=== PATIENT | male | born 1965 | race Caucasian/White ===

== ENCOUNTER 2020-06-26 08:17 | Outpatient (REF) | payer OTHER, SELFPAY | END 2020-06-26 08:18 | disposition home or self-care (01) | LOC: HO.LAB 08:17 | PROVIDERS: Visit Provider Internal Medicine | DX: Z20.822 Contact with and (suspected) exposure to COVID-19 (principal) | CPT/HCPCS: 36415; C9803; U0003 ==

== ENCOUNTER 2021-03-22 10:13 | Outpatient (REF) | payer OTHER, SELFPAY ==
[2021-03-22 11:09] LABS: MANUAL DIFF FLAG NO
[2021-03-22 11:12] LABS: Basophils Absolute Auto 0.1 X10*3/uL (0.0-0.2); Basophils Percent Auto 0.9 % (0-2); Eosinophils Absolute Auto 0.4 X10*3/uL (0.0-0.4); Eosinophils Percent Auto 5.5 % (0-4); Imm Gran Abs Auto 0.06 X10*3/uL (0.00-0.03); Imm Gran Pct Auto 0.9 % (0.0-0.4); Lymphocytes Absolute Auto 1.3 X10*3/uL (1.2-4.9); Lymphocytes Percent Auto 18.3 % (20-40); Mean Corpuscular HGB Conc 33.3 g/dl (31.0-36.0); Mean Corpuscular Hemoglobin 29.1 pg (27.0-33.0); Mean Corpuscular Volume 87.3 fL (80-98); Mean Platelet Volume 10.6 fL (9.4-12.4); Monocytes Absolute Auto 0.7 X10*3/uL (0.1-1.2); Monocytes Percent Auto 9.9 % (2-11); Neutrophils Absolute Auto 4.4 X10*3/uL (2.0-8.3); Neutrophils Percent Auto 64.5 % (45-73); Platelet Count 264 X10*3/uL (160-400); Red Blood Count 4.81 X10*6/uL (4.60-5.80); Red Cell Distribution Width 12.4 % (11.0-16.0); White Blood Count 6.9 X10*3/uL (4.8-10.8)
[2021-03-22 11:23] LABS: Estimated Average Glucose 146 mg/dL; Hemoglobin A1c % 6.7 %
[2021-03-22 11:31] LABS: Creatinine Urine 149.59 mg/dL
[2021-03-22 11:33] LABS: Alanine Aminotransferase 38 U/L (0-40); Albumin Level 4.3 g/dL (3.5-5.0); Alkaline Phosphatase 63 U/L (39-117); Anion Gap 13 (12-20); Aspartate Amino Transferase 27 U/L (5-37); Bilirubin Total 0.4 mg/dL (0.0-1.0); Blood Urea Nitrogen 17 mg/dL (9-16); Calcium 9.5 mg/dL (8.4-10.2); Carbon Dioxide 28 mmol/L (22-29); Chloride 104 mmol/L (96-108); Cholesterol 229 mg/dL; Estimated Glomerular Filt Rate > 60; Glucose Fasting 119 mg/dL (60-99); HDL Cholesterol 44 mg/dL; LDL Cholesterol Calculated 156 mg/dl; Potassium 4.6 mmol/L (3.3-5.1); Sodium 140 mmol/L (135-145); Total Protein 6.4 g/dL (6.5-8.0); Triglycerides 145 mg/dL
== END 2021-03-22 10:14 | disposition home or self-care (01) ==
LOC: HO.HMGCLDS 10:13
PROVIDERS: PCP Internal Medicine; Visit Provider Internal Medicine
DX: Z00.00 Encounter for general adult medical examination without abnormal findings (principal); E11.9 Type 2 diabetes mellitus without complications
CPT/HCPCS: 36415; 80053; 80061; 82043; 83036; 85025

== ENCOUNTER 2021-08-20 06:48 | Outpatient (REF) | payer OTHER, SELFPAY ==
[2021-08-20 07:57] LABS: Alanine Aminotransferase 62 U/L (0-40); Albumin Level 4.5 g/dL (3.5-5.0); Alkaline Phosphatase 75 U/L (39-117); Anion Gap 13 (12-20); Aspartate Amino Transferase 34 U/L (5-37); Bilirubin Total 0.6 mg/dL (0.0-1.0); Blood Urea Nitrogen 21 mg/dL (9-16); Carbon Dioxide 29 mmol/L (22-29); Chloride 100 mmol/L (96-108); Cholesterol 243 mg/dL; Estimated Glomerular Filt Rate > 60; Glucose Fasting 162 mg/dL (60-99); HDL Cholesterol 43 mg/dL; LDL Cholesterol Calculated 165 mg/dl; Potassium 4.5 mmol/L (3.3-5.1); Sodium 137 mmol/L (135-145); Total Protein 7.2 g/dL (6.5-8.0); Triglycerides 175 mg/dL
[2021-08-20 08:05] LABS: Estimated Average Glucose 146 mg/dL; Hemoglobin A1c % 6.7 %
[2021-08-20 08:25] LABS: TSH reflex Free T4 1.48 uIU/mL (0.32-4.0)
[2021-08-20 08:58] LABS: Prostate Specific Antigen Scr 0.44 ng/mL (<0.05-4.0)
== END 2021-08-20 06:49 | disposition home or self-care (01) ==
LOC: HO.LAB 06:48
PROVIDERS: PCP Physician Assistant; Visit Provider Physician Assistant
DX: E11.69 Type 2 diabetes mellitus with other specified complication (principal); E66.9 Obesity, unspecified; I25.10 Atherosclerotic heart disease of native coronary artery without angina pectoris; Z12.5 Encounter for screening for malignant neoplasm of prostate
CPT/HCPCS: 36415; 80053; 80061; 83036; 84153; 84443

== ENCOUNTER 2021-10-09 09:03 | Outpatient (REF) | payer OTHER, SELFPAY ==
--- NOTE | 2021-10-09 09:07 | EMG_ITS ---
Bilateral tibial and peroneal motor studies were performed. Bilateral sural and superficial peroneal sensory studies were performed. Tibial H reflexes were obtained and paraspinal muscles were tested with a needle. IMPRESSION: 1. 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 2. Chronic bilateral lower lumbar radiculopathy. MD JATIN Breaux/JAVI / [id number]
== END 2021-10-09 09:04 | disposition home or self-care (01) ==
LOC: HO.NEURO 09:03
PROVIDERS: Visit Provider Physician Assistant
DX: E11.42 Type 2 diabetes mellitus with diabetic polyneuropathy (principal)
CPT/HCPCS: 95886; 95911

== ENCOUNTER 2022-09-13 16:13 | Emergency (ER) | payer OTHER, SELFPAY ==
--- NOTE | ~2022-09-13 | XR_ITS ---
EXAMINATION: XR CHEST CLINICAL INFORMATION: SOB COMPARISON: None available. TECHNIQUE: Frontal view of the chest was obtained. FINDINGS: No significant abnormality is noted involving the heart, lungs, mediastinum, bony thorax or soft tissues. XR/XR chest 1V IMPRESSION: Unremarkable chest examination.
--- NOTE | ~2022-09-13 | CT_ITS ---
EXAMINATION: CT ANGIOGRAM OF CHEST PE PROTOCOL CT ABDOMEN AND PELVIS WITH INTRAVENOUS CONTRAST CLINICAL INFORMATION: Tachycardia, chest pain, shortness of breath on exertion. Left lower quadrant abdominal pain. CVA tenderness. COMPARISON: Chest x-ray of 09/13/2022. TECHNIQUE: A few noncontrast axial images of the chest are obtained for contrast localization purposes. Following intravenous administration of 85 mL of Omnipaque [address] imaging of the chest is acquired as per protocol to evaluate for pulmonary embolism. Postprocessing is performed at a dedicated workstation. Multiplanar reformatted images and vascular MIPS are submitted for review. Following acquisition of the chest CT, multidetector volumetric CT imaging of the abdomen and pelvis is acquired. Postprocessing is performed at a dedicated workstation. Multiplanar reformatted images are submitted. This CT scan was performed using dose optimization techniques as appropriate to a performed exam including the following: *Automated exposure control *Adjustment of mA and/or kV according to patient size (this includes techniques or standardized protocols for targeted exams were dose is matched to indication/reason for exam; i.e. extremities or head) *Use of iterative reconstruction technique. Total exam dose-length product: 1136 mGy-cm FINDINGS: CHEST: VASCULAR: There is suboptimal opacification of the pulmonary arterial tree; however, there is no evidence of central pulmonary emboli. Evaluation in the lobar and segmental branches is somewhat limited. Aorta is normal in caliber and well opacified. No evidence of aortic dissection. MEDIASTINUM: [place] coronary calcifications. Post-surgical changes of cardiac bypass are noted. No pericardial effusion. Trachea and central bronchi are well patent. No evidence of mediastinal or hilar adenopathy. LUNG: No nodules, mass, or focal consolidation. PLEURA: No pleural effusion. No pneumothorax. No pleural mass or thickening. THYROID GLAND: No focal nodule is seen in the visualized thyroid. CHEST WALL/AXILLA: Unremarkable. ABDOMEN/PELVIS: LIVER: The liver is mildly prominent in size. There is diffuse low-attenuation of hepatic parenchyma consistent with steatosis. Subtle contour nodularity is noted specifically along the left hepatic lobe. In the background of hepatic steatosis no focal liver lesion is seen. GALLBLADDER, AND BILIARY TREE: The gallbladder is unremarkable with no evidence of radiopaque gallstones, gallbladder wall thickening, or obvious pericholecystic inflammatory changes. PANCREAS: Normal; no mass or surrounding fluid. SPLEEN: Normal size. No focal lesion. Small splenic calcification is noted. ADRENAL GLANDS: Normal; no mass. KIDNEYS AND URETERS: The kidneys are normal in size, shape and attenuation. There is symmetrical enhancement of the kidneys. Multiple hypodense lesions are noted in the left kidney with the largest one measuring 2.2 cm which represents a cyst by CT Hounsfield units criteria. A 1.3 cm lesion in the upper pole of the left kidney anteriorly and 1.1 cm lesion in the lower pole of the left kidney laterally do not represent simple cysts by CT Hounsfield units criteria. A 0.8 cm low-attenuation arising from the mid to lower left kidney laterally represents a cyst by CT Hounsfield units criteria. A 6.4 x 5.5 x 6.6 cm low-attenuation lesion is noted extending from the renal sinus inferiorly represents a cystic lesion by CT Hounsfield units criteria. No evidence of radiopaque urinary tract calculi. URINARY BLADDER: No focal mass or wall thickening seen. No bladder calculi. GASTROINTESTINAL TRACT: The stomach is partially distended and grossly unremarkable. No abnormal small bowel dilatation. Colon is normal in caliber. No evidence of colonic wall thickening or pericolonic fat stranding. An appendix is normal. Diffuse colonic diverticulosis without acute diverticulitis. Moderate stool burden is noted in the colon. VASCULAR STRUCTURES: Saccular infrarenal abdominal aortic aneurysm is noted with maximum transverse diameter of 4.0 cm. Moderate calcific atherosclerosis of the aortoiliac vessels. LYMPH NODES: No evidence of pathologically-enlarged lymph nodes. PELVIC VISCERA: Unremarkable. FREE FLUID: None. ABDOMINAL WALL: Fat-containing umbilical hernia is noted measuring 3.8 x 2.9 x 4.5 cm. OSSEOUS STRUCTURES: No evidence of acute or suspicious osseous lesions in the chest, abdomen and pelvis. Sternotomy is well fused. Sternotomy wires appear intact. Mild degenerative changes in the lower thoracic spine and lower lumbar spine. Sclerotic density in the left femoral head has nonaggressive appearance and likely represents a bone island. CT/CT angio chest PE protocol IMPRESSION: 1. No evidence of central pulmonary emboli. Evaluation of the lobar and segmental pulmonary arteries is somewhat limited due to suboptimal opacification of the pulmonary arterial tree. 2. No acute abnormality in the chest. 3. Diffuse hepatic steatosis. Subtle contour nodularity in the left hepatic lobe raises possibility of cirrhosis. No focal liver lesion is seen. 4. Saccular infrarenal abdominal aortic aneurysm with maximum transverse diameter of 4.0 cm. Recommend annual follow up imaging. Recommend vascular consultation. 5. Colonic diverticulosis without acute diverticulitis. 6. Multiple hypodense left renal lesions do not represent simple cysts by CT Hounsfield units criteria. Recommend further evaluation with renal ultrasound. A large hypodense cystic right renal lesion measuring 6.6 cm in maximum dimension may represent large peripelvic cyst versus focal caliectasis. VTE: Indeterminate. The findings were discussed with referring provider Kesha Domingo, nurse practitioner on 09/13/2022 at 7:08 PM.
--- NOTE | 2022-09-13 16:18 | ECG_ITS ---
Test Reason : SOB Blood Pressure : / mmHG Vent. Rate : 110 BPM Atrial Rate : 110 BPM P-R Int : 174 ms QRS Dur : 092 ms QT Int : 352 ms P-R-T Axes : 074 049 049 degrees QTc Int : 476 ms Sinus tachycardia Otherwise normal ECG When compared with ECG of 04-APR-2017 07:32, No significant change was found Referred By: Jaxson Man Electronically Signed By:Jared Gallo
[2022-09-13 16:24] VITALS: BP 126/87; PULSE 110; RESP 18; TEMP 37; O2SAT 97; BMI 33.1
--- NOTE | 2022-09-13 16:24 | ED.GENADULT ---
HPI - General Adult General Chief complaint: General Medical <BEVERLY Landeros - Last Filed: 09/13/22 16:26> Stated complaint: difficulty breathing, muscle spasms <BEVERLY Landeros - Last Filed: 09/13/22 16:26> Time Seen by Provider: 09/13/22 16:30 <BEVERLY Landeros - Last Filed: 09/13/22 16:26> Source: patient <Kesha Domingo NP - Last Filed: 09/13/22 23:48> Mode of arrival: ambulatory <Kesha Domingo NP - Last Filed: 09/13/22 23:48> Limitations: no limitations <Kesha Domingo NP - Last Filed: 09/13/22 23:48> History of Present Illness HPI narrative: 57-year-old male presents with 1 week of substernal chest pressure, shortness of breath, shortness of breath on exertion, cough, congestion, and abdominal spasming with tachycardia. <Kesha Domingo NP - Last Filed: 09/13/22 23:48> Onset (ago): week(s) (1) <Kesha Domingo NP - Last Filed: 09/13/22 23:48> Location: chest and abdomen <Kesha Domingo NP - Last Filed: 09/13/22 23:48> Radiation: back <Kesha Domingo NP - Last Filed: 09/13/22 23:48> Severity: moderate <Kesha Domingo NP - Last Filed: 09/13/22 23:48> Severity scale (1-10): 7 <Kesha Domingo NP - Last Filed: 09/13/22 23:48> Quality: aching <Kesha Domingo NP - Last Filed: 09/13/22 23:48> Pain Consistency: intermittent and colicky <Kesha Domingo NP - Last Filed: 09/13/22 23:48> Relieving factors: none <Kesha Domingo NP - Last Filed: 09/13/22 23:48> Exacerbating factors: movement <Kesha Domingo NP - Last Filed: 09/13/22 23:48> Associated symptoms: cough <Kesha Domingo NP - Last Filed: 09/13/22 23:48> Treatments prior to arrival: none <Kesha Domingo NP - Last Filed: 09/13/22 23:48> Related Data Home medications: Home Medications Medication Instructions Recorded Confirmed aspirin 81 mg tablet,delayed 81 mg PO DAILY 04/24/20 04/16/22 release diltiazem HCl 240 mg 240 mg PO DAILY 04/24/20 04/16/22 capsule,extended release 24 hr fluticasone 500 mcg-salmeterol 50 ea inhalation 04/24/20 04/16/22 mcg/dose blistr powdr for inhalation lisinopril 5 mg tablet 5 mg PO DAILY 04/24/20 04/16/22 alcohol swabs (Alcohol Prep Pads) 1 pad topical .three times a day 04/01/21 04/16/22 DX: E11.9 blood sugar diagnostic (FreeStyle 04/01/21 04/16/22 Lite Strips) Previous Rx's Medication Instructions Recorded albuterol sulfate 90 mcg/actuation 2 puff inhalation Q4-6H PRN 07/04/20 aerosol inhaler shortness of breath or wheezing #8.5 grams blood-glucose meter (FreeStyle #1 ea 04/01/21 Lite Meter kit) lancets 28 gauge (FreeStyle #300 ea 04/01/21 Lancets) blood pressure test kit-large #1 ea 06/12/21 tizanidine 2 mg tablet 4 mg PO BEDTIME PRN muscle 06/24/21 spasticity 15 days #30 tabs hydrochlorothiazide 25 mg tablet 25 mg PO DAILY #90 tabs 02/01/22 rosuvastatin 40 mg tablet (Crestor) 40 mg PO DAILY 90 days #90 tabs 03/01/22 citalopram 40 mg tablet 40 mg PO DAILY #90 tabs 06/03/22 gabapentin 400 mg capsule 400 mg PO TID 90 days #270 caps 06/03/22 nirmatrelvir 300 mg (150 mg See Rx Instructions PO .COMPLEX 06/03/22 x2)-ritonavir 100 mg tablet,dose #30 ea pack(EUA) (Paxlovid) dulaglutide 1.5 mg/0.5 mL 1.5 mg (0.5 mL) subcut QWEEK #2 mL 07/21/22 subcutaneous pen injector isosorbide mononitrate 30 mg 30 mg PO BID 90 days #180 tabs 08/25/22 tablet,extended release 24 hr pregabalin 100 mg capsule (Lyrica) 100 mg PO BID 30 days #60 caps 08/25/22 omeprazole 40 mg capsule,delayed 40 mg PO DAILY #90 caps 09/09/22 release <BEVERLY Landeros - Last Filed: 09/13/22 16:26> Allergies/adverse reactions: Allergies Allergy/AdvReac Type Severity Reaction Status Date / Time No Known Allergies Allergy Verified 04/16/22 09:58 [No Known Allergies*] <BEVERLY Landeros - Last Filed: 09/13/22 16:26> Review of Systems Review of Systems: Constitutional: No Fever, No Chills Cardiovascular: Positive substernal Chest Pain, positive SOB, positive palpitations Respiratory: Positive Cough, positive Dyspnea Gastrointestinal: No Nausea, No Vomiting, No Diarrhea, positive abdominal Pain Genitourinary: No Dysuria, No Hematuria Musculoskeletal: No joint pain, No Myalgias, No Joint Swelling Skin: No Skin lacerations, No rash Neuro: No Weakness, No Numbness, No Paresthesias, positive Dizziness, No Headache Psych: Positive Anxiety/Panic, No Depression <Kesha Domingo NP - Last Filed: 09/13/22 23:48> Yes all other systems are reviewed and are negative <Kesha Domingo NP - Last Filed: 09/13/22 23:48> [facility] Past Medical History Attestation statement: The following information was validated with the patient. <Kesha Domingo NP - Last Filed: 09/13/22 23:48> Source: old records reviewed <Kesha Domingo NP - Last Filed: 09/13/22 23:48> Medical History: Medical History Asthma-COPD overlap syndrome Coronary artery disease Diabetes mellitus Diabetic neuropathy Obesity Type 2 diabetes mellitus with obesity <BEVERLY Landeros - Last Filed: 09/13/22 16:26> Surgical History: Surgical History History of herniated intervertebral disc S/P CABG x 3 <BEVERLY Landeros - Last Filed: 09/13/22 16:26> Family History Family History: Family History Father Lung cancer Mother No problems noted. Family/Other Lung cancer Diabetes <BEVERLY Landeros - Last Filed: 09/13/22 16:26> Social History Social History: Social History Housing: House Alcohol intake: never Patient Tobacco Use Status: Former Tobacco user (16 years ago) Tobacco use type: Cigarette e-Cigarette/Vaping Use: Never Used Second Hand Smoke Exposure: No Advance Directives: No Advance Directives Information Provided: No service: No Current occupational status: disabled Cognitive needs: No Hearing needs: No Vision needs: No <BEVERLY Landeros - Last Filed: 09/13/22 16:26> Physical Exam ED Vital Signs: Vital Signs - 24 hr 09/13/22 16:24 09/13/22 19:35 Temperature 98.6 F 97.6 F Pulse Rate 110 H 105 H Respiratory Rate 18 17 Blood Pressure 126/87 131/88 Pulse Oximetry 97 95 Oxygen Delivery Method Room Air Room Air BMI result Body Mass Index 33.1 <BEVERLY Landeros - Last Filed: 09/13/22 16:26> Vital Signs - 24 hr 09/13/22 16:24 09/13/22 19:35 Temperature 98.6 F 97.6 F Pulse Rate 110 H 105 H Respiratory Rate 18 17 Blood Pressure 126/87 131/88 Pulse Oximetry 97 95 Oxygen Delivery Method Room Air Room Air BMI result Body Mass Index 33.1 <Kesha Domingo NP - Last Filed: 09/13/22 23:48> Appearance: Alert. Oriented X3. Moderate distress. Eyes: Pupils equal, round and reactive to light. Sclera nonicteric. EOMI. ENT: Pharynx normal. Moist mucous membranes. Neck: Normal inspection. Neck supple. No JVD. No vertebral tenderness. No nuchal rigidity. No mastoid tenderness. CVS: Tachycardic heart rate and rhythm. Apical pulse equal pulses to extremities. Respiratory: No respiratory distress. Breath sounds normal. Abdomen: Soft and left lower quadrant tenderness to palpation.. Spasming noted throughout. Left-sided CVA tenderness noted. Skin: Skin warm and dry. Normal skin color. Normal skin turgor. Extremities: No lower extremity edema. Gait balance and coordinated. Neuro: No motor deficit. No sensory deficit. Cranial nerves 2-12 intact. <Kesha Domingo NP - Last Filed: 09/13/22 23:48> Course Course Course Narrative: This is an RME: Additional HPI, ROS, PE not included below will be deferred to primary provider. 57-year-old male history of COPD, hypertension, coronary artery disease, asthma presenting to the emergency department for evaluation of fatigue, malaise, myalgias, shortness of breath only with coughing and exertion, constipation, subjective fevers and chills, abdominal spasming, substernal chest pressure x5 days. Patient's review of systems overwhelmingly positive. No history of DVT or PE or hypercoagulable disorders. Physical exam benign. Slightly tachycardic however anxious. All other vital signs stable patient well-appearing Plan basic labs, imaging, viral testing and cardiac enzyme <BEVERLY Landeros - Last Filed: 09/13/22 16:26> This is an RME: Additional HPI, ROS, PE not included below will be deferred to primary provider. 57-year-old male history of COPD, hypertension, coronary artery disease, asthma presenting to the emergency department for evaluation of fatigue, malaise, myalgias, shortness of breath only with coughing and exertion, constipation, subjective fevers and chills, abdominal spasming, substernal chest pressure x5 days. Patient's review of systems overwhelmingly positive. No history of DVT or PE or hypercoagulable disorders. Physical exam benign. Slightly tachycardic however anxious. All other vital signs stable patient well-appearing Plan basic labs, imaging, viral testing and cardiac enzyme 16:45 57-year-old male presents for increased shortness of breath, tachycardia, pain on inspiration, subjective fevers and chills, worsening shortness of breath on exertion, substernal chest pressure for approximately 5 days and 2 days of abdominal cramping. 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 Patient does have a significant history for CABG, type 2 diabetes insulin-dependent with polyneuropathy, COPD asthma overlap syndrome, and CAD. Considering patient has tachycardia, diabetes, obesity, with shortness of breath on exertion, and substernal chest pain will workup for ACS as well as PE study. 17:08 glucose 520. List pro 10. Patient did not take Trulicity this week. Corrected sodium 139. Troponin is negative. EKG sinus tach, no ST elevation or depression 18:[address] PE study and abdomen pelvis still pending. COVID influenza RSV negative. 19:07 [facility] called for report, while study was suboptimal for small-vessel embolism in lungs, no indication of PE, no acute chest findings, no acute abdominal findings, there are some findings in the kidneys that require outpatient monitoring with renal ultrasound. I did discuss these findings with the patient, plan of care is for patient to follow up with primary for outpatient renal ultrasound bilaterally, and for blood sugar management. Will continue with supportive measures, Tylenol, Motrin, plenty of fluids, and better management of his diabetes with medication compliance. Patient continues to be afebrile, nontoxic, even unlabored respirations, O2 sat 99% on room air. Patient verbalized understanding of and agrees to plan of care discharge home. Verbalized understanding of signs and symptoms indicating need for emergent intervention. <Kesha Domingo NP - Last Filed: 09/13/22 23:48> Medications Administered Discontinued Medications Generic Name Dose Route Start Last Admin Trade Name Freq PRN Reason Stop Dose Admin Insulin Human Lispro 10 unit 09/13/22 17:09 09/13/22 17:19 Insulin Lispro 100 Unit/Ml 3 Ml Vial SUBCUT 09/13/22 17:10 10 unit ONCE ONE Administration Iohexol 100 ml 09/13/22 17:45 09/13/22 17:46 Iohexol 350 Mg/Ml 100 Ml Infus..Btl IV 09/13/22 17:46 85 ml ONCE ONE Administration <BEVERLY Landeros - Last Filed: 09/13/22 16:26> Medications Administered Discontinued Medications Generic Name Dose Route Start Last Admin Trade Name Freq PRN Reason Stop Dose Admin Insulin Human Lispro 10 unit 09/13/22 17:09 09/13/22 17:19 Insulin Lispro 100 Unit/Ml 3 Ml Vial SUBCUT 09/13/22 17:10 10 unit ONCE ONE Administration Iohexol 100 ml 09/13/22 17:45 09/13/22 17:46 Iohexol 350 Mg/Ml 100 Ml Infus..Btl IV 09/13/22 17:46 85 ml ONCE ONE Administration <Kesah Domingo NP - Last Filed: 09/13/22 23:48> Medical Decision Making Differential Diagnosis Differential Diagnoses: The differential diagnosis associated with the presentation includes <Kesha Domingo NP - Last Filed: 09/13/22 23:48> ACS, PE, pneumonia, diverticulitis, renal stones, pyelo, influenza, RSV, COVID <Kesha Domingo NP - Last Filed: 09/13/22 23:48> Admission/Observation Consideration of admission/observation: Escalation of care including admission/observation considered <Kesha Domingo NP - Last Filed: 09/13/22 23:48> If patient has any acute findings on labs or exams, will consider admission <Kesha Domingo NP - Last Filed: 09/13/22 23:48> Lab Data MDM Lab Attestation statement: I reviewed the patient's lab results. <Kesha Domingo NP - Last Filed: 09/13/22 23:48> Result Diagrams: 09/13/22 16:42 09/13/22 16:42 <BEVERLY Landeros - Last Filed: 09/13/22 16:26> Labs: Lab Results 09/13/22 09/13/22 09/13/22 Range/Units 16:42 16:42 16:42 WBC 8.4 (4.8-10.8) X10*3/uL RBC 5.30 (4.60-5.80) X10*6/uL Hgb 15.0 (14.0-18.0) g/dl Hct 44.1 (42.0-52.0) % MCV 83.2 (80.0-98.0) fL MCH 28.3 (27.0-33.0) pg MCHC 34.0 (31.0-36.0) g/dl RDW 12.3 (11.0-16.0) % Plt Count 241 (160-400) X10*3/uL MPV 10.6 (9.4-12.4) fL Immature Gran % (Auto) 0.4 (0.0-0.4) % Neut % (Auto) 76.3 H (45-73) % Lymph % (Auto) 13.5 L (20-40) % [place] % (Auto) 8.2 (2-11) % Eos % (Auto) 1.2 (0-4) % Baso % (Auto) 0.4 (0-2) % Lymph # (Auto) 1.1 L (1.2-4.9) X10*3/uL [place] # (Auto) 0.7 (0.1-1.2) X10*3/uL Eos # (Auto) 0.1 (0.0-0.4) X10*3/uL Baso # (Auto) 0.0 (0.0-0.2) X10*3/uL Abs Immat Gran (auto) 0.03 (0.00-0.03) X10*3/uL Absolute Neuts (auto) 6.4 (2.0-8.3) x10*3/uL Absolute Nucleated RBC 0.000 (0.0-0.012) X10*3/uL Nucleated RBC % (auto) 0.0 (0.0-0.2) /100WBC Sodium 132 L (135-145) mmol/L Potassium 3.3 D (3.3-5.1) mmol/L Chloride 96 (96-108) mmol/L Carbon Dioxide 22 (22-29) mmol/L Anion Gap 17 (12-20) BUN 19 H (9-16) mg/dL Creatinine 1.32 (0.5-1.4) mg/dL Estim Creat Clear Calc 73.9 Estimated GFR 56 POC Glucose (60-115) mg/dL Random Glucose 520 H* (60-115) mg/dL Calcium 8.9 D (8.4-10.2) mg/dL Magnesium 1.9 (1.6-2.6) mg/dL Total Bilirubin 0.7 (0.0-1.0) mg/dL AST 56 H (5-37) U/L ALT 68 H (0-40) U/L Alkaline Phosphatase 86 (39-117) U/L Troponin I High Sens < 3.5 (<3.5-35.0) ng/L B-Natriuretic Peptide (<100) pg/mL Total Protein 6.3 L (6.5-8.0) g/dL Albumin 4.1 (3.5-5.0) g/dL COVID-19 (YASSINE) (Negative) COVID-19 Clin Com Influenza Type A (ALCIDES) (Negative) Influenza Type B (ALCIDES) (Negative) Influenza A & B Note 09/13/22 09/13/22 09/13/22 Range/Units 16:42 16:42 17:10 WBC (4.8-10.8) X10*3/uL RBC (4.60-5.80) X10*6/uL Hgb (14.0-18.0) g/dl Hct (42.0-52.0) % MCV (80.0-98.0) fL MCH (27.0-33.0) pg MCHC (31.0-36.0) g/dl RDW (11.0-16.0) % Plt Count (160-400) X10*3/uL MPV (9.4-12.4) fL Immature Gran % (Auto) (0.0-0.4) % Neut % (Auto) (45-73) % Lymph % (Auto) (20-40) % [place] % (Auto) (2-11) % Eos % (Auto) (0-4) % Baso % (Auto) (0-2) % Lymph # (Auto) (1.2-4.9) X10*3/uL [place] # (Auto) (0.1-1.2) X10*3/uL Eos # (Auto) (0.0-0.4) X10*3/uL Baso # (Auto) (0.0-0.2) X10*3/uL Abs Immat Gran (auto) (0.00-0.03) X10*3/uL Absolute Neuts (auto) (2.0-8.3) x10*3/uL Absolute Nucleated RBC (0.0-0.012) X10*3/uL Nucleated RBC % (auto) (0.0-0.2) /100WBC Sodium (135-145) mmol/L Potassium (3.3-5.1) mmol/L Chloride (96-108) mmol/L Carbon Dioxide (22-29) mmol/L Anion Gap (12-20) BUN (9-16) mg/dL Creatinine (0.5-1.4) mg/dL Estim Creat Clear Calc Estimated GFR POC Glucose (60-115) mg/dL Random Glucose (60-115) mg/dL Calcium (8.4-10.2) mg/dL Magnesium (1.6-2.6) mg/dL Total Bilirubin (0.0-1.0) mg/dL AST (5-37) U/L ALT (0-40) U/L Alkaline Phosphatase (39-117) U/L Troponin I High Sens (<3.5-35.0) ng/L B-Natriuretic Peptide < 10 (<100) pg/mL Total Protein (6.5-8.0) g/dL Albumin (3.5-5.0) g/dL COVID-19 (YASSINE) Negative (Negative) COVID-19 Clin Com See Note Influenza Type A (ALCIDES) Negative (Negative) Influenza Type B (ALCIDES) Negative (Negative) Influenza A & B Note See Note 09/13/22 Range/Units 18:47 WBC (4.8-10.8) X10*3/uL RBC (4.60-5.80) X10*6/uL Hgb (14.0-18.0) g/dl Hct (42.0-52.0) % MCV (80.0-98.0) fL MCH (27.0-33.0) pg MCHC (31.0-36.0) g/dl RDW (11.0-16.0) % Plt Count (160-400) X10*3/uL MPV (9.4-12.4) fL Immature Gran % (Auto) (0.0-0.4) % Neut % (Auto) (45-73) % Lymph % (Auto) (20-40) % [place] % (Auto) (2-11) % Eos % (Auto) (0-4) % Baso % (Auto) (0-2) % Lymph # (Auto) (1.2-4.9) X10*3/uL [place] # (Auto) (0.1-1.2) X10*3/uL Eos # (Auto) (0.0-0.4) X10*3/uL Baso # (Auto) (0.0-0.2) X10*3/uL Abs Immat Gran (auto) (0.00-0.03) X10*3/uL Absolute Neuts (auto) (2.0-8.3) x10*3/uL Absolute Nucleated RBC (0.0-0.012) X10*3/uL Nucleated RBC % (auto) (0.0-0.2) /100WBC Sodium (135-145) mmol/L Potassium (3.3-5.1) mmol/L Chloride (96-108) mmol/L Carbon Dioxide (22-29) mmol/L Anion Gap (12-20) BUN (9-16) mg/dL Creatinine (0.5-1.4) mg/dL Estim Creat Clear Calc Estimated GFR POC Glucose 249 H (60-115) mg/dL Random Glucose (60-115) mg/dL Calcium (8.4-10.2) mg/dL Magnesium (1.6-2.6) mg/dL Total Bilirubin (0.0-1.0) mg/dL AST (5-37) U/L ALT (0-40) U/L Alkaline Phosphatase (39-117) U/L Troponin I High Sens (<3.5-35.0) ng/L B-Natriuretic Peptide (<100) pg/mL Total Protein (6.5-8.0) g/dL Albumin (3.5-5.0) g/dL COVID-19 (YASSINE) (Negative) COVID-19 Clin Com Influenza Type A (ALCIDES) (Negative) Influenza Type B (ALCIDES) (Negative) Influenza A & B Note <BEVERLY Landeros - Last Filed: 09/13/22 16:26> Lab Results 09/13/22 09/13/22 09/13/22 Range/Units 16:42 16:42 16:42 WBC 8.4 (4.8-10.8) X10*3/uL RBC 5.30 (4.60-5.80) X10*6/uL Hgb 15.0 (14.0-18.0) g/dl Hct 44.1 (42.0-52.0) % MCV 83.2 (80.0-98.0) fL MCH 28.3 (27.0-33.0) pg MCHC 34.0 (31.0-36.0) g/dl RDW 12.3 (11.0-16.0) % Plt Count 241 (160-400) X10*3/uL MPV 10.6 (9.4-12.4) fL Immature Gran % (Auto) 0.4 (0.0-0.4) % Neut % (Auto) 76.3 H (45-73) % Lymph % (Auto) 13.5 L (20-40) % [place] % (Auto) 8.2 (2-11) % Eos % (Auto) 1.2 (0-4) % Baso % (Auto) 0.4 (0-2) % Lymph # (Auto) 1.1 L (1.2-4.9) X10*3/uL [place] # (Auto) 0.7 (0.1-1.2) X10*3/uL Eos # (Auto) 0.1 (0.0-0.4) X10*3/uL Baso # (Auto) 0.0 (0.0-0.2) X10*3/uL Abs Immat Gran (auto) 0.03 (0.00-0.03) X10*3/uL Absolute Neuts (auto) 6.4 (2.0-8.3) x10*3/uL Absolute Nucleated RBC 0.000 (0.0-0.012) X10*3/uL Nucleated RBC % (auto) 0.0 (0.0-0.2) /100WBC Sodium 132 L (135-145) mmol/L Potassium 3.3 D (3.3-5.1) mmol/L Chloride 96 (96-108) mmol/L Carbon Dioxide 22 (22-29) mmol/L Anion Gap 17 (12-20) BUN 19 H (9-16) mg/dL Creatinine 1.32 (0.5-1.4) mg/dL Estim Creat Clear Calc 73.9 Estimated GFR 56 POC Glucose (60-115) mg/dL Random Glucose 520 H* (60-115) mg/dL Calcium 8.9 D (8.4-10.2) mg/dL Magnesium 1.9 (1.6-2.6) mg/dL Total Bilirubin 0.7 (0.0-1.0) mg/dL AST 56 H (5-37) U/L ALT 68 H (0-40) U/L Alkaline Phosphatase 86 (39-117) U/L Troponin I High Sens < 3.5 (<3.5-35.0) ng/L B-Natriuretic Peptide (<100) pg/mL Total Protein 6.3 L (6.5-8.0) g/dL Albumin 4.1 (3.5-5.0) g/dL COVID-19 (YASSINE) (Negative) COVID-19 Clin Com Influenza Type A (ALCIDES) (Negative) Influenza Type B (ALCIDES) (Negative) Influenza A & B Note 09/13/22 09/13/22 09/13/22 Range/Units 16:42 16:42 17:10 WBC (4.8-10.8) X10*3/uL RBC (4.60-5.80) X10*6/uL Hgb (14.0-18.0) g/dl Hct (42.0-52.0) % MCV (80.0-98.0) fL MCH (27.0-33.0) pg MCHC (31.0-36.0) g/dl RDW (11.0-16.0) % Plt Count (160-400) X10*3/uL MPV (9.4-12.4) fL Immature Gran % (Auto) (0.0-0.4) % Neut % (Auto) (45-73) % Lymph % (Auto) (20-40) % [place] % (Auto) (2-11) % Eos % (Auto) (0-4) % Baso % (Auto) (0-2) % Lymph # (Auto) (1.2-4.9) X10*3/uL [place] # (Auto) (0.1-1.2) X10*3/uL Eos # (Auto) (0.0-0.4) X10*3/uL Baso # (Auto) (0.0-0.2) X10*3/uL Abs Immat Gran (auto) (0.00-0.03) X10*3/uL Absolute Neuts (auto) (2.0-8.3) x10*3/uL Absolute Nucleated RBC (0.0-0.012) X10*3/uL Nucleated RBC % (auto) (0.0-0.2) /100WBC Sodium (135-145) mmol/L Potassium (3.3-5.1) mmol/L Chloride (96-108) mmol/L Carbon Dioxide (22-29) mmol/L Anion Gap (12-20) BUN (9-16) mg/dL Creatinine (0.5-1.4) mg/dL Estim Creat Clear Calc Estimated GFR POC Glucose (60-115) mg/dL Random Glucose (60-115) mg/dL Calcium (8.4-10.2) mg/dL Magnesium (1.6-2.6) mg/dL Total Bilirubin (0.0-1.0) mg/dL AST (5-37) U/L ALT (0-40) U/L Alkaline Phosphatase (39-117) U/L Troponin I High Sens (<3.5-35.0) ng/L B-Natriuretic Peptide < 10 (<100) pg/mL Total Protein (6.5-8.0) g/dL Albumin (3.5-5.0) g/dL COVID-19 ([facility]INE) Negative (Negative) COVID-19 Clin Com See Note Influenza Type A (ALCIDES) Negative (Negative) Influenza Type B (ALCIDES) Negative (Negative) Influenza A & B Note See Note 09/13/22 Range/Units 18:47 WBC (4.8-10.8) X10*3/uL RBC (4.60-5.80) X10*6/uL Hgb (14.0-18.0) g/dl Hct (42.0-52.0) % MCV (80.0-98.0) fL MCH (27.0-33.0) pg MCHC (31.0-36.0) g/dl RDW (11.0-16.0) % Plt Count (160-400) X10*3/uL MPV (9.4-12.4) fL Immature Gran % (Auto) (0.0-0.4) % Neut % (Auto) (45-73) % Lymph % (Auto) (20-40) % [place] % (Auto) (2-11) % Eos % (Auto) (0-4) % Baso % (Auto) (0-2) % Lymph # (Auto) (1.2-4.9) X10*3/uL [place] # (Auto) (0.1-1.2) X10*3/uL Eos # (Auto) (0.0-0.4) X10*3/uL Baso # (Auto) (0.0-0.2) X10*3/uL Abs Immat Gran (auto) (0.00-0.03) X10*3/uL Absolute Neuts (auto) (2.0-8.3) x10*3/uL Absolute Nucleated RBC (0.0-0.012) X10*3/uL Nucleated RBC % (auto) (0.0-0.2) /100WBC Sodium (135-145) mmol/L Potassium (3.3-5.1) mmol/L Chloride (96-108) mmol/L Carbon Dioxide (22-29) mmol/L Anion Gap (12-20) BUN (9-16) mg/dL Creatinine (0.5-1.4) mg/dL Estim Creat Clear Calc Estimated GFR POC Glucose 249 H (60-115) mg/dL Random Glucose (60-115) mg/dL Calcium (8.4-10.2) mg/dL Magnesium (1.6-2.6) mg/dL Total Bilirubin (0.0-1.0) mg/dL AST (5-37) U/L ALT (0-40) U/L Alkaline Phosphatase (39-117) U/L Troponin I High Sens (<3.5-35.0) ng/L B-Natriuretic Peptide (<100) pg/mL Total Protein (6.5-8.0) g/dL Albumin (3.5-5.0) g/dL COVID-19 (YASSINE) (Negative) COVID-19 Clin Com Influenza Type A (ALCIDES) (Negative) Influenza Type B (ALCIDES) (Negative) Influenza A & B Note <Kesha Domingo, [employer] - Last Filed: 09/13/22 23:48> Independent Interpretation I performed an independent interpretation of an: EKG, Plain X-Ray and CT Scan <Kesha ManriquezPATSY young - Last Filed: 09/13/22 23:48> Interpretation: Sinus tachycardia Otherwise normal ECG When compared with ECG of 04-APR-2017 07:32, No significant change was found Vent. rate 110 BPM GA interval 174 ms QRS duration 92 ms QT/QTc 352/476 ms P-R-T axes 74 49 49 13-SEP-2022 16:35:00 <Kesha ManriquezPATSY young - Last Filed: 09/13/22 23:48> Radiology Impression Discussion of test interpretation with radiology: I have reviewed the radiologist's reading. <Kesha PATSY Domingo - Last Filed: 09/13/22 23:48> Radiologist Impression: EXAMINATION: XR CHEST CLINICAL INFORMATION: SOB COMPARISON: None available. TECHNIQUE: Frontal view of the chest was obtained. FINDINGS: No significant abnormality is noted involving the heart, lungs, mediastinum, bony thorax or soft tissues. XR/XR chest 1V IMPRESSION: Unremarkable chest examination. ? FINDINGS: CHEST: VASCULAR: There is suboptimal opacification of the pulmonary arterial tree; however, there is no evidence of central pulmonary emboli. Evaluation in the lobar and segmental branches is somewhat limited. Aorta is normal in caliber and well opacified. No evidence of aortic dissection. MEDIASTINUM:? [place] coronary calcifications. Post-surgical changes of cardiac bypass are noted. No pericardial effusion. Trachea and central bronchi are well patent. No evidence of mediastinal or hilar adenopathy. LUNG: No nodules, mass, or focal consolidation. PLEURA: No pleural effusion. No pneumothorax.? No pleural mass or thickening. THYROID GLAND: No focal nodule is seen in the visualized thyroid. CHEST WALL/AXILLA: Unremarkable. ABDOMEN/PELVIS: LIVER: The liver is mildly prominent in size. There is diffuse low-attenuation of hepatic parenchyma consistent with steatosis. Subtle contour nodularity is noted specifically along the left hepatic lobe. In the background of hepatic steatosis no focal liver lesion is seen. GALLBLADDER, AND BILIARY TREE: The gallbladder is unremarkable with no evidence of radiopaque gallstones, gallbladder wall thickening, or obvious pericholecystic inflammatory changes. PANCREAS: Normal; no mass or surrounding fluid.? SPLEEN: Normal size.? No focal lesion. Small splenic calcification is noted. ADRENAL GLANDS: Normal; no mass.? KIDNEYS AND URETERS: The kidneys are normal in size, shape and attenuation. There is symmetrical enhancement of the kidneys. Multiple hypodense lesions are noted in the left kidney with the largest one measuring 2.2 cm which represents a cyst by CT Hounsfield units criteria. A 1.3 cm lesion in the upper pole of the left kidney anteriorly and 1.1 cm lesion in the lower pole of the left kidney laterally do not represent simple cysts by CT Hounsfield units criteria. A 0.8 cm low-attenuation arising from the mid to lower left kidney laterally represents a cyst by CT Hounsfield units criteria. A 6.4 x 5.5 x 6.6 cm low-attenuation lesion is noted extending from the renal sinus inferiorly represents a cystic lesion by CT Hounsfield units criteria. No evidence of radiopaque urinary tract calculi. URINARY BLADDER: No focal mass or wall thickening seen. No bladder calculi.? GASTROINTESTINAL TRACT: The stomach is partially distended and grossly unremarkable. No abnormal small bowel dilatation. Colon is normal in caliber. No evidence of colonic wall thickening or pericolonic fat stranding. An appendix is normal. Diffuse colonic diverticulosis without acute diverticulitis. Moderate stool burden is noted in the colon. VASCULAR STRUCTURES: Saccular infrarenal abdominal aortic aneurysm is noted with maximum transverse diameter of 4.0 cm. Moderate calcific atherosclerosis of the aortoiliac vessels. LYMPH NODES: No evidence of pathologically-enlarged lymph nodes.? PELVIC VISCERA: Unremarkable. FREE FLUID: None. ABDOMINAL WALL: Fat-containing umbilical hernia is noted measuring 3.8 x 2.9 x 4.5 cm. OSSEOUS STRUCTURES: No evidence of acute or suspicious osseous lesions in the chest, abdomen and pelvis. Sternotomy is well fused. Sternotomy wires appear intact. Mild degenerative changes in the lower thoracic spine and lower lumbar spine. Sclerotic density in the left femoral head has nonaggressive appearance and likely represents a bone island. CT/CT angio chest PE protocol IMPRESSION: 1.? No evidence of central pulmonary emboli. Evaluation of the lobar and segmental pulmonary arteries is somewhat limited due to suboptimal opacification of the pulmonary arterial tree. ? 2.? No acute abnormality in the chest. ? 3.? Diffuse hepatic steatosis. Subtle contour nodularity in the left hepatic lobe raises possibility of cirrhosis. No focal liver lesion is seen. ? 4.? Saccular infrarenal abdominal aortic aneurysm with maximum transverse diameter of 4.0 cm. Recommend annual follow up imaging. Recommend vascular consultation. ? 5.? Colonic diverticulosis without acute diverticulitis. ? 6.? Multiple hypodense left renal lesions do not represent simple cysts by CT Hounsfield units criteria. Recommend further evaluation with renal ultrasound. A large hypodense cystic right renal lesion measuring 6.6 cm in maximum dimension may represent large peripelvic cyst versus focal caliectasis. ? ? ? VTE: Indeterminate. ? The findings were discussed with referring provider Kesha Domingo nurse practitioner on 09/13/2022 at 7:08 PM. <Kesha Domingo NP - Last Filed: 09/13/22 23:48> External Record Review External record reviewed: Outpatient record, Prior outpatient labs and Prior outpatient radiology <Kesha Domingo NP - Last Filed: 09/13/22 23:48> Prescription Management I considered prescription management with: Pain Medication <Kesha Domingo NP - Last Filed: 09/13/22 23:48> Tylenol, Motrin <Kesha Domingo NP - Last Filed: 09/13/22 23:48> Chronic Conditions Patient?s care impacted by: Diabetes and Hypertension <Kesha Domingo NP - Last Filed: 09/13/22 23:48> Scores Heart Score History: -1- moderately suspicious <Kesha Domingo NP - Last Filed: 09/13/22 23:48> ECG: -0- normal <Kesha Domingo NP - Last Filed: 09/13/22 23:48> Age: -1- >45 - <65 <Kesha Domingo NP - Last Filed: 09/13/22 23:48> Risk factory: -1- 1 or 2 risk factors <Kesha Domingo NP - Last Filed: 09/13/22 23:48> Troponin: -0- < or = normal limit <Kesha Domingo NP - Last Filed: 09/13/22 23:48> Score: 3 <Kesha Domingo NP - Last Filed: 09/13/22 23:48> Risk: 1.7% <Kesha Domingo NP - Last Filed: 09/13/22 23:48> Wells PE Clinical symptoms of DVT: 3 <Kesha Domingo NP - Last Filed: 09/13/22 23:48> Heart rate > 100 p/min: 1.5 <Kesha Domingo NP - Last Filed: 09/13/22 23:48> Score: 4.5 <Kesha Domingo NP - Last Filed: 09/13/22 23:48> 2-tier Risk: likely risk (17-53%) <Kesha Domingo NP - Last Filed: 09/13/22 23:48> Discharge Plan Discharge Clinical Impression: Hyperglycemia due to type 2 diabetes mellitus, Abdominal cramping, Breath, shortness, Tachycardia, Chest pain, URI (upper respiratory infection) <BEVERLY Landeros - Last Filed: 09/13/22 16:26> Patient Disposition: Home, Self-Care <BEVERLY Landeros - Last Filed: 09/13/22 16:26> Instructions: Chest Pain (ED), Upper Respiratory Infection (ED), Abdominal Pain (ED), Diabetic Hyperglycemia (ED), Tachycardia (ED) <BEVERLY Landeros - Last Filed: 09/13/22 16:26> Additional Instructions: You were evaluated for multiple concerns. For your chest pain, shortness of breath, and tachycardia, your cardiac workup was negative. Your cardiac enzymes are negative. Low likelihood of acute coronary syndrome at this time. Your CT angio of the chest is negative for pulmonary embolism. No indication of pneumonia For your abdominal pain and cramping, CT of the abdomen pelvis are negative for acute findings. Incidental findings of bilateral renal cysts as well as densities that need to be investigated further as an outpatient. Please follow-up with your primary care physician for outpatient bilateral renal ultrasound. For your elevated glucose, please continue to follow your diabetic medication regimen. Please follow-up with primary care physician for follow-up. Your blood sugar was 520 upon arrival. We did give you 10 units of lispro insulin while you were in the emergency department. For your upper respiratory symptoms, you tested negative for COVID influenza and RSV. This is most likely a viral upper respiratory illness. Continue to use [id number] measures to help with cough, subjective fevers and muscle aches. You do not require antibiotic at this time. Drink plenty of fluids. Alternate Tylenol 650 mg every 6 hours and Motrin 600 mg every 6 hours as needed for pain and fever management. Consider taking these medications 3 hours apart so you have pain and fever management every 3 hours. Write down what time you take these medications to prevent accidental overdose. Motrin is the same medication as Advil and ibuprofen. Tylenol is the same medication as acetaminophen. Thank you for choosing this emergency department for evaluation. Please follow-up with primary care physician as needed. Return to the emergency department for any new, concerning, or worsening symptoms. <BEVERLY Landeros - Last Filed: 09/13/22 16:26> Prescriptions: No Action albuterol sulfate 90 mcg/actuation HFA aerosol inhaler 2 puff inhalation Q4-6H PRN (Reason: shortness of breath or wheezing) Qty: 8.5 1RF (DME) blood-glucose meter [FreeStyle Lite Meter] Kit See Rx Instructions .ROUTE .MEDSUPPLY Qty: 1 1RF Rx Instructions: Use to check blood sugars three times a day (DME) FreeStyle Lite Strips Strip See Rx Instructions .Route Rx Instructions: to check blood sugars three times a day (DME) lancets [FreeStyle Lancets] 28 gauge misc See Rx Instructions .Route Qty: 300 8RF Rx Instructions: three times a day alcohol swabs [Alcohol Prep Pads] Pads, Medicated 1 pad topical .three times a day tizanidine 2 mg tablet 4 mg PO BEDTIME PRN (Reason: muscle spasticity) 15 Days Qty: 30 1RF hydrochlorothiazide 25 mg tablet 25 mg PO DAILY Qty: 90 8RF rosuvastatin [Crestor] 40 mg tablet 40 mg PO DAILY 90 Days Qty: 90 1RF citalopram 40 mg tablet 40 mg PO DAILY Qty: 90 2RF gabapentin 400 mg capsule 400 mg PO TID 90 Days Qty: 270 2RF Paxlovid (EUA) 300 mg (150 mg x 2)-100 mg tablets,dose pack See Rx Instructions PO .COMPLEX Qty: 30 0RF Rx Instructions: take TWO 150 mg tablets of nirmatrelvir with ONE 100 mg tablet of ritonavir twice daily for 5 days PO dulaglutide 1.5 mg/0.5 mL pen injector 1.5 mg subcut QWEEK Qty: 2 8RF isosorbide mononitrate 30 mg tablet extended release 24 hr 30 mg PO BID 90 Days Qty: 180 1RF pregabalin [Lyrica] 100 mg capsule 100 mg PO BID 30 Days Qty: 60 3RF omeprazole 40 mg capsule,delayed release(DR/EC) 40 mg PO DAILY Qty: 90 3RF fluticasone propion-salmeterol 500-50 mcg/dose blister with device inhalation lisinopril 5 mg tablet 5 mg PO DAILY diltiazem HCl 240 mg capsule,extended release 24hr 240 mg PO DAILY aspirin 81 mg tablet,delayed release (DR/EC) 81 mg PO DAILY (DME) blood pressure test kit-large Kit See Rx Instructions .Route Qty: 1 0RF Rx Instructions: As directed <BEVERLY Landeros - Last Filed: 09/13/22 16:26> Referrals: Pipe Lizarraga PA-C [Primary Care Provider] - 2 weeks (Outpatient renal ultrasound for abnormal CT abdomen pelvis) <BEVERLY Landeros - Last Filed: 09/13/22 16:26> Interventions: ED Discharge Assessment Last Done: 09/13/22 19:40 <BEVERLY Landeros - Last Filed: 09/13/22 16:26> Discharge Date/Time: 09/13/22 19:39 <BEVERLY Landeros - Last Filed: 09/13/22 16:26>
[2022-09-13 16:47] LABS: MANUAL DIFF FLAG NO
[2022-09-13 16:48] LABS: Basophils Percent Auto 0.4 % (0-2); Eosinophils Absolute Auto 0.1 X10*3/uL (0.0-0.4); Eosinophils Percent Auto 1.2 % (0-4); Hematocrit 44.1 % (42.0-52.0); Imm Gran Abs Auto 0.03 X10*3/uL (0.00-0.03); Imm Gran Pct Auto 0.4 % (0.0-0.4); Lymphocytes Absolute Auto 1.1 X10*3/uL (1.2-4.9); Lymphocytes Percent Auto 13.5 % (20-40); Mean Corpuscular Hemoglobin 28.3 pg (27.0-33.0); Mean Corpuscular Volume 83.2 fL (80.0-98.0); Mean Platelet Volume 10.6 fL (9.4-12.4); Monocytes Absolute Auto 0.7 X10*3/uL (0.1-1.2); Monocytes Percent Auto 8.2 % (2-11); Neutrophils Absolute Auto 6.4 x10*3/uL (2.0-8.3); Neutrophils Percent Auto 76.3 % (45-73); Platelet Count 241 X10*3/uL (160-400); Red Cell Distribution Width 12.3 % (11.0-16.0); White Blood Count 8.4 X10*3/uL (4.8-10.8)
[2022-09-13 17:05] LABS: COVID-19 Test Negative (Negative); IDNOW Serial# 55D5AD1C
[2022-09-13 17:09] LABS: Alanine Aminotransferase 68 U/L (0-40); Albumin Level 4.1 g/dL (3.5-5.0); Alkaline Phosphatase 86 U/L (39-117); Anion Gap 17 (12-20); Aspartate Amino Transferase 56 U/L (5-37); Bilirubin Total 0.7 mg/dL (0.0-1.0); Blood Urea Nitrogen 19 mg/dL (9-16); Calcium 8.9 mg/dL (8.4-10.2); Carbon Dioxide 22 mmol/L (22-29); Chloride 96 mmol/L (96-108); Creatinine Clr Calc Pharmacy 73.9; Estimated Glomerular Filt Rate 56; Glucose Random 520 mg/dL (60-115); Magnesium 1.9 mg/dL (1.6-2.6); Potassium 3.3 mmol/L (3.3-5.1); Sodium 132 mmol/L (135-145); Total Protein 6.3 g/dL (6.5-8.0)
[2022-09-13 17:10] LABS: B Type Natriuretic Peptide < 10 pg/mL (<100)
[2022-09-13] MEDS: Insulin Lispro 100 UNIT/ML 3 ML VIAL 10 UNIT SUBCUT (17:19)
[2022-09-13 17:21] LABS: Troponin-I High Sensitivity < 3.5 ng/L (<3.5-35.0)
[2022-09-13 17:30] LABS: IDNOW Serial# BCCEAD1C; Influenza A Negative (Negative); Influenza B2 Negative (Negative)
[2022-09-13] MEDS: iohexoL 350 MG/ML 100 ML INFUS..BTL IV (17:46)
[2022-09-13 18:55] LABS: Glucose, Whole Blood 249 mg/dL (60-115)
--- NOTE | 2022-09-13 19:06 | PC.NURSE ---
assumed care of pt aox4 no apparent distress no sob, able to speak in full sentences at bedside resting comfortably while watching tv
[2022-09-13 19:35] VITALS: BP 131/88; PULSE 105; RESP 17; TEMP 36.4; O2SAT 95
--- NOTE | 2022-09-13 19:37 | PC.NURSE ---
Discharge instructions given and explained to patient No apparent distress Patient ambulates safely and independently All of patient's questions answered IV cath intact upon removal aox4
== END 2022-09-13 19:39 | disposition home or self-care (01) ==
PROVIDERS: Nurse Practitioner Family; Physician Assistant; Emergency Provider Emergency Medicine Emergency Medical Services; PCP Physician Assistant
DX: E11.65 Type 2 diabetes mellitus with hyperglycemia (principal); R06.02 Shortness of breath; R05.9 Cough, unspecified; M54.50 Low back pain, unspecified; R25.2 Cramp and spasm; R07.89 Other chest pain; J06.9 Acute upper respiratory infection, unspecified; Z20.822 Contact with and (suspected) exposure to COVID-19; Z20.828 Contact with and (suspected) exposure to other viral communicable diseases; Z79.4 Long term (current) use of insulin; Z79.899 Other long term (current) drug therapy
CPT/HCPCS: 71045; 71275; 74177; 80053; 82947; 83735; 83880; 84484; 85025; 87502; 87635; 93005; 99285; Q9967

== ENCOUNTER 2022-10-13 10:11 | Outpatient (REF) | payer OTHER, SELFPAY ==
--- NOTE | ~2022-10-13 | US_ITS ---
EXAMINATION: US RETROPERITONEAL LIMITED (RENAL ONLY) CLINICAL INFORMATION: Cyst of kidney, right renal cyst. 6 cm right renal cyst seen on CT chest. Ultrasound to evaluate. COMPARISON: CT angiogram of chest and CT abdomen and pelvis with intravenous contrast 09/13/2022. TECHNIQUE: Real-time imaging of the kidneys. FINDINGS: RIGHT KIDNEY: 13.1 x 6.4 x 4.5 cm (SAG x AP x TRV). The kidney is normal in size, contour, and echogenicity. Renal cortical thickness is normal. No renal calculi or hydronephrosis. Benign-appearing renal cysts measuring up to 6.7 cm, no follow-up imaging recommended. LEFT KIDNEY: 12.6 x 6.0 x 4.8 cm (SAG x AP x TRV). The kidney is normal in size, contour, and echogenicity. Renal cortical thickness is normal. No renal calculi or hydronephrosis. Benign-appearing renal cysts measuring up to 2.4 cm, no follow-up imaging recommended. US/US renal BI IMPRESSION: Benign-appearing bilateral renal cysts, no follow-up imaging recommended..
== END 2022-10-13 10:12 | disposition home or self-care (01) ==
LOC: HO.US 10:11
PROVIDERS: Visit Provider Physician Assistant
DX: N28.1 Cyst of kidney, acquired (principal)
CPT/HCPCS: 76775

== ENCOUNTER 2022-12-17 08:00 | Outpatient (REF) | payer OTHER, SELFPAY | END 2022-12-17 08:01 | disposition home or self-care (01) | LOC: HO.HMGCLDS 08:00 | PROVIDERS: PCP Physician Assistant; Visit Provider Physician Assistant | DX: Z12.5 Encounter for screening for malignant neoplasm of prostate (principal); I25.10 Atherosclerotic heart disease of native coronary artery without angina pectoris; E66.09 Other obesity due to excess calories; Z68.33 Body mass index [BMI] 33.0-33.9, adult; E78.5 Hyperlipidemia, unspecified; F32.9 Major depressive disorder, single episode, unspecified | CPT/HCPCS: 36415; 80053; 80061; 84153; 84443; 85027 ==

== ENCOUNTER 2022-12-29 08:23 | Outpatient (AMB) | payer OTHER, SELFPAY ==
[2022-12-29 08:33] VITALS: BP 120/80; PULSE 95; O2SAT 96; BMI 32.6
--- NOTE | 2022-12-29 08:33 | A.OFFPC_ITS ---
Vital Signs 12/29/22 08:33 Height 5 ft 10 in Weight 227 lb 4 oz BMI 32.6 BP 120/80 Blood Pressure Location Lt brachial Position Sitting Pulse 95 Pulse Source Pulse Oximeter Pulse Oximetry (%) 96 Oxygen Delivery Method Room Air Intake Visit Reasons: f/u DMII/ CAD/ A1c Technical Support Representative Required: No Accompanied by: Self / Same As Patient Allergies No Known Allergies [No Known Allergies*] Allergy (Verified 12/29/22 08:44) Medication List - Last Reconciled 12/29/22 by Pipe Lizarraga PA-C albuterol sulfate 90 mcg/actuation 2 puffs inhalation Q4-6H PRN alcohol swabs (Alcohol Prep Pads) 1 pad topical .three times a day aspirin 81 mg PO DAILY blood pressure test kit-large As directed blood sugar diagnostic ([employer] Ultra Test strips) As directed blood-glucose meter ([employer] Ultra2 Meter kit) As directed citalopram 40 mg PO DAILY diltiazem HCl 240 mg PO DAILY dulaglutide (Trulicity) 3 mg (0.5 mL) subcut QWEEK 4 weeks fluticasone propion-salmeterol 500-50 mcg/dose ea inhalation gabapentin 400 mg PO TID 90 days hydrochlorothiazide 25 mg PO DAILY insulin aspart U-100 (Novolog FlexPen U-100 Insulin aspart) 10 units (0.1 mL) subcut TID 30 days isosorbide mononitrate ER 30 mg PO BID 90 days lancets (FreeStyle Lancets) three times a day lancets (Opt[employer]a777Touch UltraSoft Lancets) As directed lisinopril 5 mg PO DAILY omeprazole 40 mg PO DAILY pen needle, diabetic (BD Karen 2nd Gen Pen Needle) As directed pregabalin (Lyrica) 150 mg PO BID 30 days rosuvastatin (Crestor) 40 mg PO DAILY 90 days tizanidine 4 mg (2 x 2 mg) PO BEDTIME PRN 15 days Tobacco use date assessed: 12/29/22 Dental Screening Dental Screen Date: 12/29/22 Did you have a dental visit in the last 12 months?: Yes Did you have a dental problem in the last 6 months where you did not have access to dental care?: No Was dental information given to patient?: Patient has dentist HPI f/u DMII/ CAD/ A1c HPI Details Patient is a 57-year-old male here today for a followup.? Patient has a past medical history significant for type 2 diabetes complicated by neuropathy obesity, COPD,? CAD (CAbG 2014). Diabetes--> patient continues on insulin and 3 mg Trulicity weekly. A1c improved though still above goal of 7. --> of note patient was taking short-acting insulin postprandially and advised to start taking it pre pain daily according to sliding scale for better blood sugar controls. Will also add on Actos 15 mg in the morning . .. CAD:? Has recently up with his escalation engineer and continues to complain of chest pain, could not schedule cardiac PET due to claustrophobia. ?Has had multiple coronary bypasses in the past. ?is followed by a escalation engineer at [facility] annually.? Most recent lipid panel el evated for his cardiac risk.? Has been on atorvastatin 40 mg though reports having unclear side effect to this medication.? Has switched to Crestor 40 mg. He reports his diet has been very poor and relays it is very expensive to eat healthy . Unfortunately has not gotten fasting labs done before today's appointment.? Most recent lipid panel showing excellent control over his total cholesterol and LDL. .. COPD: IS followed by Dr Cedillo , reports his pulmonary status has been stable t. .. DMII complicated by polyneuropathy: At last visit we increased his Lyrica to 150 mg b.i.d for his diabetic neuropathy though continues to have moderate to severe burning pain and cramping in his feet. He is interested in seeing pain management for topical capsaicin and treatments. ? Has started tizanidine at night which does help relieve his pain does only temporary and causes lethargy. He reports his feet are always in pain worse at night.? He is interested in increasing his dose we are if for better neuropathic pain relief.? Of note has gotten EMG testing in his lower extremity showing moderate to severe polyneuropathy Laboratory Tests 08/20/21 08/20/21 09/13/22 06:53 06:53 16:42 RBC Creatinine POC Glucose Random Glucose 520 H* Fasting Glucose 162 H D Hemoglobin A1c % 6.7 Hgb A1c (Clinic) ALT 62 H AST 56 H Troponin I High Se ns Cholesterol LDL Cholesterol, C alc PSA Screen 09/13/22 09/13/22 09/24/22 16:42 18:47 10:31 RBC Creatinine POC Glucose 249 H Random Glucose Fasting Glucose Hemoglobin A1c % Hgb A1c (Clinic) 9.0 H ALT AST Troponin I High Se ns < 3.5 Cholesterol LDL Cholesterol, C alc PSA Screen 12/17/22 12/17/22 12/17/22 08:06 08:06 08:06 RBC 4.94 Creatinine 0.92 POC Glucose Random Glucose Fasting Glucose 208 H Hemoglobin A1c % Hgb A1c (Clinic) ALT AST Troponin I High Se ns Cholesterol 127 LDL Cholesterol, C alc 59 PSA Screen 0.30 PFSH Medical History (Updated 12/29/22 @ 08:46 by Pipe Lizarraga PA-C) Asthma-COPD overlap syndrome Coronary artery disease COVID-19 Diabetic neuropathy Obesity Renal cyst Type 2 diabetes mellitus with obesity Surgical History History of herniated intervertebral disc S/P CABG x 3 Family History Father Lung cancer Mother No problems noted. Family/Other Lung cancer Diabetes Social History Housing: House Alcohol intake: never Patient Tobacco Use Status: Former Tobacco user (16 years ago) Tobacco use type: Cigarette e-Cigarette/Vaping Use: Never Used Second Hand Smoke Exposure: No service: No Current occupational status: disabled Current occupational exposures/hazards: No Cognitive needs: No Hearing needs: No Vision needs: No Questionnaire PHQ-9 Over the last 2 weeks, how often have you been bothered by any of the following problems? 1. Little interest or pleasure in doing things: more than half the days 2. Feeling down, depressed, or hopeless: more than half the days 3. Trouble falling or staying asleep, or sleeping too much: not at all 4. Feeling tired or having little energy: not at all 5. Poor appetite or overeating: not at all 6. Feeling bad about yourself - or that you are a failure or have let yourself or your family down: not at all 7. Trouble concentrating on things, such as reading the newspaper or watching television: not at all 8. Moving or speaking so slowly that other people could have noticed. Or the opposite - being so fidgety or restless that you have been moving around a lot more than usual: not at all 9. Thoughts that you would be better off or of hurting yourself in some way: not at all Total score: 4 Depression Screening Interpretation: Negative 35418 - PHQ-9 Billing: Yes Source: Developed by Drs. Danny Milian, May Zapata, Melo Meier and colleagues, with an educational carlos eduardo from [employer]. Thrive Questionnaire Date Thrive assessed: 12/29/22 I am a: Patient What is your living situation today?: I have a steady place to live Within the past 12 months, did the food you bought not last and you didn't have the money to get more?: Never true Within the past 12 months, did you worry whether your food would run out before you got money to buy more?: Never true Do you have trouble paying for medicines?: No Do you have trouble getting transportation to medical appointments?: No Do you have trouble paying your heating and electricity bill?: No Do you have trouble taking care of your child, family member or friend?: No Do you have trouble with day-to-day activities such as bathing, preparing meals, shopping, managing finances, etc.?: No Are you currently unemployed and looking for a job?: No Are you interested in more education?: No Please select the resources that you would like help with: None Currently or been in a relationship where the following occur: no concerns reported AUDIT C Alcohol Use Questionnaire (AUDIT-C) 1. How often do you have a drink containing alcohol?: 2-4 times a month 2. How many drinks containing alcohol do you have on a typical day when you are drinking?: 1 or 2 3. How often do you have six or more drinks on one occasion?: Never Total Score: 2 LISA-7 AMB Questionnaire LISA-7 Date LISA - 7 assessed: 12/29/22 Feeling nervous, anxious, or on edge: 0 = Not at all Not being able to stop or control worryin = Not at all Worrying too much about different things: 0 = Not at all Trouble relaxin = Not at all Being so restless that it is hard to sit still: 0 = Not at all Becoming easily annoyed or irritable: 0 = Not at all Feeling afraid as if something awful might happen: 0 = Not at all Total LISA-7 score (0-4 normal; 5-9 mild; 10-14 moderate; 15-21 severe): 0 Source: Developed by Drs. Danny Milian, May Zapata, Melo Meier and colleagues, with an educational carlos eduardo from [employer]. LISA-7 Assessment Billing LISA-7 Assessment Tool: LISA-7 Assessment 01605 ACT Questionnaire In the past 4 weeks, how much of the time did your asthma keep you from getting as much done at work, school or at home?: None of the time During the past 4 weeks, how often have you had shortness of breath?: 1-2 times a week During the past 4 weeks, how often did your asthma symptoms wake you up at night or earlier than usual in the morning?: Not at all During the past 4 weeks, how often have you had to use your rescue inhaler or nebulizer medication?: Once a week or less How would you rate your asthma control during the past 4 weeks?: Well controlled ACT Interpretation: Negative Score: 22 Review of Systems Const Denies headache(s) Eyes Denies loss of vision ENT Denies vertigo, Denies dizziness, Denies headache(s) and Denies sore throat Card Denies chest pain, Denies leg edema and Denies lightheadedness Resp Denies cough, Denies hemoptysis and Denies wheezing GI Denies abdominal pain, Denies melena, Denies constipation, Denies diarrhea and Denies vomiting Denies dysuria, Denies urinary frequency and Denies urinary urgency Musc Denies arthralgias, Denies joint swelling, Denies numbness and Denies tingling Neuro Denies Abnormal speech present, Denies behavioral changes, Denies vertigo, Denies dizziness, Denies headache(s), Denies loss of vision, Denies memory loss, Denies numbness and Denies tingling Psych Denies anxiety, Denies behavioral changes, Denies depression, Denies memory loss and Denies panic attacks Abdirahman/Lymph Denies easy bleeding and Denies easy bruising Aller/Immun Denies wheezing Physical exam (Primary Care) Vital Signs: Last Vital Signs Pulse 95 12/29/22 08:33 BP 120/80 12/29/22 08:33 Pulse Ox 96 12/29/22 08:33 Oxygen Delivery Method Room Air 12/29/22 08:33 BMI result Body Mass Index 32.6 BMI Assessment/Plan discussion: High Tobacco/Smoking Status: Tobacco use Status Tobacco use date assessed 12/29/22 12/29/22 08:41 Patient Tobacco Use Status Former Tobacco user (16 12/29/22 08:41 years ago) Tobacco use type Cigarette 12/29/22 08:41 e-Cigarette/Vaping Use Never Used 12/29/22 08:41 PHQ-9: PHQ-9 Score PHQ-9: Total score 4 12/29/22 10:33 Depression Screening Interpretation: Negative Thrive Assessment: Date of Thrive Assessment Date Thrive assessed 12/29/22 12/29/22 08:41 Currently or been in a relationship where the following occur: no concerns reported Const Other: OBESE General: healthy appearing, no acute distress, alert and awake Nutritional Appearance: well nourished Orientation/consciousness: oriented to person, oriented to place and oriented to time HENMT Ears: TM's normal bilaterally General nose exam: Normal nasal mucous membranes and turbinates present Eyes Conjunctivae: conjunctivae normal Sclerae: sclerae normal Pupils: Equal, round and reactive pupils present Neck Neck: Yes no lymphadenopathy and Yes no JVD Thyroid: Thyroid normal Carotids: no bruits Resp Effort & Inspection: normal respiratory effort and not tachypneic Auscultation: no crackles, no rales, no rhonchi and no wheezes Cardio Rate: regular rate Rhythm: regular rhythm Heart sounds: no murmurs and normal S1 and S2 GI Palpation (GI): Soft to palpation, nontender, no hepatomegaly and no splenomegaly Auscultation: normal bowel sounds Skin General skin exam: no rashes or lesions noted and dry skin Neuro General: oriented to person, oriented to place and oriented to time Cranial nerves: Yes Equal, round and reactive pupils present Speech: No Abnormal speech present Gait exam (Neuro): Normal gait present Motor exam (neuro): no tremor noted Extrem Right upper extremity: full ROM Left upper extremity: full ROM Right lower extremity: full ROM; no edema Left lower extremity: full ROM; no edema Psych Mental Status: mental status grossly normal Speech and movement: Normal speech and movement present Affect: normal affect Attitude: cooperative Thought process: Normal thought process present Results AMB Hemoglobin A1c AMB Hemoglobin A1c 8.3 % Last Edit by Hermila Ireland on 12/29/22 08:57 Results Reviewed Results Reviewed: Laboratory Last Values Hgb A1c (Clinic) 8.3 % (4.0-6.0) H 12/29/22 08:43 Assessment and Plan Assessment & Plan (1) HTN (hypertension): Code(s): I10 - Essential (primary) hypertension Qualifiers: Hypertension type: primary hypertension Qualified Code(s): I10 - Essential (primary) hypertension Plan: Patient's blood pressure acceptable today in office. Will supply him again with a blood pressure cuff to do home blood pressure monitoring with goal blood pressure to be below 140/90. (2) CAD (coronary artery disease): Code(s): I25.10 - Atherosclerotic heart disease of [place] coronary artery without angina pectoris Qualifiers: Associated angina: without angina Coronary Disease-Associated Artery/Lesion type: [place] artery [place] vs. transplanted heart: [place] heart Qualified Code(s): I25.10 - Atherosclerotic heart disease of [place] coronary artery without angina pectoris Plan: Patient continues to follow cardiology, most recent lipid panel showing excellent control over his LDL. Goal LDL to remain below 70 (3) Obesity: Code(s): E66.9 - Obesity, unspecified Qualifiers: Body mass index: BMI 33.0-33.9 Obesity classification: adult class 1 (BMI 30 - 34.9) Obesity type: due to excess calories Serious obesity comorbidity presence: with serious comorbidity Qualified Code(s): E66.09 - Other obesity due to excess calories; Z68.33 - Body mass index [BMI] 33.0-33.9, adult Plan: Patient does understand his BMI is over 30 though has been having trouble being more physically active due to his neuropathy in his lower extremities. He will try to follow a diabetic diet. (4) Diabetic neuropathy: Code(s): E11.40 - Type 2 diabetes mellitus with diabetic neuropathy, unspecified Qualifiers: Diabetes mellitus complication detail: diabetic polyneuropathy Diabetes mellitus type: type 2 Qualified Code(s): E11.42 - Type 2 diabetes mellitus with diabetic polyneuropathy Plan: Continues to have moderate to severe neuropathic pain in his lower extremities even with increasing doses of neuromodulation. Will send for evaluation with pain management to do topical capsaicin treatments (5) MDD (major depressive disorder), recurrent episode, moderate: Code(s): F33.1 - Major depressive disorder, recurrent, moderate Plan: Patient reports his depression has been stable with current doses SSRI therapy. Otherwise denies any SI or HI (6) Asthma-COPD overlap syndrome: Code(s): J44.9 - Chronic obstructive pulmonary disease, unspecified Plan: Patient continues to follow pulmonology, denies any acute set survey shins in his asthma or COPD. Continues on p.r.n. use of albuterol inhaler and maintenance inhaler Orders: Orders AMB Hemoglobin A1c Today E11.69 - Type 2 diabetes mellitus with other specified complication, E66.9 - Obesity, unspecified Referrals Pain Management Referral E11.42 - Type 2 diabetes mellitus with diabetic polyneuropathy Medications: New pioglitazone (Actos) 15 mg PO DAILY 90 days 90 tabs 1RF E11.69 - Type 2 diabetes mellitus with other specified complication, E66.9 - Obesity, unspecified Refilled blood pressure test kit-large As directed 1 ea 0RF I10 - Essential (primary) hypertension, I25.10 - Atherosclerotic heart disease of [place] coronary artery without angina pectoris pregabalin (Lyrica) 150 mg PO BID 30 days 60 caps 3RF E11.42 - Type 2 diabetes mellitus with diabetic polyneuropathy Discontinued tizanidine Discontinued Reason: Doctor's Order 4 mg (2 x 2 mg) PO BEDTIME 15 days PRN 30 tabs 1RF muscle spasticity E11.40 - Type 2 diabetes mellitus with diabetic neuropathy, unspecified Coding Level of Care Code Est Pt Level 4 (61897) Diagnoses HTN (hypertension) I10 Hypertension type: primary hypertension CAD (coronary artery disease) I25.10 Associated angina: without angina Coronary Disease-Associated Artery/Lesion type: [place] artery [place] vs. transplanted heart: [place] heart Obesity E66.09; Z68.33 Body mass index: BMI 33.0-33.9 Obesity classification: adult class 1 (BMI 30 - 34.9) Obesity type: due to excess calories Serious obesity comorbidity presence: with serious comorbidity Diabetic neuropathy E11.42 Diabetes mellitus complication detail: diabetic polyneuropathy Diabetes mellitus type: type 2 MDD (major depressive disorder), recurrent episode, moderate F33.1 Asthma-COPD overlap syndrome J44.9 Additional Codes LISA-7 Assessment Billing - LISA-7 Assessment Tool: LISA-7 Assessment 22648 ([id number])
== END 2022-12-29 09:06 | disposition home or self-care (01) ==
PROVIDERS: Visit Provider Physician Assistant
DX: I10 Essential (primary) hypertension (principal); E66.09 Other obesity due to excess calories; Z68.33 Body mass index [BMI] 33.0-33.9, adult; F33.1 Major depressive disorder, recurrent, moderate; E11.42 Type 2 diabetes mellitus with diabetic polyneuropathy; J44.9 Chronic obstructive pulmonary disease, unspecified; I25.10 Atherosclerotic heart disease of native coronary artery without angina pectoris; E11.69 Type 2 diabetes mellitus with other specified complication
CPT/HCPCS: 83036; 99214

== ENCOUNTER 2023-01-08 09:39 | Outpatient (AMB) | payer OTHER, SELFPAY ==
--- NOTE | 2023-01-08 09:45 | A.OFFVIS_ITS ---
Intake Vital Signs 01/08/23 09:47 Height 5 ft 10 in Weight 227 lb BMI 32.6 BP 107/67 Blood Pressure Location Rt brachial Position Sitting Pulse 88 Pulse Source Pulse Oximeter Pulse Oximetry (%) 99 Oxygen Delivery Method Room Air Intake Visit Reasons: Type 2 diabetes mellitus w/diabetic neuropathy Intake Note: Pain today 12/21 Family Resource Management Specialist Required: No Accompanied by: Self / Same As Patient Allergies No Known Allergies [No Known Allergies*] Allergy (Verified 01/08/23 09:47) HPI Type 2 diabetes mellitus w/diabetic neuropathy HPI Details Patient is a 57 years old male with a history of diabetic neuropathy, HTN, obesity, CAD, s/p CAGBx3 and post laminectomy syndrome, presents today today with bilateral foot pain related to neuropathy since 2014. His diabetes is managed on ELLEN, statin, insulin, Actos, Trulicity with last A1C 8.3 on 12/29/22. Last diabetic eye and foot exam are unknown. Patient reports he checks his blood sugars regularly, tries to follow diabetic diet and tries to lose weight. He tried gabapentin and was switched to pregabalin 150 mg BID currently. Lidocaine patches, topical over the counter applications, and topical cannabis are mildly effective. The pain intensity rates at 7-10/10 in intensity. It interferes with his daily activities and functions, and sleeping as well. Pain is described as c onstant throbbing, piercing, burning, spreading, numbness, tingling sensations in his lower extremities and feet which is most worst at night or walking during the day. EMG 10/09/21 showed moderately severe axonal sensory motor chronic peripheral neuropathy and chronic bilateral lower lumbar radiculopathy. Patient is interested in topical capsaicin application for bilateral foot pain. He denies significant back pain or radicular symptoms today. Reports lumbar decompression surgery and multiple back injections by Dr. Kyle over 20-25 years ago, Denies any fever, weakness, bladder or bowel incontinence or saddle anesthesia. Location Low back pain and bilateral feet Duration Chronic neuropathy for 6 years Characteristics of symptom or complaint Burning, pulsing, tingling, piercing, throbbing, cramping, throbbing Aggravating or associated factors Walking, worse at night Relieving factors Canabis topical, pregabalin, gabapentin, lidocaine patches and cream Treatment None PFSH Medical History Asthma-COPD overlap syndrome Coronary artery disease COVID-19 Diabetic neuropathy Obesity Renal cyst Type 2 diabetes mellitus with obesity Surgical History History of herniated intervertebral disc S/P CABG x 3 Family History Father Lung cancer Mother No problems noted. Family/Other Lung cancer Diabetes Social History Housing: House Alcohol intake: never Patient Tobacco Use Status: Former Tobacco user (16 years ago) Tobacco use type: Cigarette e-Cigarette/Vaping Use: Never Used Second Hand Smoke Exposure: No service: No Current occupational status: disabled Current occupational exposures/hazards: No Cognitive needs: No Hearing needs: No Vision needs: No Review of Systems Const All systems reviewed & are unremarkable except as noted in HPI and below Physical Exam Vital Signs: Last Vital Signs Pulse 88 01/08/23 09:47 BP 107/67 01/08/23 09:47 Pulse Ox 99 01/08/23 09:47 Oxygen Delivery Method Room Air 01/08/23 09:47 BMI result Body Mass Index 32.6 General: Appears afebrile. Alert and oriented. Mood and affect appropriate. Follows and participates in conversation appropriately. Respiratory effort is unlabored. Able to transition from sit to stand unassisted. Ambulates with bilaterally normal heel strike and toe off. Back/Spine/Pelvis Cervical Spine: cervical ROM normal, No Cervical spine tenderness and No step off deformity Thoracic/Lumbar Spine: thoracic and lumbar spine normal to inspection, Thoracic/lumbar spine scar(s), Lasegue's sign negative, straight leg raise negative bilaterally, paraspinal muscle tenderness, No thoracic spinal tenderness and No lumbar spinal tenderness Pelvis: no sciatic notch tenderness Extrem Other: There is a decreased sensation over the soles of the feet and toes. No breaks in the skin. No soft tissue swelling or warmth. +2 pedal pulses bilaterally. Normal capillary refill. No pedal edema, calf tenderness or cyanosis. Poor foot care. Results Reviewed Results Reviewed: NE electromyogram (EMG); NE nerve conduction velocity 10/09/21 Bilateral tibial and peroneal motor studies were performed. Bilateral sural and superficial peroneal sensory studies were performed. Tibial H reflexes were obtained and paraspinal muscles were tested with a needle. IMPRESSION: 1. 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 2. Chronic bilateral lower lumbar radiculopathy. CT/CT abdomen pelvis w IV con 09/13/22 OSSEOUS STRUCTURES: No evidence of acute or suspicious osseous lesions in the chest, abdomen and pelvis. Sternotomy is well fused. Sternotomy wires appear intact. Mild degenerative changes in the lower thoracic spine and lower lumbar spine. Sclerotic density in the left femoral head has nonaggressive appearance and likely represents a bone island. Assessment & Plan Assessment & Plan (1) Bilateral foot pain: Code(s): M79.671 - Pain in right foot; M79.672 - Pain in left foot (2) Diabetic neuropathy: Code(s): E11.40 - Type 2 diabetes mellitus with diabetic neuropathy, unspecified Qualifiers: Diabetes mellitus type: type 2 Diabetes mellitus complication detail: diabetic polyneuropathy Qualified Code(s): E11.42 - Type 2 diabetes mellitus with diabetic polyneuropathy (3) Lumbar post-laminectomy syndrome: Code(s): M96.1 - Postlaminectomy syndrome, not elsewhere classified Plan Discussed risks and benefits of different treatment options including topical 8% capsaicin application and spinal cord stimulation. Patient is not interested for treatments for post laminectomy syndrome at this time or SCS trial. Will try to arrange topical 8% capsaicin application for bilateral foot pain as the next step once we have confirmed availability. Informational booklet provided. Encouraged regular diabetic eye and foot exams, weight loss, daily physical activity as tolerated and adherance to DM medication and diet regime. All questions and concerns have been answered and the patient agreed with the plan. Follow up as needed. Coding Level of Care Code New Pt Level 4 (08476) Diagnoses Bilateral foot pain M79.671; M79.672 Diabetic neuropathy E11.42 Diabetes mellitus type: type 2 Diabetes mellitus complication detail: diabetic polyneuropathy Lumbar post-laminectomy syndrome M96.1
[2023-01-08 09:47] VITALS: BP 107/67; PULSE 88; O2SAT 99; BMI 32.6
== END 2023-01-08 10:13 | disposition home or self-care (01) ==
PROVIDERS: PCP Physician Assistant; Visit Provider Nurse Practitioner Family
DX: M79.671 Pain in right foot (principal); M79.672 Pain in left foot; E11.42 Type 2 diabetes mellitus with diabetic polyneuropathy; M96.1 Postlaminectomy syndrome, not elsewhere classified
CPT/HCPCS: 99204

== ENCOUNTER → 2023-01-08 09:39 | Outpatient (BNVA) | payer OTHER, SELFPAY | PROVIDERS: PCP Physician Assistant; Visit Provider Nurse Practitioner Family | DX: M96.1 Postlaminectomy syndrome, not elsewhere classified (principal); M79.672 Pain in left foot; M79.671 Pain in right foot; E11.42 Type 2 diabetes mellitus with diabetic polyneuropathy; I25.10 Atherosclerotic heart disease of native coronary artery without angina pectoris; I10 Essential (primary) hypertension; E66.9 Obesity, unspecified; Z68.32 Body mass index [BMI] 32.0-32.9, adult; Z95.1 Presence of aortocoronary bypass graft; Z79.4 Long term (current) use of insulin | CPT/HCPCS: 99202 ==

== ENCOUNTER 2023-02-08 09:14 | Outpatient (AMB) | payer OTHER, SELFPAY ==
--- NOTE | 2023-02-08 09:16 | MHC.OFFVIS ---
Intake Vital Signs 02/08/23 10:09 02/08/23 10:10 02/08/23 10:29 Height 5 ft 10 in Weight 231 lb 2 oz BMI 33.2 BP 115/67 124/75 128/57 L Blood Pressure Location Lt brachial Lt brachial Lt brachial Position Sitting Sitting Sitting Pulse 73 71 72 Pulse Source Pulse Oximeter Pulse Oximeter Pulse Oximeter Pulse Oximetry (%) 98 98 98 Oxygen Delivery Method Room Air Room Air Room Air Comment 15 mins after qutenza application 30 mins after qutenza application Intake Visit Reasons: Qutenza - DN Intake Note: Joseph comes in today for application to Qutenza on bilateral feet, Pain today 10/21. Lot#[id number], Exp: , [facility] [phone] Law Researcher Required: No Accompanied by: Self / Same As Patient Allergies No Known Allergies [No Known Allergies*] Allergy (Verified 02/08/23 09:27) HPI HPI Comments History of Present Illness Details Patient presents for application of capsaicin 8% topical patch for diabetic neuropathy in bilateral feet. He reports increasing burning pain in his feet with numbness, tingling and stabbing sensations, worse at night. Reports gabapentin was not effective and this was changed to pregabalin by his PCP. Currently he takes pregabalin 150 mg BID with minimal effect. Denies any recent cough, cold, infection, fever or other significant changes in medical history since last office visit. PRIOR: Patient is a 57 years old male with a history of diabetic neuropathy, HTN, obesity, CAD, s/p CAGBx3 and post laminectomy syndrome, presents today today with bilateral foot pain related to neuropathy since 2014. His diabetes is managed on ELLEN, statin, insulin, Actos, Trulicity with last A1C 8.3 on 12/29/22. Last diabetic eye and foot exam are unknown. Patient reports he checks his blood sugars regularly, tries to follow diabetic diet and tries to lose weight. He tried gabapentin and was switched to pregabalin 150 mg BID currently. Lidocaine patches, topical over the counter applications, and topical cannabis are mildly effective. The pain intensity rates at 7-10/10 in intensity. It interferes with his daily activities and functions, and sleeping as well. Pain is described as constant throbbing, piercing, burning, spreading, numbness, tingling sensations in his lower extremities and feet which is most worst at night or walking during the day. EMG 10/09/21 showed moderately severe axonal sensory motor chronic peripheral neuropathy and chronic bilateral lower lumbar radiculopathy. Patient is interested in topical capsaicin application for bilateral foot pain. He denies significant back pain or radicular symptoms today. Reports lumbar decompression surgery and multiple back injections by Dr. Kyle over 20-25 years ago, Denies any fever, weakness, bladder or bowel incontinence or saddle anesthesia. Location Low back pain and bilateral feet Duration Chronic neuropathy for 6 years Characteristics of symptom or complaint Burning, pulsing, tingling, piercing, throbbing, cramping, throbbing Aggravating or associated factors Walking, worse at night Relieving factors Canabis topical, pregabalin, gabapentin, lidocaine patches and cream Treatment None PFSH Medical History Asthma-COPD overlap syndrome Coronary artery disease COVID-19 Diabetic neuropathy Obesity Renal cyst Type 2 diabetes mellitus with obesity Surgical History History of herniated intervertebral disc S/P CABG x 3 Family History Father Lung cancer Mother No problems noted. Family/Other Lung cancer Diabetes Social History Housing: House Alcohol intake: never Patient Tobacco Use Status: Former Tobacco user Tobacco use type: Cigarette e-Cigarette/Vaping Use: Never Used Second Hand Smoke Exposure: No service: No Current occupational status: disabled Current occupational exposures/hazards: No Cognitive needs: No Hearing needs: No Vision needs: No Review of Systems Const All systems reviewed & are unremarkable except as noted in HPI and below Physical Exam Vital Signs: Last Vital Signs Pulse 72 02/08/23 10:29 BP 128/57 L 02/08/23 10:29 Pulse Ox 98 02/08/23 10:29 Oxygen Delivery Method Room Air 02/08/23 10:29 BMI result Body Mass Index 33.2 General: Appears afebrile. Alert and oriented. Mood and affect appropriate. Follows and participates in conversation appropriately. Respiratory effort is unlabored. Able to transition from sit to stand unassisted. Ambulates with bilaterally normal heel strike and toe off. Extrem Other: There is a decreased sensation over the soles of the feet and toes. No breaks in the skin. No soft tissue swelling or warmth. +2 pedal pulses bilaterally. Normal capillary refill. No pedal edema, calf tenderness or cyanosis. General: Yes capillary refill normal, Yes no clubbing, cyanosis or edema and Yes no calf tenderness Office Procedures Topical Capsaicin Date 1:: 02/08/23 Main area of pain on the body: Bilateral feet Laterality: Bilateral Location of left foot pain: Plantar, Dorsal, Medial and Lateral Location of right foot pain: Plantar, Dorsal, Medial and Lateral Quality of pain: Aching, Stabbing, Burning, Throbbing, Numb-like and Tiring Details:: Two patches, 560 cm2 were utilized per each foot. EMLA Cream (lidocaine 2.5% and prilocaine 2.5%) was applied at home by patient prior to application of the patches. The patient tolerated the procedure well. His vitals signs remained stable throughout the procedure. Patient was able to complete the stipulated 30 minutes of the therapeutic application without any discomfort. Office Meds capsaicin-skin cleanser 8 % Performing Provider: KARTHIKEYAN Maradiaga Administered by: KARTHIKEYAN Maradiaga on 02/08/23 09:47 Dose Route Admin Location Lot Number Expiration Date [facility] Ems Manager 4 ea topical [facility] [id number] 06/14/25 [id number] [employer] Results Reviewed Results Reviewed: NE electromyogram (EMG); NE nerve conduction velocity 10/09/21 Bilateral tibial and peroneal motor studies were performed. Bilateral sural and superficial peroneal sensory studies were performed. Tibial H reflexes were obtained and paraspinal muscles were tested with a needle. IMPRESSION: 1. 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 2. Chronic bilateral lower lumbar radiculopathy. Assessment & Plan Assessment & Plan (1) Bilateral foot pain: Code(s): M79.671 - Pain in right foot; M79.672 - Pain in left foot (2) Diabetic neuropathy: Code(s): E11.40 - Type 2 diabetes mellitus with diabetic neuropathy, unspecified Qualifiers: Diabetes mellitus complication detail: diabetic polyneuropathy Diabetes mellitus type: type 2 Qualified Code(s): E11.42 - Type 2 diabetes mellitus with diabetic polyneuropathy (3) Lumbar post-laminectomy syndrome: Code(s): M96.1 - Postlaminectomy syndrome, not elsewhere classified Plan Patient is status post 1st round of application of topical capsaicin 8% for neuropathy in bilateral feet. Patient tolerated the procedure without significant discomfort with application of EMLA cream prior to the procedure. Will increase pregabalin to 200 mg BID with advanced date of 03/03/23. Patient was discharged home in stable condition with discharge instructions. All questions and concerns were answered and the patient agreed with the plan. Next Qutenza patch application is scheduled in 3 months. Follow up as needed. Greater than 45 minutes were spent in therapeutic application and in coordination of the care. Orders: Orders AMB Capsaicin Patch - Practice Supplied Today E11.40 - Type 2 diabetes mellitus with diabetic neuropathy, unspecified, M79.671 - Pain in right foot, M79.672 - Pain in left foot Medications: Changed From pregabalin (Lyrica) 150 mg PO BID 30 days 60 caps 3RF E11.40 - Type 2 diabetes mellitus with diabetic neuropathy, unspecified, M79.671 - Pain in right foot, M79.672 - Pain in left foot, M96.1 - Postlaminectomy syndrome, not elsewhere classified To pregabalin 200 mg PO BID 30 days 60 caps 1RF pain E11.40 - Type 2 diabetes mellitus with diabetic neuropathy, unspecified, M79.671 - Pain in right foot, M79.672 - Pain in left foot, M96.1 - Postlaminectomy syndrome, not elsewhere classified Coding Level of Care Code Est Pt Level 5 (72702) Diagnoses Bilateral foot pain M79.671; M79.672 Diabetic neuropathy E11.42 Diabetes mellitus complication detail: diabetic polyneuropathy Diabetes mellitus type: type 2 Lumbar post-laminectomy syndrome M96.1
[2023-02-08 10:09] VITALS: BP 115/67; PULSE 73; O2SAT 98; BMI 33.2
[2023-02-08 10:10] VITALS: BP 124/75; PULSE 71; O2SAT 98
[2023-02-08 10:29] VITALS: BP 128/57; PULSE 72; O2SAT 98
== END 2023-02-08 10:28 | disposition home or self-care (01) ==
PROVIDERS: PCP Physician Assistant; Visit Provider Nurse Practitioner Family
DX: E11.42 Type 2 diabetes mellitus with diabetic polyneuropathy (principal); M79.671 Pain in right foot; M79.672 Pain in left foot; M96.1 Postlaminectomy syndrome, not elsewhere classified
CPT/HCPCS: 17999; 99214

== ENCOUNTER → 2023-02-08 09:14 | Outpatient (BNVA) | payer OTHER, SELFPAY | PROVIDERS: PCP Physician Assistant; Visit Provider Nurse Practitioner Family | DX: E11.42 Type 2 diabetes mellitus with diabetic polyneuropathy (principal); M96.1 Postlaminectomy syndrome, not elsewhere classified; M79.671 Pain in right foot; M79.672 Pain in left foot | CPT/HCPCS: 17999; 99212; J7336 ==

== ENCOUNTER 2023-04-01 08:44 | Outpatient (AMB) | payer OTHER, SELFPAY ==
[2023-04-01 09:05] VITALS: BP 90/64; PULSE 79; RESP 17; O2SAT 97; BMI 33.5
--- NOTE | 2023-04-01 09:05 | A.OFFPC_ITS ---
Vital Signs 04/01/23 09:05 Height 5 ft 10 in Weight 233 lb 6 oz BMI 33.5 BP 90/64 Blood Pressure Location Lt brachial Position Sitting Respiration 17 Pulse 79 Pulse Source Pulse Oximeter Pulse Oximetry (%) 97 Oxygen Delivery Method Room Air Intake Visit Reasons: f/u DMII Intake Note: Patient is here to follow up on DMII. Volunteer Manager Required: No Accompanied by: Self / Same As Patient Allergies No Known Allergies [No Known Allergies*] Allergy (Verified 04/01/23 09:15) Medication List - Last Reconciled 04/01/23 by Pipe Lizarraga PA-C alcohol swabs (Alcohol Prep Pads) 1 pad topical .three times a day aspirin 81 mg PO DAILY blood pressure test kit-large As directed blood sugar diagnostic (OneTouch Ultra Test strips) As directed blood-glucose meter ([email or web address] Ultra2 Meter kit) As directed citalopram 40 mg PO DAILY diclofenac sodium 1% (Arthritis Pain (diclofenac)) 4 grams topical QID diltiazem HCl 240 mg PO DAILY dulaglutide (Trulicity) 3 mg (0.5 mL) subcut QWEEK 4 weeks hydrochlorothiazide 25 mg PO DAILY insulin aspart U-100 (Novolog FlexPen U-100 Insulin aspart) 10 units (0.1 mL) subcut TID 30 days isosorbide mononitrate ER 30 mg PO BID 90 days lancets (FreeStyle Lancets) three times a day lancets (OneTouch UltraSoft Lancets) As directed lidocaine-prilocaine 2.5-2.5 % 1 appl topical ONCE lisinopril 5 mg PO DAILY omeprazole 40 mg PO DAILY pen needle, diabetic (BD Karen 2nd Gen Pen Needle) As directed pioglitazone (Actos) 15 mg PO DAILY 90 days pregabalin 200 mg PO BID 30 days rosuvastatin (Crestor) 40 mg PO DAILY 90 days Tobacco use date assessed: 12/29/22 Dental Screening Dental Screen Date: 04/01/23 Did you have a dental visit in the last 12 months?: No Did you have a dental problem in the last 6 months where you did not have access to dental care?: No Was dental information given to patient?: No (Pt have dentures) HPI f/u DMII HPI Details Patient is a 57-year-old male here today for a followup.? Patient has a past medical history significant for type 2 diabetes complicated by neuropathy obesity, COPD,? CAD (CAbG 2014). Diabetes--> patient continues on insulin and 3 mg Trulicity weekly. A1C much improved now at 6.9 --> of note patient was taking short-act ing insulin postprandially and advised to start taking it pre pain daily according to sliding scale for better blood sugar controls. . .. CAD:? Has recently up with his cartridge loading operator and continues to complain of chest pain, could not schedule cardiac PET due to claustrophobia. ?Has had multiple coronary bypasses in the past. ?is followed by a cartridge loading operator at [facility] annually.? Most recent lipid panel elevated for his cardiac risk.? Has been on atorvastatin 40 mg though reports having unclear side effect to this medication.? Has switched to Crestor 40 mg. He reports his diet has been very poor and relays it is very expensive to eat healthy . Unfortunately has not gotten fasting labs done before today's appointment.? Most recent lipid panel showing excellent control over his total cholesterol and LDL. .. COPD: IS followed by Dr Cedillo , reports his pulmonary status has been stable t. .. DMII complicated by polyneuropathy: Has followed up with [facility] and started topical capsaicin cream for his diabetic neuropathy. Lyrica has also been increased to 200 mg b.i.d.. Unfortunately still reports pain in his feet. Has been referred to Podiatry though has failed to make it to appointments. Will likely benefit from shoe inserts ?? Of note has gotten EMG testing in his lower extremity showing moderate to severe polyneuropathy Laboratory Tests 09/24/22 12/29/22 04/01/23 10:31 08:43 09:14 Hgb A1c (Clinic) 9.0 H 8.3 H 6.9 H PFSH Medical History Asthma-COPD overlap syndrome Coronary artery disease COVID-19 Diabetic neuropathy Obesity Renal cyst Type 2 diabetes mellitus with obesity Surgical History History of herniated intervertebral disc S/P CABG x 3 Family History Father Lung cancer Mother No problems noted. Family/Other Lung cancer Diabetes Social History Housing: House Alcohol intake: never Patient Tobacco Use Status: Former Tobacco user Tobacco use type: Cigarette e-Cigarette/Vaping Use: Never Used Second Hand Smoke Exposure: No service: No Current occupational status: disabled Current occupational exposures/hazards: No Cognitive needs: No Hearing needs: No Vision needs: No Questionnaire Thrive Questionnaire Date Thrive assessed: 12/29/22 LISA-7 AMB Questionnaire LISA-7 Date LISA - 7 assessed: 12/29/22 Source: Developed by Drs. Danny Milian, May Zapata, Melo Meier and colleagues, with an educational carlos eduardo from [employer]. Review of Systems Const Denies headache(s) Eyes Denies loss of vision ENT Denies vertigo, Denies dizziness, Denies headache(s) and Denies sore throat Card Denies chest pain, Denies leg edema and Denies lightheadedness Resp Denies cough, Denies hemoptysis and Denies wheezing GI Denies abdominal pain, Denies melena, Denies constipation, Denies diarrhea and Denies vomiting Denies dysuria, Denies urinary frequency and Denies urinary urgency Musc Denies arthralgias, Denies joint swelling, Denies numbness and Denies tingling Neuro Denies Abnormal speech present, Denies behavioral changes, Denies vertigo, Denies dizziness, Denies headache(s), Denies loss of vision, Denies memory loss, Denies numbness and Denies tingling Psych Denies anxiety, Denies behavioral changes, Denies depression, Denies memory loss and Denies panic attacks Abdirahman/Lymph Denies easy bleeding and Denies easy bruising Aller/Immun Denies wheezing Physical exam (Primary Care) Vital Signs: Last Vital Signs Pulse 79 04/01/23 09:05 Resp 17 04/01/23 09:05 BP 90/64 04/01/23 09:05 Pulse Ox 97 04/01/23 09:05 Oxygen Delivery Method Room Air 04/01/23 09:05 BMI result Body Mass Index 33.5 Tobacco/Smoking Status: Tobacco use Status Tobacco use date assessed 12/29/22 04/01/23 09:08 Patient Tobacco Use Status Former Tobacco user 04/01/23 09:08 Tobacco use type Cigarette 04/01/23 09:08 e-Cigarette/Vaping Use Never Used 04/01/23 09:08 Thrive Assessment: Date of Thrive Assessment Date Thrive assessed 12/29/22 04/01/23 09:08 Const General: healthy appearing, no acute distress, alert and awake Nutritional Appearance: well nourished Orientation/consciousness: oriented to person, oriented to place and oriented to time HENMT Ears: TM's normal bilaterally General nose exam: Normal nasal mucous membranes and turbinates present Eyes Conjunctivae: conjunctivae normal Sclerae: sclerae normal Pupils: Equal, round and reactive pupils present Neck Neck: Yes no lymphadenopathy and Yes no JVD Thyroid: Thyroid normal Carotids: no bruits Resp Effort & Inspection: normal respiratory effort and not tachypneic Auscultation: no crackles, no rales, no rhonchi and no wheezes Cardio Rate: regular rate Rhythm: regular rhythm Heart sounds: no murmurs and normal S1 and S2 GI Palpation (GI): Soft to palpation, nontender, no hepatomegaly and no splenomegaly Auscultation: normal bowel sounds Skin General skin exam: no rashes or lesions noted and dry skin Neuro General: oriented to person, oriented to place and oriented to time Cranial nerves: Yes Equal, round and reactive pupils present Speech: No Abnormal speech present Gait exam (Neuro): Normal gait present Motor exam (neuro): no tremor noted Extrem Right upper extremity: full ROM Left upper extremity: full ROM Right lower extremity: full ROM; no edema Left lower extremity: full ROM; no edema Psych Mental Status: mental status grossly normal Speech and movement: Normal speech and movement present Affect: normal affect Attitude: cooperative Thought process: Normal thought process present Office Procedures Flu Questionnaire Does the patient have a severe egg allergy?: No Does the patient have severe life threatening allergies?: No Does the patient have a fever or illness today?: No Has the patient ever had Guillain-[place] Syndrome?: No Has the patient ever had any past reaction to a flu shot?: No Results AMB Hemoglobin A1c AMB Hemoglobin A1c 6.9 % Last Edit by LALY Daily on 04/01/23 09:14 Immunizations flu vacc [id number] 6mos up(PF) 60 mcg(15 mcgx4)/0.5 mL IM syringe Performing Provider: Pipe Lizarraga PA-C [facility] Administered by: LALY Daily on 04/01/23 09:40 Dose Route Admin Location Dispensed Lot Number Expiration Date [employer] 0.5 mL IM Left Deltoid 0.5 mL [id number] 12/12/23 [id number] [employer] VIS Given Date VIS Provided VIS Publication Date 04/01/23 Single Vaccine 21 Eligibility Eligibility Date Funding Source Not [facility] Eligible 04/01/23 Private Results Reviewed Results Reviewed: Laboratory Last Values Hgb A1c (Clinic) 6.9 % (4.0-6.0) H 04/01/23 09:14 Assessment and Plan Assessment & Plan (1) HTN (hypertension): Code(s): I10 - Essential (primary) hypertension Qualifiers: Hypertension type: primary hypertension Qualified Code(s): I10 - Essential (primary) hypertension Plan: Patient's blood pressure acceptable today in office. Continue current doses of antihypertensive medications. Advised to continue monitoring with goal blood pressure to be below 140/90. (2) CAD (coronary artery disease): Code(s): I25.10 - Atherosclerotic heart disease of [place] coronary artery without angina pectoris Qualifiers: Associated angina: without angina Coronary Disease-Associated Artery/Lesion type: [place] artery [place] vs. transplanted heart: [place] heart Qualified Code(s): I25.10 - Atherosclerotic heart disease of [place] coronary artery without angina pectoris Plan: Patient continues to follow cardiology, most recent lipid panel showing excellent control over his LDL. Goal LDL to remain below 70 (3) Obesity: Code(s): E66.9 - Obesity, unspecified Qualifiers: Body mass index: BMI 33.0-33.9 Obesity classification: adult class 1 (BMI 30 - 34.9) Obesity type: due to excess calories Serious obesity comorbidity presence: with serious comorbidity Qualified Code(s): E66.09 - Other obesity due to excess calories; Z68.33 - Body mass index [BMI] 33.0-33.9, adult Plan: Patient does understand his BMI is over 30 though has been having trouble being more physically active due to his neuropathy in his lower extremities. He will try to follow a diabetic diet. (4) Diabetic neuropathy: Code(s): E11.40 - Type 2 diabetes mellitus with diabetic neuropathy, unspecified Qualifiers: Diabetes mellitus complication detail: diabetic polyneuropathy Diabetes mellitus type: type 2 Qualified Code(s): E11.42 - Type 2 diabetes mellitus with diabetic polyneuropathy Plan: Continues to have moderate to severe neuropathic pain in his lower extremities even with increasing doses of neuromodulation. Is now seeing pain management in getting topical capsaicin treatments on his lower extremities. Unfortunately does not report any improvement. His Lyrica was increased to 200 mg b.i.d.. Advised seen a cow tester to get professional shoe inserts (5) MDD (major depressive disorder), recurrent episode, moderate: Code(s): F33.1 - Major depressive disorder, recurrent, moderate Plan: Patient reports his depression has been stable with current doses SSRI therapy. 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 Has not been able to concentrate while driving thus limits him. Offered him occupational therapy to help him with his dyspraxia though he will consider. Orders: Orders Lipid Panel Today I25.10 - Atherosclerotic heart disease of [place] coronary artery without angina pectoris Complete Blood Count no Diff Today E11.69 - Type 2 diabetes mellitus with other specified complication, E66.9 - Obesity, unspecified AMB Hemoglobin A1c Today E11.69 - Type 2 diabetes mellitus with other specified complication, E66.9 - Obesity, unspecified Influenza [id number] Immunization Today Z23 - Encounter for immunization Vitamin B12 and Folate Today E11.42 - Type 2 diabetes mellitus with diabetic polyneuropathy, E53.8 - Deficiency of other specified B group vitamins Comprehensive [place]. Panel Fast Today E11.69 - Type 2 diabetes mellitus with other specified complication, E66.9 - Obesity, unspecified Referrals Podiatry Referral E11.42 - Type 2 diabetes mellitus with diabetic polyneuropathy Coding Level of Care Code Est Pt Level 4 (62405) Diagnoses Primary hypertension I10 Hypertension type: primary hypertension Coronary artery disease involving [place] coronary artery of [place] heart without angina pectoris I25.10 Associated angina: without angina Coronary Disease-Associated Artery/Lesion type: [place] artery [place] vs. transplanted heart: [place] heart Class 1 obesity due to excess calories with serious comorbidity and body mass index (BMI) of 33.0 to 33.9 in adult E66.09; Z68.33 Body mass index: BMI 33.0-33.9 Obesity classification: adult class 1 (BMI 30 - 34.9) Obesity type: due to excess calories Serious obesity comorbidity presence: with serious comorbidity Diabetic polyneuropathy associated with type 2 diabetes mellitus E11.42 Diabetes mellitus complication detail: diabetic polyneuropathy Diabetes mellitus type: type 2 MDD (major depressive disorder), recurrent episode, moderate F33.1 Dyspraxia R27.8
== END 2023-04-01 09:37 | disposition home or self-care (01) ==
PROVIDERS: PCP Physician Assistant; Visit Provider Physician Assistant
DX: E11.42 Type 2 diabetes mellitus with diabetic polyneuropathy (principal); F33.1 Major depressive disorder, recurrent, moderate; E11.69 Type 2 diabetes mellitus with other specified complication; I10 Essential (primary) hypertension; I25.10 Atherosclerotic heart disease of native coronary artery without angina pectoris; Z23 Encounter for immunization; E66.09 Other obesity due to excess calories; Z68.33 Body mass index [BMI] 33.0-33.9, adult; R27.8 Other lack of coordination; E66.9 Obesity, unspecified
CPT/HCPCS: 83036; 90471; 90686; 99214

== ENCOUNTER 2023-05-04 09:43 | Outpatient (AMB) | payer OTHER, SELFPAY ==
--- NOTE | 2023-05-04 09:45 | A.OFFVIS_ITS ---
Intake Vital Signs 05/04/23 09:49 05/04/23 10:22 05/04/23 10:39 Height 5 ft 10 in Weight 234 lb BMI 33.6 BP 103/59 L 103/58 L 98/53 L Blood Pressure Location Lt brachial Lt brachial Lt brachial Position Sitting Sitting Sitting Pulse 80 72 89 Pulse Source Pulse Oximeter Pulse Oximeter Pulse Oximeter Pulse Oximetry (%) 97 98 97 Oxygen Delivery Method Room Air Room Air Room Air Comment 15 mins after qutenza application 30 mins after qutenza application Intake Visit Reasons: Qutenza - DN/confirmed Intake Note: Pain today 09/21 Independent Marketing Consultant Required: No Accompanied by: Self / Same As Patient Allergies No Known Allergies [No Known Allergies*] Allergy (Verified 04/01/23 09:15) HPI HPI Comments History of Present Illness Details Patient presents for 2nd application of capsaicin 8% topical patch for diabetic neuropathy in bilateral feet. He continues to endorse burning pain in his feet with numbness, tingling and stabbing sensations, worse at night. Patient reports mild improvement in symptoms with pregabalin 200 mg BID and initial application of Qutenza in January. Denies any recent cough, cold, infection, fever or other significant changes in medical history since last office visit. Patient presents today with asymptomatic lower BP readings today. Patient reports he is making follow up visit with his harness worker and had recent follow up with his PCP. PRIOR: Patient is a 57 years old male with a history of diabetic neuropathy, HTN, obesity, CAD, s/p CAGBx3 and post laminectomy syndrome, presents today today with bilateral foot pain related to neuropathy since 2014. His diabetes is managed on ELLEN, statin, insulin, Actos, Trulicity with last A1C 8.3 on 12/29/22. Last diabetic eye and foot exam are unknown. Patient reports he checks his blood sugars regularly, tries to follow diabetic diet and tries to lose weight. He tri ed gabapentin and was switched to pregabalin 150 mg BID currently. Lidocaine patches, topical over the counter applications, and topical cannabis are mildly effective. The pain intensity rates at 7-10/10 in intensity. It interferes with his daily activities and functions, and sleeping as well. Pain is described as constant throbbing, piercing, burning, spreading, numbness, tingling sensations in his lower extremities and feet which is most worst at night or walking during the day. EMG 10/09/21 showed moderately severe axonal sensory motor chronic peripheral neuropathy and chronic bilateral lower lumbar radiculopathy. Patient is interested in topical capsaicin application for bilateral foot pain. He denies significant back pain or radicular symptoms today. Reports lumbar decompression surgery and multiple back injections by Dr. Kyle over 20-25 years ago, Denies any fever, weakness, bladder or bowel incontinence or saddle anesthesia. Location Low back pain and bilateral feet Duration Chronic neuropathy for 6 years Characteristics of symptom or complaint Burning, pulsing, tingling, piercing, throbbing, cramping, throbbing Aggravating or associated factors Walking, worse at night Relieving factors Canabis topical, pregabalin, gabapentin, lidocaine patches and cream Treatment None PFSH Medical History Renal cyst COVID-19 Obesity Type 2 diabetes mellitus with obesity Asthma-COPD overlap syndrome Coronary artery disease Diabetic neuropathy Surgical History History of herniated intervertebral disc S/P CABG x 3 Family History Father Lung cancer Mother No problems noted. Family/Other Lung cancer Diabetes Housing: House Alcohol intake: never Patient Tobacco Use Status: Former Tobacco user Tobacco use type: Cigarette e-Cigarette/Vaping Use: Never Used Second Hand Smoke Exposure: No service: No Current occupational status: disabled Current occupational exposures/hazards: No Cognitive needs: No Hearing needs: No Vision needs: No Review of Systems Const All systems reviewed & are unremarkable except as noted in HPI and below Physical Exam Vital Signs: Last Vital Signs Pulse 89 05/04/23 10:39 BP 98/53 L 05/04/23 10:39 Pulse Ox 97 05/04/23 10:39 Oxygen Delivery Method Room Air 05/04/23 10:39 BMI result Body Mass Index 33.6 General: Appears afebrile. Alert and oriented. Mood and affect appropriate. Follows and participates in conversation appropriately. Respiratory effort is unlabored. Able to transition from sit to stand unassisted. Ambulates with bilaterally normal heel strike and toe off. Extrem Other: There is a decreased sensation over the soles of the feet, medial aspects of feet and toes. No breaks in the skin. No soft tissue swelling or warmth. +2 pedal pulses bilaterally. Normal capillary refill. No pedal edema, calf tenderness or cyanosis. General: Yes capillary refill normal, Yes no clubbing, cyanosis or edema and Yes no calf tenderness Office Procedures Topical Capsaicin Date 1:: 02/08/23 Date 2:: 05/04/23 Main area of pain on the body: Bilateral feet Laterality: Bilateral Location of left foot pain: Plantar, Dorsal and Medial Location of right foot pain: Plantar, Dorsal and Medial Quality of pain: Aching, Stabbing, Burning, Throbbing, Gnawing, Numb-like and Tiring Details:: Two patches, 560 cm2 were utilized per each foot. EMLA Cream (lidocaine 2.5% and prilocaine 2.5%) was applied at home by patient eric ariasr to application of the patches. The patient tolerated the procedure well. His vitals signs remained stable throughout the procedure. Patient was able to complete the stipulated 30 minutes of the therapeutic application without any discomfort. Office Meds capsaicin-skin cleanser 8 % topical kit Performing Provider: KARTHIKEYAN Maradiaga Performing Location: [facility] Administered by: KARTHIKEYAN Maradiaga on 05/04/23 10:05 Dose Route Admin Location Dispensed Lot Number Expiration Date [employer] 4 ea topical [facility] 4 ea [id number] 06/14/25 93452-213-25 [employer] Assessment & Plan Assessment & Plan (1) Bilateral foot pain: Code(s): M79.671 - Pain in right foot; M79.672 - Pain in left foot (2) Diabetic neuropathy: Code(s): E11.40 - Type 2 diabetes mellitus with diabetic neuropathy, unspecified Qualifiers: Diabetes mellitus type: type 2 Diabetes mellitus complication detail: diabetic polyneuropathy Qualified Code(s): E11.42 - Type 2 diabetes mellitus with diabetic polyneuropathy (3) Lumbar post-laminectomy syndrome: Code(s): M96.1 - Postlaminectomy syndrome, not elsewhere classified Plan Patient is status post 2nd round of application of topical capsaicin 8% for neuropathy in bilateral feet. Patient tolerated the procedure without significant discomfort with application of EMLA cream prior to the procedure. Continue pregabalin to 200 mg BID, monitor for any side effects. Patient was discharged home in stable condition with discharge instructions. Follow up with Cardiology and monitor BP readings as discussed. All questions and concerns were answered and the patient agreed with the plan. Next Qutenza patch application is scheduled in 3 months. Follow up as needed. Greater than 36 minutes were spent in therapeutic application and in coordination of the care. Orders: Orders AMB Capsaicin Patch - Practice Supplied Today E11.40 - Type 2 diabetes mellitus with diabetic neuropathy, unspecified Coding Level of Care Code Est Pt Level 4 (94655) Diagnoses Bilateral foot pain M79.671; M79.672 Diabetic polyneuropathy associated with type 2 diabetes mellitus E11.42 Diabetes mellitus type: type 2 Diabetes mellitus complication detail: diabetic polyneuropathy Lumbar post-laminectomy syndrome M96.1
[2023-05-04 09:49] VITALS: BP 103/59; PULSE 80; O2SAT 97; BMI 33.6
[2023-05-04 10:22] VITALS: BP 103/58; PULSE 72; O2SAT 98
[2023-05-04 10:39] VITALS: BP 98/53; PULSE 89; O2SAT 97
== END 2023-05-04 10:47 | disposition home or self-care (01) ==
PROVIDERS: PCP Physician Assistant; Visit Provider Nurse Practitioner Family
DX: E11.42 Type 2 diabetes mellitus with diabetic polyneuropathy (principal); M79.671 Pain in right foot; M79.672 Pain in left foot; M96.1 Postlaminectomy syndrome, not elsewhere classified
CPT/HCPCS: 17999; 99214

== ENCOUNTER → 2023-05-04 09:43 | Outpatient (BNVA) | payer OTHER, SELFPAY | PROVIDERS: PCP Physician Assistant; Visit Provider Nurse Practitioner Family | DX: E11.42 Type 2 diabetes mellitus with diabetic polyneuropathy (principal); M79.672 Pain in left foot; M79.671 Pain in right foot; M96.1 Postlaminectomy syndrome, not elsewhere classified | CPT/HCPCS: 17999; 99212; J7336 ==

== ENCOUNTER 2023-08-02 08:55 | Outpatient (AMB) | payer OTHER, SELFPAY ==
[2023-08-02 09:12] VITALS: BP 124/74; PULSE 82; O2SAT 97; BMI 33.5
--- NOTE | 2023-08-02 09:12 | A.OFFPC_ITS ---
Vital Signs 08/02/23 09:12 Height 5 ft 10 in Weight 233 lb 4 oz BMI 33.5 BP 124/74 Blood Pressure Location Lt brachial Position Sitting Pulse 82 Pulse Source Pulse Oximeter Pulse Oximetry (%) 97 Oxygen Delivery Method Room Air Intake Visit Reasons: f/u DMII/ HTN / CAD Portal Administrator Required: No Accompanied by: Self / Same As Patient Allergies No Known Allergies [No Known Allergies*] Allergy (Verified 08/02/23 09:26) Medication List - Last Reconciled 08/02/23 by Pipe Lizarraga PA-C alcohol swabs (Alcohol Prep Pads) 1 pad topical .three times a day aspirin 81 mg PO DAILY blood pressure test kit-large As directed blood sugar diagnostic (OneTouch Ultra Test strips) As directed blood-glucose meter (Shoeboxuch Ultra2 Meter kit) As directed citalopram 40 mg PO DAILY diclofenac sodium 1% (Arthritis Pain (diclofenac)) 4 grams topical QID diltiazem HCl 240 mg PO DAILY dulaglutide (Trulicity) 3 mg (0.5 mL) subcut QWEEK 4 weeks hydrochlorothiazide 25 mg PO DAILY insulin aspart U-100 (Novolog FlexPen U-100 Insulin aspart) 10 units (0.1 mL) subcut TID 30 days isosorbide mononitrate ER 30 mg PO BID 90 days lancets (FreeStyle Lancets) three times a day lancets (OneTouch UltraSoft Lancets) As directed lisinopril 5 mg PO DAILY omeprazole 40 mg PO DAILY pen needle, diabetic (BD Karen 2nd Gen Pen Needle) As directed pioglitazone (Actos) 15 mg PO DAILY 90 days pregabalin 200 mg PO BID 30 days rosuvastatin (Crestor) 40 mg PO DAILY 90 days Tobacco use date assessed: 08/02/23 Dental Screening Dental Screen Date: 08/02/23 Did you have a dental visit in the last 12 months?: Yes Did you have a dental problem in the last 6 months where you did not have access to dental care?: No Was dental information given to patient?: Patient has dentist HPI f/u DMII/ HTN / CAD HPI Details Patient is a 58-year-old male here today for a followup.? Patient has a past medical history significant for type 2 diabetes complicated by neuropathy obesity, COPD,? CAD (CAbG 2014). Diabetes--> patient continues on insulin and 3 mg Trulicity weekly. Today's A1c slightly elevated at 7.3 Reports he has been out of Trulicity for about a month due to availability at pharmacy --> of note patient was taking short-act ing insulin postprandially and advised to start taking it pre pain daily according to sliding scale for better blood s ugar controls. . .. CAD:? Has recently up with his lodging facilities manager and continues to complain of chest pain, could not schedule cardiac PET due to claustrophobia. ?Has had multiple coronary bypasses in the past. ?is followed by a lodging facilities manager at [facility] annually.? Most recent lipid panel elevated for his cardiac risk.? Has been on atorvastatin 40 mg though reports having unclear side effect to this medication.? Has switched to Crestor 40 mg. He reports his diet has been very poor and relays it is very expensive to eat healthy . Unfortunately has not gotten fasting labs done before today's appointment.? Most recent lipid panel showing excellent control over his total cholesterol and LDL. .. COPD: IS followed by Dr Cedillo , reports his pulmonary status has been stable. . .. DMII complicated by polyneuropathy in the lower extremities: Has followed up with [place] pain management and started topical capsaicin cream for his diabetic neuropathy. Lyrica has also been increased to 200 mg b.i.d.. His gabapentin was discontinued. Unfortunately still reports pain in his feet. Has been referred to Podiatry and reports having appointment in August 2023. Will likely benefit from shoe inserts ?? Of note has gotten EMG testing in his lower extremity showing moderate to severe polyneuropathy [facility] Medical History Renal cyst COVID-19 Obesity Type 2 diabetes mellitus with obesity Asthma-COPD overlap syndrome Coronary artery disease Diabetic neuropathy Surgical History History of herniated intervertebral disc S/P CABG x 3 Family History Father Lung cancer Mother No problems noted. Family/Other Lung cancer Diabetes Social History Housing: House Alcohol intake: never Patient Tobacco Use Status: Former Tobacco user Tobacco use type: Cigarette e-Cigarette/Vaping Use: Never Used Second Hand Smoke Exposure: No service: No Current occupational status: disabled Current occupational exposures/hazards: No Cognitive needs: No Hearing needs: No Vision needs: No Questionnaire PHQ-9 Over the last 2 weeks, how often have you been bothered by any of the following problems? 1. Little interest or pleasure in doing things: not at all 2. Feeling down, depressed, or hopeless: not at all 3. Trouble falling or staying asleep, or sleeping too much: not at all 4. Feeling tired or having little energy: not at all 5. Poor appetite or overeating: not at all 6. Feeling bad about yourself - or that you are a failure or have let yourself or your family down: not at all 7. Trouble concentrating on things, such as reading the newspaper or watching television: not at all 8. Moving or speaking so slowly that other people could have noticed. Or the opposite - being so fidgety or restless that you have been moving around a lot more than usual: not at all 9. Thoughts that you would be better off or of hurting yourself in some way: not at all Total score: 0 Depression Screening Interpretation: Negative Depression Screening Done: Yes 49989 - PHQ-9 Billing: Yes Source: Developed by Drs. Danny Milian, May Zapata, Melo Meier and colleagues, with an educational carlos eduardo from [employer]. Thrive Questionnaire Date Thrive assessed: 08/02/23 I am a: Patient What is your living situation today?: I have a steady place to live Within the past 12 months, did the food you bought not last and you didn't have the money to get more?: Never true Within the past 12 months, did you worry whether your food would run out before you got money to buy more?: Never true Do you have trouble paying for medicines?: No Do you have trouble getting transportation to medical appointments?: No Do you have trouble paying your heating and electricity bill?: No Do you have trouble taking care of your child, family member or friend?: No Do you have trouble with day-to-day activities such as bathing, preparing meals, shopping, managing finances, etc.?: No Are you currently unemployed and looking for a job?: No Are you interested in more education?: No Please select the resources that you would like help with: None Currently or been in a relationship where the following occur: no concerns reported THRIVE Score: 0 AUDIT C Alcohol Use Questionnaire (AUDIT-C) 1. How often do you have a drink containing alcohol?: Never 3. How often do you have six or more drinks on one occasion?: Never Total Score: 0 LISA-7 AMB Questionnaire LISA-7 Date LISA - 7 assessed: 08/02/23 Feeling nervous, anxious, or on edge: 0 = Not at all Not being able to stop or control worryin = Not at all Worrying too much about different things: 0 = Not at all Trouble relaxin = Not at all Being so restless that it is hard to sit still: 0 = Not at all Becoming easily annoyed or irritable: 0 = Not at all Feeling afraid as if something awful might happen: 0 = Not at all Total LISA-7 score (0-4 normal; 5-9 mild; 10-14 moderate; 15-21 severe): 0 Source: Developed by Drs. Danny Milian, May Zapata, Melo Meier and colleagues, with an educational carlos eduardo from [employer]. LISA-7 Assessment Billing LISA-7 Assessment Tool: LISA-7 Assessment 28508 Review of Systems Const Denies headache(s) Eyes Denies loss of vision ENT Denies vertigo, Denies dizziness, Denies headache(s) and Denies sore throat Card Denies chest pain, Denies leg edema and Denies lightheadedness Resp Denies cough, Denies hemoptysis and Denies wheezing GI Denies abdominal pain, Denies melena, Denies constipation, Denies diarrhea and Denies vomiting Denies dysuria, Denies urinary frequency and Denies urinary urgency Musc Denies arthralgias, Denies joint swelling, Denies numbness and Denies tingling Neuro Denies Abnormal speech present, Denies behavioral changes, Denies vertigo, Denies dizziness, Denies headache(s), Denies loss of vision, Denies memory loss, Denies numbness and Denies tingling Psych Denies anxiety, Denies behavioral changes, Denies depression, Denies memory loss and Denies panic attacks Abdirahman/Lymph Denies easy bleeding and Denies easy bruising Aller/Immun Denies wheezing Physical exam (Primary Care) Vital Signs: Last Vital Signs Pulse 82 08/02/23 09:12 BP 124/74 08/02/23 09:12 Pulse Ox 97 08/02/23 09:12 Oxygen Delivery Method Room Air 08/02/23 09:12 BMI result Body Mass Index 33.5 Tobacco/Smoking Status: Tobacco use Status Tobacco use date assessed 08/02/23 08/02/23 09:24 Patient Tobacco Use Status Former Tobacco user 08/02/23 09:12 Tobacco use type Cigarette 08/02/23 09:12 e-Cigarette/Vaping Use Never Used 08/02/23 09:12 PHQ-9: PHQ-9 Score PHQ-9: Total score 0 08/02/23 09:27 Depression Screening Interpretation: Negative Thrive Assessment: Date of Thrive Assessment Date Thrive assessed 08/02/23 08/02/23 09:24 Currently or been in a relationship where the following occur: no concerns reported Const General: healthy appearing, no acute distress, alert and awake Nutritional Appearance: well nourished Orientation/consciousness: oriented to person, oriented to place and oriented to time HENMT Ears: TM's normal bilaterally General nose exam: Normal nasal mucous membranes and turbinates present Eyes Conjunctivae: conjunctivae normal Sclerae: sclerae normal Pupils: Equal, round and reactive pupils present Neck Neck: Yes no lymphadenopathy and Yes no JVD Thyroid: Thyroid normal Carotids: no bruits Resp Effort & Inspection: normal respiratory effort and not tachypneic Auscultation: no crackles, no rales, no rhonchi and no wheezes Cardio Rate: regular rate Rhythm: regular rhythm Heart sounds: no murmurs and normal S1 and S2 GI Palpation (GI): Soft to palpation, nontender, no hepatomegaly and no splenomegaly Auscultation: normal bowel sounds Skin General skin exam: no rashes or lesions noted and dry skin Neuro General: oriented to person, oriented to place and oriented to time Cranial nerves: Yes Equal, round and reactive pupils present Speech: No Abnormal speech present Gait exam (Neuro): Normal gait present Motor exam (neuro): no tremor noted Extrem Right upper extremity: full ROM Left upper extremity: full ROM Right lower extremity: full ROM; no edema Left lower extremity: full ROM; no edema Psych Mental Status: mental status grossly normal Speech and movement: Normal speech and movement present Affect: normal affect Attitude: cooperative Thought process: Normal thought process present Results AMB Hemoglobin A1c AMB Hemoglobin A1c 7.4 % Last Edit by LALY Daily on 08/02/23 09:25 Results Reviewed Results Reviewed: Laboratory Last Values Hgb A1c (Clinic) 7.4 % (4.0-6.0) H 08/02/23 09:25 Assessment and Plan Assessment & Plan (1) HTN (hypertension): Code(s): I10 - Essential (primary) hypertension Qualifiers: Hypertension type: primary hypertension Qualified Code(s): I10 - Essential (primary) hypertension Plan: Patient's blood pressure acceptable today in office. Continue current doses of antihypertensive medications. Advised to continue monitoring with goal blood pressure to be below 140/90. (2) CAD (coronary artery disease): Code(s): I25.10 - Atherosclerotic heart disease of [place] coronary artery without angina pectoris Qualifiers: Associated angina: without angina Coronary Disease-Associated Artery/Lesion type: [place] artery [place] vs. transplanted heart: holy cross heart Qualified Code(s): I25.10 - Atherosclerotic heart disease of [place] coronary artery without angina pectoris Plan: Patient continues to follow cardiology, most recent lipid panel showing excellent control over his LDL. Goal LDL to remain below 70 (3) Obesity: Code(s): E66.9 - Obesity, unspecified Qualifiers: Body mass index: BMI 33.0-33.9 Obesity classification: adult class 1 (BMI 30 - 34.9) Obesity type: due to excess calories Serious obesity comorbidity presence: with serious comorbidity Qualified Code(s): E66.09 - Other obesity due to excess calories; Z68.33 - Body mass index [BMI] 33.0-33.9, adult Plan: Patient does understand his BMI is over 30 though has been having trouble being more physically active due to his neuropathy in his lower extremities. . (4) Diabetic neuropathy: Code(s): E11.40 - Type 2 diabetes mellitus with diabetic neuropathy, unspecified Qualifiers: Diabetes mellitus complication detail: diabetic polyneuropathy Diabetes mellitus type: type 2 Qualified Code(s): E11.42 - Type 2 diabetes mellitus with diabetic polyneuropathy Plan: Continues to have moderate to severe neuropathic pain in his lower extremities even with increasing doses of neuromodulation. Is now seeing pain management in getting topical capsaicin treatments on his lower extremities. Unfortunately does not report any improvement. His Lyrica was increased to 200 mg b.i.d.. Gabapentin has been discontinued Advised seen a public address servicer to get professional shoe inserts (5) MDD (major depressive disorder), recurrent episode, moderate: Code(s): F33.1 - Major depressive disorder, recurrent, moderate Plan: Patient reports his depression has been stable with current doses SSRI therapy. Otherwise denies any SI or HI (6) Asthma-COPD overlap syndrome: Code(s): J44.9 - Chronic obstructive pulmonary disease, unspecified Plan: Patient's breathing has been stable without any use of maintenance inhaler or albuterol inhaler. (7) Infrarenal abdominal aortic aneurysm, without rupture: Code(s): I71.43 - Infrarenal abdominal aortic aneurysm, without rupture Plan: Was found to have an infrarenal abdominal aortic aneurysm measuring at 4 cm while in the ER. Needed 1 year annual surveillance. Orders: Orders AMB Hemoglobin A1c 08/02/23 E11.69 - Type 2 diabetes mellitus with other s pecified complication, E66.9 - Obesity, unspecified US abdominal aortic aneurysm Today I71.43 - Infrarenal abdominal aortic aneurysm, without rupture Referrals Vascular Surgery Referral I71.43 - Infrarenal abdominal aortic aneurysm, without rupture Medications: New tizanidine 2 mg PO BID 30 days PRN 60 tabs 3RF muscle spasticity E11.42 - Type 2 diabetes mellitus with diabetic polyneuropathy Coding Level of Care Code Est Pt Level 4 (59882) Diagnoses Primary hypertension I10 Hypertension type: primary hypertension Coronary artery disease involving [place] coronary artery of [place] heart without angina pectoris I25.10 Associated angina: without angina Coronary Disease-Associated Artery/Lesion type: [place] artery [place] vs. transplanted heart: [place] heart Class 1 obesity due to excess calories with serious comorbidity and body mass index (BMI) of 33.0 to 33.9 in adult E66.09; Z68.33 Body mass index: BMI 33.0-33.9 Obesity classification: adult class 1 (BMI 30 - 34.9) Obesity type: due to excess calories Serious obesity comorbidity presence: with serious comorbidity Diabetic polyneuropathy associated with type 2 diabetes mellitus E11.42 Diabetes mellitus complication detail: diabetic polyneuropathy Diabetes mellitus type: type 2 MDD (major depressive disorder), recurrent episode, moderate F33.1 Asthma-COPD overlap syndrome J44.9 Infrarenal abdominal aortic aneurysm, without rupture I71.43 Additional Codes LISA-7 Assessment Billing - LISA-7 Assessment Tool: LISA-7 Assessment [id number] ([id number])
== END 2023-08-02 09:48 | disposition home or self-care (01) ==
PROVIDERS: PCP Physician Assistant; Visit Provider Physician Assistant
DX: E11.42 Type 2 diabetes mellitus with diabetic polyneuropathy (principal); F33.1 Major depressive disorder, recurrent, moderate; J44.9 Chronic obstructive pulmonary disease, unspecified; I71.43 Infrarenal abdominal aortic aneurysm, without rupture; I10 Essential (primary) hypertension; I25.10 Atherosclerotic heart disease of native coronary artery without angina pectoris; E66.09 Other obesity due to excess calories; Z68.33 Body mass index [BMI] 33.0-33.9, adult
CPT/HCPCS: 83036; 99214

== ENCOUNTER 2023-08-05 09:48 | Outpatient (AMB) | payer OTHER, SELFPAY ==
--- NOTE | 2023-08-05 09:51 | A.OFFVIS_ITS ---
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 He continues to endorse burning pain in his feet with numbness, tingling and stabbing sensations, worse at night when he feels muscle cramps and burning sensations in his plantar mid foot and toes. Patient continues taking pregabalin 200 mg BID with partial relief. Denies any recent cough, cold, infection, fever or other significant changes in medical history since last office visit. Most recent A1C-7.4 (08/02/23). PRIOR: Patient is a 57 years old male with a history of diabetic neuropathy, HTN, obesity, CAD, s/p CAGBx3 and post laminectomy syndrome, presents today today with bilateral foot pain related to neuropathy since 2014. His diabetes is managed on ELLEN, statin, insulin, Actos, Trulicity with last A1C 8.3 on 12/29/22. Last diabetic eye and foot exam are unknown. Patient reports he checks his blood sugars regularly, tries to follow diabetic diet and tries to lose weight. He tried gabapentin and was switched to pregabalin 150 mg BID currently. Lidocaine patches, topical over the counter applications, and topical cannabis are mildly effective. The pain intensity rates at 7-10/10 in intensity. It interferes with his daily activities and functions, and sleeping as well. Pain is described as constant throbbing, piercing, burning, spreading, numbness, tingling sensations in his lower extremities and feet which is most worst at night or walking during the day. EMG 10/09/21 showed moderately severe axonal sensory motor chronic peripheral neuropathy and chronic bilateral lower lumbar radiculopathy. Patient is interested in topical capsaicin application for bilateral foot pain. He de nies significant back pain or radicular symptoms today. Reports lumbar decompression surgery and multiple back injections by Dr. Kyle over 20-25 years ago, Denies any fever, weakness, bladder or bowel incontinence or saddle anesthesia. Location Low back pain and bilateral feet Duration Chronic neuropathy for 6 years Characteristics of symptom or complaint Burning, pulsing, tingling, piercing, throbbing, cramping, throbbing Aggravating or associated factors Walking, worse at night Relieving factors Canabis topical, pregabalin, gabapentin, lidocaine patches and cream Treatment None PFSH Medical History Renal cyst COVID-19 Obesity Type 2 diabetes mellitus with obesity Asthma-COPD overlap syndrome Coronary artery disease Diabetic neuropathy Surgical History History of herniated intervertebral disc S/P CABG x 3 Family History Father Lung cancer Mother No problems noted. Family/Other Lung cancer Diabetes Social History Housing: House Alcohol intake: never Patient Tobacco Use Status: Former Tobacco user Tobacco use type: Cigarette e-Cigarette/Vaping Use: Never Used Second Hand Smoke Exposure: No service: No Current occupational status: disabled Current occupational exposures/hazards: No Cognitive needs: No Hearing needs: No Vision needs: No Review of Systems Const All systems reviewed & are unremarkable except as noted in HPI and below Physical Exam Vital Signs: Last Vital Signs Pulse 83 08/05/23 11:07 BP 120/77 08/05/23 11:07 Pulse Ox 98 08/05/23 11:07 Oxygen Delivery Method Room Air 08/05/23 11:07 BMI result Body Mass Index 33.3 General: Appears afebrile. Alert and oriented. Mood and affect appropriate. Follows and participates in conversation appropriately. Respiratory effort is unlabored. No cough. Able to transition from sit to stand unassisted. Ambulates with bilaterally normal heel strike and toe off. Extrem Other: There is a decreased sensation over the soles of the feet, medial aspects of feet and toes. No breaks in the skin. No soft tissue swelling or warmth. +2 pedal pulses bilaterally. Normal capillary refill. No pedal edema, calf tenderness or cyanosis. Office Procedures Topical Capsaicin Date 1:: 02/08/23 Date 2:: 05/04/23 Date 3:: 08/05/23 Laterality: Bilateral Location of left foot pain: Plantar, Dorsal, Medial, Lateral and Distal Location of right foot pain: Plantar, Dorsal, Medial, Lateral and Distal Quality of pain: Aching, Stabbing, Nagging, Burning, Gnawing, Numb-like and Penetrating Details:: Two patches, 560 cm2 were utilized per each foot. EMLA Cream (lidocaine 2.5% and prilocaine 2.5%) was not applied at home by patient prior to application of the patches. He decided to proceed with application without EMLA cream and will monitor for any skin sensitivity during and after procedure. The patient tolerated the procedure well. Patient?s vitals signs remained stable throughout the procedure. Patient was able to complete the stipulated 30 minutes of the therapeutic application without any discomfort. Office Meds capsaicin-skin cleanser 8 % topical kit Performing Provider: KARTHIKEYAN Maradiaga Performing Location: [facility] [place] [facility] Administered by: KARTHIKEYAN Maradiaga on 08/05/23 10:06 Dose Route Admin Location Dispensed Lot Number Expiration Date [employer] 4 ea topical [facility] 4 ea [id number] 11/12/25 73836-358-34 [employer] Results Reviewed Results Reviewed: NE electromyogram (EMG); NE nerve conduction velocity 10/09/21 Bilateral tibial and peroneal motor studies were performed. Bilateral sural and superficial peroneal sensory studies were performed. Tibial H reflexes were obtained and paraspinal muscles were tested with a needle. IMPRESSION: 1. 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 2. Chronic bilateral lower lumbar radiculopathy. Assessment & Plan Assessment & Plan (1) Bilateral foot pain: Code(s): M79.671 - Pain in right foot; M79.672 - Pain in left foot (2) Diabetic neuropathy: Code(s): E11.40 - Type 2 diabetes mellitus with diabetic neuropathy, unspecified Qualifiers: Diabetes mellitus complication detail: diabetic polyneuropathy Diabetes mellitus type: type 2 Qualified Code(s): E11.42 - Type 2 diabetes mellitus with diabetic polyneuropathy (3) Lumbar post-laminectomy syndrome: Code(s): M96.1 - Postlaminectomy syndrome, not elsewhere classified Plan Patient is status post 3rd round of application of topical capsaicin 8% for neuropathy in bilateral feet. Patient tolerated the procedure without significant discomfort without EMLA cream. Patient recommended to apply EMLA cream before next applications. Refills sent today. Continue pregabalin to 200 mg BID, monitor for any side effects. Patient was discharged home in stable condition with discharge instructions. All questions and concerns were answered and the patient agreed with the plan. Next Qutenza patch application is scheduled in 3 months. Follow up as needed. Greater than 40 minutes were spent in therapeutic application and in coordination of the care. Orders: Orders AMB Capsaicin Patch - Practice Supplied Today E11.40 - Type 2 diabetes mellitus with diabetic neuropathy, unspecified, M79.671 - Pain in right foot, M79.672 - Pain in left foot Medications: Changed From lidocaine-prilocaine 2.5-2.5 % Apply to both clean feet 15-30 min prior to Qutenza patch on 05/04/23 1 appl topical ONCE 30 grams 0RF pain E11.42 - Type 2 diabetes mellitus with diabetic polyneuropathy, M79.671 - Pain in right foot, M79.672 - Pain in left foot To lidocaine-prilocaine 2.5-2.5 % Apply to both clean feet 15-30 min prior to Qutenza procedure 1 appl topical ONCE 30 grams 3RF pain E11.42 - Type 2 diabetes mellitus with diabetic polyneuropathy, M79.671 - Pain in right foot, M79.672 - Pain in left foot From pregabalin 200 mg PO BID 30 days 60 caps 1RF pain E11.40 - Type 2 diabetes mellitus with diabetic neuropathy, unspecified, M79.671 - Pain in right foot, M79.672 - Pain in left foot, M96.1 - Postlaminectomy syndrome, not elsewhere classified To pregabalin 300 mg PO BID 60 caps 0RF pain 30 days E11.40 - Type 2 diabetes mellitus with diabetic neuropathy, unspecified, M79.671 - Pain in right foot, M79.672 - Pain in left foot, M96.1 - Postlaminectomy syndrome, not elsewhere classified Coding Level of Care Code Est Pt Level 4 (37327) Diagnoses Bilateral foot pain M79.671; M79.672 Diabetic polyneuropathy associated with type 2 diabetes mellitus E11.42 Diabetes mellitus complication detail: diabetic polyneuropathy Diabetes mellitus type: type 2 Lumbar post-laminectomy syndrome M96.1
[2023-08-05 09:59] VITALS: BP 116/70; PULSE 85; O2SAT 100; BMI 33.3
[2023-08-05 10:22] VITALS: BP 105/61; PULSE 73; O2SAT 100
[2023-08-05 11:07] VITALS: BP 120/77; PULSE 83; O2SAT 98
== END 2023-08-05 11:00 | disposition home or self-care (01) ==
PROVIDERS: PCP Physician Assistant; Visit Provider Nurse Practitioner Family
DX: E11.42 Type 2 diabetes mellitus with diabetic polyneuropathy (principal); M79.671 Pain in right foot; M79.672 Pain in left foot; M96.1 Postlaminectomy syndrome, not elsewhere classified; E11.40 Type 2 diabetes mellitus with diabetic neuropathy, unspecified
CPT/HCPCS: 17999; 99214

== ENCOUNTER → 2023-08-05 09:48 | Outpatient (BNVA) | payer OTHER, SELFPAY | PROVIDERS: PCP Physician Assistant; Visit Provider Nurse Practitioner Family | DX: E11.42 Type 2 diabetes mellitus with diabetic polyneuropathy (principal); M79.671 Pain in right foot; M79.672 Pain in left foot; M96.1 Postlaminectomy syndrome, not elsewhere classified | CPT/HCPCS: 17999; 99212; J7336 ==

== ENCOUNTER 2023-08-25 09:17 | Outpatient (REF) | payer OTHER, SELFPAY ==
--- NOTE | ~2023-08-25 | US_ITS ---
EXAMINATION: US RETROPERITONEAL LIMITED (AORTA) CLINICAL INFORMATION: Infrarenal abdominal aortic aneurysm without rupture. 4 cm infrarenal aortic aneurysm surveillance. COMPARISON: CT abdomen 09/13/2022. TECHNIQUE: Stoddard-scale, color Doppler and spectral Doppler evaluation of the abdominal aorta. Technically limited study secondary to body habitus. FINDINGS: Atherosclerotic aorta. The measurements of the aorta in maximum AP and transverse dimensions respectively are as follows: Proximal: 2.2 x 3.2 cm. Mid: 2.5 x 2.7 cm. Distal: 4.4 x 3.6 cm. PSV: 78.9 cm/s. The measurements of the common iliac arteries in maximum AP and TRV dimensions are as follows: Right Common Iliac Artery: 1.3 x 1.0 cm. Left Common Iliac Artery: 0.9 x 1.5 cm. US/US abdominal aortic aneurysm IMPRESSION: 4.4 cm abdominal aortic aneurysm stable to slightly increased from 4.[address] abdomen and pelvis 09/13/2022. However, this degree of change may be within the realm of expected variation between imaging modalities. Continued surveillance is recommended. Best Practice Recommendation: Based on published guidelines in J Am Shruthi Radiol 2013; 10(10):789-794 and J Vasc Surg. 2018; 67:2-77, the recommendation for an abdominal aortic aneurysm with diameter 4.0-4.4 cm is vascular consultation and subsequent follow-up every 12 months.
== END 2023-08-25 09:18 | disposition home or self-care (01) ==
LOC: HO.US 09:17
PROVIDERS: PCP Physician Assistant; Visit Provider Physician Assistant
DX: I71.43 Infrarenal abdominal aortic aneurysm, without rupture (principal)
CPT/HCPCS: 76706

== ENCOUNTER 2023-09-28 09:04 | Outpatient (AMB) | payer OTHER, SELFPAY ==
--- NOTE | 2023-09-28 09:32 | A.OFFVIS_ITS ---
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 Patient had a AAA US on 08/25/23 ordered by Pipe Lizarraga. 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 It was an incidental finding on a CT scan nearly a year ago. This was done in the emergency room on a workup for abdominal pain that has gone on to resolve and at that time it was noted to be 4.2 cm. Had a repeat surveillance ultrasound performed by primary care. He now presents to us for evaluation. Of note he quit smoking nearly 18 years ago. He is a diabetic. Remains fairly active and is quite concerned about this aneurysm. He now presents to us for vascular evaluation. [facility] Medical History Renal cyst COVID-19 Obesity Type 2 diabetes mellitus with obesity Asthma-COPD overlap syndrome Coronary artery disease Diabetic neuropathy Surgical History History of herniated intervertebral disc S/P CABG x 3 Family History Father Lung cancer Mother No problems noted. Family/Other Lung cancer Diabetes Social History Housing: House Alcohol intake: never Patient Tobacco Use Status: Former Tobacco user Tobacco use type: Cigarette e-Cigarette/Vaping Use: Never Used Second Hand Smoke Exposure: No service: No Current occupational status: disabled Current occupational exposures/hazards: No Cognitive needs: No Hearing needs: No Vision needs: No Review of Systems Const All systems reviewed & are unremarkable except as noted in HPI and below Reports no additional complaints ENT Reports Normal hearing present Card Denies chest pain, Denies chest pain at rest, Denies chest pain with activity and Denies pedal edema Resp Denies cough GI Denies abdominal pain Musc Denies abnormal gait, Denies muscle cramps and Denies radiating pain into limb Skin/Breast Denies skin ulcer and Denies wounds Neuro Reports Normal hearing present and Denies abnormal gait Psych Reports no additional complaints Physical Exam Const General: cooperative, healthy appearing and comfortable Orientation/consciousness: oriented to person, oriented to place and oriented to time HEENT Head: Yes normal to inspection Neck Neck: Yes normal visual inspection Carotids: no bruits Chest Chest palpation & inspection: normal inspection of the chest Resp Effort & Inspection: normal respiratory effort and able to speak in complete sentences Auscultation: clear to auscultation bilaterally, no crackles, no rales, no rhonchi and no wheezes Cardio Rate: regular rate Rhythm: regular rhythm Heart sounds: S1 normal heart sound present and S2 normal heart sound present Bruits: no carotid bruits Peripheral pulses: Peripheral pulses 2+ throughout GI Inspection: Yes normal to inspection Skin Wounds: no wounds Hair: normal Neuro General: oriented to person, oriented to place and oriented to time Cranial nerves: Yes CN's II-XII intact bilaterally and Yes Normal hearing present Cognition (Neuro): normal cognition Motor exam (neuro): 5/5 motor strength present throughout Extrem Other: venous exam: No significant superficial varicosities or spider telangiectasias, minimal edema General: No clubbing, No cyanosis and No edema Psych Appearance: grossly normal Mental Status: mental status grossly normal Speech and movement: Normal speech and movement present Results Reviewed Results Reviewed: Aortic ultrasound dated 08/25/2023 demonstrates aneurysm of 4.4 cm Assessment & Plan Assessment & Plan (1) Infrarenal abdominal aortic aneurysm, without rupture: Code(s): I71.43 - Infrarenal abdominal aortic aneurysm, without rupture Plan: In short patient has radiologic evidence of a AAA on 4.4 cm on ultrasound. We have discussed the pathophysiology of aortic aneurysms and the risk of ruptures. We have discussed rupture risk based on size. In addition we have discussed conservative measures and risk factor modification for prevention of increase in size of the aneurysm. the patient is scheduled for surveillance follow-up in approximately 6 months. Thank you for allowing us to participate in the care of this patient Orders: Orders US abdominal aortic aneurysm 6 Months I71.43 - Infrarenal abdominal aortic an eurysm, without rupture Coding Level of Care Code New Pt Level 4 (12966) Diagnoses Infrarenal abdominal aortic aneurysm, without rupture I71.43
== END 2023-09-28 10:08 | disposition home or self-care (01) ==
PROVIDERS: PCP Physician Assistant; Visit Provider Surgery Vascular Surgery
DX: I71.43 Infrarenal abdominal aortic aneurysm, without rupture (principal)
CPT/HCPCS: 99204

== ENCOUNTER → 2023-09-28 09:04 | Outpatient (BNVA) | payer OTHER, SELFPAY | PROVIDERS: PCP Physician Assistant; Visit Provider Surgery Vascular Surgery | DX: I71.43 Infrarenal abdominal aortic aneurysm, without rupture (principal) | CPT/HCPCS: 99202 ==

== ENCOUNTER 2023-11-01 09:17 | Outpatient (AMB) | payer OTHER, SELFPAY ==
--- NOTE | 2023-11-01 09:18 | A.OFFVIS_ITS ---
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 He continues to endorse burning pain in his feet with numbness, tingling and stabbing sensations, worse at night with periodic restless leg syndrome symptoms. Patient continues taking pregabalin 200 mg BID with partial relief. He continues to experience significant bilateral foot pain with weight bearing. We will obtain xray imaging to assess for any degenerative changes and bone spurs. Denies any recent cough, cold, infection, fever or other significant changes in medical history since last office visit. Most recent A1C- 7.4 (08/02/23). PRIOR: Patient is a 57 years old male with a history of diabetic neuropathy, HTN, obesity, CAD, s/p CAGBx3 and post laminectomy syndrome, presents today today with bilateral foot pain related to neuropathy since 2014. His diabetes is managed on ELLEN, statin, insulin, Actos, Trulicity with last A1C 8.3 on 12/29/22. Last diabetic eye and foot exam are unknown. Patient reports he checks his blood sugars regularly, tries to follow diabetic diet and tries to lose weight. He tried gabapentin and was switched to pregabalin 150 mg BID currently. Lidocaine patches, topical over the counter applications, and topical cannabis are mildly effective. The pain intensity rates at 7-10/10 in intensity. It interferes with his daily activities and functions, and sleeping as well. Pain is described as constant throbbing, piercing, burning, spreading, numbness, tingling sensations in his lower extremities and feet which is most worst at night or walking during the day. EMG 10/09/21 showed moderately severe axonal sensory motor chronic peripheral neuropathy and chronic bilateral lower lumbar radiculopathy. Patient is interested in topical capsaicin application for bilateral foot pain. He denies significant back pain or radicular symptoms today. Reports lumbar decompression surgery and multiple back injections by Dr. Kyle over 20-25 years ago, Denies any fever, weakness, bladder or bowel incontinence or saddle anesthesia. Location Low back pain and bilateral feet Duration Chronic neuropathy for 6 years Characteristics of symptom or complaint Burning, pulsing, tingling, piercing, throbbing, cramping, throbbing Aggravating or associated factors Walking, worse at night Relieving factors Canabis topical, pregabalin, gabapentin, lidocaine patches and cream Treatment None PFSH Medical History Renal cyst COVID-19 Obesity Type 2 diabetes mellitus with obesity Asthma-COPD overlap syndrome Coronary artery disease Diabetic neuropathy Surgical History History of herniated intervertebral disc S/P CABG x 3 Family History Father Lung cancer Mother No problems noted. Family/Other Lung cancer Diabetes Social History Housing: House Alcohol intake: never Patient Tobacco Use Status: Former Tobacco user Tobacco use type: Cigarette e-Cigarette/Vaping Use: Never Used Second Hand Smoke Exposure: No service: No Current occupational status: disabled Current occupational exposures/hazards: No Cognitive needs: No Hearing needs: No Vision needs: No Review of Systems Const All systems reviewed & are unremarkable except as noted in HPI and below Physical Exam Vital Signs: Last Vital Signs Pulse 89 11/01/23 09:21 BP 114/76 11/01/23 09:21 Pulse Ox 98 11/01/23 09:21 Oxygen Delivery Method Room Air 11/01/23 09:21 BMI result Body Mass Index 35.2 General: Appears afebrile. Alert and oriented. Mood and affect appropriate. Follows and participates in conversation appropriately. Respiratory effort is unlabored. No cough. Able to transition from sit to stand unassisted. Ambulates with bilaterally normal heel strike and toe off. Back/Spine/Pelvis Thoracic/Lumbar Spine: thoracic and lumbar spine normal to inspection, Thoracic/lumbar spine scar(s), Lasegue's sign negative, straight leg raise negative bilaterally, pain with thoraco-lumbar ROM, paraspinal muscle tenderness, thoraco-lumbar ROM limited, No thoracic spinal tenderness and lumbar spinal tenderness at L4 and at L5 Extrem Other: There is a decreased sensation over the soles of the feet, medial aspects of feet and toes. No breaks in the skin. No soft tissue swelling or warmth. +2 pedal pulses bilaterally. Normal capillary refill. No pedal edema, calf tenderness or cyanosis. Full ROM. Office Procedures Topical Capsaicin Date 1:: 02/08/23 Date 2:: 05/04/23 Date 3:: 08/05/23 Date 4:: 11/01/23 Main area of pain on the body: Bilateral feet and toes Laterality: Bilateral Location of left foot pain: Anterior, Posterior, Plantar, Dorsal, Medial, Lateral and Distal Location of right foot pain: Anterior, Posterior, Plantar, Dorsal, Medial, Lateral and Distal Quality of pain: Aching, Nagging, Burning, Gnawing, Numb-like, Tiring, Penetrating, Sharp and Unbearable (with prolonged walking and night time) Details:: Two patches, 560 cm2 were utilized per each foot. EMLA Cream (lidocaine 2.5% and prilocaine 2.5%) was applied at home by patient prior to application of the patches. The patient tolerated the procedure well. Patient?s vitals signs remained stable throughout the procedure. Patient was able to complete the stipulated 35 minutes of the therapeutic application without any discomfort. Office Meds capsaicin-skin cleanser 8 % topical kit Performing Provider: KARTHIKEYAN Maradiaga Performing Location: [facility] [place] [facility] Administered by: KARTHIKEYAN Maradiaga on 11/01/23 09:53 Dose Route Admin Location Dispensed Lot Number Expiration Date [facility] [employer] 4 ea topical 4 ea [id number] 12/12/25 [id number] [employer] Results Reviewed Results Reviewed: NE electromyogram (EMG); NE nerve conduction velocity 10/09/21 Bilateral tibial and peroneal motor studies were performed. Bilateral sural and superficial peroneal sensory studies were performed. Tibial H reflexes were obtained and paraspinal muscles were tested with a needle. IMPRESSION: 1. 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 2. Chronic bilateral lower lumbar radiculopathy. Assessment & Plan Assessment & Plan (1) Bilateral foot pain: Code(s): M79.671 - Pain in right foot; M79.672 - Pain in left foot Category: Medical (2) Diabetic neuropathy: Code(s): E11.40 - Type 2 diabetes mellitus with diabetic neuropathy, unspecified Category: Medical Qualifiers: Diabetes mellitus type: type 2 Diabetes mellitus complication detail: diabetic polyneuropathy Qualified Code(s): E11.42 - Type 2 diabetes mellitus with diabetic polyneuropathy (3) Lumbar post-laminectomy syndrome: Code(s): M96.1 - Postlaminectomy syndrome, not elsewhere classified Category: Medical Plan Patient is status post 4th round of application of topical capsaicin 8% for neuropathy in bilateral feet. Patient tolerated the procedure without significant discomfort with EMLA cream. Patient recommended to apply EMLA cream before next applications. Continue pregabalin to 200 mg BID, monitor for any side effects. Bilateral foot xrays to assess for any degenerative changes given persistent foot pain with weight bearing. Patient was discharged home in stable condition with discharge instructions. All questions and concerns were answered and the patient agreed with the plan. Next Qutenza patch application is scheduled in 3 months. Follow up as needed. Greater than 45 minutes were spent in therapeutic application and in coordination of the care. Orders: Orders AMB Capsaicin Patch - Practice Supplied Today E11.42 - Type 2 diabetes mellitus with diabetic polyneuropathy, M79.671 - Pain in right foot, M79.672 - Pain in left foot XR foot LT min 3V Today E11.42 - Type 2 diabetes mellitus with diabetic polyneuropathy, M79.671 - Pain in right foot, M79.672 - Pain in left foot XR foot RT min 3V Today E11.42 - Type 2 diabetes mellitus with diabetic polyneuropathy, M79.671 - Pain in right foot, M79.672 - Pain in left foot Coding Level of Care Code Est Pt Level 4 (80287) Diagnoses Bilateral foot pain M79.671; M79.672 Diabetic polyneuropathy associated with type 2 diabetes mellitus E11.42 Diabetes mellitus type: type 2 Diabetes mellitus complication detail: diabetic polyneuropathy Lumbar post-laminectomy syndrome M96.1
[2023-11-01 09:21] VITALS: BP 114/76; PULSE 89; O2SAT 98; BMI 35.2
[2023-11-01 10:10] VITALS: BP 139/85; PULSE 98; O2SAT 97
[2023-11-01 10:36] VITALS: BP 124/69; PULSE 86; O2SAT 98
== END 2023-11-01 10:39 | disposition home or self-care (01) ==
PROVIDERS: PCP Physician Assistant; Visit Provider Nurse Practitioner Family
DX: E11.42 Type 2 diabetes mellitus with diabetic polyneuropathy (principal); M79.671 Pain in right foot; M79.672 Pain in left foot; M96.1 Postlaminectomy syndrome, not elsewhere classified
CPT/HCPCS: 17999; 99214

== ENCOUNTER → 2023-11-01 09:17 | Outpatient (BNVA) | payer OTHER, SELFPAY | PROVIDERS: PCP Physician Assistant; Visit Provider Nurse Practitioner Family | DX: E11.42 Type 2 diabetes mellitus with diabetic polyneuropathy (principal); M79.671 Pain in right foot; M79.672 Pain in left foot; M96.1 Postlaminectomy syndrome, not elsewhere classified; Z79.899 Other long term (current) drug therapy | CPT/HCPCS: 17999; 99212; J7336 ==

== ENCOUNTER 2023-12-04 07:38 | Outpatient (REF) | payer OTHER, SELFPAY ==
[2023-12-04 08:03] LABS: Hematocrit 42.3 % (42.0-52.0); Hemoglobin 14.6 g/dl (14.0-18.0); Mean Corpuscular HGB Conc 34.5 g/dl (31.0-36.0); Mean Corpuscular Hemoglobin 29.9 pg (27.0-33.0); Mean Corpuscular Volume 86.7 fL (80.0-98.0); Mean Platelet Volume 10.1 fL (9.4-12.4); Platelet Count 241 X10*3/uL (160-400); Red Blood Count 4.88 X10*6/uL (4.60-5.80); Red Cell Distribution Width 12.9 % (11.0-16.0); White Blood Count 6.5 X10*3/uL (4.8-10.8)
[2023-12-04 08:31] LABS: Alanine Aminotransferase 28 U/L (0-40); Albumin Level 4.2 g/dL (3.5-5.0); Alkaline Phosphatase 61 U/L (39-117); Anion Gap 13 (12-20); Aspartate Amino Transferase 23 U/L (5-37); Bilirubin Total 0.4 mg/dL (0.0-1.0); Blood Urea Nitrogen 19 mg/dL (9-16); Calcium 9.3 mg/dL (8.4-10.2); Carbon Dioxide 27 mmol/L (22-29); Chloride 102 mmol/L (96-108); Cholesterol 125 mg/dL (<200); Estimated Glomerular Filt Rate > 60; Glucose Fasting 188 mg/dL (60-99); HDL Cholesterol 47 mg/dL (>40); LDL Cholesterol Calculated 55 mg/dL (<100); Potassium 4.2 mmol/L (3.3-5.1); Sodium 138 mmol/L (135-145); Total Protein 6.7 g/dL (6.5-8.0); Triglycerides 117 mg/dL (<150)
[2023-12-04 09:06] LABS: Folate 12.4 ng/mL (> or = 4.0); Vitamin B12 434 pg/mL (200-900)
== END 2023-12-04 07:39 | disposition home or self-care (01) ==
LOC: HO.LAB 07:38
PROVIDERS: PCP Physician Assistant; Visit Provider Physician Assistant
DX: I25.10 Atherosclerotic heart disease of native coronary artery without angina pectoris (principal); E11.69 Type 2 diabetes mellitus with other specified complication; E66.9 Obesity, unspecified; E53.8 Deficiency of other specified B group vitamins; E11.42 Type 2 diabetes mellitus with diabetic polyneuropathy
CPT/HCPCS: 36415; 80053; 80061; 82607; 82746; 85027

== ENCOUNTER 2023-12-07 11:05 | Outpatient (AMB) | payer OTHER, SELFPAY ==
[2023-12-07 11:21] VITALS: BP 104/78; PULSE 72; O2SAT 95; BMI 34.3
--- NOTE | 2023-12-07 11:21 | MHC.PC.OV ---
Vital Signs 12/07/23 11:21 Height 5 ft 10 in Weight 239 lb 4 oz BMI 34.3 BP 104/78 Blood Pressure Location Lt brachial Position Sitting Pulse 72 Pulse Source Pulse Oximeter Pulse Oximetry (%) 95 Oxygen Delivery Method Room Air Intake Visit Reasons: diabetes,htn,neuropathy,fmla Pediatric Dentist Required: No Accompanied by: Self / Same As Patient Allergies bupropion [From Wellbutrin] Adverse Reaction (Intermediate, Verified 12/08/23 07:37) Ineffective Medication List - Last Reconciled 12/07/23 by Pipe Lizarraga PA-C alcohol swabs (Alcohol Prep Pads) 1 pad topical .three times a day aspirin 81 mg PO DAILY blood pressure test kit-large As directed blood sugar diagnostic ([employer] Ultra Test strips) Testing 3 times a day blood-glucose meter As directed citalopram 40 mg PO DAILY diclofenac sodium 1% (Arthritis Pain (diclofenac)) 4 grams topical QID diltiazem HCl CD 240 mg PO DAILY hydrochlorothiazide 25 mg PO DAILY insulin aspart U-100 (Novolog FlexPen U-100 Insulin aspart) 10 units (0.1 mL) subcut TID 30 days isosorbide mononitrate ER 30 mg PO BID 90 days lancets Testing 3 times a day lancets (FreeStyle Lancets) three times a day lidocaine-prilocaine 2.5-2.5 % 1 appl topical ONCE lisinopril 5 mg PO DAILY omeprazole 40 mg PO DAILY pen needle, diabetic (BD Karen 2nd Gen Pen Needle) As directed pioglitazone (Actos) 15 mg PO DAILY 90 days pregabalin 300 mg PO BID 30 days rosuvastatin (Crestor) 40 mg PO DAILY 90 days tirzepatide (Mounjaro) 5 mg (0.5 mL) subcut QWEEK 4 weeks tizanidine 2 mg PO BID PRN 30 days Tobacco use date assessed: 08/02/23 Dental Screening Dental Screen Date: 08/02/23 HPI diabetes,htn,neuropathy,fmla HPI Details Patient is a 58-year-old male here today for a followup.? Patient has a past medical history significant for type 2 diabetes complicated by neuropathy obesity, COPD,? CAD (CAbG 2014). Diabetes--> patient's type 2 diabetes has been better controlled as of late, has transitioned to mounjauro. A1c today is 7.1 from 7.3 Reports he has been out of [facility] for about a month due to availability at pharmacy --> of note patient was taking short-acting insulin postprandially and advised to start taking it pre pain daily according to sliding scale for better blood sugar controls. . --> DEPRESSION--> unfortunately due to his medical issues particularly his pain in his feet he has not been very mobile, unable to drive or work. This has been causing him more depression. Already on highest dose of Celexa at this time. Has tried Wellbutrin in the past though was not effective He is interested in seeing a psychiatrist to stabilize his depression. .. CAD:? Has recently up with his manufacturing quality manager and continues to complain of chest pain, could not schedule cardiac PET due to claustrophobia. ?Has had multiple coronary bypasses in the past. ?is followed by a manufacturing quality manager at [facility] annually.? Most recent lipid panel elevated for his cardiac risk.? Has been on atorvastatin 40 mg though reports having unclear side effect to this medication.? Has switched to Crestor 40 mg. He reports his diet has been very poor and relays it is very expensive to eat healthy . Unfortunately has not gotten fasting labs done before today's appointment.? Most recent lipid panel showing excellent control over his total cholesterol and LDL. .. COPD: IS followed by Dr Cedillo , reports his pulmonary status has been stable. . .. DMII complicated by polyneuropathy in the lower extremities: Has followed up with [place] pain management and started topical capsaicin cream for his diabetic neuropathy. Lyrica has also been increased to 200 mg b.i.d.. His gabapentin was discontinued.Of note has gotten EMG testing in his lower extremity showing moderate to severe polyneuropathy. He has considering a spinal stimulator in his back HE IS ALSO FOLLOWED UP WITH PODIATRY THOUGH COULD NOT HELP HIM DUE TO HIS ISSUE BEING A NEUROPATHIC. Unfortunately still reports pain in his feet. PLAN: Will try to support him with diabetic shoes that may give him more support and pain relief. ?? [facility] Medical History Renal cyst COVID-19 Obesity Type 2 diabetes mellitus with obesity Asthma-COPD overlap syndrome Coronary artery disease Diabetic neuropathy Surgical History History of herniated intervertebral disc S/P CABG x 3 Family History Father Lung cancer Mother No problems noted. Family/Other Lung cancer Diabetes Social History Housing: House Alcohol intake: never Patient Tobacco Use Status: Former Tobacco user Tobacco use type: Cigarette e-Cigarette/Vaping Use: Never Used Second Hand Smoke Exposure: No service: No Current occupational status: disabled Current occupational exposures/hazards: No Cognitive needs: No Hearing needs: No Vision needs: No Questionnaire PHQ-9 Over the last 2 weeks, how often have you been bothered by any of the following problems? Depression Screening Interpretation: Negative Depression Screening Done: Yes Source: Developed by Drs. Danny Milian, May Zapata, Melo Meier and colleagues, with an educational carlos eduardo from [employer]. Thrive Questionnaire Date Thrive assessed: 08/02/23 Currently or been in a relationship where the following occur: no concerns reported THRIVE Score: 0 LISA-7 AMB Questionnaire LISA-7 Date LISA - 7 assessed: 08/02/23 Source: Developed by Drs. Danny Milian, May Zapata, Melo Meier and colleagues, with an educational carlos eduardo from [employer]. Review of Systems Const Denies headache(s) Eyes Denies loss of vision ENT Denies vertigo, Denies dizziness, Denies headache(s) and Denies sore throat Card Denies chest pain, Denies leg edema and Denies lightheadedness Resp Denies cough, Denies hemoptysis and Denies wheezing GI Denies abdominal pain, Denies melena, Denies constipation, Denies diarrhea and Denies vomiting Denies dysuria, Denies urinary frequency and Denies urinary urgency Musc Denies arthralgias, Denies joint swelling, Denies numbness and Denies tingling Neuro Denies Abnormal speech present, Denies behavioral changes, Denies vertigo, Denies dizziness, Denies headache(s), Denies loss of vision, Denies memory loss, Denies numbness and Denies tingling Psych Denies anxiety, Denies behavioral changes, Denies depression, Denies memory loss and Denies panic attacks Abdirahman/Lymph Denies easy bleeding and Denies easy bruising Aller/Immun Denies wheezing Physical exam (Primary Care) Vital Signs: Last Vital Signs Pulse 72 12/07/23 11:21 BP 104/78 12/07/23 11:21 Pulse Ox 95 12/07/23 11:21 Oxygen Delivery Method Room Air 12/07/23 11:21 BMI result Body Mass Index 34.3 Tobacco/Smoking Status: Tobacco use Status Tobacco use date assessed 08/02/23 12/07/23 11:32 Patient Tobacco Use Status Former Tobacco user 12/07/23 11:32 Tobacco use type Cigarette 12/07/23 11:32 e-Cigarette/Vaping Use Never Used 12/07/23 11:32 Depression Screening Interpretation: Negative Thrive Assessment: Date of Thrive Assessment Date Thrive assessed 08/02/23 12/07/23 11:32 Currently or been in a relationship where the following occur: no concerns reported Const General: healthy appearing, no acute distress, alert and awake Nutritional Appearance: well nourished Orientation/consciousness: oriented to person, oriented to place and oriented to time HENMT Ears: TM's normal bilaterally General nose exam: Normal nasal mucous membranes and turbinates present Eyes Conjunctivae: conjunctivae normal Sclerae: sclerae normal Pupils: Equal, round and reactive pupils present Neck Neck: Yes no lymphadenopathy and Yes no JVD Thyroid: Thyroid normal Carotids: no bruits Resp Effort & Inspection: normal respiratory effort and not tachypneic Auscultation: no crackles, no rales, no rhonchi and no wheezes Cardio Rate: regular rate Rhythm: regular rhythm Heart sounds: no murmurs and normal S1 and S2 GI Palpation (GI): Soft to palpation, nontender, no hepatomegaly and no splenomegaly Auscultation: normal bowel sounds Skin General skin exam: no rashes or lesions noted and dry skin Neuro General: oriented to person, oriented to place and oriented to time Cranial nerves: Yes Equal, round and reactive pupils present Speech: No Abnormal speech present Gait exam (Neuro): Normal gait present Motor exam (neuro): no tremor noted Extrem Other: BILATERAL FEET WITHOUT ANY SKIN BREAKDOWN OR CALLUS FORMATIONS. SOME DECREASED SENSATION TO LIGHT TOUCH OVER THE PLANT[place] REGIONS. Right upper extremity: full ROM Left upper extremity: full ROM Right lower extremity: full ROM; no edema Left lower extremity: full ROM; no edema Psych Mental Status: mental status grossly normal Speech and movement: Normal speech and movement present Affect: normal affect Attitude: cooperative Thought process: Normal thought process present Results AMB Hemoglobin A1c AMB Hemoglobin A1c 7.1 % Last Edit by LALY Daily on 12/07/23 11:41 Results Reviewed Results Reviewed: Laboratory Last Values Hgb A1c (Clinic) 7.1 % (4.0-6.0) H 12/07/23 11:40 Assessment and Plan Assessment & Plan (1) Diabetic neuropathy: Code(s): E11.40 - Type 2 diabetes mellitus with diabetic neuropathy, unspecified Qualifiers: Diabetes mellitus complication detail: diabetic polyneuropathy Diabetes mellitus type: type 2 Qualified Code(s): E11.42 - Type 2 diabetes mellitus with diabetic polyneuropathy Plan: Continues to have moderate to severe neuropathic pain in his lower extremities even with increasing doses of neuromodulation. Is now seeing pain management in getting topical capsaicin treatments on his lower extremities. Unfortunately does not report any improvement. His Lyrica was increased to 200 mg b.i.d.. Gabapentin has been discontinued Has seen Podiatry though could not help. Will give patient clinical notes to be able to receive diabetic shoes that may offer him some support in some pain relief in his feet. He has considering a spinal stimulator in his back. Will supply patient with a one-week script of tramadol 50 mg to use on an as needed basis to see if it helps with his bilateral feet pain (2) HTN (hypertension): Code(s): I10 - Essential (primary) hypertension Qualifiers: Hypertension type: primary hypertension Qualified Code(s): I10 - Essential (primary) hypertension Plan: Patient's blood pressure acceptable today in office. Continue current doses of antihypertensive medications. Advised to continue monitoring with goal blood pressure to be below 140/90. (3) CAD (coronary artery disease): Code(s): I25.10 - Atherosclerotic heart disease of [place] coronary artery without angina pectoris Qualifiers: Associated angina: without angina Coronary Disease-Associated Artery/Lesion type: [place] artery [place] vs. transplanted heart: sh[place] heart Qualified Code(s): I25.10 - Atherosclerotic heart disease of [place] coronary artery without angina pectoris Plan: Patient continues to follow cardiology, most recent lipid panel showing excellent control over his LDL. Goal LDL to remain below 70 (4) Obesity: Code(s): E66.9 - Obesity, unspecified Qualifiers: Body mass index: BMI 33.0-33.9 Obesity classification: adult class 1 (BMI 30 - 34.9) Obesity type: due to excess calories Serious obesity comorbidity presence: with serious comorbidity Qualified Code(s): E66.09 - Other obesity due to excess calories; Z68.33 - Body mass index [BMI] 33.0-33.9, adult Plan: Patient does understand his BMI is over 30 though has been having trouble being more physically active due to his neuropathy in his lower extremities. . (5) MDD (major depressive disorder), recurrent episode, moderate: Code(s): F33.1 - Major depressive disorder, recurrent, moderate Plan: Patient reports his depression has been a little bit worse lately due to his medical issues in his feet pain. His neuropathy in his feet cause him a lot of distress and inability to do a lot of his activities of daily living thus causing more depression. He is already on highest dose of Celexa at this time. Has tried Wellbutrin as an augmented her for smoking and depression though this was not effective. He is interested in seeing a psychiatrist to help stabilize his depression. (6) Asthma-COPD overlap syndrome: Code(s): J44.9 - Chronic obstructive pulmonary disease, unspecified Plan: Patient's breathing has been stable without any use of maintenance inhaler or albuterol inhaler. (7) Infrarenal abdominal aortic aneurysm, without rupture: Code(s): I71.43 - Infrarenal abdominal aortic aneurysm, without rupture Plan: Was found to have an infrarenal abdominal aortic aneurysm measuring at 4 cm while in the ER. Will continue with surveillance imaging Orders: Orders AMB Hemoglobin A1c 12/07/23 E11.69 - Type 2 diabetes mellitus with other specified complication, E66.9 - Obesity, unspecified Referrals Counseling Referral F33.1 - Major depressive disorder, recurrent, moderate Psychiatry Outpatient Consultation Service F33.1 - Major depressive disorder, recurrent, moderate Medications: New tramadol 50 mg PO DAILY 7 tabs 0RF 7 days E11.42 - Type 2 diabetes mellitus with diabetic polyneuropathy Patient Instructions: Goal: A1c to be below 7.0, LDL to be optimally below 70 Barriers: Neuropathy in feet, adherence to physical activity and healthy eating habits Coding Level of Care Code Est Pt Level 4 (49526) Complex EM visit Add On G2211 Diagnoses Diabetic polyneuropathy associated with type 2 diabetes mellitus E11.42 Diabetes mellitus complication detail: diabetic polyneuropathy Diabetes mellitus type: type 2 Primary hypertension I10 Hypertension type: primary hypertension Coronary artery disease involving [place] coronary artery of [place] heart without angina pectoris I25.10 Associated angina: without angina Coronary Disease-Associated Artery/Lesion type: [place] artery [place] vs. transplanted heart: [place] heart Class 1 obesity due to excess calories with serious comorbidity and body mass index (BMI) of 33.0 to 33.9 in adult E66.09; Z68.33 Body mass index: BMI 33.0-33.9 Obesity classification: adult class 1 (BMI 30 - 34.9) Obesity type: due to excess calories Serious obesity comorbidity presence: with serious comorbidity MDD (major depressive disorder), recurrent episode, moderate F33.1 Asthma-COPD overlap syndrome J44.9 Infrarenal abdominal aortic aneurysm, without rupture I71.43
== END 2023-12-07 12:18 | disposition home or self-care (01) ==
PROVIDERS: PCP Physician Assistant; Visit Provider Physician Assistant
DX: E11.42 Type 2 diabetes mellitus with diabetic polyneuropathy (principal)
CPT/HCPCS: 83036; 99214; G2211

== ENCOUNTER 2023-12-21 10:16 | Outpatient (AMB) | payer OTHER, SELFPAY ==
--- NOTE | 2023-12-21 09:15 | A.OFFPSYCH_ITS ---
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: consultation Teletype Adjuster Required: No Allergies bupropion [From Wellbutrin] Adverse Reaction (Intermediate, Verified 12/08/23 07:37) Ineffective Medication List - Last Reconciled 12/21/23 by Ava Blanchard APRN alcohol swabs (Alcohol Prep Pads) 1 pad topical .three times a day aspirin 81 mg PO DAILY blood pressure test kit-large As directed blood sugar diagnostic (OneTouch Ultra Test strips) Testing 3 times a day blood-glucose meter As directed citalopram 40 mg PO DAILY diclofenac sodium 1% (Arthritis Pain (diclofenac)) 4 grams topical QID diltiazem HCl CD 240 mg PO DAILY hydrochlorothiazide 25 mg PO DAILY insulin aspart U-100 (Novolog FlexPen U-100 Insulin aspart) 10 units (0.1 mL) subcut TID 30 days isosorbide mononitrate ER 30 mg PO BID 90 days lancets Testing 3 times a day lancets (FreeStyle Lancets) three times a day lidocaine-prilocaine 2.5-2.5 % 1 appl topical ONCE lisinopril 5 mg PO DAILY omeprazole 40 mg PO DAILY pen needle, diabetic (BD Karen 2nd Gen Pen Needle) As directed pioglitazone (Actos) 15 mg PO DAILY 90 days pregabalin 300 mg PO BID 30 days rosuvastatin (Crestor) 40 mg PO DAILY 90 days tirzepatide (Mounjaro) 5 mg (0.5 mL) subcut QWEEK 4 weeks tizanidine 2 mg PO BID PRN 30 days tramadol 50 mg PO DAILY 7 days HPI- Psychiatric Chief Complaint: consultation HPI Narrative: 58 yo male referred by PCP Aldo Lizarraga due depression, low mood, low energy, chronic pain from neuropathy. no SI no HI, no sleep disruption, no anxiety. Pt reports depression started after his heart attacks and triple bypass in approximately 2014. Over the past year his symptoms of depression have worsened; He reports low mood, a heavy feeling, no motivation, no enjoyment in activities, avoiding ADLs, avoiding household taks, irritable at times,], not wanting to get out of bed, low motivation for previously enjoyed activities or thinkg he knows would help him feel better. he avoids talking and avoids social interactions. He denies SI or HI, no A/V H or delusions. Past Psychiatric History: no ILPOC, no PHP or IOP. tried celexa at 40mg daily; tried wellbutrin inpast for tobacco cessation and it caused irritability Subjective Subjective Subjective Medication Compliance: Yes Side effects from medications: No Review of Systems Medical Review of Systems: unchanged Mental Status Exam Mental Status Exam Patient Appearance: Well Grooomed and Appropriate Patient Orientation: Person, Place, Time and Situation Level of Consciousness: Awake and Alert Patient Behavior: Appropriate and Good Eye Contact Mood Description: Depressed Affect Description: Flat Patient Cognition Impaired: No Ability to Follow Directions: Good Speech Pattern: Clear and Appropriate Memory Description: Intact Hallucinations: None Delusions: Not Present Thought Process: Intact and Goal Oriented Thought Content: positive for Intact and positive for Goal Oriented Judgement: Fair Assessment and Plan Assessment & Plan (1) MDD (major depressive disorder), recurrent episode, moderate: Status: Acute Code(s): F33.1 - Major depressive disorder, recurrent, moderate Plan 58 yo fatherof 2 children with depression in context of medical issues including s/p heart attacj=k and triple bypass, diabetes, and neuropathy. Pt has been on high dose celexa with only some moderate benefit; he is interested in trying an alternative; given his medicalissues and medications he would benefit from trial of another SSRI. And if that does not help then possible trial of trintellix. An SNRI could be used judiciously at lower doses given Cardiac concerns and pregabalin rx. pt given instructions for a cross taper from celexa to zoloft and return in 3weeks. Medications: New citalopram (Celexa) 20 mg PO DAILY 30 tabs 0RF sertraline (Zoloft) 50 mg PO DAILY 30 tabs 0RF Counseling and coordination of Care Pt. Self Management counseling: Exercise, Maintenance-social rhythm and Mod caffeine/ETOH intake Medication management counseling: Effectiveness, Side effects, Dosing range, Duration, Drug interaction and Adherence Diagnosis and Prognosis Counseling: Accuracy of diagnosis, Prognosis over time, Impact of diagnosis on life functions, Impact of family relationship, Problematic behaviors secondary to diagnosis and Adequacy of current interventions Details: I spent 60 minutes reviewing the record, seeing the patient and documenting in the medical record. Counseling provided to the patient/caregiver as outlined below. Addressed patient/caregiver concerns regarding current medication regime including effective adherence. Addressed patient/caregiver concerns regarding diagnosis and prognosis including accuracy of diagnosis, prognosis over time, impact of diagnosis. Addressed patient/caregiver concerns regarding impact of recent stressors. [facility] Medical History Renal cyst COVID-19 Obesity Type 2 diabetes mellitus with obesity Asthma-COPD overlap syndrome Coronary artery disease Diabetic neuropathy Surgical History History of herniated intervertebral disc S/P CABG x 3 Family History Father Lung cancer Mother No problems noted. Family/Other Lung cancer Diabetes Social History Housing: House Alcohol intake: never Patient Tobacco Use Status: Former Tobacco user Tobacco use type: Cigarette e-Cigarette/Vaping Use: Never Used Second Hand Smoke Exposure: No service: No Current occupational status: disabled Current occupational exposures/hazards: No Cognitive needs: No Hearing needs: No Vision needs: No Social History: (since 1990) with two children age 15 and 30. 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 Primarily lived with single mother who abused alcohol. Father in and out of his life; He is second oldest of 5 children; he was often film tests checker of younger sibs; had friends in school; did well academically until 10th grade when started to get in trouble. Substance History: no ETOH no Tobacco x 10 yrs; uses THC for past few years. Trauma History: many friends in childhood; one hung self- traumatic loss for pt Coding Level of Care Code Psych Diag Eval w/Med (85920) Diagnoses MDD (major depressive disorder), recurrent episode, moderate F33.1
== END 2023-12-21 10:19 | disposition home or self-care (01) ==
LOC: HO.HOP 10:16
PROVIDERS: PCP Physician Assistant; Visit Provider Clinical Nurse Specialist Psychiatric/Mental Health
DX: F33.1 Major depressive disorder, recurrent, moderate (principal)
CPT/HCPCS: 90792

== ENCOUNTER → 2023-12-21 10:16 | Outpatient (BNVA) | payer OTHER, SELFPAY | PROVIDERS: PCP Physician Assistant; Visit Provider Clinical Nurse Specialist Psychiatric/Mental Health | DX: F33.1 Major depressive disorder, recurrent, moderate (principal) | CPT/HCPCS: 90792 ==

== ENCOUNTER 2024-01-11 09:31 | Outpatient (AMB) | payer OTHER, SELFPAY ==
--- NOTE | 2024-01-11 09:37 | A.OFFPSYCH_ITS ---
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: consultation Mid Level Developer Required: No Allergies bupropion [From Wellbutrin] Adverse Reaction (Intermediate, Verified 12/08/23 07:37) Ineffective Medication List - Last Reconciled 01/11/24 by Ava Blanchard APRN alcohol swabs (Alcohol Prep Pads) 1 pad topical .three times a day aspirin 81 mg PO DAILY blood pressure test kit-large As directed blood sugar diagnostic (OneTouch Ultra Test strips) Testing 3 times a day blood-glucose meter As directed citalopram 40 mg PO DAILY citalopram (Celexa) 20 mg PO DAILY diclofenac sodium 1% (Arthritis Pain (diclofenac)) 4 grams topical QID diltiazem HCl CD 240 mg PO DAILY hydrochlorothiazide 25 mg PO DAILY insulin aspart U-100 (Novolog FlexPen U-100 Insulin aspart) 10 units (0.1 mL) subcut TID 30 days isosorbide mononitrate ER 30 mg PO BID 90 days lancets Testing 3 times a day lancets (FreeStyle Lancets) three times a day lidocaine-prilocaine 2.5-2.5 % 1 appl topical ONCE lisinopril 5 mg PO DAILY omeprazole 40 mg PO DAILY pen needle, diabetic (BD Karen 2nd Gen Pen Needle) As directed pioglitazone (Actos) 15 mg PO DAILY 90 days pregabalin 300 mg PO BID 30 days rosuvastatin (Crestor) 40 mg PO DAILY 90 days sertraline (Zoloft) 50 mg PO DAILY tirzepatide (Mounjaro) 5 mg (0.5 mL) subcut QWEEK 4 weeks tizanidine 2 mg PO BID PRN 30 days tramadol 50 mg PO DAILY 7 days HPI- Psychiatric Chief Complaint: consultation HPI Narrative: pt tolerating the cross taper from celexa to zoloft; he is currently taking celxa 20mg and zoloft 50mg daily- no side effects; no improvement in mood or anxiety yet but pt coping well; he has increase stress due to loss of pet and family issues. no SI or HI Past Psychiatric History: no ILPOC, no PHP or IOP. tried celexa at 40mg daily; tried wellbutrin inpast for tobacco cessation and it caused irritability Subjective Subjective Subjective Medication Compliance: Yes Side effects from medications: No Review of Systems Medical Review of Systems: unchanged Mental Status Exam Mental Status Exam Patient Appearance: Well Grooomed and Appropriate Patient Orientation: Person, Place, Time and Situation Level of Consciousness: Awake and Alert Patient Behavior: Appropriate Mood Description: Anxious Affect Description: Anxious Patient Cognition Impaired: No Ability to Follow Directions: Good Speech Pattern: Clear Memory Description: Intact Hallucinations: None Delusions: Not Present Thought Process: Intact Thought Content: positive for Intact Judgement: Fair Assessment and Plan Assessment & Plan (1) MDD (major depressive disorder), recurrent episode, moderate: Status: Acute Code(s): F33.1 - Major depressive disorder, recurrent, moderate (2) LISA (generalized anxiety disorder): Status: Acute Code(s): F41.1 - Generalized anxiety disorder Plan increase zoloft to 100mg daily reduce celexa to 10mg a day for 7 days then stop Medications: New sertraline (Zoloft) 100 mg PO DAILY 30 tabs 0RF Discontinued citalopram Discontinued Reason: Doctor's Order 40 mg PO DAILY 90 tabs 2RF Counseling and coordination of Care Pt. Self Management counseling: Maintenance-social rhythm, Sleep hygiene and General coping skills Medication management counseling: Effectiveness, Side effects, Dosing range, Duration, Drug interaction and Adherence Diagnosis and Prognosis Counseling: Accuracy of diagnosis, Prognosis over time and Adequacy of current interventions Details: I spent [] minutes reviewing the record, seeing the patient and documenting in the medical record. Counseling provided to the patient/caregiver as outlined below. Addressed patient/caregiver concerns regarding current medication regime including effective adherence. Addressed patient/caregiver concerns regarding diagnosis and prognosis including accuracy of diagnosis, prognosis over time, impact of diagnosis. Addressed patient/caregiver concerns regarding impact of recent stressors. [facility] Medical History Renal cyst COVID-19 Obesity Type 2 diabetes mellitus with obesity Asthma-COPD overlap syndrome Coronary artery disease Diabetic neuropathy Surgical History History of herniated intervertebral disc S/P CABG x 3 Family History Father Lung cancer Mother No problems noted. Family/Other Lung cancer Diabetes Social History Housing: House Alcohol intake: never Patient Tobacco Use Status: Former Tobacco user Tobacco use type: Cigarette e-Cigarette/Vaping Use: Never Used Second Hand Smoke Exposure: No service: No Current occupational status: disabled Current occupational exposures/hazards: No Cognitive needs: No Hearing needs: No Vision needs: No Social History: (since 1990) with two children age 15 and 30. 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 Primarily lived with single mother who abused alcohol. 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 Substance History: no ETOH no Tobacco x 10 yrs; uses THC for past few years. Trauma History: many friends in childhood; one hung self- traumatic loss for pt Coding Level of Care Code Est Pt Level 4 (29677) Diagnoses MDD (major depressive disorder), recurrent episode, moderate F33.1 LISA (generalized anxiety disorder) F41.1
== END 2024-01-11 10:09 | disposition home or self-care (01) ==
LOC: HO.HOP 09:31
PROVIDERS: PCP Physician Assistant; Visit Provider Clinical Nurse Specialist Psychiatric/Mental Health
DX: F33.1 Major depressive disorder, recurrent, moderate (principal); F41.1 Generalized anxiety disorder
CPT/HCPCS: 99214

== ENCOUNTER → 2024-01-11 09:31 | Outpatient (BNVA) | payer OTHER, SELFPAY | PROVIDERS: PCP Physician Assistant; Visit Provider Clinical Nurse Specialist Psychiatric/Mental Health | DX: F33.1 Major depressive disorder, recurrent, moderate (principal); F41.1 Generalized anxiety disorder | CPT/HCPCS: 99212 ==

== ENCOUNTER 2024-01-15 09:04 | Outpatient (AMB) | payer OTHER, SELFPAY ==
[2024-01-15 09:11] VITALS: BP 92/68; PULSE 90; TEMP 36.5; O2SAT 95; BMI 34.4
--- NOTE | 2024-01-15 09:11 | MHC.OFFWIV ---
Intake Vital Signs 01/15/24 09:11 Height 5 ft 10 in Weight 240 lb BMI 34.4 BP 92/68 Blood Pressure Location Lt brachial Position Sitting Pulse 90 Pulse Source Pulse Oximeter Temp 97.7 F Temp Source Oral Pulse Oximetry (%) 95 Oxygen Delivery Method Room Air Intake Visit Reasons: EP LT sore toe (DM) Intake Note: Pt is here today c/o Lt grt toe pain due to hitting toe against door 1wk Patient Tobacco Use Status: Former Tobacco user Allergies bupropion [From Wellbutrin] Adverse Reaction (Intermediate, Verified 01/15/24 09:16) Ineffective HPI EP LT sore toe (DM) HPI Details Patient is a 58-year-old male with multiple comorbidities, including diabetes, coronary artery disease and COPD, who comes to the walk-in clinic complaining of persistent pain to the right 1st toe after striking it against a door while walking almost a week ago. No report of Numbness or tingling, or weakness. It improves with rest and is aggravated with ambulating. [facility] Medical History Renal cyst COVID-19 Obesity Type 2 diabetes mellitus with obesity Asthma-COPD overlap syndrome Coronary artery disease Diabetic neuropathy Surgical History History of herniated intervertebral disc S/P CABG x 3 Family History Father Lung cancer Mother No problems noted. Family/Other Lung cancer Diabetes Social History Housing: House Alcohol intake: never Patient Tobacco Use Status: Former Tobacco user Tobacco use type: Cigarette e-Cigarette/Vaping Use: Never Used Second Hand Smoke Exposure: No service: No Current occupational status: disabled Current occupational exposures/hazards: No Cognitive needs: No Hearing needs: No Vision needs: No Review of Systems Const All systems reviewed & are unremarkable except as noted in HPI and below Physical Exam Vital Signs: Last Vital Signs Temp 97.7 F 01/15/24 09:11 Pulse 90 01/15/24 09:11 BP 92/68 01/15/24 09:11 Pulse Ox 95 01/15/24 09:11 Oxygen Delivery Method Room Air 01/15/24 09:11 BMI result Body Mass Index 34.4 Extrem Other: Patient has obvious edema to the interphalangeal joint of the left great toe. There is also erythema to that area, however no obvious warmth. He has good range of motion and intact strength to the digit. Cap refill is good, and he is neurovascularly intact to the foot. Results Reviewed Results Reviewed: Patient had plain film x-ray today, which shows possible fracture at the base of the 1st proximal phalanx, medial aspect, with an associated osseous fragment suggesting possible intra-articular involvement fracture. Assessment & Plan Assessment & Plan (1) Toe fracture, left: Code(s): S92.912A - Unspecified fracture of left toe(s), initial encounter for closed fracture Qualifiers: Encounter type: initial encounter Toe: great toe Fracture type: closed Phalanx: unspecified phalanx Physeal involvement: unspecified Qualified Code(s): S92.402A - Displaced unspecified fracture of left great toe, initial encounter for closed fracture Plan Patient is a 58-year-old male who is a diabetic, and comes to the walk-in clinic complaining of persistent pain with ambulation, and swelling to his left great toe since he struck it on a door while ambulating. He reports that pain improves with rest, but increases with walking on the foot. Plain film x-ray today shows possible fracture at the medial aspect of the base of the 1st proximal phalanx, with a possible osseous fragment that would reflect an intra-articular avulsion fracture. We put him in an open toed shoe today, which gave him comfort with ambulation, and I advised that he follow up with [facility] for further management. He was amenable to this, and a referral was put into today. I also wrote him for naproxen, to help with the swelling and pain. He had some redness to the also, but no appreciable warmth suggestive of infection to the joint, but due to his diabetes he knows to monitor this closely and follow up if it seems like it worsens, and he might be a candidate for antibiotics at that time. Orders: Orders XR toe LT min 2V 01/15/24 M79.675 - Pain in left toe(s) Referrals Orthopedics Referral S92.919A - Unspecified fracture of unspecified toe(s), initial encounter for closed fracture Medications: New naproxen 500 mg PO BID PRN 28 tabs 0RF pain 14 days Discontinued citalopram (Celexa) Discontinued Reason: Doctor's Order 20 mg PO DAILY 30 tabs 0RF sertraline (Zoloft) Discontinued Reason: Doctor's Order 50 mg PO DAILY 30 tabs 0RF Coding Level of Care Code Est Pt Level 4 (20075) Diagnoses Closed fracture of phalanx of left great toe, physeal involvement unspecified, unspecified phalanx, initial encounter S92.402A Encounter type: initial encounter Toe: great toe Fracture type: closed Phalanx: unspecified phalanx Physeal involvement: unspecified
== END 2024-01-15 10:21 | disposition home or self-care (01) ==
PROVIDERS: PCP Physician Assistant; Visit Provider Physician Assistant Medical
DX: S92.402A Displaced unspecified fracture of left great toe, initial encounter for closed fracture (principal)
CPT/HCPCS: 99214

== ENCOUNTER 2024-01-15 09:25 | Outpatient (REF) | payer OTHER, SELFPAY ==
--- NOTE | ~2024-01-15 | XR_ITS ---
EXAMINATION: XR TOES, LEFT CLINICAL INFORMATION: Blunt trauma, pain, swelling COMPARISON: None available. TECHNIQUE: 3 views of the left toes were obtained. FINDINGS: Moderate osteoarthritic of the first MTP joint with loss of joint space and small osteophytes. There is a subtle lucency through the medial aspect of the base of the first proximal phalanx with an adjacent tiny osseous fragment which may reflect a small intra-articular avulsion fracture. Soft tissue swelling about the first digit. XR/XR toe LT min 2V IMPRESSION: 1. There is a subtle lucency through the medial aspect of the base of the first proximal phalanx with an adjacent tiny osseous fragment which may reflect a small intra-articular avulsion fracture. Soft tissue swelling about the first digit. 2. Moderate osteoarthritic of the first MTP joint with loss of joint space and small osteophytes.
== END 2024-01-15 09:26 | disposition home or self-care (01) ==
LOC: HO.HMGCX 09:25
PROVIDERS: PCP Physician Assistant; Visit Provider Physician Assistant Medical
DX: M79.675 Pain in left toe(s) (principal)
CPT/HCPCS: 73660

== ENCOUNTER 2024-01-28 07:27 | Outpatient (REF) | payer OTHER, SELFPAY ==
--- NOTE | ~2024-01-28 | XR_ITS ---
EXAMINATION: XR FOOT, LEFT CLINICAL INFORMATION: Persistent left foot pain. COMPARISON: Left toe radiographs dated 01/15/2024. TECHNIQUE: AP, oblique, and lateral of the left foot. FINDINGS: No acute fracture or dislocation. Joint space narrowing with marginal osteophytes at the 1st metatarsophalangeal joint and 1st interphalangeal joint. The previously seen possible fracture is not identified with persistence of the adjacent osteophyte at the medial aspect of the 1st proximal phalangeal base. No osseous erosion. Small plantar calcaneal spur. XR/XR foot LT min 3V IMPRESSION: 1. 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 2. Previously seen possible fracture is not identified with persistence of the adjacent osteophyte at the medial aspect of the 1st proximal phalangeal base. Electronically signed by: David Kelly MD 02/23/2024 08:59 PM EDT
== END 2024-01-28 07:28 | disposition home or self-care (01) ==
LOC: HO.XRAY 07:27
PROVIDERS: PCP Physician Assistant; Visit Provider Nurse Practitioner Family
DX: S92.402A Displaced unspecified fracture of left great toe, initial encounter for closed fracture (principal)
CPT/HCPCS: 73630; 99202

== ENCOUNTER 2024-01-28 08:19 | Outpatient (AMB) | payer OTHER, SELFPAY ==
--- NOTE | 2024-01-28 08:33 | A.OFFVIS_ITS ---
Vital Signs 01/28/24 08:36 Height 5 ft 10 in Weight 240 lb BMI 34.4 Intake Visit Reasons: FC - left greater toe injury, DOI 01/08/24 Intake Note: Joseph is a 58 year old year old male who presents today for a evaluation of his left greater toe injury, DOI 01/08/24. Patient reports his is having pain is his greater toe due to hitting toe against door. He states that he is feeling a bit sore. Allergies bupropion [From Wellbutrin] Adverse Reaction (Intermediate, Verified 01/28/24 08:34) Ineffective HPI HPI FC - left greater toe injury, DOI 01/08/24: Details: 58-year-old male who presents in the office today, as a new patient, for an lyndon luation of left foot pain. The patient was seen at the Walk-in Clinic on 01/15/24 status post hitting his left great toe against a door a week prior. X- rays were obtained. He was placed in an open toed shoe, and he was given a prescription for naproxen 500 mg PO BID PRN for pain. ? ? While in the office today, the patient reports he is having pain in the left great toe due to hitting it on a door. He states ?it is a bit sore?.? ? Patient has a significant medical history of diabetes mellitus. [facility] Medical History Renal cyst COVID-19 Obesity Type 2 diabetes mellitus with obesity Asthma-COPD overlap syndrome Coronary artery disease Diabetic neuropathy Surgical History History of herniated intervertebral disc S/P CABG x 3 Family History Father Lung cancer Mother No problems noted. Family/Other Lung cancer Diabetes Social History Housing: House Alcohol intake: never Patient Tobacco Use Status: Former Tobacco user Tobacco use type: Cigarette e-Cigarette/Vaping Use: Never Used Second Hand Smoke Exposure: No service: No Current occupational status: disabled Current occupational exposures/hazards: No Cognitive needs: No Hearing needs: No Vision needs: No Review of Systems Const All systems reviewed & are unremarkable except as noted in HPI and below Physical Exam Vital Signs: BMI result Body Mass Index 34.4 Const General: cooperative and no acute distress Orientation/consciousness: patient oriented x3 Resp Effort & Inspection: normal respiratory effort and able to speak in complete sentences Cardio Peripheral pulses: Peripheral pulses 2+ throughout Skin General skin exam: no rashes or lesions noted Neuro General: patient oriented x3 Extrem Other: Left foot: No ecchymosis, erythema, or edema. Tenderness to palpation over the fracture site. EHL intact. Sensation is at baseline due to neuropathy. Capillary refill is brisk. Office Procedures Fracture Care Fracture Billing Code: Fracture Billing Code Assessment & Plan Assessment & Plan (1) Fracture of left great toe: Code(s): S92.402A - Displaced unspecified fracture of left great toe, initial encounter for closed fracture Category: Medical (2) Type 2 diabetes mellitus with obesity: Code(s): E11.69 - Type 2 diabetes mellitus with other specified complication; E66.9 - Obesity, unspecified Category: Medical (3) Diabetic neuropathy: Code(s): E11.40 - Type 2 diabetes mellitus with diabetic neuropathy, unspecified Category: Medical Qualifiers: Diabetes mellitus type: type 2 Diabetes mellitus complication detail: diabetic polyneuropathy Qualified Code(s): E11.42 - Type 2 diabetes mellitus with diabetic polyneuropathy Plan Mr. York is a 58-year-old male who presents in the office today, as a new patient, for an evaluation of left foot pain. The patient was seen at the Walk- in Clinic on 01/15/24 status post hitting his left great toe against a door a week prior. X-rays were obtained. He was placed in an open toed shoe, and he was given a prescription for naproxen 500 mg PO BID PRN for pain. ? ? While in the office today, the patient reports he is having pain in the left great toe due to hitting it on a door. He states ?it is a bit sore?.? ? Patient has a significant medical history of diabetes mellitus.? ? Typically the patient is placed in a post-op shoe until they can transition into a supportive sneaker. This is estimated to be at 2-4 weeks. There is no additional orthopedic intervention needed at this time. He does have a cheese blender that he sees regularly. Should he continue to have any questions or concerns he can contact our office but will likely be referred to his Chaperone. Follow-up will be PRN, or sooner if needed. ? ? X-rays of the left foot which were obtained while in the office today and were reviewed by me, Ca Manuel PA-C, revealed left great toe fracture. ? ? X-rays of the left toes, obtained on 01/15/24, revealed: ? 1. There is a subtle lucency through the medial aspect of the base of the first proximal phalanx with an adjacent tiny osseous fragment which may reflect a small intra-articular avulsion fracture. Soft tissue swelling about the first digit.? 2. Moderate osteoarthritic of the first MTP joint with loss of joint space and small osteophytes.? Orders: Orders XR foot LT min 3V Today M79.673 - Pain in unspecified foot Patient Instructions: Scribed by Irasema Collins medical office supervisor, for Ca Manuel PA-C on 01/28/2024 at 8:22 am, EST.? Coding Level of Care Code New Pt Level 4 (65872) Diagnoses Fracture of left great toe S92.402A Type 2 diabetes mellitus with obesity E11.69; E66.9 Diabetic polyneuropathy associated with type 2 diabetes mellitus E11.42 Diabetes mellitus type: type 2 Diabetes mellitus complication detail: diabetic polyneuropathy CPT Codes Fracture Care - Fracture Billing Code: Fracture Billing Code ([id number])
[2024-01-28 08:36] VITALS: BMI 34.4
== END 2024-01-28 09:01 | disposition home or self-care (01) ==
PROVIDERS: PCP Physician Assistant; Visit Provider Physician Assistant
DX: S92.402A Displaced unspecified fracture of left great toe, initial encounter for closed fracture (principal); E11.69 Type 2 diabetes mellitus with other specified complication; E66.9 Obesity, unspecified; E11.42 Type 2 diabetes mellitus with diabetic polyneuropathy
CPT/HCPCS: 99203

== ENCOUNTER 2024-01-28 08:38 | Outpatient (REF) | payer OTHER, SELFPAY | END 2024-01-28 08:39 | disposition home or self-care (01) | LOC: HO.HOSX 08:38 | PROVIDERS: Visit Provider Physician Assistant | DX: Z13.89 Encounter for screening for other disorder (principal) ==

== ENCOUNTER 2024-02-01 09:21 | Outpatient (AMB) | payer OTHER, SELFPAY ==
--- NOTE | 2024-02-01 10:08 | A.OFFPSYCH_ITS ---
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 Required: No Allergies bupropion [From Wellbutrin] Adverse Reaction (Intermediate, Verified 01/28/24 08:34) Ineffective Medication List - Last Reconciled 02/01/24 by Ava Blanchard APRN alcohol swabs (Alcohol Prep Pads) 1 pad topical .three times a day aspirin 81 mg PO DAILY blood pressure test kit-large As directed blood sugar diagnostic (OneTouch Ultra Test strips) Testing 3 times a day blood-glucose meter As directed diltiazem HCl CD 240 mg PO DAILY hydrochlorothiazide 25 mg PO DAILY insulin aspart U-100 (Novolog FlexPen U-100 Insulin aspart) 10 units (0.1 mL) subcut TID 30 days isosorbide mononitrate ER 30 mg PO BID 90 days lancets Testing 3 times a day lancets (FreeStyle Lancets) three times a day lidocaine-prilocaine 2.5-2.5 % 1 appl topical ONCE lisinopril 5 mg PO DAILY naproxen 500 mg PO BID PRN 14 days omeprazole 40 mg PO DAILY pen needle, diabetic (BD Karen 2nd Gen Pen Needle) As directed pioglitazone (Actos) 15 mg PO DAILY 90 days pregabalin 300 mg PO BID 30 days rosuvastatin (Crestor) 40 mg PO DAILY 90 days sertraline (Zoloft) 100 mg PO DAILY tirzepatide (Mounjaro) 5 mg (0.5 mL) subcut QWEEK 4 weeks tramadol 50 mg PO DAILY 7 days HPI- Psychiatric Chief Complaint: depression HPI Narrative: pt reports no change in symptoms with zoloft 100mg daily. he denies side effects; he continues to have low mood, low motivation, poor concentration, worry, trouble fallin asleep and trouble getting up in am, feeling bad about himself; He is also often irritable and annoyed. He has stress at home with several people in family being collectors and having too much stuff in the home which makes it harder for him to get things done. Pt has toe apin and ent to urgent care - learned he broke a toe and has a partial cast/boot. NO SI or HI Past Psychiatric History: no ILPOC, no PHP or IOP. tried celexa at 40mg daily; tried wellbutrin inpast for tobacco cessation and it caused irritability Subjective Subjective Subjective Medication Compliance: Yes Side effects from medications: No Review of Systems Medical Review of Systems: unchanged Mental Status Exam Mental Status Exam Patient Appearance: Well Grooomed and Appropriate Patient Orientation: Person, Place, Time and Situation Level of Consciousness: Awake and Appropriate Patient Behavior: Appropriate, Cooperative and Anxious Mood Description: Anxious and Sad Affect Description: Anxious and Sad Patient Cognition Impaired: No Ability to Follow Directions: Good Speech Pattern: Clear Memory Description: Intact Hallucinations: None Delusions: Not Present Judgement: Fair Assessment and Plan Assessment & Plan (1) LISA (generalized anxiety disorder): Status: Acute Code(s): F41.1 - Generalized anxiety disorder (2) MDD (major depressive disorder), recurrent episode, moderate: Status: Acute Code(s): F33.1 - Major depressive disorder, recurrent, moderate Plan Increase zoloft to 150mg daily x 10days the take 200mg daily - take with food. consider working with a therapist on strategies to reduce stress return in 6 weeks Medications: Changed From sertraline (Zoloft) 100 mg PO DAILY 30 tabs 0RF To sertraline (Zoloft) 200 mg (2 x 100 mg) PO DAILY 60 tabs 2RF Counseling and coordination of Care Pt. Self Management counseling: Organization skills and time management and Problem solving Medication management counseling: Effectiveness, Side effects, Dosing range, Duration, Drug interaction and Adherence Diagnosis and Prognosis Counseling: Accuracy of diagnosis, Prognosis over time, Impact of diagnosis on life functions, Impact of family relationship, Problematic behaviors secondary to diagnosis and Adequacy of current interventions Details: I spent 45 minutes reviewing the record, seeing the patient and documenting in the medical record. Counseling provided to the patient/caregiver as outlined below. Addressed patient/caregiver concerns regarding current medication regime including effective adherence. Addressed patient/caregiver concerns regarding diagnosis and prognosis including accuracy of diagnosis, prognosis over time, impact of diagnosis. Addressed patient/caregiver concerns regarding impact of recent stressors. [facility] Medical History Renal cyst COVID-19 Obesity Type 2 diabetes mellitus with obesity Asthma-COPD overlap syndrome Coronary artery disease Diabetic neuropathy Surgical History History of herniated intervertebral disc S/P CABG x 3 Family History Father Lung cancer Mother No problems noted. Family/Other Lung cancer Diabetes Social History Housing: House Alcohol intake: never Patient Tobacco Use Status: Former Tobacco user Tobacco use type: Cigarette e-Cigarette/Vaping Use: Never Used Second Hand Smoke Exposure: No service: No Current occupational status: disabled Current occupational exposures/hazards: No Cognitive needs: No Hearing needs: No Vision needs: No Social History: (since 1990) with two children age 15 and 30. 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 Primarily lived with single mother who abused alcohol. 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 Substance History: no ETOH no Tobacco x 10 yrs; uses THC for past few years. Trauma History: many friends in childhood; one hung self- traumatic loss for pt Coding Level of Care Code Est Pt Level 4 (89893) Therapy 30m w/E&M (54173) Diagnoses LISA (generalized anxiety disorder) F41.1 MDD (major depressive disorder), recurrent episode, moderate F33.1
== END 2024-02-01 10:21 | disposition home or self-care (01) ==
LOC: HO.HOP 09:21
PROVIDERS: PCP Physician Assistant; Visit Provider Clinical Nurse Specialist Psychiatric/Mental Health
DX: F41.1 Generalized anxiety disorder (principal); F33.1 Major depressive disorder, recurrent, moderate
CPT/HCPCS: 90833; 99214

== ENCOUNTER → 2024-02-01 09:21 | Outpatient (BNVA) | payer OTHER, SELFPAY | PROVIDERS: PCP Physician Assistant; Visit Provider Clinical Nurse Specialist Psychiatric/Mental Health | DX: F41.1 Generalized anxiety disorder (principal); F33.1 Major depressive disorder, recurrent, moderate | CPT/HCPCS: 99212 ==

== ENCOUNTER 2024-02-29 09:14 | Outpatient (AMB) | payer OTHER, SELFPAY ==
--- NOTE | 2024-02-29 09:32 | A.OFFPSYCH_ITS ---
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 Tool Rental Technician Required: No Allergies bupropion [From Wellbutrin] Adverse Reaction (Intermediate, Verified 01/28/24 08:34) Ineffective Medication List - Last Reconciled 02/29/24 by Ava Blanchard APRN alcohol swabs (Alcohol Prep Pads) 1 pad topical .three times a day aspirin 81 mg PO DAILY blood pressure test kit-large As directed blood sugar diagnostic (OneTouch Ultra Test strips) Testing 3 times a day blood-glucose meter As directed diltiazem HCl CD 240 mg PO DAILY 90 days hydrochlorothiazide 25 mg PO DAILY insulin aspart U-100 (Novolog FlexPen U-100 Insulin aspart) 10 units (0.1 mL) subcut TID 30 days isosorbide mononitrate ER 30 mg PO BID 90 days lancets Testing 3 times a day lancets (FreeStyle Lancets) three times a day lidocaine-prilocaine 2.5-2.5 % 1 appl topical ONCE lisinopril 5 mg PO DAILY naproxen 500 mg PO BID PRN 14 days omeprazole 40 mg PO DAILY pen needle, diabetic (BD Karen 2nd Gen Pen Needle) As directed pioglitazone (Actos) 15 mg PO DAILY 90 days pregabalin 300 mg PO BID 30 days rosuvastatin (Crestor) 40 mg PO DAILY 90 days sertraline (Zoloft) 200 mg (2 x 100 mg) PO DAILY tirzepatide (Mounjaro) 7.5 mg (0.5 mL) subcut QWEEK 4 weeks tramadol 50 mg PO DAILY 7 days HPI- Psychiatric Chief Complaint: depression HPI Narrative: pt reports some improvement but continues with low mood, low motivation, feeling tired, feeling hopeless and helpless. He feel bad about himself and like a failure; He moves slowly and feels low energy. He feels tense and restless. he is easily irritable and annoyed. he reports difficult issues at home with family members being collectors and leaving many personal items strewn about the house. He tries to keep the house clean but feels defeated frequnetly; he gets very little posotive feedback from family when he does clean, cook, or do laundry and he often feels its unimportant and unappreciated. Past Psychiatric History: no ILPOC, no PHP or IOP. tried celexa at 40mg daily; tried wellbutrin inpast for tobacco cessation and it caused irritability Subjective Subjective Subjective Medication Compliance: Yes Side effects from medications: No Review of Systems Medical Review of Systems: unchanged Mental Status Exam Mental Status Exam Patient Appearance: Well Grooomed and Appropriate Patient Orientation: Person, Place, Time and Situation Level of Consciousness: Awake Patient Behavior: Appropriate Mood Description: Withdrawn, Flat and Sad Affect Description: Withdrawn, Flat and Sad Patient Cognition Impaired: No Ability to Follow Directions: Good Speech Pattern: Clear Hallucinations: None Thought Process: Intact and Goal Oriented Thought Content: positive for Intact and positive for Goal Oriented Judgement: Fair Results Reviewed Results Reviewed: reviewed notes re: medical issues including hx of CABGx 3 , aortic aneurysm, diabetes and most recent EKG and BP readings Assessment and Plan Assessment & Plan (1) LISA (generalized anxiety disorder): Status: Acute Code(s): F41.1 - Generalized anxiety disorder (2) MDD (major depressive disorder), recurrent episode, moderate: Status: Acute Code(s): F33.1 - Major depressive disorder, recurrent, moderate Plan pt getting some benefit from zoloft and no side effects; we discussed options for adjunctive treatment including wellbutrin, second generation antipsychotics, and add ing a low dose second antidepressant. He felt agitated on wellbutrin inpast wehn taking for smoking cessation. there is a risk of stroke with SGA's. We discussed remeron at night or a very low dose of effexor added to the zoloft which could increase BP but at low dose there is a low risk and his BP was 104/78 at last visit. we agreed to trial of effexor XR 37.5mg at bedtime. could also consider very low dose stimulant or possible provigil. strongly recommend therapy Medications: New venlafaxine ER 37.5 mg PO BEDTIME 30 caps 1RF Counseling and coordination of Care Pt. Self Management counseling: Med illness tx adherence, Mod caffeine/ETOH intake, Sleep hygiene, Behavior activation, General coping skills and Problem solving Medication management counseling: Effectiveness, Side effects, Dosing range, Duration, Drug interaction and Adherence Diagnosis and Prognosis Counseling: Accuracy of diagnosis, Prognosis over time, Impact of diagnosis on life functions, Impact of family relationship, Problematic behaviors secondary to diagnosis and Adequacy of current interventions Details: I spent 45 minutes reviewing the record, seeing the patient and documenting in the medical record. Counseling provided to the patient/caregiver as outlined below. Addressed patient/caregiver concerns regarding current medication regime including effective adherence. Addressed patient/caregiver concerns regarding diagnosis and prognosis including accuracy of diagnosis, prognosis over time, impact of diagnosis. Addressed patient/caregiver concerns regarding impact of recent stressors. [facility] Medical History Renal cyst COVID-19 Obesity Type 2 diabetes mellitus with obesity Asthma-COPD overlap syndrome Coronary artery disease Diabetic neuropathy Surgical History History of herniated intervertebral disc S/P CABG x 3 Family History Father Lung cancer Mother No problems noted. Family/Other Lung cancer Diabetes Social History Housing: House Alcohol intake: never Patient Tobacco Use Status: Former Tobacco user Tobacco use type: Cigarette e-Cigarette/Vaping Use: Never Used Second Hand Smoke Exposure: No service: No Current occupational status: disabled Current occupational exposures/hazards: No Cognitive needs: No Hearing needs: No Vision needs: No Social History: (since 1990) with two children age 15 and 30. 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 Primarily lived with single mother who abused alcohol. 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 Substance History: no ETOH no Tobacco x 10 yrs; uses THC for past few years. Trauma History: many friends in childhood; one hung self- traumatic loss for pt Coding Level of Care Code Est Pt Level 5 (89330) Diagnoses LISA (generalized anxiety disorder) F41.1 MDD (major depressive disorder), recurrent episode, moderate F33.1
== END 2024-02-29 10:06 | disposition home or self-care (01) ==
LOC: HO.HOP 09:14
PROVIDERS: PCP Physician Assistant; Visit Provider Clinical Nurse Specialist Psychiatric/Mental Health
DX: F33.1 Major depressive disorder, recurrent, moderate (principal); F41.1 Generalized anxiety disorder
CPT/HCPCS: 99215

== ENCOUNTER → 2024-02-29 09:14 | Outpatient (BNVA) | payer OTHER, SELFPAY | PROVIDERS: PCP Physician Assistant; Visit Provider Clinical Nurse Specialist Psychiatric/Mental Health | DX: F33.1 Major depressive disorder, recurrent, moderate (principal); F41.1 Generalized anxiety disorder | CPT/HCPCS: 99212 ==

== ENCOUNTER 2024-03-13 09:20 | Outpatient (AMB) | payer OTHER, SELFPAY ==
[2024-03-13 09:23] VITALS: BP 104/72; PULSE 80; BMI 33.3
--- NOTE | 2024-03-13 09:23 | MHC.PC.OV ---
Vital Signs 03/13/24 09:23 Height 5 ft 10 in Weight 232 lb BMI 33.3 BP 104/72 Blood Pressure Location Lt brachial Position Sitting Pulse 80 Pulse Source Pulse Oximeter Oxygen Delivery Method Room Air Intake Visit Reasons: COPD, hyperlipidemia, HTN Intake Note: Patient is here to follow up on COPD, hyperlipidemia, HTN Product Management Analyst Required: No Allergies bupropion [From Wellbutrin] Adverse Reaction (Intermediate, Verified 03/13/24 09:51) Ineffective Medication List - Last Reconciled 03/13/24 by Pipe Lizarraga PA-C alcohol swabs (Alcohol Prep Pads) 1 pad topical .three times a day aspirin 81 mg PO DAILY blood pressure test kit-large As directed blood sugar diagnostic (GE Global ResearchTouch Ultra Test strips) Testing 3 times a day blood-glucose meter As directed diltiazem HCl CD 240 mg PO DAILY 90 days hydrochlorothiazide 25 mg PO DAILY insulin aspart U-100 (Novolog FlexPen U-100 Insulin aspart) 10 units (0.1 mL) subcut TID 30 days isosorbide mononitrate ER 30 mg PO BID 90 days lancets Testing 3 times a day lancets (FreeStyle Lancets) three times a day lidocaine-prilocaine 2.5-2.5 % 1 appl topical ONCE lisinopril 5 mg PO DAILY naproxen 500 mg PO BID PRN 14 days omeprazole 40 mg PO DAILY pen needle, diabetic (BD Karen 2nd Gen Pen Needle) As directed pioglitazone (Actos) 15 mg PO DAILY 90 days pregabalin 300 mg PO BID 30 days rosuvastatin (Crestor) 40 mg PO DAILY 90 days sertraline (Zoloft) 200 mg (2 x 100 mg) PO DAILY tirzepatide (Mounjaro) 7.5 mg (0.5 mL) subcut QWEEK 4 weeks tramadol 50 mg PO DAILY 7 days venlafaxine ER 37.5 mg PO BEDTIME Tobacco use date assessed: 08/02/23 Dental Screening Dental Screen Date: 08/02/23 HPI COPD, hyperlipidemia, HTN HPI Details Patient is a 58-year-old male here today for a followup.? Patient has a past medical history significant for type 2 diabetes complicated by neuropathy obesity, COPD,? CAD (CAbG 2014). Concern-- > reports he broke his left large toe about a month ago and was in a walking boot for quite awhile. Still has some pain in the toe in a particular . Does have some delayed healing due to his diabetes Diabetes--> patient's type 2 diabetes has been better controlled as of late, has transitioned to mounjauro 7.5 mg weekly. Today's A1c is 7.0 --> of note patient was taking short-acting insulin postprandially and advised to start taking it pre pain daily according to sliding scale for better blood sugar controls. --> DEPRESSION--> patient now followed by psychiatrist and started on higher dose of sertraline and Effexor. He feels that his mood and depression her much better. Has tried Wellbutrin in the past though was not effective .. CAD:? Has recently up with his mechanism inspector and continues to complain of chest pain, could not schedule cardiac PET due to claustrophobia. ?Has had multiple coronary bypasses in the past. ?is followed by a mechanism inspector at [facility] annually.? Most recent lipid panel elevated for his cardiac risk.? Has been on atorvastatin 40 mg though reports having unclear side effect to this medication.? Has switched to Crestor 40 mg. He reports his diet has been very poor and relays it is very expensive to eat healthy . Unfortunately has not gotten fasting labs done before today's appointment.? Most recent lipid panel showing excellent control over his total cholesterol and LDL. .. COPD: IS followed by Dr Cedillo , reports his pulmonary status has been stable. . .. DMII complicated by polyneuropathy in the lower extremities: Has followed up with [facility] and started topical capsaicin cream for his diabetic neuropathy. Lyrica has also been increased to 200 mg b.i.d. Of note has gotten EMG testing in his lower extremity showing moderate to severe polyneuropathy. He has considering a spinal stimulator in his back HE IS ALSO FOLLOWED UP WITH PODIATRY THOUGH COULD NOT HELP HIM DUE TO HIS ISSUE BEING A NEUROPATHIC. Unfortunately still reports pain in his feet. PLAN: Will try to support him with diabetic shoes that may give him more support and pain relief. Laboratory Tests 09/24/22 12/29/22 04/01/23 10:31 08:43 09:14 RBC Hgb Fasting Glucose Hgb A1c (Clinic) 9.0 H 8.3 H 6.9 H Cholesterol LDL Cholesterol, C alc 0212/04/23 12/07/23 09:25 07:57 11:40 RBC 4.88 Hgb 14.6 Fasting Glucose 188 H Hgb A1c (Clinic) 7.4 H 7.1 H Cholesterol 125 LDL Cholesterol, C alc 55 PFSH Medical History Renal cyst COVID-19 Obesity Type 2 diabetes mellitus with obesity Asthma-COPD overlap syndrome Coronary artery disease Diabetic neuropathy Surgical History History of herniated intervertebral disc S/P CABG x 3 Family History Father Lung cancer Mother No problems noted. Family/Other Lung cancer Diabetes Social History Housing: House Alcohol intake: never Patient Tobacco Use Status: Former Tobacco user Tobacco use type: Cigarette e-Cigarette/Vaping Use: Never Used Second Hand Smoke Exposure: No service: No Current occupational status: disabled Current occupational exposures/hazards: No Cognitive needs: No Hearing needs: No Vision needs: No Questionnaire Thrive Questionnaire Date Thrive assessed: 03/13/24 I am a: Patient What is your living situation today?: I have a steady place to live Within the past 12 months, did the food you bought not last and you didn't have the money to get more?: Never true Within the past 12 months, did you worry whether your food would run out before you got money to buy more?: Never true Do you have trouble paying for medicines?: No Do you have trouble getting transportation to medical appointments?: No Do you have trouble paying your heating and electricity bill?: No Do you have trouble taking care of your child, family member or friend?: No Do you have trouble with day-to-day activities such as bathing, preparing meals, shopping, managing finances, etc.?: No Are you currently unemployed and looking for a job?: No Are you interested in more education?: No Please select the resources that you would like help with: None Currently or been in a relationship where the following occur: No concerns reported THRIVE Score: 0 AUDIT C Alcohol Use Questionnaire (AUDIT-C) 1. How often do you have a drink containing alcohol?: Never 3. How often do you have six or more drinks on one occasion?: Never Total Score: 0 LISA-7 AMB Questionnaire LISA-7 Date LISA - 7 assessed: 08/02/23 Source: Developed by Drs. Danny Milian, May Zapata, Melo Meier and colleagues, with an educational carlos eduardo from [employer]. Review of Systems Const Denies headache(s) Eyes Denies loss of vision ENT Denies vertigo, Denies dizziness, Denies headache(s) and Denies sore throat Card Denies chest pain, Denies leg edema and Denies lightheadedness Resp Denies cough, Denies hemoptysis and Denies wheezing GI Denies abdominal pain, Denies melena, Denies constipation, Denies diarrhea and Denies vomiting Denies dysuria, Denies urinary frequency and Denies urinary urgency Musc Denies arthralgias, Denies joint swelling, Denies numbness and Denies tingling Neuro Denies Abnormal speech present, Denies behavioral changes, Denies vertigo, Denies dizziness, Denies headache(s), Denies loss of vision, Denies memory loss, Denies numbness and Denies tingling Psych Denies anxiety, Denies behavioral changes, Denies depression, Denies memory loss and Denies panic attacks Abdirahman/Lymph Denies easy bleeding and Denies easy bruising Aller/Immun Denies wheezing Physical exam (Primary Care) Vital Signs: Last Vital Signs Pulse 80 03/13/24 09:23 BP 104/72 03/13/24 09:23 Oxygen Delivery Method Room Air 03/13/24 09:23 BMI result Body Mass Index 33.3 Tobacco/Smoking Status: Tobacco use Status Tobacco use date assessed 08/02/23 03/13/24 09:25 Patient Tobacco Use Status Former Tobacco user 03/13/24 09:25 Tobacco use type Cigarette 03/13/24 09:25 e-Cigarette/Vaping Use Never Used 03/13/24 09:25 Thrive Assessment: Date of Thrive Assessment Date Thrive assessed 03/13/24 03/13/24 09:25 Currently or been in a relationship where the following occur: No concerns reported Const General: healthy appearing, no acute distress, alert and awake Nutritional Appearance: well nourished Orientation/consciousness: oriented to person, oriented to place and oriented to time HENMT Ears: TM's normal bilaterally General nose exam: Normal nasal mucous membranes and turbinates present Eyes Conjunctivae: conjunctivae normal Sclerae: sclerae normal Pupils: Equal, round and reactive pupils present Neck Neck: Yes no lymphadenopathy and Yes no JVD Thyroid: Thyroid normal Carotids: no bruits Resp Effort & Inspection: normal respiratory effort and not tachypneic Auscultation: no crackles, no rales, no rhonchi and no wheezes Cardio Rate: regular rate Rhythm: regular rhythm Heart sounds: no murmurs and normal S1 and S2 GI Palpation (GI): Soft to palpation, nontender, no hepatomegaly and no splenomegaly Auscultation: normal bowel sounds Skin General skin exam: no rashes or lesions noted and dry skin Neuro General: oriented to person, oriented to place and oriented to time Cranial nerves: Yes Equal, round and reactive pupils present Speech: No Abnormal speech present Gait exam (Neuro): Normal gait present Motor exam (neuro): no tremor noted Extrem Right upper extremity: full ROM Left upper extremity: full ROM Right lower extremity: full ROM; no edema Left lower extremity: full ROM; no edema Psych Mental Status: mental status grossly normal Speech and movement: Normal speech and movement present Affect: normal affect Attitude: cooperative Thought process: Normal thought process present Results AMB Hemoglobin A1c AMB Hemoglobin A1c 7.0 % Last Edit by CLEVELAND Saldaña on 03/13/24 10:23 Results Reviewed Results Reviewed: Laboratory Last Values Hgb A1c (Clinic) 7.0 % (4.0-6.0) H 03/13/24 09:47 Assessment and Plan Assessment & Plan (1) Type 2 diabetes mellitus with obesity: Code(s): E11.69 - Type 2 diabetes mellitus with other specified complication; E66.9 - Obesity, unspecified Plan: Patient's type 2 diabetes controlled with A1c is 7.0. He continues on GLP 1 and Actos with good glycemic control. Has lost a few lb since last office visit. He has been working on lifestyle and dietary modifications. Goal A1c is to remain below 7.0 (2) Diabetic neuropathy: Code(s): E11.40 - Type 2 diabetes mellitus with diabetic neuropathy, unspecified Qualifiers: Diabetes mellitus complication detail: diabetic polyneuropathy Diabetes mellitus type: type 2 Qualified Code(s): E11.42 - Type 2 diabetes mellitus with diabetic polyneuropathy Plan: Continues to have moderate to severe neuropathic pain in his lower extremities even with increasing doses of neuromodulation. Is now seeing pain management in getting topical capsaicin treatments on his lower extremities. Unfortunately does not report any improvement. Continues on Lyrica 200 b.i.d.. Unfortunately broke his left big toe accidentally, was in a boot for 4 weeks. He has now followed by a candlemaker He reports tramadol 50 mg has been effective at night to help him sleep and reduce his neuropathic pain. (3) HTN (hypertension): Code(s): I10 - Essential (primary) hypertension Qualifiers: Hypertension type: primary hypertension Qualified Code(s): I10 - Essential (primary) hypertension Plan: Patient's blood pressure acceptable today in office. Continue current doses of antihypertensive medications. Advised to continue monitoring with goal blood pressure to be below 140/90. (4) CAD (coronary artery disease): Code(s): I25.10 - Atherosclerotic heart disease of [place] coronary artery without angina pectoris Qualifiers: Associated angina: without angina Coronary Disease-Associated Artery/Lesion type: [place] artery [place] vs. transplanted heart: [place] heart Qualified Code(s): I25.10 - Atherosclerotic heart disease of [place] coronary artery without angina pectoris Plan: Patient continues to follow cardiology, most recent lipid panel showing excellent control over his LDL. Goal LDL to remain below 70 (5) MDD (major depressive disorder), recurrent episode, moderate: Code(s): F33.1 - Major depressive disorder, recurrent, moderate Plan: He is now seeing a psychiatrist and making some med changes. He believes his mood and depression are much better since transitioning to sertraline and also on Effexor. (6) Asthma-COPD overlap syndrome: Code(s): J44.9 - Chronic obstructive pulmonary disease, unspecified Plan: Patient's breathing has been stable without any use of maintenance inhaler or albuterol inhaler. (7) Infrarenal abdominal aortic aneurysm, without rupture: Code(s): I71.43 - Infrarenal abdominal aortic aneurysm, without rupture Plan: Was found to have an infrarenal abdominal aortic aneurysm measuring at 4 cm while in the ER. Will continue with surveillance imaging Orders: Orders AMB Hemoglobin A1c Today E11.69 - Type 2 diabetes mellitus with other specified complication, E66.9 - Obesity, unspecified Microalbumin, Random (w Creat) Today I10 - Essential (primary) hypertension Comprehensive [place]. Panel Fast Today I10 - Essential (primary) hypertension Lipid Panel Today I25.10 - Atherosclerotic heart disease of [place] coronary artery without angina pectoris Complete Blood Count no Diff Today I10 - Essential (primary) hypertension Prostate Specific Antigen Scr Today I10 - Essential (primary) hypertension, Z12.5 - Encounter for screening for malignant neoplasm of prostate Medications: Changed From tramadol 50 mg PO DAILY 7 days 7 tabs 1RF E11.42 - Type 2 diabetes mellitus with diabetic polyneuropathy To tramadol 50 mg PO Q8H 21 tabs 1RF 7 days E11.42 - Type 2 diabetes mellitus with diabetic polyneuropathy Patient Instructions: Goal: Blood pressure to remain below 140/90, A1c to be below 7.0 Barriers: Adherence to physical activity and healthy eating habits Coding Level of Care Code Est Pt Level 4 (75330) Diagnoses Type 2 diabetes mellitus with obesity E11.69; E66.9 Diabetic polyneuropathy associated with type 2 diabetes mellitus E11.42 Diabetes mellitus complication detail: diabetic polyneuropathy Diabetes mellitus type: type 2 Primary hypertension I10 Hypertension type: primary hypertension Coronary artery disease involving [place] coronary artery of [place] heart without angina pectoris I25.10 Associated angina: without angina Coronary Disease-Associated Artery/Lesion type: [place] artery [place] vs. transplanted heart: [place] heart MDD (major depressive disorder), recurrent episode, moderate F33.1 Asthma-COPD overlap syndrome J44.9 Infrarenal abdominal aortic aneurysm, without rupture I71.43
== END 2024-03-13 10:08 | disposition home or self-care (01) ==
PROVIDERS: PCP Physician Assistant; Visit Provider Physician Assistant
DX: E11.69 Type 2 diabetes mellitus with other specified complication (principal); E11.42 Type 2 diabetes mellitus with diabetic polyneuropathy; F33.1 Major depressive disorder, recurrent, moderate; I71.43 Infrarenal abdominal aortic aneurysm, without rupture; J44.9 Chronic obstructive pulmonary disease, unspecified; E66.9 Obesity, unspecified; I10 Essential (primary) hypertension; I25.10 Atherosclerotic heart disease of native coronary artery without angina pectoris

== ENCOUNTER → 2024-03-13 09:20 | Outpatient (BNVA) | payer OTHER, SELFPAY | PROVIDERS: PCP Physician Assistant; Visit Provider Physician Assistant | DX: E11.69 Type 2 diabetes mellitus with other specified complication (principal); E11.42 Type 2 diabetes mellitus with diabetic polyneuropathy; I10 Essential (primary) hypertension; I25.10 Atherosclerotic heart disease of native coronary artery without angina pectoris; F33.1 Major depressive disorder, recurrent, moderate; J44.9 Chronic obstructive pulmonary disease, unspecified; I71.43 Infrarenal abdominal aortic aneurysm, without rupture; E66.9 Obesity, unspecified; Z68.33 Body mass index [BMI] 33.0-33.9, adult; Z71.3 Dietary counseling and surveillance; Z79.4 Long term (current) use of insulin | CPT/HCPCS: 83036; 99212 ==

== ENCOUNTER 2024-03-23 09:33 | Outpatient (AMB) | payer OTHER, SELFPAY ==
--- NOTE | 2024-03-23 09:48 | A.OFFPSYCH_ITS ---
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 Technical Service Specialist Required: No Allergies bupropion [From Wellbutrin] Adverse Reaction (Intermediate, Verified 03/13/24 09:51) Ineffective Medication List - Last Reconciled 03/23/24 by Ava Blanchard APRN alcohol swabs (Alcohol Prep Pads) 1 pad topical .three times a day aspirin 81 mg PO DAILY blood pressure test kit-large As directed blood sugar diagnostic (OneTouch Ultra Test strips) Testing 3 times a day blood-glucose meter As directed diltiazem HCl CD 240 mg PO DAILY 90 days hydrochlorothiazide 25 mg PO DAILY insulin aspart U-100 (Novolog FlexPen U-100 Insulin aspart) 10 units (0.1 mL) subcut TID 30 days isosorbide mononitrate ER 30 mg PO BID 90 days lancets Testing 3 times a day lancets (FreeStyle Lancets) three times a day lidocaine-prilocaine 2.5-2.5 % 1 appl topical ONCE lisinopril 5 mg PO DAILY naproxen 500 mg PO BID PRN 14 days omeprazole 40 mg PO DAILY pen needle, diabetic (BD Karen 2nd Gen Pen Needle) As directed pioglitazone (Actos) 15 mg PO DAILY 90 days pregabalin 300 mg PO BID 30 days rosuvastatin (Crestor) 40 mg PO DAILY 90 days sertraline (Zoloft) 200 mg (2 x 100 mg) PO DAILY tirzepatide (Mounjaro) 7.5 mg (0.5 mL) subcut QWEEK 4 weeks tramadol 50 mg PO Q8H 7 days venlafaxine ER 37.5 mg PO BEDTIME HPI- Psychiatric Chief Complaint: depression HPI Narrative: pt reports slightly more anxiety with addition of effexor. He reports racing thoughts, trouble focusing, easily irritable, overwhelmed with activity in the house; difficulty starting projects. no SI or HI. Past Psychiatric History: no ILPOC, no PHP or IOP. tried celexa at 40mg daily; tried wellbutrin inpast for tobacco cessation and it caused irritability Subjective Subjective Subjective Medication Compliance: Yes Side effects from medications: No Review of Systems Medical Review of Systems: unchanged Mental Status Exam Mental Status Exam Patient Appearance: Well Grooomed Patient Orientation: Person, Place, Time and Situation Level of Consciousness: Awake, Appropriate and Alert Patient Behavior: Appropriate and Cooperative Mood Description: Appropriate Affect Description: Appropriate Patient Cognition Impaired: No Ability to Follow Directions: Good Speech Pattern: Perseverating, Rambling and Excessive Memory Description: Intact Hallucinations: None Delusions: Not Present Thought Process: Intact and Distracted Thought Content: positive for Intact, positive for Perseveration and positive for Loose Associations Judgement: Fair Assessment and Plan Assessment & Plan (1) LISA (generalized anxiety disorder): Status: Acute Code(s): F41.1 - Generalized anxiety disorder (2) MDD (major depressive disorder), recurrent episode, moderate: Status: Acute Code(s): F33.1 - Major depressive disorder, recurrent, moderate Plan rule out ADHD combined type Medications: New atomoxetine (Strattera) 25 mg PO DAILY 30 caps 1RF Discontinued venlafaxine ER Discontinued Reason: Doctor's Order 37.5 mg PO BEDTIME 30 caps 1RF Counseling and coordination of Care Pt. Self Management counseling: Maintenance-social rhythm, Mod caffeine/ETOH intake, Sleep hygiene, Behavior activation, General coping skills and Problem solving Medication management counseling: Effectiveness, Side effects, Dosing range, Duration, Drug interaction and Adherence Diagnosis and Prognosis Counseling: Accuracy of diagnosis, Prognosis over time, Impact of diagnosis on life functions, Impact of family relationship, Problematic behaviors secondary to diagnosis and Adequacy of current interventions Details: I spent 45 minutes reviewing the record, seeing the patient and documenting in the medical record. Counseling provided to the patient/caregiver as outlined below. Addressed patient/caregiver concerns regarding current medication regime including effective adherence. Addressed patient/caregiver concerns regarding diagnosis and prognosis including accuracy of diagnosis, prognosis over time, impact of diagnosis. Addressed patient/caregiver concerns regarding impact of recent stressors. [facility] Medical History Renal cyst COVID-19 Obesity Type 2 diabetes mellitus with obesity Asthma-COPD overlap syndrome Coronary artery disease Diabetic neuropathy Surgical History History of herniated intervertebral disc S/P CABG x 3 Family History Father Lung cancer Mother No problems noted. Family/Other Lung cancer Diabetes Social History Housing: House Alcohol intake: never Patient Tobacco Use Status: Former Tobacco user Tobacco use type: Cigarette e-Cigarette/Vaping Use: Never Used Second Hand Smoke Exposure: No service: No Current occupational status: disabled Current occupational exposures/hazards: No Cognitive needs: No Hearing needs: No Vision needs: No Social History: (since 1990) with two children age 15 and 30. 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 Primarily lived with single mother who abused alcohol. 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 Substance History: no ETOH no Tobacco x 10 yrs; uses THC for past few years. Trauma History: many friends in childhood; one hung self- traumatic loss for pt Coding Level of Care Code Est Pt Level 4 (95512) Therapy 30m w/E&M (30921) Diagnoses LISA (generalized anxiety disorder) F41.1 MDD (major depressive disorder), recurrent episode, moderate F33.1
== END 2024-03-23 10:05 | disposition home or self-care (01) ==
LOC: HO.HOP 09:33
PROVIDERS: PCP Physician Assistant; Visit Provider Clinical Nurse Specialist Psychiatric/Mental Health
DX: F41.1 Generalized anxiety disorder (principal); F33.1 Major depressive disorder, recurrent, moderate
CPT/HCPCS: 90833; 99214

== ENCOUNTER → 2024-03-23 09:33 | Outpatient (BNVA) | payer OTHER, SELFPAY | PROVIDERS: PCP Physician Assistant; Visit Provider Clinical Nurse Specialist Psychiatric/Mental Health | DX: F33.1 Major depressive disorder, recurrent, moderate (principal); F41.1 Generalized anxiety disorder | CPT/HCPCS: 99212 ==

== ENCOUNTER 2024-03-30 07:41 | Outpatient (REF) | payer OTHER, SELFPAY ==
--- NOTE | ~2024-03-30 | US_ITS ---
EXAMINATION: US RETROPERITONEAL LIMITED (AORTA) CLINICAL INFORMATION: Infrarenal abdominal aortic aneurysm, follow-up. COMPARISON: 08/25/2023 TECHNIQUE: Stoddard-scale, color Doppler and spectral Doppler evaluation of the abdominal aorta. FINDINGS: Focal fusiform aneurysm of the distal abdominal aorta. The measurements of the aorta in maximum AP and transverse dimensions respectively are as follows: Proximal: 2.6 by 2.2 cm. Mid: 2.2 x 2.8 cm. Distal: 4.2 x 4.2 cm. Previously measuring maximum diameter 4.4 cm PSV: 64.5 cm/s. The measurements of the common iliac arteries in maximum AP and TRV dimensions are as follows: Right Common Iliac Artery: 2.0 x 2.3 cm. Left Common Iliac Artery: 1.1 x 1.7 cm. US/US abdominal aortic aneurysm IMPRESSION: Stable fusiform infrarenal abdominal aortic aneurysm measuring 4.2 cm. Based on published guidelines in J Am Shruthi Radiology 2013; 10(10):789-794 and J Vasc Surg. 2018; 67:2-77, the recommendation for an abdominal aortic aneurysm with diameter 4.0-4.4 cm is vascular consultation and subsequent follow-up every 12 months. Electronically signed by: Eliazar Yan MD 04/06/2024 03:08 PM EDT
== END 2024-03-30 07:42 | disposition home or self-care (01) ==
LOC: HO.US 07:41
PROVIDERS: PCP Physician Assistant; Visit Provider Physician Assistant
DX: I71.43 Infrarenal abdominal aortic aneurysm, without rupture (principal)
CPT/HCPCS: 76706

== ENCOUNTER 2024-04-18 09:08 | Outpatient (AMB) | payer OTHER, SELFPAY ==
--- NOTE | 2024-04-18 09:10 | A.OFFVIS_ITS ---
Intake Visit Reasons: 6 month follow up s/p AAA US 03/30/24 Intake Note: Patient presents for follow up AAA US performed on 03/30/24. He has no complaints. Accompanied by: Self / Same As Patient HPI HPI 6 month follow up s/p AAA US 03/30/24: Details: Joseph, a pleasant 58-year-old male patient, presents today for six-month follow- up for ultrasound. He continues to have no physical concerns no abdominal pain, chest pain, or back pain. There is no family history of any aneurysms. He is a former smoker, did quit smoking over 20 years ago. He has an almost daily marijuana smoker. He is a diabetic, last A1C 7.0% in Feb. [facility] Medical History Renal cyst COVID-19 Obesity Type 2 diabetes mellitus with obesity Asthma-COPD overlap syndrome Coronary artery disease Diabetic neuropathy Surgical History History of herniated intervertebral disc S/P CABG x 3 Family History Father Lung cancer Mother No problems noted. Family/Other Lung cancer Diabetes Social History Housing: House Alcohol intake: never Patient Tobacco Use Status: Former Tobacco user Tobacco use type: Cigarette e-Cigarette/Vaping Use: Never Used Second Hand Smoke Exposure: No service: No Current occupational status: disabled Current occupational exposures/hazards: No Cognitive needs: No Hearing needs: No Vision needs: No Review of Systems Const Reports as per HPI and Denies weakness ENT Reports Normal hearing present and Denies dizziness Card Reports as per HPI, Denies chest pain, Denies chest pain at rest, Denies chest pain with activity, Denies dyspnea and Denies dyspnea on exertion Resp Reports as per HPI, Denies cough, Denies dyspnea and Denies dyspnea on exertion GI Reports as per HPI, Denies abdominal pain, Denies nausea and Denies vomiting Musc Denies numbness Skin/Breast Reports as per HPI, Denies erythema and Denies wounds Neuro Reports Normal hearing present, Denies dizziness, Denies numbness, Denies Sensory deficit (Neuro) and Denies weakness Psych Reports no additional complaints Endo Reports no additional complaints Physical Exam Const General: healthy appearing and no acute distress Orientation/consciousness: patient oriented x3 HEENT Head: Yes normal to inspection Ears: hearing grossly normal bilaterally Mouth: Normal oral and palatal mucosa present Resp Effort & Inspection: normal respiratory effort and able to speak in complete sentences Auscultation: clear to auscultation bilaterally Cardio Jugular venous distension: no JVD Rate: regular rate Rhythm: regular rhythm Heart sounds: S1 normal heart sound present and S2 normal heart sound present Bruits: no abdominal aortic bruits, no carotid bruits, no femoral bruits and no renal bruits Peripheral pulses: Peripheral pulses 2+ throughout GI Inspection: Yes normal to inspection Palpation (GI): No Abdominal aortic bruit present Skin General skin exam: no rashes or lesions noted Wounds: no wounds Hair: normal Neuro General: patient oriented x3 Cranial nerves: Yes Normal hearing present Cognition (Neuro): normal cognition Gait exam (Neuro): Normal gait present Motor exam (neuro): 5/5 motor strength present throughout Sensory Exam: No Sensory deficit (Neuro) Extrem General: Yes normal to inspection, Yes full ROM, Yes capillary refill normal and Yes normal gait Results Reviewed Results Reviewed: US retroperitoneal limited (aorta): infrarenal AAA measuring 4.2cm Assessment & Plan Assessment & Plan (1) Infrarenal abdominal aortic aneurysm, without rupture: Code(s): I71.43 - Infrarenal abdominal aortic aneurysm, without rupture Category: Medical Plan: Joseph is presenting today for six-month ultrasound follow-up due to incidental finding of an infrarenal AAA. He continues to be asymptomatic. The aneurysm remains stable measuring at 4.2 cm. We discussed the pathophysiology of aortic aneurysms and the risk of ruptures. We discussed the rupture risk based on the size of the aneurysm. We have also discussed continued conservative measures and risk factor modification for prevention of the increase in size. We will have him follow up in 6 months for surveillance ultrasound and follow up in our office. Thank you for allowing us to continue to care for this patient. Orders: Orders US abdominal aortic aneurysm 6 Months I71.43 - Infrarenal abdominal aortic aneurysm, without rupture Coding Level of Care Code Established Pt Est Pt Level 4 (41352) Patient Type Established Diagnoses Infrarenal abdominal aortic aneurysm, without rupture I71.43 Comment review of abd US
== END 2024-04-18 09:33 | disposition home or self-care (01) ==
LOC: HO.HVS 09:09
PROVIDERS: PCP Physician Assistant; Visit Provider Physician Assistant Surgical
DX: I71.43 Infrarenal abdominal aortic aneurysm, without rupture (principal)
CPT/HCPCS: 99214

== ENCOUNTER → 2024-04-18 09:08 | Outpatient (BNVA) | payer OTHER, SELFPAY | PROVIDERS: PCP Physician Assistant; Visit Provider Physician Assistant Surgical | DX: I71.43 Infrarenal abdominal aortic aneurysm, without rupture (principal); Z87.891 Personal history of nicotine dependence | CPT/HCPCS: 99212 ==

== ENCOUNTER 2024-05-04 09:21 | Outpatient (AMB) | payer OTHER, SELFPAY ==
--- NOTE | 2024-05-04 09:50 | MHC.OFFVISPS ---
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 Vice President Underwriting Required: No Medication List - Last Reconciled 05/04/24 by Ava Blanchard APRN alcohol swabs (Alcohol Prep Pads) 1 pad topical .three times a day aspirin 81 mg PO DAILY atomoxetine (Strattera) 25 mg PO DAILY blood pressure test kit-large As directed blood sugar diagnostic (OneTouch Ultra Test strips) Testing 3 times a day blood-glucose meter As directed diltiazem HCl CD 240 mg PO DAILY 90 days hydrochlorothiazide 25 mg PO DAILY insulin aspart U-100 (Novolog FlexPen U-100 Insulin aspart) 10 units (0.1 mL) subcut TID 30 days isosorbide mononitrate ER 30 mg PO BID 90 days lancets Testing 3 times a day lancets (FreeStyle Lancets) three times a day lidocaine-prilocaine 2.5-2.5 % 1 appl topical ONCE lisinopril 5 mg PO DAILY omeprazole 40 mg PO DAILY pen needle, diabetic (BD Karen 2nd Gen Pen Needle) As directed pioglitazone (Actos) 15 mg PO DAILY 90 days pregabalin 300 mg PO BID 30 days rosuvastatin (Crestor) 40 mg PO DAILY 90 days sertraline 200 mg (2 x 100 mg) PO DAILY tirzepatide (Mounjaro) 7.5 mg (0.5 mL) subcut QWEEK 4 weeks tramadol 50 mg PO Q8H 7 days HPI- Psychiatric Chief Complaint: depression HPI Narrative: pt reports improvement. PHQ9= 6 and LISA 7 = 4. pt reports he is more able to get out of bed in the morning and participate with family; he still procrastinates. he is irritable at times but less intense and less often. Past Psychiatric History: no ILPOC, no PHP or IOP. tried celexa at 40mg daily; tried wellbutrin inpast for tobacco cessation and it caused irritability Subjective Subjective Subjective Medication Compliance: Yes Side effects from medications: No Review of Systems Medical Review of Systems: unchanged Mental Status Exam Mental Status Exam Patient Appearance: Well Grooomed and Appropriate Patient Orientation: Person, Place, Time and Situation Level of Consciousness: Appropriate Patient Behavior: Appropriate and Cooperative Mood Description: Anxious Affect Description: Anxious Patient Cognition Impaired: No Ability to Follow Directions: Good Speech Pattern: Clear and Appropriate Memory Description: Intact Hallucinations: None Delusions: Not Present Thought Process: Intact and Rumination Thought Content: positive for Intact, positive for Perseveration and positive for Preoccupation Judgement: Fair Assessment and Plan Assessment & Plan (1) LISA (generalized anxiety disorder): Status: Acute Code(s): F41.1 - Generalized anxiety disorder (2) MDD (major depressive disorder), recurrent episode, moderate: Status: Acute Code(s): F33.1 - Major depressive disorder, recurrent, moderate (3) ADHD (attention deficit hyperactivity disorder), combined type: Status: Acute Code(s): F90.2 - Attention-deficit hyperactivity disorder, combined type Plan increase strattera to 40mg daily continue zoloft 200mg daily for now consider reducing zoloft in future if strattera more effective Medications: New atomoxetine (Strattera) 40 mg PO DAILY 90 caps 0RF Refilled sertraline 200 mg (2 x 100 mg) PO DAILY 60 tabs 2RF blood pressure test kit-large As directed 1 ea 0RF I10 - Essential (primary) hypertension, I25.10 - Atherosclerotic heart disease of [place] coronary artery without angina pectoris Discontinued atomoxetine (Strattera) Discontinued Reason: Doctor's Order 25 mg PO DAILY 30 caps 1RF Counseling and coordination of Care Pt. Self Management counseling: Maintenance-social rhythm, Med illness tx adherence, Mod caffeine/ETOH intake, Sleep hygiene, Behavior activation and General coping skills Medication management counseling: Effectiveness, Side effects, Dosing range, Duration, Drug interaction and Adherence Diagnosis and Prognosis Counseling: Accuracy of diagnosis, Prognosis over time, Impact of diagnosis on life functions, Impact of family relationship and Adequacy of current interventions Details: I spent minutes reviewing the record, seeing the patient and documenting in the medical record. 40 Counseling provided to the patient/caregiver as outlined below. Addressed patient/caregiver concerns regarding current medication regime including effective adherence. Addressed patient/caregiver concerns regarding diagnosis and prognosis including accuracy of diagnosis, prognosis over time, impact of diagnosis. Addressed patient/caregiver concerns regarding impact of recent stressors. PFSH Medical History Renal cyst COVID-19 Obesity Type 2 diabetes mellitus with obesity Asthma-COPD overlap syndrome Coronary artery disease Diabetic neuropathy Surgical History History of herniated intervertebral disc S/P CABG x 3 Family History Father Lung cancer Mother No problems noted. Family/Other Lung cancer Diabetes Social History Housing: House Alcohol intake: never Patient Tobacco Use Status: Former Tobacco user Tobacco use type: Cigarette e-Cigarette/Vaping Use: Never Used Second Hand Smoke Exposure: No service: No Current occupational status: disabled Current occupational exposures/hazards: No Cognitive needs: No Hearing needs: No Vision needs: No Social History: (since 1990) with two children age 15 and 30. 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 Primarily lived with single mother who abused alcohol. 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 Substance History: no ETOH no Tobacco x 10 yrs; uses THC for past few years. Trauma History: many friends in childhood; one hung self- traumatic loss for pt Coding Level of Care Code Est Pt Level 4 (59298) Diagnoses LISA (generalized anxiety disorder) F41.1 MDD (major depressive disorder), recurrent episode, moderate F33.1 ADHD (attention deficit hyperactivity disorder), combined type F90.2
== END 2024-05-04 14:53 | disposition home or self-care (01) ==
LOC: HO.HOP 09:21
PROVIDERS: PCP Physician Assistant; Visit Provider Clinical Nurse Specialist Psychiatric/Mental Health
DX: F41.1 Generalized anxiety disorder (principal); F33.1 Major depressive disorder, recurrent, moderate; F90.2 Attention-deficit hyperactivity disorder, combined type
CPT/HCPCS: 99214

== ENCOUNTER → 2024-05-04 09:21 | Outpatient (BNVA) | payer OTHER, SELFPAY | PROVIDERS: PCP Physician Assistant; Visit Provider Clinical Nurse Specialist Psychiatric/Mental Health | DX: F41.1 Generalized anxiety disorder (principal); F33.1 Major depressive disorder, recurrent, moderate; F90.2 Attention-deficit hyperactivity disorder, combined type | CPT/HCPCS: 99212 ==

== ENCOUNTER 2024-06-17 08:47 | Outpatient (REF) | payer OTHER, SELFPAY ==
[2024-06-17 09:25] LABS: Hematocrit 42.3 % (42.0-52.0); Hemoglobin 13.9 g/dl (14.0-18.0); Mean Corpuscular HGB Conc 32.9 g/dl (31.0-36.0); Mean Corpuscular Hemoglobin 28.5 pg (27.0-33.0); Mean Corpuscular Volume 86.9 fL (80.0-98.0); Platelet Count 217 X10*3/uL (160-400); Red Blood Count 4.87 X10*6/uL (4.60-5.80); Red Cell Distribution Width 14.4 % (11.0-16.0); White Blood Count 6.3 X10*3/uL (4.8-10.8)
[2024-06-17 09:43] LABS: Creatinine Urine 150.06 mg/dL; Microalbum/Creatinine Ratio Ur 55.9 ug/mg cr (<30)
[2024-06-17 09:46] LABS: Alanine Aminotransferase 35 U/L (0-40); Albumin Level 4.3 g/dL (3.5-5.0); Alkaline Phosphatase 88 U/L (39-117); Anion Gap 12 (12-20); Aspartate Amino Transferase 37 U/L (5-37); Bilirubin Total 0.5 mg/dL (0.0-1.0); Blood Urea Nitrogen 21 mg/dL (9-16); Calcium 9.6 mg/dL (8.4-10.2); Carbon Dioxide 28 mmol/L (22-29); Chloride 105 mmol/L (96-108); Cholesterol 121 mg/dL (<200); Estimated Glomerular Filt Rate > 60; Glucose Fasting 139 mg/dL (60-99); HDL Cholesterol 60 mg/dL (>40); LDL Cholesterol Calculated 48 mg/dL (<100); Potassium 4.2 mmol/L (3.3-5.1); Sodium 141 mmol/L (135-145); Total Protein 7.1 g/dL (6.5-8.0); Triglycerides 66 mg/dL (<150)
[2024-06-17 10:03] LABS: Prostate Specific Antigen Scr 0.47 ng/mL (<0.05-4.0)
== END 2024-06-17 08:48 | disposition home or self-care (01) ==
LOC: HO.LAB 08:47
PROVIDERS: PCP Physician Assistant; Visit Provider Physician Assistant
DX: I10 Essential (primary) hypertension (principal); I25.10 Atherosclerotic heart disease of native coronary artery without angina pectoris; Z12.5 Encounter for screening for malignant neoplasm of prostate
CPT/HCPCS: 36415; 80053; 80061; 82043; 82570; 84153; 85027

== ENCOUNTER 2024-06-19 09:08 | Outpatient (AMB) | payer OTHER, SELFPAY ==
--- NOTE | 2024-06-19 09:18 | A.OFFPC_ITS ---
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 Required: No Accompanied by: Self / Same As Patient Allergies No Known Allergies Allergy (Verified 06/19/24 09:34) Medication List - Last Reconciled 06/19/24 by Pipe Lizarraga PA-C alcohol swabs (Alcohol Prep Pads) 1 pad topical .three times a day aspirin 81 mg PO DAILY atomoxetine (Strattera) 40 mg PO DAILY blood pressure test kit-large As directed blood sugar diagnostic ([employer]Touch Ultra Test strips) Testing 3 times a day blood-glucose meter As directed diltiazem HCl CD 240 mg PO DAILY 90 days hydrochlorothiazide 25 mg PO DAILY insulin aspart U-100 (Novolog FlexPen U-100 Insulin aspart) 10 units (0.1 mL) subcut TID 30 days isosorbide mononitrate ER 30 mg PO BID 90 days lancets Testing 3 times a day lancets (FreeStyle Lancets) three times a day lidocaine-prilocaine 2.5-2.5 % 1 appl topical ONCE lisinopril 5 mg PO DAILY omeprazole 40 mg PO DAILY pen needle, diabetic (BD Karen 2nd Gen Pen Needle) As directed pioglitazone (Actos) 15 mg PO DAILY 90 days pregabalin 300 mg PO BID 30 days rosuvastatin (Crestor) 40 mg PO DAILY 90 days sertraline 200 mg (2 x 100 mg) PO DAILY tirzepatide (Mounjaro) 7.5 mg (0.5 mL) subcut QWEEK 4 weeks tramadol 50 mg PO Q8H 7 days Tobacco use date assessed: 06/19/24 Dental Screening Dental Screen Date: 06/19/24 Did you have a dental visit in the last 12 months?: Yes Did you have a dental problem in the last 6 months where you did not have access to dental care?: No Was dental information given to patient?: Patient has dentist HPI f/u DMII/ CAD HPI Details Patient is a 59-year-old male here today for a followup.? Patient has a past medical history significant for type 2 diabetes complicated by neuropathy obesity, COPD,? CAD (CAbG 2014). Concern-- > PAtient reporting urinary urgency and weak stream. He describes an increase in urinary urgency, feeling as if he has to urinate immediately or risk incontinence, alongside a sensation of being unable to fully void his bladder. He notes a weak stream and occasional dribbling. These symptoms began approximately a week prior to the visit. No prior diagnostic interventions for this urinary problem have been reported, though the patient speculates on potential causes and indicates concern over the recent onset. Diabetes--> patient's type 2 diabetes has been much better controlled lately. He reports being much better with his diet. Unfortunately continues with what seems to be diabetic neuropathy versus a lumbar spine issue. He continues on Lyrica 300 b.i.d. which he reports his effective form. He is not interested in any further back surgery. HE IS ALSO FOLLOWED UP WITH PODIATRY THOUGH COULD NOT HELP HIM DUE TO HIS ISSUE BEING A NEUROPATHIC. Unfortunately still reports pain in his feet. --> DEPRESSION--> patient now followed b y psychiatrist and started on higher dose of sertraline and Effexor. He feels that his mood and depression her much better. .. CAD:? Has recently up with his credit resolution representative and continues to complain of chest pain, could not schedule cardiac PET due to claustrophobia. ?Has had multiple coronary bypasses in the past. Most recent lipid panel showing excellent control over his total cholesterol and LDL. .. COPD: IS followed by Dr Cedillo , reports his pulmonary status has been stable. . .. [facility] Medical History Renal cyst COVID-19 Obesity Type 2 diabetes mellitus with obesity Asthma-COPD overlap syndrome Coronary artery disease Diabetic neuropathy Surgical History History of herniated intervertebral disc S/P CABG x 3 Family History Father Lung cancer Mother No problems noted. Family/Other Lung cancer Diabetes Social History Housing: House Alcohol intake: never Patient Tobacco Use Status: Former Tobacco user Tobacco use type: Cigarette e-Cigarette/Vaping Use: Never Used Second Hand Smoke Exposure: No service: No Current occupational status: disabled Current occupational exposures/hazards: No Cognitive needs: No Hearing needs: No Vision needs: No Questionnaire PHQ-9 Over the last 2 weeks, how often have you been bothered by any of the following problems? 1. Little interest or pleasure in doing things: not at all 2. Feeling down, depressed, or hopeless: not at all 3. Trouble falling or staying asleep, or sleeping too much: not at all 4. Feeling tired or having little energy: not at all 5. Poor appetite or overeating: not at all 6. Feeling bad about yourself - or that you are a failure or have let yourself or your family down: not at all 7. Trouble concentrating on things, such as reading the newspaper or watching television: not at all 8. Moving or speaking so slowly that other people could have noticed. Or the opposite - being so fidgety or restless that you have been moving around a lot more than usual: not at all 9. Thoughts that you would be better off or of hurting yourself in some way: not at all Total score: 0 Depression Screening Interpretation: Negative Depression Screening Done: Yes 28661 - PHQ-9 Billing: Yes Source: Developed by Drs. Danny Milian, May Zapata, Melo Meier and colleagues, with an educational carlos eduardo from [employer]. Thrive Questionnaire Date Thrive assessed: 06/19/24 I am a: Patient What is your living situation today?: I have a steady place to live Within the past 12 months, did the food you bought not last and you didn't have the money to get more?: Never true Within the past 12 months, did you worry whether your food would run out before you got money to buy more?: Never true Do you have trouble paying for medicines?: No Do you have trouble getting transportation to medical appointments?: No Do you have trouble paying your heating and electricity bill?: No Do you have trouble taking care of your child, family member or friend?: No Do you have trouble with day-to-day activities such as bathing, preparing meals, shopping, managing finances, etc.?: No Are you currently unemployed and looking for a job?: No Are you interested in more education?: No Please select the resources that you would like help with: None Currently or been in a relationship where the following occur: No concerns reported THRIVE Score: 0 AUDIT C Alcohol Use Questionnaire (AUDIT-C) 1. How often do you have a drink containing alcohol?: Never 3. How often do you have six or more drinks on one occasion?: Never Total Score: 0 LISA-7 AMB Questionnaire LISA-7 Date LISA - 7 assessed: 06/19/24 Feeling nervous, anxious, or on edge: 0 = Not at all Not being able to stop or control worryin = Not at all Worrying too much about different things: 0 = Not at all Trouble relaxin = Not at all Being so restless that it is hard to sit still: 0 = Not at all Becoming easily annoyed or irritable: 0 = Not at all Feeling afraid as if something awful might happen: 0 = Not at all Total LISA-7 score (0-4 normal; 5-9 mild; 10-14 moderate; 15-21 severe): 0 Source: Developed by Drs. Danny Milian, aMy Zapata, Melo Meier and colleagues, with an educational carlos eduardo from [employer]. LISA-7 Assessment Billing LISA-7 Assessment Tool: LISA-7 Assessment 49391 Review of Systems Const Denies headache(s) Eyes Denies loss of vision ENT Denies vertigo, Denies dizziness, Denies headache(s) and Denies sore throat Card Denies chest pain, Denies leg edema and Denies lightheadedness Resp Denies cough, Denies hemoptysis and Denies wheezing GI Denies abdominal pain, Denies melena, Denies constipation, Denies diarrhea and Denies vomiting Details: + weak urinary stream Reports urinary hesitancy and Reports urinary urgency Musc Denies arthralgias, Denies joint swelling, Denies numbness and Denies tingling Neuro Denies Abnormal speech present, Denies behavioral changes, Denies vertigo, Denies dizziness, Denies headache(s), Denies loss of vision, Denies memory loss, Denies numbness and Denies tingling Psych Denies anxiety, Denies behavioral changes, Denies depression, Denies memory loss and Denies panic attacks Abdirahman/Lymph Denies easy bleeding and Denies easy bruising Aller/Immun Denies wheezing Physical exam (Primary Care) Vital Signs: Last Vital Signs Pulse 94 06/19/24 09:29 BP 110/70 06/19/24 09:29 Pulse Ox 95 06/19/24 09:29 Oxygen Delivery Method Room Air 06/19/24 09:29 BMI result Body Mass Index 31.3 Tobacco/Smoking Status: Tobacco use Status Tobacco use date assessed 06/19/24 06/19/24 09:33 Patient Tobacco Use Status Former Tobacco user 06/19/24 09:18 Tobacco use type Cigarette 06/19/24 09:18 e-Cigarette/Vaping Use Never Used 06/19/24 09:18 PHQ-9: PHQ-9 Score PHQ-9: Total score 0 06/19/24 09:36 Depression Screening Interpretation: Negative Thrive Assessment: Date of Thrive Assessment Date Thrive assessed 06/19/24 06/19/24 09:33 Currently or been in a relationship where the following occur: No concerns reported Const General: healthy appearing, no acute distress, alert and awake Nutritional Appearance: well nourished Orientation/consciousness: oriented to person, oriented to place and oriented to time HENMT Ears: TM's normal bilaterally General nose exam: Normal nasal mucous membranes and turbinates present Eyes Conjunctivae: conjunctivae normal Sclerae: sclerae normal Pupils: Equal, round and reactive pupils present Neck Neck: Yes no lymphadenopathy and Yes no JVD Thyroid: Thyroid normal Carotids: no bruits Resp Effort & Inspection: normal respiratory effort and not tachypneic Auscultation: no crackles, no rales, no rhonchi and no wheezes Cardio Rate: regular rate Rhythm: regular rhythm Heart sounds: no murmurs and normal S1 and S2 GI Palpation (GI): Soft to palpation, nontender, no hepatomegaly and no splenomegaly Auscultation: normal bowel sounds Skin General skin exam: no rashes or lesions noted and dry skin Neuro General: oriented to person, oriented to place and oriented to time Cranial nerves: Yes Equal, round and reactive pupils present Speech: No Abnormal speech present Gait exam (Neuro): Normal gait present Motor exam (neuro): no tremor noted Extrem Right upper extremity: full ROM Left upper extremity: full ROM Right lower extremity: full ROM; no edema Left lower extremity: full ROM; no edema Psych Mental Status: mental status grossly normal Speech and movement: Normal speech and movement present Affect: normal affect Attitude: cooperative Thought process: Normal thought process present Office Procedures Flu Questionnaire Does the patient have a severe egg allergy?: No Does the patient have severe life threatening allergies?: No Does the patient have a fever or illness today?: No Has the patient ever had Guillain-[place] Syndrome?: No Has the patient ever had any past reaction to a flu shot?: No Results AMB Hemoglobin A1c AMB Hemoglobin A1c 5.9 % Last Edit by LALY Daily on 06/19/24 09:33 Immunizations Fluarix Triv [id number] (PF) 45 mcg (15 mcg x 3)/0.5 mL IM syringe Performing Provider: Pipe Lizarraga PA-C [facility] [place] [facility] Administered by: LALY Daily on 06/19/24 09:33 Dose Route Admin Location Dispensed Lot Number Expiration Date NDC Director Credit Risk 0.5 mL IM Left Deltoid 0.5 mL [id number] 12/11/24 [id number] [employer] VIS Given Date VIS Provided VIS Publication Date 06/19/24 Single Vaccine 21 Eligibility Eligibility Date Funding Source Not [facility] Eligible 06/19/24 Private Results Reviewed Results Reviewed: Laboratory Last Values Hgb A1c (Clinic) 5.9 % (4.0-6.0) 06/19/24 09:19 Coding Level of Care Code Est Pt Level 4 (70370) Diagnoses MDD (major depressive disorder), recurrent episode, moderate F33.1 Type 2 diabetes mellitus with obesity E11.69; E66.9 Coronary artery disease involving [place] coronary artery of [place] heart without angina pectoris I25.10 Associated angina: without angina Coronary Disease-Associated Artery/Lesion type: [place] artery [place] vs. transplanted heart: [place] heart Infrarenal abdominal aortic aneurysm, without rupture I71.43 Urinary urgency R39.15 Erectile disorder due to medical condition in male N52.1 Additional Codes LISA-7 Assessment Billing - LISA-7 Assessment Tool: LISA-7 Assessment 43763 ([id number]) PHQ-9 - 18743 - PHQ-9 Billing: Yes ([id number]) Assessment & Plan Assessment & Plan (1) MDD (major depressive disorder), recurrent episode, moderate: Code(s): F33.1 - Major depressive disorder, recurrent, moderate Category: Medical Plan: Patient is seeing a psychiatrist reports he is doing much better from mental health point of view. He has been started on Strattera which has been helping his attention and focus. (2) Type 2 diabetes mellitus with obesity: Code(s): E11.69 - Type 2 diabetes mellitus with other specified complication; E66.9 - Obesity, unspecified Category: Medical Plan: Patient's type 2 diabetes now well controlled with current diabetic med regime. Continues on monitor 07.5 mg and Actos. He reports he has not been having to use preprandial insulin due to his glucose control. Goal A1c is to remain below 7.0. Will consider discontinuing Actos at next visit (3) CAD (coronary artery disease): Code(s): I25.10 - Atherosclerotic heart disease of [place] coronary artery without angina pectoris Category: Medical Qualifiers: Associated angina: without angina Coronary Disease-Associated Artery/Lesion type: [place] artery [place] vs. transplanted heart: [place] heart Qualified Code(s): I25.10 - Atherosclerotic heart disease of [place] coronary artery without angina pectoris Plan: Continues to follow cardiology. Most recent lipid panel showing excellent control of his total cholesterol and LDL. (4) Infrarenal abdominal aortic aneurysm, without rupture: Code(s): I71.43 - Infrarenal abdominal aortic aneurysm, without rupture Category: Medical Plan: Followed by [facility]. He is under surveillance. (5) Urinary urgency: Code(s): R39.15 - Urgency of urination Category: Medical Plan: As per HPI will send for urinalysis and urine culture to evaluate for an infectious etiology. Of note white blood cell count normal and PSA normal. (6) Erectile disorder due to medical condition in male: Code(s): N52.1 - Erectile dysfunction due to diseases classified elsewhere Category: Medical Plan: During the consultation, I discussed with the patient the likely diagnosis of urinary tract disorder potentially related to prostatic or obstructive pathology, given the symptoms of urgency and weak stream. The potential roles of infection were outlined, and the need for a urine test focusing on infectious markers was emphasized. I also reviewed options for symptom management with Flomax, alongside potential referral to urology for expert evaluation of both urinary symptoms and erectile dysfunction Orders: Orders Influenza [id number] Immunization Today Z23 - Encounter for immunization AMB Hemoglobin A1c Today E11.69 - Type 2 diabetes mellitus with other specified complication, E66.9 - Obesity, unspecified Complete Blood Count no Diff Today I25.10 - Atherosclerotic heart disease of [place] coronary artery without angina pectoris Urine Culture Today R39.15 - Urgency of urination UA CC w/rflx Micro + Cult Today R30.0 - Dysuria, R39.15 - Urgency of urination Lipid Panel 3 Months I25.10 - Atherosclerotic heart disease of [place] coronary artery without angina pectoris Comprehensive [place]. Panel Fast Today I10 - Essential (primary) hypertension Referrals Urology Referral N52.1 - Erectile dysfunction due to diseases classified elsewhere Medications: Changed From isosorbide mononitrate ER 30 mg PO BID 90 days 180 tabs 2RF I25.10 - Atherosclerotic heart disease of [place] coronary artery without angina pectoris To isosorbide mononitrate ER 30 mg PO DAILY 90 tabs 2RF 90 days I25.10 - Atherosclerotic heart disease of [place] coronary artery without angina pectoris Refilled pregabalin 300 mg PO BID 60 caps 3RF pain 30 days E11.40 - Type 2 diabetes mellitus with diabetic neuropathy, unspecified, M79.671 - Pain in right foot, M79.672 - Pain in left foot, M96.1 - Postlaminectomy syndrome, not elsewhere classified
[2024-06-19 09:29] VITALS: BP 110/70; PULSE 94; O2SAT 95; BMI 31.3
== END 2024-06-19 10:03 | disposition home or self-care (01) ==
PROVIDERS: PCP Physician Assistant; Visit Provider Physician Assistant
DX: E11.69 Type 2 diabetes mellitus with other specified complication (principal); F33.1 Major depressive disorder, recurrent, moderate; I71.43 Infrarenal abdominal aortic aneurysm, without rupture; Z68.31 Body mass index [BMI] 31.0-31.9, adult; E66.9 Obesity, unspecified; I25.10 Atherosclerotic heart disease of native coronary artery without angina pectoris; R39.15 Urgency of urination; N52.1 Erectile dysfunction due to diseases classified elsewhere; Z23 Encounter for immunization

== ENCOUNTER 2024-06-19 09:08 | Outpatient (REF) | payer OTHER, SELFPAY ==
[2024-06-19 12:27] LABS: Appearance Urine Clear; Color Urine Yellow; Glucose Urine UA Negative (Negative); Leukocyte Esterase Urine Negative (Negative); Nitrite Urine Negative (Negative); PH 7.5 (5.0-9.0); UMIC TRIGGER UACC YES; Urine Blood Negative (Negative); Urine Ketones Negative (Negative); Urine Protein 30 (1+) mg/dL (Neg-Trace)
[2024-06-19 12:33] LABS: Bacteria Urine None Seen (None Seen); RBC Urine 0-2 /HPF (0-2); Squamous Epithelial Cell Urine 0-2 /HPF (0-2); WBC Urine 0-5 /HPF (0-5)
== END 2024-06-19 09:09 | disposition home or self-care (01) ==
LOC: HO.LAB 09:08
PROVIDERS: PCP Physician Assistant; Visit Provider Physician Assistant
DX: Z23 Encounter for immunization (principal); E11.69 Type 2 diabetes mellitus with other specified complication; R39.15 Urgency of urination; E66.9 Obesity, unspecified; Z68.31 Body mass index [BMI] 31.0-31.9, adult; F33.1 Major depressive disorder, recurrent, moderate; I25.10 Atherosclerotic heart disease of native coronary artery without angina pectoris; I71.43 Infrarenal abdominal aortic aneurysm, without rupture; N52.1 Erectile dysfunction due to diseases classified elsewhere; Z71.3 Dietary counseling and surveillance
CPT/HCPCS: 81001; 83036; 87086; 90471; 90656; 96127; 99212

== ENCOUNTER 2024-06-20 08:51 | Outpatient (AMB) | payer OTHER, SELFPAY ==
--- NOTE | 2024-06-20 09:15 | A.OFFPSYCH_ITS ---
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: f/u consultation Director Digital Strategy Required: No Allergies No Known Allergies Allergy (Verified 06/19/24 09:34) Medication List - Last Reconciled 06/20/24 by Ava Blanchard APRN alcohol swabs (Alcohol Prep Pads) 1 pad topical .three times a day aspirin 81 mg PO DAILY atomoxetine (Strattera) 40 mg PO DAILY blood pressure test kit-large As directed blood sugar diagnostic ([employer] Ultra Test strips) Testing 3 times a day blood-glucose meter As directed diltiazem HCl CD 240 mg PO DAILY 90 days hydrochlorothiazide 25 mg PO DAILY insulin aspart U-100 (Novolog FlexPen U-100 Insulin aspart) 10 units (0.1 mL) subcut TID 30 days isosorbide mononitrate ER 30 mg PO DAILY 90 days lancets Testing 3 times a day lancets (FreeStyle Lancets) three times a day lidocaine-prilocaine 2.5-2.5 % 1 appl topical ONCE lisinopril 5 mg PO DAILY omeprazole 40 mg PO DAILY pen needle, diabetic (BD Karen 2nd Gen Pen Needle) As directed pioglitazone (Actos) 15 mg PO DAILY 90 days pregabalin 300 mg PO BID 30 days rosuvastatin (Crestor) 40 mg PO DAILY 90 days sertraline 200 mg (2 x 100 mg) PO DAILY tirzepatide (Mounjaro) 7.5 mg (0.5 mL) subcut QWEEK 4 weeks tramadol 50 mg PO Q8H 7 days HPI- Psychiatric Chief Complaint: f/u consultation HPI Narrative: Joseph is here for a follow-up appointment his PHQ-9 equals 6 his LISA-7 equals 4 . He is tolerating Strattera 40 mg without side effects. He reports he worries frequently about his family he continues to have problems with focus and concentration he is easily distracted especially by his own thoughts he has difficulty completing projects. He is working on his diet to lose weight and reduce his cholesterol. Past Psychiatric History: no ILPOC, no PHP or IOP. tried celexa at 40mg daily; tried wellbutrin inpast for tobacco cessation and it caused irritability Subjective Subjective Subjective Medication Compliance: Yes Side effects from medications: No Review of Systems Medical Review of Systems: unchanged Mental Status Exam Mental Status Exam Patient Appearance: Well Grooomed and Appropriate Patient Orientation: Person, Place and Situation Level of Consciousness: Awake, Appropriate and Alert Patient Behavior: Appropriate and Cooperative Mood Description: Appropriate and Anxious Affect Description: Appropriate and Anxious Patient Cognition Impaired: No Ability to Follow Directions: Good Speech Pattern: Clear and Appropriate Memory Description: Intact Hallucinations: None Delusions: Not Present Thought Process: Intact and Distracted Thought Content: positive for Intact and positive for Loose Associations Judgement: Good Assessment and Plan Assessment & Plan (1) ADHD (attention deficit hyperactivity disorder), combined type: Status: Acute Code(s): F90.2 - Attention-deficit hyperactivity disorder, combined type (2) LISA (generalized anxiety disorder): Status: Acute Code(s): F41.1 - Generalized anxiety disorder Plan Increase Strattera to 60 mg daily Continue sertraline 200 mg daily Resend blood pressure test kit prescription as [facility] was not able to fill it return in 6-8 weeks Medications: New atomoxetine (Strattera) 60 mg PO DAILY 90 caps 0RF Refilled sertraline 200 mg (2 x 100 mg) PO DAILY 60 tabs 2RF blood pressure test kit-large As directed 1 ea 0RF I10 - Essential (primary) hypertension, I25.10 - Atherosclerotic heart disease of [place] coronary artery without angina pectoris Discontinued atomoxetine (Strattera) Discontinued Reason: Doctor's Order 40 mg PO DAILY 90 caps 0RF Counseling and coordination of Care Pt. Self Management counseling: Exercise, Maintenance-social rhythm, Med illness tx adherence, Mod caffeine/ETOH intake, Sleep hygiene, Behavior activation, General coping skills and Problem solving Medication management counseling: Effectiveness, Side effects, Dosing range, Duration, Drug interaction and Adherence Diagnosis and Prognosis Counseling: Accuracy of diagnosis, Prognosis over time, Impact of diagnosis on life functions, Impact of family relationship, Problematic behaviors secondary to diagnosis and Adequacy of current interventions Details: I spent 35 minutes reviewing the record, seeing the patient and documenting in the medical record. Counseling provided to the patient/caregiver as outlined below. Addressed patient/caregiver concerns regarding current medication regime including effective adherence. Addressed patient/caregiver concerns regarding diagnosis and prognosis including accuracy of diagnosis, prognosis over time, impact of diagnosis. Addressed patient/caregiver concerns regarding impact of recent stressors. [facility] Medical History Renal cyst COVID-19 Obesity Type 2 diabetes mellitus with obesity Asthma-COPD overlap syndrome Coronary artery disease Diabetic neuropathy Surgical History History of herniated intervertebral disc S/P CABG x 3 Family History Father Lung cancer Mother No problems noted. Family/Other Lung cancer Diabetes Social History Housing: House Alcohol intake: never Patient Tobacco Use Status: Former Tobacco user Tobacco use type: Cigarette e-Cigarette/Vaping Use: Never Used Second Hand Smoke Exposure: No service: No Current occupational status: disabled Current occupational exposures/hazards: No Cognitive needs: No Hearing needs: No Vision needs: No Social History: (since 1990) with two children age 15 and 30. 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 Primarily lived with single mother who abused alcohol. 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 Substance History: no ETOH no Tobacco x 10 yrs; uses THC for past few years. Trauma History: many friends in childhood; one hung self- traumatic loss for pt Coding Level of Care Code Est Pt Level 4 (61893) Diagnoses ADHD (attention deficit hyperactivity disorder), combined type F90.2 LISA (generalized anxiety disorder) F41.1
== END 2024-06-20 10:02 | disposition home or self-care (01) ==
LOC: HO.HOP 08:51
PROVIDERS: PCP Physician Assistant; Visit Provider Clinical Nurse Specialist Psychiatric/Mental Health
DX: F90.2 Attention-deficit hyperactivity disorder, combined type (principal); F41.1 Generalized anxiety disorder
CPT/HCPCS: 99214

== ENCOUNTER → 2024-06-20 08:51 | Outpatient (BNVA) | payer OTHER, SELFPAY | PROVIDERS: PCP Physician Assistant; Visit Provider Clinical Nurse Specialist Psychiatric/Mental Health | DX: F90.2 Attention-deficit hyperactivity disorder, combined type (principal); F41.1 Generalized anxiety disorder; I10 Essential (primary) hypertension; I25.10 Atherosclerotic heart disease of native coronary artery without angina pectoris; Z71.89 Other specified counseling; Z79.899 Other long term (current) drug therapy | CPT/HCPCS: 99212 ==

== ENCOUNTER 2024-07-24 11:22 | Outpatient (REF) | payer OTHER, SELFPAY | END 2024-07-24 11:23 | disposition home or self-care (01) | LOC: HO.US 11:22 | PROVIDERS: PCP Physician Assistant; Visit Provider Physician Assistant | DX: E11.29 Type 2 diabetes mellitus with other diabetic kidney complication (principal); R80.9 Proteinuria, unspecified | CPT/HCPCS: 76770 ==

== ENCOUNTER → 2024-07-24 11:24 | Outpatient (BNV) | payer OTHER, SELFPAY | PROVIDERS: PCP Physician Assistant; Visit Provider Radiology Diagnostic Radiology | DX: N20.0 Calculus of kidney (principal); N28.1 Cyst of kidney, acquired | CPT/HCPCS: 76770 ==

== ENCOUNTER 2024-08-04 08:45 | Outpatient (AMB) | payer OTHER, SELFPAY ==
--- OUTSIDE RECORDS SUMMARY | 2024-08-04 09:02 | XMS_ITS ---
Author Organization [facility] Address [address] [place] [address] Care Team Providers Care Counter Tacker Name Role Phone Pipe Lizarraga Primary Care Provider Unavailab Sowmya Meredith Unavailable [phone] Allergies No Known Allergies REASON FOR VISIT Foot pain, At Risk Footcare Medications Medication SIG (Take, Route, Frequency, Duration) Notes Start Date End Date Status Omeprazole 40 MG 1 capsule 30 minutes before morning meal Orally Once a day Active Pregabalin 150 MG 1 capsule Orally Onc e a day Active dilTIAZem HCl ER 240 MG 1 tablet Orally Once a day Active Rosuvastatin Calcium 40 MG 1 tablet Oral ly Once a day Active Isosorbide Dinitrate 30 MG 1 tablet Oral ly Twice a day Active Aspirin 81 MG 1 tablet Orally Once a day Active Lisinopril 5 MG 1 tablet Orally Once a day Active hydroCHLOROthiazide 25 MG 1 tablet in th e morning Orally Once a day Active Citalopram Hydrobromide 40 MG 0.5 tablet Orally Once a day Not-Taking Pioglitazone HCl 15 MG 1 tablet Orally O nce a day Active Mounjaro 5 MG/0.5ML Subcutaneous for 28 Days Active Trulicity 3 MG/0.5ML as directed Subcutaneous Not-Taking Extra Depth Orthopedic Shoes (1 Pair) with Customized Heat Molded Multidensity Innersoles (3 Pair) as directed Dx: NIDDM/Polyneuropathy (E11.42), Hammertoe Foot Deformity (M20.41,M20.42), Preulcerative Skin Lesion(s) (L85.1 09/17/2023 Not-Taking Social History Tobacco Use: Social History Observation Description Date Details (start date - stop date) Former Smoker NA - NA Tobacco use other than smoking: Question Answer Notes Are you an other tobacco user? No Tobacco Control (Standard) Question Answer Notes Tobacco use: Former smoker Additional Findings: Tobacco non-user Ex-cigaret te smoker Problems Problem Type SNOMED Code ICD Code Onset Dates Problem Status W/U Status Risk Notes Problem Neuropathy (103107834) Neuropathy (G62.9) Active confirmed Vital Signs Height [id number] in 05/30/2024 Weight 235 lbs 05/30/2024 BMI 33.72 kg/m2 05/30/2024 Blood pressure systolic 120 mm Hg 05/30/20 24 Blood pressure diastolic 70 mm Hg 024 Encounters Encounter Location Date Provider Diagnosis [facility] [address] [address] 05/30/2024 Sowmya Truong Neuropathy G62.9 ; Left foot pain M79.672 ; Right foot pain M79.671 ; Type 2 diabetes mellitus with diabetic polyneuropathy E11.42 and Tinea unguium B35.1 Assessments Encounter Date Diagnosis (ICD Code) Assessment Notes Treatment Notes Treatment Clinical Notes Section Notes 05/30/2024 Neuropathy (ICD-10 - G62.9) 05/30/2024 Left foot pain (ICD-10 - M79.672) 05/30/2024 Right foot pain (ICD-10 - M79.671) 05/30/2024 Type 2 diabetes mellitus with diabetic polyneuropathy (ICD-10 - E11.42) 05/30/2024 Tinea unguium (ICD-10 - B35.1) Plan Of Treatment Next Appt Details Follow Up: 3 Months, Reason: Provider Name:Sowmya harkins, 08/29/2024 09:00:00 AM, [address] [place] [address], [id number], Procedure Notes * Category Sub-Category Detail Notes Debride Nail 6-10 Nail debridement Due to the cl inical pathology outlined in the exam findings, performance of this nail treatment is medically necessary as its management by an unskilled/untrained nonprofessional would put this patients foot and overall health at risk. Therefore, debridement to affected nail(s), as described in exam ( TA, T1, T2, T3, T4, T5, T6, T7, T8, T9), was performed exclusively by the physician of record to reduce/remove overall nail length, girth, thickness, subungual debris, and necrotic tissue, by manual and/or electrical means through the use of a nail nipper and/or dremel-type precision lens grinder apprentice, to a more viable healthy nail plate or bed tissue 6-10 nails in total. Silver nitrate was used for any petechial bleeding as necessary. Definitive antifungal treatment options, both pharmaceutical and surgical, have been reviewed and discussed with the patient. The patient solely prefers the use of intermittent/as needed professional debridement services for their nail condition and understands the need for additional periodic treatments to maintain effectiveness in symptomatic relief - 24030 Keratoma Treatment Parring or Cutting o f Benign Hyperkeratotic Lesion(s) (-57) More than 4 Lesions - Due to the at risk nature of the patients medical condition as documented in the exam findings, performance of this keratoderma treatment is medically necessary as its management by an unskilled/untrained nonprofessional would put this patients foot and overall health at risk. Therefore, the benign hyperkeratotic lesions, ( 8) in total, locations as stated and described in the exam ( TA T5, SUB MTH (s), 1,5, B/L,Plantar Heel(s),B/L), were pared, and/or cut utilizing a sterile 15 blade, tissue nippers, and/or power dremel instrumentation by the physician of record - [id number] Progress Notes * Joseph YORK LDOB: 4 (59 yo M)Acc No.[id number]:05/30/2024 Progress Note Patient:?Joseph YORK Ny Provider:?Sowmya Truong DPM :1965???Age:59 Y???Sex:Male Johny e:05/30/2024 Address:[address] [place] [address] , [place], [place] Pcp:Pipe Lizarraga Subjective: * Chief Complaints: * ???Foot painAt Risk Footcare * HPI: ???At Risk footcare:?Pt States Last PCP Visit:?Date?02/13/2024 ???Foot Pain:?Nature:?burning, numbness, tingling, shooting, radiating.?Location:?Bottom, ?B/L.?Duration:?several years; worse in last few months.?Onset:?Diabetes.?Course:?worse, especially at night in bed.?Aggravated:?no known aggrevating factors.?Treatments:?Pregabalin.? * ROS:?General/Constitutional:?Nausea?denies.?Vomiting?denies.?Hunger Thirst?denies.?Loss appetite?denies.?Chills?denies.?Fatigue?denies.?Fever?denies.?Night Sweats?denies.?Unexplained weight loss?denies.?Unexplained weight gain?denies.?HEENTM:?Dentures?denies.?Dizziness?denies.?Glasses/contacts?admits.?Retinopathy?de nies.?Blurred/double vision?denies.?TMJ?denies.?Discharge/drainage?denies.?Implants?denies.?Sore throat?denies.?Dental implants?admits.?Hard of hearing ?denies.?Difficulty chewing/swallowing/speaking?denies.?Nose bleeds?denies.?Sore mouth?denies.?Respiratory:?On Oxygen?denies.?Pneumonia/pleurisy?denies.?Bronchitis?denies.?Emphysema?denies.?C oughing?denies.?Cough blood?denies.?Shortness of breath?denies.?Wheezing?denies.?Cardiovascular:?Pacemaker?denies.?MVP?denies.?WPW?denies.?CHF?denies.?Heart attack?admits.?Septal defect?denies.?Rapid beat?denies.?Chest pain ?denies.?Atrial Fib.?denies.?Murmur/Palpitations?denies.?Gastrointestinal:?Hemorrhoids?denies.?Stomach/Abdominal pain?denies.?Dark blood stool?denies.?Irritable bowel ?denies.?Constipation?denies.?Diarrhea?denies.?Hematology:?Swelling?denies.?Clots?denies.?Varicose Veins?denies.?Bruising?denies.?Bleeding problem?denies.?Genitourinary:?Blood urine?denies.?Frequent/Painfu/urination/bladder control?denies.?Kidney stones?denies.?Infection (UTI)?denies.?Nephropathy?admits.?sex trans dis (STD)?denies.?Prostate?denies.?Musculoskeletal:?Hammertoes?denies.?Bunions?denies.?Back Pain?admits.?Muscle Cramps/ Resting?denies.?Muscle cramps / walking?denies.?Generalized aches and pains?admits.?Weakness?denies.?Integ.:?Castellanos?denies.?Scars?denies.?Corns/calluses?denies.?Ingrown nails?denies.?Painful nails?denies.?Open Sores?denies.?Rashes?denies.?Neurologic:?Difficulty sleeping?denies.?Brain disorder?denies.?Numbness?admits.?Balance trouble?denies.?Confusion?denies.?Fainting/blackouts?denies.?Tingling?admits.?Tr emors?denies.? * Medical History:? * Surgical History:?Heart Valv e 12/2014triple bypass 12/2014 * Hospitalization/Major Diagno stic Procedure:?Denies Past Hospitalization * Family History:?Mother: aliv e.?Father: , diagnosed with Other malignant neoplasm of unspecified site.? * Social History:?Tobacco Use:?Tobacco use other than smoking?Are you an other tobacco user??No ?Tobacco Control (Standard)?Tobacco use:?Former smoker ?Additional Findings: Tobacco non-user?Ex-cigarette smoker * Medications:?TakingAspirin 8 1 MG Tablet Delayed Release 1 tablet Orally Once a day Lisinopril 5 MG Tablet 1 tablet Orally Once a day Pioglitazone HCl 15 MG Tablet 1 tablet Orally Once a day hydroCHLOROthiazide 25 MG Tablet 1 tablet in the morning Orally Once a day Rosuvastatin Calcium 40 MG Tablet 1 tablet Orally Once a day Isosorbide Dinitrate 30 MG Tablet 1 tablet Orally Twice a day Pregabalin 150 MG Capsule 1 capsule Orally Once a day dilTIAZem HCl ER 240 MG Tablet Extended Release 24 Hour 1 tablet Orally Once a day Omeprazole 40 MG Capsule Delayed Release 1 capsule 30 minutes before morning meal Orally Once a day Mounjaro 5 MG/0.5ML Solution Pen-injector Subcutaneous Taking Aspirin 81 MG Tablet Delayed Release 1 tablet Orally Once a day Taking Lisinopril 5 MG Tablet 1 tablet Orally Once a day Taking Pioglitazone HCl 15 MG Tablet 1 tablet Orally Once a day Taking hydroCHLOROthiazide 25 MG Tablet 1 tablet in the morning Orally Once a day Taking Rosuvastatin Calcium 40 MG Tablet 1 tablet Orally Once a day Taking Isosorbide Dinitrate 30 MG Tablet 1 tablet Orally Twice a day Taking Pregabalin 150 MG Capsule 1 capsule Orally Once a day Taking dilTIAZem HCl ER 240 MG Tablet Extended Release 24 Hour 1 tablet Orally Once a day Taking Omeprazole 40 MG Capsule Delayed Release 1 capsule 30 minutes before morning meal Orally Once a day Taking Mounjaro 5 MG/0.5ML Solution Pen-injector Subcutaneous Not-Taking/PRNCitalopram Hydrobromide 40 MG Tablet 0.5 tablet Orally Once a day Extra Depth Orthopedic Shoes (1 Pair) with Customized Heat Molded Multidensity Innersoles (3 Pair) as directed Dx: NIDDM/Polyneuropathy (E11.42), Hammertoe Foot Deformity (M20.41,M20.42), Preulcerative Skin Lesion(s) (L85.1 Trulicity 3 MG/0.5ML Solution Pen-injector as directed Subcutaneous Medication List reviewed and reconciled with the patientNot-Taking/PRN Citalopram Hydrobromide 40 MG Tablet 0.5 tablet Orally Once a day Not-Taking/PRN Extra Depth Orthopedic Shoes (1 Pair) with Customized Heat Molded Multidensity Innersoles (3 Pair) as directed Dx: NIDDM/Polyneuropathy (E11.42), Hammertoe Foot Deformity (M20.41,M20.42), Preulcerative Skin Lesion(s) (L85.1 Not-Taking/PRN Trulicity 3 MG/0.5ML Solution Pen-injector as directed Subcutaneous Medication List reviewed and reconciled with the patient * Allergies:?N.K.D.A.yes[Aller gies Verified] Objective: * Vitals:?Ht: 4mn60mr, Wt:235, BMI:33.72, Shoe size: 11.5, BP:120/70mm Hg, BS: 154, Ht-cm: 177.8 cm, Wt-k.59 kg. * ???Past Orders: ???Lab:HEMOGLOBIN A1C (GLYCO HEMOGLOBIN) (Order Date - 08/13/2023) (Collection Date & Time - 08/13/2023) ? Value Reference Range ?HEMOGLOBIN A1C (HH) 7.1 * Examination: ???Ophthalmology Referral: ?DIABETES EYE EXAM?Neurological: ?SENSORY:?Pt relates,numbness,burning,pins and needles sensation,, paresthesia,shooting/radiating sensation,tingling,especially in the evening,Forefoot,B/L,Neurological exam demonstrates reduced sharp/dull pin prick discrimination reduced light touch sensation reduced vibration sensation reduced proprioception sensation in a stocking fashionat Forefoot, B/L,5.07 monofilament test performed at plantar aspects of 5 varied sites per foot shows sensation plantar aspects absent at Forefoot B/L.?Dermatologic: ?SKIN FINDINGS:? Skin shows sign(s) of a semi-firm, NON painful, non-translucent, non-pulsatile, nonmobile Sub Q tumor trevor. 20mm medial arch right Skin exam reveals Keratotic lesion(s) located at TA T5, SUB MTH (s), 1,5, B/L,Plantar Heel(s),B/L.?Vascular: ?DP PULSES(B):?3/4, B/L.?PT PULSES(B):?3/4, B/L.?CAPILLARY FILL TIME:?immediate, all digits, B/L.?TROPHIC CONDITION-TEXTURE/ELASTICITY/TURGOR/HAIR GROWTH(B):?normal, B/L.?TEMPERTURE GRADIENT(C):?normal, warm to cool, proximal to distal, B/L, B/L.?PIGMENTATION:?normal, B/L.?Orthopedic: ?MUSCLE STRENGTH:?5/5 all groups in a symmetrical fashion, B/L.?DIGITAL DEFORMITIES:?Digital contracture, PIPJ, 2-5 B/L, incompl-reducible to push-up test, no over, nor underlapping, with evidence of shoe producing skin irritation?.?General Examination: ?GENERAL APPEARANCE:?Reveals a pleasant, alert, well nourished, well- developed, well hydrated individual, who demonstrates proper attention to hygiene/body habitus, and is in no acute distress, Pt serves as own historian for office visit today.?ORIENTED:?person, place, and time.?FOOT EXAM:?Footwear Evaluation?Nails: ?NAILS are:? Elongated, overgrown, dystrophic, lytic, greater than 3mm thick, discolored and friable with crumbly malodorous subungual debris, with dull to no pain on palpation due to neuropathy, TA, T1, T2, T3, T4, T5, T6, T7, T8, T9.? Assessment: * Assessment: 1.?Neuropathy - G62.9 (Prima ry)???2.?Left foot pain - M79.672???3.?Right foot pain - M79.671???4.?Type 2 diabetes mellitus with diabetic polyneuropathy - E11.42???5.?Tinea unguium - B35.1??? Plan: * Treatment: * Procedures:?Debride Nail 6-10:?Nail debridement?Due to the clinical pathology outlined in the exam findings, performance of this nail treatment is medically necessary as its management by an unskilled/untrained nonprofessional would put this patients foot and overall health at risk. Therefore, debridement to affected nail(s), as described in exam ( TA, T1, T2, T3, T4, T5, T6, T7, T8, T9), was performed exclusively by the physician of record to reduce/remove overall nail length, girth, thickness, subungual debris, and necrotic tissue, by manual and/or electrical means through the use of a nail nipper and/or dremel-type precision lens grinder apprentice, to a more viable healthy nail plate or bed tissue 6- 10 nails in total. Silver nitrate was used for any petechial bleeding as necessary. Definitive antifungal treatment options, both pharmaceutical and surgical, have been reviewed and discussed with the patient. The patient solely prefers the use of intermittent/as needed professional debridement services for their nail condition and understands the need for additional periodic treatments to maintain effectiveness in symptomatic relief - 72682.?Keratoma Treatment:?Parring or Cutting of Benign Hyperkeratotic Lesion(s)?(-57) More than 4 Lesions - Due to the at risk nature of the patients medical condition as documented in the exam findings, performance of this keratoderma treatment is medically necessary as its management by an unskilled/untrained nonprofessional would put this patients foot and overall health at risk. Therefore, the benign hyperkeratotic lesions, ( 8) in total, locations as stated and described in the exam (?TA?T5,?SUB MTH (s),?1,5,?B/L,Plantar Heel(s),B/L), were pared, and/or cut utilizing a sterile 15 blade, tissue nippers, and/or power dremel instrumentation by the physician of record - 71176.? * Procedure Codes:?58475 DEBRI DE NAIL, 6 OR MORE, Modifiers: XS 13379 TRIM SKIN LESIONS, OVER 4, Modifiers: XS * Preventive Medicine:? ??Counseling:?Discussion:?-13: Office or other outpatient visit for the evaluation and management of an established patient, which required a medically appropriate history and/or examination and LOW level of DECISION MAKING for: 1 STABLE ACUTE UNCOMPLICATED PROBLEM, 2 OR MORE MINOR PROBLEMS, OR 1 STABLE CHRONIC PROBLEM, THAT POSE(S) A LOW RISK FOR MORBIDITY/MORTALITY. The visit on the day of the encounter encompassed interpreting the data and educating the patient as to the nature of their condition, treatment options available according to their individual PMH, meds, allergies, and overall health/living conditions, as well as any potential risks or complications that may occur from a failure to adhere to, and participate in, the recommended course of therapy. The discussion included a complete verbal, and/or written explanation of the examination results, any x-rays taken, the proposed diagnosis, and outline of the treatment plan. A schedule for future care needs was also explained. The patient verbalized an understanding of the instructions at this time and agreed to be an active participant in their treatment. If the patient should think of any questions or concerns after the visit, I have encouraged the patient to call the office.?Neuritis/Neuropathy:?The patient was counseled on the diagnosis, possible etiologies (including mechanical stress, injury, entrapment, chemotherapy, diabetes, vertebral disk herniation if hx), treatment options, and importance for adherence to recommendations in order to address the patients Neuritis/Neuropathy. The advantages and disadvantages re: Accomidative mechanical support/offloading, Topical vs PO analgesics including aspercream/Voltaren gel/Lidoderm patches/Neurontin/Lyrica along with their potential side effects were discussed with the patient to their satisfaction. Also discussed the use of therapeutic injectable cortisone if needed. Surgical treatment, if considered an option, was discussed as well. If surgery is warranted, we discussed the potential successful outcomes as well as the possible complications such as failure, painful scar, permanent tingling/numbness/neuralgea/or intractable pain. Patient questions re: medication use, dosage, and possible side effects and drug interactions were reviewed and the answers to each understood. If the condition worsens, the patient was instructed to contact the office for an appointment. The patient verbally confirmed a full understanding of the above, Custom Topical pain control compound combination therapy was recommended and Rxed, tight glycemic control.? * Follow Up:?3 Months * Images: * Sign off status: Completed true * Provider:?Sowmya Truong, DPM Date:? Generated for Raquel freed/vEa/Alejo on:?08/04/2024 09:02 AM EST History and Physical Notes * HPI (History of Present Illness) Category Sub-Category Detail Notes Category Not es At Risk footcare Pt States Last PCP Visit: Date: 4 Foot Pain Nature: burning, numbnes s, tingling, shooting, radiating Location: Bottom, B/L Duration: several years; worse in last few months Onset: Diabetes Course: worse, especially at night in bed Aggravated: no known aggrevating factors Treatments: Pregabalin Examination Category Sub-Category Detail Notes Category Not es Neurological SENSORY: Pt relates, numb ness, burning, pins and needles sensation, , paresthesia, shooting/radiating sensation, tingling, especially in the evening, Forefoot, B/L, Neurological exam demonstrates reduced sharp/dull pin prick discrimination reduced light touch sensation reduced vibration sensation reduced proprioception sensation in a stocking fashion at Forefoot, B/L, 5.07 monofilament test performed at plantar aspects of 5 varied sites per foot shows sensation plantar aspects absent at Forefoot B/L Dermatologic SKIN FINDINGS: Skin shows sign( s) of a semi-firm, NON painful, non-translucent, non-pulsatile, nonmobile Sub Q tumor trevor. 20mm medial arch right Skin exam reveals Keratotic lesion(s) located at TA T5, SUB MTH (s), 1,5, B/L,Plantar Heel(s),B/L Orthopedic DIGITAL DEFORMITIES: Digital con tracture, PIPJ, 2-5 B/L, incompl-reducible to push-up test, no over, nor underlapping, with evidence of shoe producing skin irritation MUSCLE STRENGTH: 5/5 all groups in a symmetrical fashion, B/L General Examination GENERAL APPEARANCE: Reveals a pleasant, alert, well nourished, well-developed, well hydrated individual, who demonstrates proper attention to hygiene/body habitus, and is in no acute distress, Pt serves as own historian for office visit today FOOT EXAM: Lower Extremity Neurological Exa m performed:: Yes ORIENTED: person, place, and t deya Footwear Evaluation Footwear Evaluation performe d:: Yes Ophthalmology Referral DIABETES EYE EXAM Procedure Perform ed:: No Eye Exam not performed:: No reason speci fied Findings of Diabetic Eye Exam:: no retin opathy Vascular DP PULSES (B): 3/4, B/L PT PULSES (B): 3/4, B/L CAPILLARY FILL TIME: immediate, all digi ts, B/L TEMPERTURE GRADIENT (C): normal, warm to cool, proximal to distal, B/L, B/L TROPHIC CONDITION-TEXTURE/ELASTICITY/TURGOR/HAIR GROWTH (B): normal, B/L PIGMENTATION: normal, B/L Nails NAILS are: Elongated, overg rown, dystrophic, lytic, greater than 3mm thick, discolored and friable with crumbly malodorous subungual debris, with dull to no pain on palpation due to neuropathy, TA, T1, T2, T3, T4, T5, T6, T7, T8, T9
--- OUTSIDE RECORDS SUMMARY | 2024-08-04 09:02 | XMS_ITS | Patient Health Record ---
Author Organization [facility] Address [address] [facility] [place] [address] Care Team Providers Care Slabber Light Name Role Phone Pipe Lizarraga Primary Care Provider Unavailab Sowmya Meredith Unavailable [phone] Allergies No Known Allergies Results Component Value Reference Range Notes HEMOGLOBIN A1C (GLYCOHEMOGLO BIN) Reviewed date:09/17/2023 09:33:12 AM Interpretation: Performing Lab: Notes/Report: HEMOGLOBIN A1C (HH) 7.1 Reason For Referral No Information Medications Medication SIG (Take, Route, Frequency, Duration) Notes Start Date End Date Status hydroCHLOROthiazide 25 MG 1 tablet in th e morning Orally Once a day Active Citalopram Hydrobromide 40 MG 0.5 tablet Orally Once a day Not-Taking Pioglitazone HCl 15 MG 1 tablet Orally O nce a day Active Aspirin 81 MG 1 tablet Orally Once a day Active Mounjaro 5 MG/0.5ML Subcutaneous for 28 Days Active Lisinopril 5 MG 1 tablet Orally Once a day Active Trulicity 3 MG/0.5ML as directed Subcutaneous Not-Taking Omeprazole 40 MG 1 capsule 30 minutes before morning meal Orally Once a day Active Extra Depth Orthopedic Shoes (1 Pair) with Customized Heat Molded Multidensity Innersoles (3 Pair) as directed Dx: NIDDM/Polyneuropathy (E11.42), Hammertoe Foot Deformity (M20.41,M20.42), Preulcerative Skin Lesion(s) (L85.1 09/17/2023 Not-Taking Pregabalin 150 MG 1 capsule Orally Onc e a day Active dilTIAZem HCl ER 240 MG 1 tablet Orally Once a day Active Rosuvastatin Calcium 40 MG 1 tablet Oral ly Once a day Active Isosorbide Dinitrate 30 MG 1 tablet Oral ly Twice a day Active Immunizations Vaccine Route Administration Date Status Comme nts Influenza Unknown 03/15/2023 Administered Social History Tobacco Use: Social History Observation Description Date Details (start date - stop date) Former Smoker NA - NA Alcohol Screen Question Answer Notes Did you have a drink containing alcohol in the p ast year? No Points 0 Interpretation Negative Tobacco use other than smoking: Question Answer Notes Are you an other tobacco user? No Tobacco Control (Standard) Question Answer Notes Tobacco use: Former smoker Additional Findings: Tobacco non-user Ex-cigaret te smoker Problems Problem Type SNOMED Code ICD Code Onset Dates Problem Status W/U Status Risk Notes Problem Acquired hammer toe of right foot (4489203043090312 ) Other hammer toe(s) (acquired), right foot (M20.41) Active confirmed Problem Acquired hammer toe of left foot (2507428881291006 ) Other hammer toe(s) (acquired), left foot (M20.42) Active confirmed Problem Polyneuropathy due to diabetes mellitus type I (526023566) Type 1 diabetes mellitus with diabetic polyneuropathy (E10.42) Active confirmed Problem Polyneuropathy due to type 2 diabetes mellitus (884554579) Type 2 diabetes mellitus with diabetic polyneuropathy (E11.42) Active confirmed Problem Neuropathy (543925764) Neuropathy (G62.9) Active confirmed Vital Signs Blood pressure diastolic 70 mm Hg 05/30/2024 Height [id number] in 05/30/2024 Blood pressure systolic 120 mm Hg 05/30/2024 Weight 235 lbs 05/30/2024 BMI 33.72 kg/m2 05/30/2024 Encounters Encounter Location Date Provider Diagnosis [facility] [address] 09/17/2023 Sowmya Truong Type 2 diabetes mellitus with diabetic polyneuropathy E11.42 ; Other hammer toe(s) (acquired), right foot M20.41 ; Other hammer toe(s) (acquired), left foot M20.42 and Fibroma D21.[address] [facility] [address] 11/30/2023 Sowmya Truong Type 2 diabetes mellitus with diabetic polyneuropathy E11.42 ; Other hammer toe(s) (acquired), right foot M20.41 ; Other hammer toe(s) (acquired), left foot M20.42 ; Fibroma D21.9 and Tinea unguium B35.[address] [address] 03/07/2024 Sowmya Truong Type 2 diabetes mellitus with diabetic polyneuropathy E11.42 ; Contusion of left great toe without damage to nail, initial encounter S90.112A ; Other hammer toe(s) (acquired), left foot M20.42 ; Fibroma D21.9 ; Tinea unguium B35.1 and Pain in left toe(s) M79.[address] [address] 05/30/2024 Sowmya Glenysshahana Neuropathy G62.9 ; Left foot pain M79.672 ; Right foot pain M79.671 ; Type 2 diabetes mellitus with diabetic polyneuropathy E11.42 and Tinea unguium B35.1 Assessments Encounter Date Diagnosis (ICD Code) Assessment Notes Treatment Notes Treatment Clinical Notes Section Notes 09/17/2023 Other hammer toe(s) (acquired), right foot (ICD-10 - M20.41) Patient Educated with: DIABETIC FOOT CARE INSTRUCTIONS. pdf (DIABETIC FOOT CARE INSTRUCTIONS. pdf) 09/17/2023 Type 2 diabetes mellitus with diabetic polyneuropathy (ICD-10 - E11.42) 11/30/2023 Type 2 diabetes mellitus with diabetic polyneuropathy (ICD-10 - E11.42) 03/07/2024 Type 2 diabetes mellitus with diabetic polyneuropathy (ICD-10 - E11.42) 03/07/2024 Contusion of left great toe without damage to nail, initial encounter (ICD-10 - S90.112A) 05/30/2024 Neuropathy (ICD-10 - G62.9) 05/30/2024 Left foot pain (ICD-10 - M79.672) 05/30/2024 Right foot pain (ICD-10 - M79.671) 03/07/2024 Other hammer toe(s) (acquired), left foot (ICD-10 - M20.42) 11/30/2023 Other hammer toe(s) (acquired), right foot (ICD-10 - M20.41) 11/30/2023 Other hammer toe(s) (acquired), left foot (ICD-10 - M20.42) 09/17/2023 Other hammer toe(s) (acquired), left foot (ICD-10 - M20.42) 09/17/2023 Fibroma (ICD-10 - D21.9) 11/30/2023 Fibroma (ICD-10 - D21.9) 03/07/2024 Fibroma (ICD-10 - D21.9) 05/30/2024 Type 2 diabetes mellitus with diabetic polyneuropathy (ICD-10 - E11.42) 05/30/2024 Tinea unguium (ICD-10 - B35.1) 03/07/2024 Tinea unguium (ICD-10 - B35.1) 11/30/2023 Tinea unguium (ICD-10 - B35.1) 03/07/2024 Pain in left toe(s) (ICD-10 - M79.675) Plan Of Treatment Pending Test Test Name Order Date X ray : Foot, left 3V 03/07/2024 Next Appt Details Provider Name:Sowmya harkins, 08/29/2024 09:00:00 AM, [address] [place] [address], [phone], Insurance Providers Payer Name Payer Address Payer Phone Subscriber Number Group Number Insured Name Patient Relationship to Insured Coverage Start Date Coverage End Date [facility] [employer] Claims [address] [place] [id number] Joseph York Self - patient is the insured Medical (General) History Medical History History ICD Code Diabetic Heart disease High blood pressure Numbness Chicken pox Heart replacement Valves Surgical History Surgery Date(Month/Year) Heart Valve 12/2014 triple bypass 12/2014
--- OUTSIDE RECORDS SUMMARY | 2024-08-04 09:02 | XMS_ITS ---
Author Organization [facility] Address [address] [facility] [place] [address] Care Team Providers Care Tire Mechanic Name Role Phone Pipe Lizarraga Primary Care Provider Unavailab abraham Veronicashahana Sowmya Unavailable [phone] Allergies No Known Allergies REASON FOR VISIT Pcp- 09/04, At Risk Footcare, Toe Irritation, Painful Toe(s) Medications Medication SIG (Take, Route, Frequency, Duration) Notes Start Date End Date Status Citalopram Hydrobromide 40 MG 0.5 tablet Orally Once a day Active Lisinopril 5 MG 1 tablet Orally Once a day Active hydroCHLOROthiazide 25 MG 1 tablet in th e morning Orally Once a day Active Pioglitazone HCl 15 MG 1 tablet Orally O nce a day Active Aspirin 81 MG 1 tablet Orally Once a day Active Trulicity 3 MG/0.5ML as directed Subcutaneous Not-Taking Omeprazole 40 MG 1 capsule 30 minutes before morning meal Orally Once a day Active dilTIAZem HCl ER 240 MG 1 tablet Orally Once a day Active Mounjaro 5 MG/0.5ML Subcutaneous for 28 Days Active Extra Depth Orthopedic Shoes (1 Pair) with Customized Heat Molded Multidensity Innersoles (3 Pair) as directed Dx: NIDDM/Polyneuropathy (E11.42), Hammertoe Foot Deformity (M20.41,M20.42), Preulcerative Skin Lesion(s) (L85.1 09/17/2023 Active Isosorbide Dinitrate 30 MG 1 tablet Oral ly Twice a day Active Rosuvastatin Calcium 40 MG 1 tablet Oral ly Once a day Active Pregabalin 150 MG 1 capsule Orally Onc e a day Active Social History Tobacco Use: Social History Observation Description Date Details (start date - stop date) Former Smoker NA - NA Tobacco Use/Smoking Question Answer Notes Are you a: former smoker Additional Findings: Tobacco Non-User Current no n-smoker Tobacco use other than smoking: Question Answer Notes Are you an other tobacco user? No Vital Signs Height 8ws31hn in 03/07/2024 Weight 240 lbs 03/07/2024 BMI 34.43 kg/m2 03/07/2024 Encounters Encounter Location Date Provider Diagnosis [facility] [address] [place] [address] 03/07/2024 Sowmya Truong Type 2 diabetes mellitus with diabetic polyneuropathy E11.42 ; Contusion of left great toe without damage to nail, initial encounter S90.112A ; Other hammer toe(s) (acquired), left foot M20.42 ; Fibroma D21.9 ; Tinea unguium B35.1 and Pain in left toe(s) M79.675 Assessments Encounter Date Diagnosis (ICD Code) Assessment Notes Treatment Notes Treatment Clinical Notes Section Notes 03/07/2024 Type 2 diabetes mellitus with diabetic polyneuropathy (ICD-10 - E11.42) 03/07/2024 Contusion of left great toe without damage to nail, initial encounter (ICD-10 - S90.112A) 03/07/2024 Other hammer toe(s) (acquired), left foot (ICD-10 - M20.42) 03/07/2024 Fibroma (ICD-10 - D21.9) 03/07/2024 Tinea unguium (ICD-10 - B35.1) 03/07/2024 Pain in left toe(s) (ICD-10 - M79.675) Plan Of Treatment Pending Test Test Name Order Date X ray : Foot, left 3V 03/07/2024 Next Appt Details Follow Up: 3 Months, Reason: Provider Name:Sowmya harkins, 08/29/2024 09:00:00 AM, [address] [place] [address], [phone], Procedure Notes * Category Sub-Category Detail Notes Debride Nail 6-10 Nail debridement Nail debridem ent performed extensively to reduce/remove overall nail length, girth, thickness, subungual debris, and necrotic tissue, by manual and electrical means through the use of a nail nipper and/or dremel, to more viable healthy nail plate or bed tissue 1-5. Silver nitrate used for any petechial bleeding as necessary. Patient chooses, no pharmaceutical tx (66067) Keratoma Treatment Parring or Cutting o f Benign Hyperkeratotic Lesion(s) 36132 ( 2-4 Lesions ) - The Benign hyperkeratotic lesions, as described above were pared, and/or cut utilizing a sterile 15 blade, tissue nippers, and/or dremel Progress Notes * Joseph YORK LDOB: 4 (58 yo M)Acc No.[id number]:03/07/2024 Progress Note Patient:?Joseph York Provider:?Sowmya Truong DPM :1965???Age:58 Y???Sex:Male Johny e:03/07/2024 Address:[address] [place], [place] [id number] Pcp:Pipe Lizarraga Subjective: * Chief Complaints: * ???Pcp- 09/04 At Risk Footca reToe IrritationPainful Toe(s) * HPI: ???At Risk footcare:?Pt States Last PCP Visit:?Date?08/24/2023 ???Toe pain:?Nature:?aching, bruising, discoloration, swelling, tenderness, throbbing.?Location:?Great toe Left foot.?Duration:?since DOI ( 4 weeks).?Onset/Cause:?states traumatic ( stubbed on door).?Course:?improved.?Aggravated by:?shoes, any pressure ,standing/walking.?Treatments:??rest/alter normal daily activity, ice, seen at urgent care diagnosed with fracture and given fracture boot-pt wore for about 3 weeks .? * ROS:?General/Constitutional:?Nausea?denies.?Vomiting?denies.?Hunger Thirst?denies.?Loss appetite?denies.?Chills?denies.?Fatigue?denies.?Fever?denies.?Night Sweats?denies.?Unexplained weight loss?denies.?Unexplained [...] stic Procedure:?Denies Past Hospitalization * Family History:?Mother: nicky melendez.?Father: , diagnosed with Other malignant neoplasm of unspecified site.? * Social History:?Tobacco Use:?Tobacco Use/Smoking?Are you a:?former smoker ?Additional Findings: Tobacco Non-User?Current non-smoker ?Tobacco use other than smoking?Are you an other tobacco user??No ???Miscellaneous:?Caffeine: yes, frequency:, 1-2 cups per day. ?Children: yes. ?no Exercise. ?Marital status: . ?Occupation: Not Working at this time. * Medications:?TakingAspirin 8 1 MG Tablet Delayed Release 1 tablet Orally Once a dayLisinopril 5 MG Tablet 1 tablet Orally Once a dayCitalopram Hydrobromide 40 MG Tablet 0.5 tablet Orally Once a dayPioglitazone HCl 15 MG Tablet 1 tablet Orally Once a dayhydroCHLOROthiazide 25 MG Tablet 1 tablet in the morning Orally Once a dayRosuvastatin Calcium 40 MG Tablet 1 tablet Orally Once a dayIsosorbide Dinitrate 30 MG Tablet 1 tablet Orally Twice a dayPregabalin 150 MG Capsule 1 capsule Orally Once a daydilTIAZem HCl ER 240 MG Tablet Extended Release 24 Hour 1 tablet Orally Once a dayOmeprazole 40 MG Capsule Delayed Release 1 capsule 30 minutes before morning meal Orally Once a dayExtra Depth Orthopedic Shoes (1 Pair) with Customized Heat Molded Multidensity Innersoles (3 Pair) as directed Dx: NIDDM/Polyneuropathy (E11.42), Hammertoe Foot Deformity (M20.41,M20.42), Preulcerative Skin Lesion(s) (L85.1Mounjaro 5 MG/0.5ML Solution Pen-injector Subcutaneous Taking Aspirin 81 MG Tablet Delayed Release 1 tablet Orally Once a dayTaking Lisinopril 5 MG Tablet 1 tablet Orally Once a dayTaking Citalopram Hydrobromide 40 MG Tablet 0.5 tablet Orally Once a dayTaking Pioglitazone HCl 15 MG Tablet 1 tablet Orally Once a dayTaking hydroCHLOROthiazide 25 MG Tablet 1 tablet in the morning Orally Once a dayTaking Rosuvastatin Calcium 40 MG Tablet 1 tablet Orally Once a dayTaking Isosorbide Dinitrate 30 MG Tablet 1 tablet Orally Twice a dayTaking Pregabalin 150 MG Capsule 1 capsule Orally Once a dayTaking dilTIAZem HCl ER 240 MG Tablet Extended Release 24 Hour 1 tablet Orally Once a dayTaking Omeprazole 40 MG Capsule Delayed Release 1 capsule 30 minutes before morning meal Orally Once a dayTaking Extra Depth Orthopedic Shoes (1 Pair) with Customized Heat Molded Multidensity Innersoles (3 Pair) as directed Dx: NIDDM/Polyneuropathy (E11.42), Hammertoe Foot Deformity (M20.41,M20.42), Preulcerative Skin Lesion(s) (L85.1Taking Mounjaro 5 MG/0.5ML Solution Pen- injector Subcutaneous Not-Taking/PRNTrulicity 3 MG/0.5ML Solution Pen-injector as directed Subcutaneous Medication List reviewed and reconciled with the patientNot- Taking/PRN Trulicity 3 MG/0.5ML Solution Pen-injector as directed Subcutaneous Medication List reviewed and reconciled with the patient * Allergies:?N.K.D.A.yes[Aller gies Verified] Objective: * Vitals:?Ht: 3qw45lo, Wt:240, BMI:34.43, Shoe size: 11.5, BS: 158, Ht-cm: 177.8 cm, Wt-k.86 kg. * ???Past Orders: ???Lab:HEMOGLOBIN A1C (GLYCO HEMOGLOBIN) (Order Date - 08/13/2023) (Collection Date - 08/13/2023) ? Value Reference Range ?HEMOGLOBIN A1C (HH) 7.1 * Examination: ???Ophthalmology Referral: ?DIABETES EYE EXAM?Neurological: ?SENSORY:? Neurological exam demonstrates, reduced light touch sensation, reduced sharp/dull pin prick discrimination , B/L, 5.07 monofilament test performed at plantar aspects of 5 varied sites per foot shows sensation, reduced , B/L.?Dermatologic: ?SKIN FINDINGS:? Skin shows sign(s) of a semi-firm, NON painful, non-translucent, non-pulsatile, nonmobile Sub Q tumor trevor. 20mm medial arch right Skin exam reveals Keratotic lesion(s) located at TA T5, SUB MTH (s), 1, B/L.?Vascular: ?DP PULSES(B):?3/4, B/L.?PT PULSES(B):?3/4, B/L.?CAPILLARY FILL TIME:?immediate, all digits, B/L.?TROPHIC CONDITION-TEXTURE/ELASTICITY/TURGOR/HAIR GROWTH(B):?normal, B/L.?TEMPERTURE GRADIENT(C):?normal, warm to cool, proximal to distal, B/L, B/L.?PIGMENTATION:?normal, B/L.?Orthopedic: ?MUSCLE STRENGTH:?5/5 all groups in a symmetrical fashion, B/L.?DIGITAL DEFORMITIES:?Digital contracture, PIPJ, 2-5 B/L, incompl-reducible to push-up test, no over, nor underlapping, with evidence of shoe producing skin irritation , Reveals pain to palpation, swelling, no ecchymosis, and limited ROM left great toe.?General Examination: ?GENERAL APPEARANCE:?Reveals a pleasant, alert, well [...] to no pain on palpation due to neuropathy 1-5 B/L , Nail plate intact.?X-Rays - IMAGING REPORT: ?Clinical Indication(s):? Evaluate for Fracture.?Views:? 3 views of Foot, AP, LO, LAT RAISED HALLUX, LEFT.?Findings:?mild generalized decrease in bone density , dorsal degenerative changes of the tarsal joints.?Digits:?show asymmetrical joint space narrowing at the PIPJ consistent with clinical finding of hammertoe deformity.?Fracture:?Negative fractures identified.? Assessment: * Assessment: 1.?Type 2 diabetes mellitus with diabetic polyneuropathy - E11.42?2.?Contusion of left great toe without damage to nail, initial encounter - S90.112A (Primary), Acute problem, Complicated w/ Multiple Tx Options(4),Dx New problem, Prognosis Uncertain (4)?3.?Other hammer toe(s) (acquired), left foot - M20.42, Chronic problem, Worse (4),Rx Management (4)?4.?Fibroma - D21.9?5.?Tinea unguium - B35.1?6.?Pain in left toe(s) - M79.675? Plan: * Treatment: * Procedures:?Debride Nail 6-10:?Nail debridement?Nail debridement performed extensively to reduce/remove overall nail length, girth, thickness, subungual debris, and necrotic tissue, by manual and electrical means through the use of a nail nipper and/or dremel, to more viable healthy nail plate or bed tissue 1-5. Silver nitrate used for any petechial bleeding as necessary. Patient chooses, no pharmaceutical tx (22855).?Keratoma Treatment:?Parring or Cutting of Benign Hyperkeratotic Lesion(s)?52504 ( 2-4 Lesions ) - The Benign hyperkeratotic lesions, as described above were pared, and/or cut utilizing a sterile 15 blade, tissue nippers, and/or dremel.? * Procedure Codes:?23239 X-RAY EXAM OF LEFT FOOT 3V, Modifiers: 26 , [id number] TRIM SKIN LESIONS, 2 TO 4, Modifiers: XS 04398 DEBRIDE NAIL, 6 OR MORE, Modifiers: XS * Preventive Medicine:? ??Counseling:?Discussion:?-14: Office or other outpatient visit for the evaluation and management of an established patient, which required a medically appropriate history and/or examination and MODERATE level of DECISION MAKING for: 1 OR MORE CHRONIC PROBLEM(S) THATS WORSENING, 2 STABLE CHRONIC PROBLEMS, A NEWLY DIAGNOSED PROBLEM WITH UNCERTAIN PROGNOSIS, AN ACUTE COMPLICATED INJURY WITH MULTIPLE TREATMENT OPTIONS, OR AN ACUTE PROBLEM WITH ACCOMPANYING SYSTEMIC SYMPTOMS, THAT POSE(S) A MODERATE RISK OF MORBIDITY. THIS CONDITION MAY ALSO INCLUDE RX DRUG MANAGEMENT, OR A DECISON FOR MINOR SURGERY. The visit on the day of the [...] have encouraged the patient to call the office.?Digital Treatment:?I explained to the patient the risks/benefits of all the different treatment options for their pain including: No treatment at all, Rest, Ice, New/supportive/wider/deeper Shoegear, Digital Padding/Strapping/Taping/Bracing/Gel protective sleeves, Foot/Ankle AFO Bracing, Stretching exercises, Deep Tissue Massage, Arch support/shoe inserts with splay metatarsal padding, and Custom orthoses. I insisted that any digital devices be removed daily and not worn overnight for safety. The patient is to carefully examine the toes daily for any skin irritation while using any splinting or padding device. The advantages and disadvantages of each option were discussed and the patients questions re: shoegear, padding, custom vs prefabricated inserts, activity level, and consistency in home treatment regimens for optimal success were answered to their verbally confirmed satisfaction.?P.R.I.C.E.:?The patient was counseled on the use of P.R.I.C.E. and NSAIDS (if well tolerated) to aid in the recovery from their painful condition , Recommended Topical analgesics including Aspercream/Biofreeze/Voltaren gel as directed.?X-rays:?Discussed and reviewed the X-rays with the patient. We discussed how the findings relate to the patients symptoms/complaints. Answered any and all questions..? * Follow Up:?3 Months * Images: * Sign off status: Completed true * Provider:?Sowmya Truong DPM Date:? Generated for Raquel freed/Eva/Harveyitting on:?08/04/2024 09:02 AM EST History and Physical Notes * HPI (History of Present Illness) Category Sub-Category Detail Notes Category Not es Toe pain Nature: aching, bruising , discoloration, swelling, tenderness, throbbing Location: Great toe Left foot Duration: since DOI ( 4 weeks) Onset/Cause: states traumatic ( s tubbed on door) Course: improved Aggravated by: shoes, any pressure ,standing/walking Treatments: rest/alter normal da yuri activity, ice, seen at urgent care diagnosed with fracture and given fracture boot-pt wore for about 3 weeks At Risk footcare Pt States Last PCP Visit: Date: 4 Examination Category Sub-Category Detail Notes Category Not es Neurological SENSORY: Neurological exa m demonstrates, reduced light touch sensation, reduced sharp/dull pin prick discrimination , B/L, 5.07 monofilament test performed at plantar aspects of 5 varied sites per foot shows sensation, reduced , B/L Dermatologic SKIN FINDINGS: Skin shows sign( s) of a semi-firm, NON painful, non-translucent, non-pulsatile, nonmobile Sub Q tumor trevor. 20mm medial arch right Skin exam reveals Keratotic lesion(s) located at TA T5, SUB MTH (s), 1, B/L Orthopedic DIGITAL DEFORMITIES: Digital con tracture, PIPJ, 2-5 B/L, incompl-reducible to push-up test, no over, nor underlapping, with evidence of shoe producing skin irritation , Reveals pain to palpation, swelling, no ecchymosis, and limited ROM left great toe MUSCLE STRENGTH: 5/5 all groups in a [...] d:: Yes Ophthalmology Referral DIABETES EYE EXAM Diabetic Retinopa thy Screening:: No Findings of Diabetic Eye Exam:: no retin [...] to no pain on palpation due to neuropathy 1-5 B/L , Nail plate intact X-Rays - IMAGING REPORT Findings: mild gen eralized decrease in bone density , dorsal degenerative changes of the tarsal joints Fracture: Negative fractures i dentified Digits: show asymmetrical floyd int space narrowing at the PIPJ consistent with clinical finding of hammertoe deformity Views: 3 views of Foot, AP, LO, LAT RAISED HALLUX, LEFT Clinical Indication(s): Evaluate for Fra cture
--- OUTSIDE RECORDS SUMMARY | 2024-08-04 09:02 | XMS_ITS ---
Author Organization [facility] Address [address] [place] [address] Care Team Providers Care Interior Design Principal Name Role Phone Pipe Lizarraga Primary Care Provider Unavailab abraham VeronicaSowmya harkins Unavailable [phone] Allergies No Known Allergies REASON FOR VISIT Pcp- 09/04, At Risk Footcare, Toe Irritation Medications Medication SIG (Take, Route, Frequency, Duration) Notes Start Date End Date Status dilTIAZem HCl ER 240 MG 1 tablet Orally Once a day Active Omeprazole 40 MG 1 capsule 30 minutes before morning meal Orally Once a day Active Extra Depth Orthopedic Shoes (1 Pair) with Customized Heat Molded Multidensity Innersoles (3 Pair) as directed Dx: NIDDM/Polyneuropathy (E11.42), Hammertoe Foot Deformity (M20.41,M20.42), Preulcerative Skin Lesion(s) (L85.1 09/17/2023 Active Mounjaro 5 MG/0.5ML Subcutaneous for 28 Days Active Trulicity 3 MG/0.5ML as directed Subcutaneous Not-Taking Rosuvastatin Calcium 40 MG 1 tablet Oral ly Once a day Active Isosorbide Dinitrate 30 MG 1 tablet Oral ly Twice a day Active Pregabalin 150 MG 1 capsule Orally Onc e a day Active Pioglitazone HCl 15 MG 1 tablet Orally O nce a day Active hydroCHLOROthiazide 25 MG 1 tablet in th e morning Orally Once a day Active Citalopram Hydrobromide 40 MG 0.5 tablet Orally Once a day Active Aspirin 81 MG 1 tablet Orally Once a day Active Lisinopril 5 MG 1 tablet Orally Once a day Active Social History Tobacco Use: Social History Observation Description Date Details (start date - stop date) Former Smoker NA - NA Tobacco Use/Smoking Question Answer Notes Are you a: former smoker Additional Findings: Tobacco Non-User Current no n-smoker Alcohol Screen Question Answer Notes Did you have a drink containing alcohol in the p ast year? No Points 0 Interpretation Negative Tobacco use other than smoking: Question Answer Notes Are you an other tobacco user? No Vital Signs Height 3js86tg in 11/30/2023 Weight 240 lbs 11/30/2023 BMI 34.43 kg/m2 11/30/2023 Encounters Encounter Location Date Provider Diagnosis [facility] [place] [address] [place] [address] 11/30/2023 Sowmya Truong Type 2 diabetes mellitus with diabetic polyneuropathy E11.42 ; Other hammer toe(s) (acquired), right foot M20.41 ; Other hammer toe(s) (acquired), left foot M20.42 ; Fibroma D21.9 and Tinea unguium B35.1 Assessments Encounter Date Diagnosis (ICD Code) Assessment Notes Treatment Notes Treatment Clinical Notes Section Notes 11/30/2023 Type 2 diabetes mellitus with diabetic polyneuropathy (ICD-10 - E11.42) 11/30/2023 Other hammer toe(s) (acquired), right foot (ICD-10 - M20.41) 11/30/2023 Other hammer toe(s) (acquired), left foot (ICD-10 - M20.42) 11/30/2023 Fibroma (ICD-10 - D21.9) 11/30/2023 Tinea unguium (ICD-10 - B35.1) Plan Of Treatment Next Appt Details Follow Up: 3 Months, Reason: Provider Name:Sowmya harkins, 08/29/2024 09:00:00 AM, [address] [place], [address], Procedure Notes * Category Sub-Category Detail Notes [...] as necessary. Patient chooses, no pharmaceutical tx (37257) Keratoma Treatment Parring or Cutting o f Benign Hyperkeratotic Lesion(s) 39586 ( 2-4 Lesions ) - The Benign hyperkeratotic lesions, as described above were pared, and/or cut utilizing a sterile 15 blade, tissue nippers, and/or dremel Progress Notes * Joseph YORK LDOB: 4 (58 yo M)Acc No.[id number]:11/30/2023 Progress Note Patient:?Joseph York Provider:?Sowmya Truong DPM :1965???Age:58 Y???Sex:Male Johny e:11/30/2023 Address:[address] [place] [address] , [facility] Pcp:Pipe Lizarraga Subjective: * Chief Complaints: * ???Pcp- 09/04 At Risk Footca reToe Irritation * HPI: ???At Risk footcare:?Pt States Last PCP Visit:?Date?08/24/2023 ???Toe pain:?Location:?B/L feet.?Duration:?several years.?Course:?worse.?Aggrevated by:?shoes, any pressure.?Treatments:?change in shoes, pregabalin, pain managment treatment for neuropathy.? * ROS:?General/Constitutional:?Nausea?denies.?Vomiting?denies.?Hunger Thirst?denies.?Loss appetite?denies.?Chills?denies.?Fatigue?denies.?Fever?denies.?Night Sweats?denies.?Unexplained weight loss?denies.?Unexplained [...] than smoking?Are you an other tobacco user??No ???Drugs/Alcohol:?Drugs?Have you used drugs other than those for medical reasons in the past 12 months??Yes ?Marijuana??Yes ?Alcohol Screen?Did you have a drink containing alcohol in the past year??No ?Points?0 ?Interpretation?Negative ???Miscellaneous:?Caffeine: yes, frequency:, 1-2 cups per day. [...] * Allergies:?N.K.D.A.yes[Aller gies Verified] Objective: * Vitals:?Ht: 4iu85td, Wt:240, BMI:34.43, Shoe size: 11.5, BS: 261, Ht-cm: 177.8 cm, Wt-k.86 kg. * ???Past [...] exam reveals Keratotic lesion(s) located at TA T5.?Vascular: ?DP PULSES:?3/4, B/L.?PT PULSES:?3/4, B/L.?CAPILLARY FILL TIME:?immediate, all digits, B/L.?SKIN TEMPERTURE GRADIENT OF THE LOWER EXTERMITIES:?normal, warm to cool, proximal to distal, B/L, B/L.?HAIR GROWTH/TEXTURE/ELASTICITY/TURGOR:?normal, B/L.?PIGMENTATION:?normal, B/L.?Orthopedic: ?MUSCLE STRENGTH:?5/5 all groups in a symmetrical fashion, B/L.?DIGITAL DEFORMITIES:?Digital contracture, PIPJ, 2-5 B/L, incompl-reducible to push-up test, no over, nor underlapping, with evidence of shoe producing skin irritation.?FOOTWEAR:?worn, non-supportive, shoe gear properties exacerbate patient's foot/toe deformity.?General Examination: ?GENERAL APPEARANCE:?Reveals a pleasant, alert, well [...] pain on palpation due to neuropathy 1-5 B/L.? Assessment: * Assessment: 1.?Type 2 diabetes mellitus with diabetic polyneuropathy - E11.42?2.?Other hammer toe(s) (acquired), right foot - M20.41 (Primary), Chronic problem, Worse (4),Rx Management (4)?3. Other hammer toe(s) (acquired), left foot - M20.42, Chronic problem, Worse (4),Rx Management (4)?4.?Fibroma - D21.9?5.?Tinea unguium - B35.1? Plan: * Treatment: * Procedures:?Debride Nail 6-10:?Nail debridement?Nail debridement performed extensively to reduce/remove overall nail length, girth, thickness, subungual debris, and necrotic tissue, by manual and electrical means through the use of a nail nipper and/or dremel, to more viable healthy nail plate or bed tissue 1-5. Silver nitrate used for any petechial bleeding as necessary. Patient chooses, no pharmaceutical tx (06411).?Keratoma Treatment:?Parring or Cutting of Benign Hyperkeratotic Lesion(s)?51265 ( 2-4 Lesions ) - The Benign hyperkeratotic lesions, as described above were pared, and/or cut utilizing a sterile 15 blade, tissue nippers, and/or dremel.? * Procedure Codes:?12748 TRIM SKIN LESIONS, 2 TO 4, Modifiers: XS 29879 DEBRIDE NAIL, 6 OR MORE, Modifiers: XS * Preventive Medicine:? ??Counseling:?Discussion:?-12: Office or other outpatient visit for the evaluation and management of an established patient, which required a medically appropriate history and/or examination and STRAIGHTFORWARD level of MEDICAL DECISION MAKING, 1 SELF-LIMITED OR MINOR PROBLEM, MINIMAL- NO AMOUNT/COMPLEXITY OF DATA TO BE REVIEWED/ANALYZED, AND MINIMAL RISK OF COMPLICATION/MORBIDITY. The visit on the day of the [...] have encouraged the patient to call the office.?Shoe Gear Counseling:?Patient to obtain shoes hopefully soon.?Ulcer:?.?Verruca/benign lesion Surgery:?Surgery to remove a benign skin lesion/mass was discussed with the patient including risks and complications such as recurrence, delayed healing, infection, painful scar and blistering. Pt defers and wants to continue to monitor.? * Follow Up:?3 Months * Images: * Sign off status: Completed true * Provider:?Sowmya Truong, DPM Date:? Generated for Raquel freed/Eva/eTdebrasmitting on:?08/04/2024 09:01 AM EST History and Physical Notes * HPI (History of Present Illness) Category Sub-Category Detail Notes Category Not es Toe pain Location: B/L feet Duration: several years Course: worse Aggravated by: shoes, any pressure Treatments: change in shoes, pre gabalin, pain managment treatment for neuropathy At Risk footcare Pt States Last PCP [...] exam reveals Keratotic lesion(s) located at TA T5 Orthopedic FOOTWEAR: worn, non-suppor tive, shoe gear properties exacerbate patient's foot/toe deformity DIGITAL DEFORMITIES: Digital contracture , PIPJ, 2-5 B/L, incompl-reducible to push-up test, [...] DIABETES EYE EXAM Diabetic Retinopa thy Screening:: Yes Findings of Diabetic Eye Exam:: no retin [...]
--- NOTE | 2024-08-04 09:13 | A.OFFPSYCH_ITS ---
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: f/u consultation In Tube Conversion Technician Required: No Allergies No Known Allergies Allergy (Verified 08/15/24 09:21) Medication List - Last Reconciled 08/04/24 by Ava Blanchard APRN alcohol swabs (Alcohol Prep Pads) 1 pad topical .three times a day aspirin 81 mg PO DAILY atomoxetine (Strattera) 60 mg PO DAILY blood pressure test kit-large As directed blood sugar diagnostic (OneTouch Ultra Test strips) Testing 3 times a day blood-glucose meter As directed diltiazem HCl CD 240 mg PO DAILY 90 days hydrochlorothiazide 25 mg PO DAILY insulin aspart U-100 (Novolog FlexPen U-100 Insulin aspart) 10 units (0.1 mL) subcut TID 30 days isosorbide mononitrate ER 30 mg PO DAILY 90 days lancets Testing 3 times a day lancets (FreeStyle Lancets) three times a day lidocaine 5% 2 patches topical DAILY 30 days lidocaine-prilocaine 2.5-2.5 % 1 appl topical ONCE lisinopril 5 mg PO DAILY omeprazole 40 mg PO DAILY pen needle, diabetic (BD Karen 2nd Gen Pen Needle) As directed pioglitazone (Actos) 15 mg PO DAILY 90 days pregabalin 300 mg PO BID 30 days rosuvastatin (Crestor) 40 mg PO DAILY 90 days sertraline 200 mg (2 x 100 mg) PO DAILY tirzepatide (Mounjaro) 7.5 mg (0.5 mL) subcut QWEEK 4 weeks tramadol 50 mg PO Q8H 7 days HPI- Psychiatric Chief Complaint: f/u consultation HPI Narrative: pt much improved; PHQ9= 4 down from 13 upon admission; GAD7=3 down from 11 upon admission; pt reports medication is helping; things are going generally well at home. He denies side effects. No SI or HI Past Psychiatric History: no ILPOC, no PHP or IOP. tried celexa at 40mg daily; tried wellbutrin inpast for tobacco cessation and it caused irritability Subjective Subjective Subjective Medication Compliance: Yes Side effects from medications: No Review of Systems Medical Review of Systems: unchanged Mental Status Exam Mental Status Exam Patient Appearance: Well Grooomed Patient Orientation: Person, Place, Time and Situation Level of Consciousness: Awake and Appropriate Patient Behavior: Appropriate and Cooperative Mood Description: Cheerful and Nervous Affect Description: Cheerful and Nervous Patient Cognition Impaired: No Ability to Follow Directions: Good Speech Pattern: Clear and Coherent Memory Description: Intact Hallucinations: None Delusions: Not Present Thought Process: Intact Thought Content: positive for Intact Judgement: Good Assessment and Plan Assessment & Plan (1) ADHD (attention deficit hyperactivity disorder), combined type: Status: Acute Code(s): F90.2 - Attention-deficit hyperactivity disorder, combined type (2) LISA (generalized anxiety disorder): Status: Acute Code(s): F41.1 - Generalized anxiety disorder Plan continue current medications Follow up with PCP Medications: Refilled atomoxetine (Strattera) 60 mg PO DAILY 90 caps 0RF sertraline 200 mg (2 x 100 mg) PO DAILY 180 tabs 0RF Counseling and coordination of Care Pt. Self Management counseling: Mod caffeine/ETOH intake and General coping skills Medication management counseling: Effectiveness, Side effects, Dosing range, Duration, Drug interaction and Adherence Diagnosis and Prognosis Counseling: Accuracy of diagnosis, Prognosis over time, Impact of diagnosis on life functions, Impact of family relationship, Problemat ic behaviors secondary to diagnosis and Adequacy of current interventions Details: I spent 40 minutes reviewing the record, seeing the patient and documenting in t he medical record. Counseling provided to the patient/caregiver as outlined below. Addressed patient/caregiver concerns regarding current medication regime including effective adherence. Addressed patient/caregiver concerns regarding diagnosis and prognosis including accuracy of diagnosis, prognosis over time, impact of diagnosis. Addressed patient/caregiver concerns regarding impact of recent st ressors. [facility] Medical History (Updated 08/15/24 @ 09:58 by Lindsey Tilley [facility]) Renal cyst COVID-19 Obesity Type 2 diabetes mellitus with obesity Asthma-COPD overlap syndrome Coronary artery disease Diabetic neuropathy Surgical History History of herniated intervertebral disc S/P CABG x 3 Family History Father Lung cancer Mother No problems noted. Family/Other Lung cancer Diabetes Social History Housing: House Alcohol intake: never Patient Tobacco Use Status: Former Tobacco user Tobacco use type: Cigarette e-Cigarette/Vaping Use: Never Used Second Hand Smoke Exposure: No service: No Current occupational status: disabled Current occupational exposures/hazards: No Cognitive needs: No Hearing needs: No Vision needs: No Social History: (since 1990) with two children age 15 and 30. 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 Primarily lived with single mother who abused alcohol. 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 Substance History: no ETOH no Tobacco x 10 yrs; uses THC for past few years. Trauma History: many friends in childhood; one hung self- traumatic loss for pt Coding Level of Care Code Est Pt Level 4 (06915) Diagnoses ADHD (attention deficit hyperactivity disorder), combined type F90.2 LISA (generalized anxiety disorder) F41.1
== END 2024-08-04 09:54 | disposition home or self-care (01) ==
LOC: HO.HOP 08:45
PROVIDERS: PCP Physician Assistant; Visit Provider Clinical Nurse Specialist Psychiatric/Mental Health
DX: F90.2 Attention-deficit hyperactivity disorder, combined type (principal); F41.1 Generalized anxiety disorder
CPT/HCPCS: 99214

== ENCOUNTER → 2024-08-04 08:45 | Outpatient (BNVA) | payer OTHER, SELFPAY | PROVIDERS: PCP Physician Assistant; Visit Provider Clinical Nurse Specialist Psychiatric/Mental Health | DX: F90.2 Attention-deficit hyperactivity disorder, combined type (principal); F41.1 Generalized anxiety disorder; Z71.89 Other specified counseling | CPT/HCPCS: 99212 ==

== ENCOUNTER 2024-08-15 08:35 | Outpatient (AMB) | payer OTHER, SELFPAY ==
--- NOTE | 2024-08-15 09:05 | A.OFFVIS_ITS ---
Intake Visit Reasons: erectile dysfunction/urinary urgency Intake Note: New Patient presents for initial visit for erectile dysfunction and urinary hesitancy Urology Medications: none Blood Thinner: aspirin PVR: 28ml's Metal Window Frame Maker Required: No Accompanied by: Self / Same As Patient Allergies No Known Allergies Allergy (Verified 08/15/24 09:21) Medication List - Last Reconciled 08/15/24 by BRYON Bolton alcohol swabs (Alcohol Prep Pads) 1 pad topical .three times a day aspirin 81 mg PO DAILY atomoxetine (Strattera) 60 mg PO DAILY blood pressure test kit-large As directed blood sugar diagnostic (OneTouch Ultra Test strips) Testing 3 times a day blood-glucose meter As directed diltiazem HCl CD 240 mg PO DAILY 90 days hydrochlorothiazide 25 mg PO DAILY insulin aspart U-100 (Novolog FlexPen U-100 Insulin aspart) 10 units (0.1 mL) subcut TID 30 days isosorbide mononitrate ER 30 mg PO DAILY 90 days lancets Testing 3 times a day lancets (FreeStyle Lancets) three times a day lidocaine 5% 2 patches topical DAILY 30 days lidocaine-prilocaine 2.5-2.5 % 1 appl topical ONCE lisinopril 5 mg PO DAILY omeprazole 40 mg PO DAILY pen needle, diabetic (BD Karen 2nd Gen Pen Needle) As directed pregabalin 300 mg PO BID 30 days rosuvastatin (Crestor) 40 mg PO DAILY 90 days sertraline 200 mg (2 x 100 mg) PO DAILY tirzepatide (Mounjaro) 7.5 mg (0.5 mL) subcut QWEEK 4 weeks tramadol 50 mg PO Q8H 7 days HPI Comments Details: Joseph is a very pleasant 59-year-old male patient of Dr. Lizarraga. Has a past medical history of obesity, renal cysts, type 2 diabetes, asthma, COPD, coronary artery disease, and diabetic neuropathy. He presents to the office today as a new patient for weak urinary stream and erectile dysfunction in the setting of diabetes. He reports noting weak urinary stream over the last 2 months at which time he discussed with his PCP and recommendations were made for urology referral for further assessment evaluation. It appears retroperitoneal ultrasound was ordered and performed. These results reviewed with the patient today. Bilateral kidneys are normal in size and position. Bilateral simple appearing renal cysts. Nonobstructing calyceal stone in the right kidney measuring 5 mm. No evidence of hydronephrosis noted bilaterally. Pre void bladder volume is approximately 175 mL. Postvoid bladder volume is approximately 65 mL. Prostate volume of 26 mL. PSA 07/08 0.5 and A1c 07/08 5.9. Patient also reports a longstanding history of erectile dysfunction over the last 8 years since having had open heart surgery. We discussed at length nicotine dependence as well as uncontrolled diabetes in relation to urological issues and concerns as well as for overall health and well-being. We discussed potential causes of lower urinary tract symptoms patient was experiencing as well as ED. we discussed lifestyle modifications to assist with these urological issues. In office urinalysis results reviewed with the patient today. PVR 28 mL. He denies incontinence, hematuria, dysuria, foul smelling urine, flank pain, fever, and or chills. He does report a previous history of nephrolithiasis at the age of 29 however never requiring surgical intervention. He does report being circumcised. He otherwise offers no other issues or concerns at this time. [facility] Medical History (Updated 08/15/24 @ 09:58 by Lindsey Tilley [facility]) Renal cyst COVID-19 Obesity Type 2 diabetes mellitus with obesity Asthma-COPD overlap syndrome Coronary artery disease Diabetic neuropathy Surgical History History of herniated intervertebral disc S/P CABG x 3 Family History Father Lung cancer Mother No problems noted. Family/Other Lung cancer Diabetes Social History Housing: House Alcohol intake: never Patient Tobacco Use Status: Former Tobacco user Tobacco use type: Cigarette e-Cigarette/Vaping Use: Never Used Second Hand Smoke Exposure: No service: No Current occupational status: disabled Current occupational exposures/hazards: No Cognitive needs: No Hearing needs: No Vision needs: No Review of Systems Eyes Reports no additional complaints ENT Reports no additional complaints Card Reports as per [facility] Resp Reports as per HPI GI Reports no additional complaints Reports as per HPI Musc Reports as per HPI Neuro Reports no additional complaints Psych Reports no additional complaints Endo Reports as per HPI Abdirahman/Lymph Reports no additional complaints Aller/Immun Reports no additional complaints Physical Exam Const General: cooperative, healthy appearing, comfortable, no acute distress, well developed, alert and awake Orientation/consciousness: patient oriented x3 Limitations: no limitations HEENT Head: Yes normal to inspection, Yes normocephalic and Yes atraumatic Ears: hearing grossly normal bilaterally Eyes General: appearance normal, both eyes and all related structures Neck Neck: Yes normal visual inspection and Yes trachea midline Chest Chest palpation & inspection: normal inspection of the chest Resp Effort & Inspection: normal respiratory effort and able to speak in complete sentences Cardio Rate: regular rate GI Inspection: Yes normal to inspection General: Yes no CVA tenderness Back/Spine/Pelvis Back: no CVA tenderness Skin General skin exam: no rashes or lesions noted Neuro General: patient oriented x3 Extrem General: Yes normal to inspection Psych Appearance: grossly normal and well kempt Mental Status: mental status grossly normal Speech and movement: Normal speech and movement present and Clear speech present Affect: normal affect Attitude: cooperative Thought process: Normal thought process present Thought content: Normal thought content present Insight: Fair insight present (Psych) Judgement: Fair judgement present (Psych) Office Procedures Post Void Residual Post Residual Void Post Void Residual (PVR): 28 28488-Ngbg Void Residual by ultrasound Results AMB Urinalysis, Automated UA Leukoctes 0 José Luis/uL Last Edit by Chance Gonzalez on 08/15/24 09:33 UA Nitrite Last Edit by MethylGeneedenilson Gonzalez on 08/15/24 09:33 UA Urobilinogen 0.2 mg/dL Last Edit by CyOpticsnora Gonzalez on 08/15/24 09:33 UA Protein 15 mg/dL Last Edit by Chance Gonzalez on 08/15/24 09:33 UA pH 6.0 Last Edit by Chance Gonzalez on 08/15/24 09:33 UA Blood 0 Cesar/uL Last Edit by MarquezMyMoneyPlatformnora Gonzalez on 08/15/24 09:33 UA Specific Pocahontas 1.015 Last Edit by Chance Gonzalez on 08/15/24 09:33 UA Ketone Last Edit by Chance Gonzalez on 08/15/24 09:33 UA Bilirubin 0 mg/dL Last Edit by Chance Gonzalez on 08/15/24 09:33 UA Glucose 0 mg/dL Last Edit by Chance Gonzalez on 08/15/24 09:33 Results Reviewed Results Reviewed: Laboratory Last Values Urine pH (Auto) 6.0 08/15/24 09:31 Specific Pocahontas (Auto) 1.015 08/15/24 09:31 Urine Protein (Auto) 15 mg/dL 08/15/24 09:31 Glucose (UA)(Auto) 0 mg/dL 08/15/24 09:31 Urine Blood (Auto) 0 Cesar/uL 08/15/24 09:31 Urine Bilirubin (Auto) 0 mg/dL 08/15/24 09:31 Urine Urobilinogen (Auto) 0.2 mg/dL 08/15/24 09:31 Leukocyte Esterase (Auto) 0 José Luis/uL 08/15/24 09:31 Date of Service: 07/24/24 US retroperitoneum with color Doppler Findings: Right kidney normal size and echotexture, 10.3 cm length. No hydronephrosis. Normal color flow. Simple renal cyst measuring 3.2 x 3.2 x 2.2 cm midpole and 6.6 x 5.6 x 6.3 cm midpole laterally. Largest cyst previously measuring 6.7 cm. Nonobstructing caliceal stone midpole measuring 5 x 4 x 3 mm. Left kidney normal size and echotexture, 13.4 cm in length. No hydronephrosis. Normal color flow. No nephrolithiasis or hydronephrosis. Incidental renal cortical cyst lower pole measuring 2.9 x 2.1 x 2.9 cm. Largest cyst previously measuring 2.4 cm. Urinary bladder is unremarkable. Prevoid volume one hundred seventy-four mL. Postvoid volume 65 mL. Ureteral jets are visualized bilaterally Prostate volume 26.3 mL Impression: 1. Kidneys normal size and position with normal cortical width and echotexture. Incidental renal cortical cysts bilaterally. 2. Nonobstructing caliceal stone right kidney. No evidence of hydronephrosis. 3. Elevated postvoid residual volume of the urinary bladder Assessment & Plan Assessment & Plan (1) Weak urinary stream: Code(s): R39.12 - Poor urinary stream Category: Medical (2) Erectile dysfunction associated with type 2 diabetes mellitus: Code(s): E11.69 - Type 2 diabetes mellitus with other specified complication; N52.1 - Erectile dysfunction due to diseases classified elsewhere Category: Medical (3) Renal cyst: Code(s): N28.1 - Cyst of kidney, acquired Category: Medical (4) Nephrolithiasis: Code(s): N20.0 - Calculus of kidney Category: Medical Plan In office urinalysis results with the patient today; as noted above. PVR 28 mL Recent retroperitoneal ultrasound results reviewed the patient today; as noted above. Recent PSA results with the patient today; as noted above. We discussed at length correlation of diabetes as well as nicotine dependence in relation to urological issues as well as overall health and well-being. We discussed bladder triggers/irritants. We discussed potential for near future in office cystoscopy and or urodynamics for further assessment evaluation. We discuss further treatment options of erectile dysfunction and risks and benefits of these treatment options. We discussed potential causes for lower urinary tract symptoms and ED. We discussed lifestyle modifications to assist with urinary issues as well as erectile dysfunction. Start Flomax as discussed and prescribed. We did discussed potential for low-dose Cialis 5 mg daily. Follow-up in 1-3 months with PVR; or sooner with any issues, concerns, and or qu estions Orders: Orders AMB Urinalysis Automated Today Z13.9 - Encounter for screening, unspecified AMB Post Void Residual by ultrasound Today R39.15 - Urgency of urination Medications: New tamsulosin 0.4 mg PO BEDTIME 30 days 30 caps 3RF N40.1 - Benign prostatic hyperplasia with lower urinary tract symptoms, R35.1 - Nocturia Patient Instructions: The patient had an opportunity to ask questions regarding the treatment plan. All questions were answered. Physical exam, labs, and imaging were discussed and reviewed in detail. As well as risks, benefits, and discussion of treatment choices. No major barriers to understanding were identified. The patient expressed understanding and agreement with the above treatment plan. The patient was made aware they should contact our office by phone for worsening of their current condition, the appearance of new symptoms, or with any questions or concerns. Compliance is encouraged with any medications and follow up testing that is ordered. It is a privilege to be allowed the opportunity to participate in? your urological care.? Again, if you have any questions or concerns If you have any questions or concerns please do not hesitate to contact me. The office is [phone]. This note is constructed using voice recognition software. While every effort has been made to ensure accuracy hot kettle tender errors may have been included. Yours sincerely, BRYON Bolton Coding Level of Care Code New Pt Level 4 (10905) Diagnoses Weak urinary stream R39.12 Erectile dysfunction associated with type 2 diabetes mellitus E11.69; N52.1 Renal cyst N28.1 Nephrolithiasis N20.0 CPT Codes Post Residual Void - PVR CPT Code: 61579-Xwet Void Residual by ultrasound ([id number])
--- OUTSIDE RECORDS SUMMARY | 2024-08-15 09:09 | XMS_ITS ---
Author Organization [facility] Address [address] [facility] [place] [address] Care Team Providers Care Pharmacy Sales Representative Name Role Phone Pipe Lizarraga Primary Care Provider Unavailab abraham VeronicaSowmya harkins Unavailable [phone] Allergies No Known Allergies REASON FOR VISIT [...] other tobacco user? No Vital Signs Height 0ke26rt in 11/30/2023 Weight 240 lbs 11/30/2023 BMI 34.43 kg/m2 11/30/2023 Encounters Encounter Location Date Provider Diagnosis [facility] [place] [address] [place] [address] 11/30/2023 Sowmya Truong Type 2 diabetes mellitus [...] Provider Name:Sowmya harkins, 08/29/2024 09:00:00 AM, [address] [place], [address], Procedure Notes * Category Sub-Category Detail Notes [...] as necessary. Patient chooses, no pharmaceutical tx (03261) Keratoma Treatment Parring or Cutting o f Benign Hyperkeratotic Lesion(s) 90309 ( 2-4 Lesions ) - The Benign hyperkeratotic lesions, as described above were pared, and/or cut utilizing a sterile 15 blade, tissue nippers, and/or dremel Progress Notes * Joseph YORK LDOB: 4 (58 yo M)Acc No.[id number]:11/30/2023 Progress Note Patient:?Joseph York Provider:?Sowmya Truong DPM :1965???Age:58 Y???Sex:Male Johny e:11/30/2023 Address:[address] [place] [address] , [facility] Pcp:Pipe Lizarraga Subjective: * Chief Complaints: * [...] * Allergies:?N.K.D.A.yes[Aller gies Verified] Objective: * Vitals:?Ht: 8rd13wp, Wt:240, BMI:34.43, Shoe size: 11.5, BS: 261, Ht-cm: 177.8 cm, Wt-k.86 kg. * ???Past Orders: ???Lab:HEMOGLOBIN A1C (GLYCO HEMOGLOBIN) (Order Date - 08/13/2023) (Collection Date - 08/13/2023) ? Value Reference Range ?HEMOGLOBIN A1C (HH) 7.1 * Examination: ???Ophthalmology Referral: ?DIABETES EYE EXAM?Diabetic Retinopathy Screening:?Yes ?Findings of Diabetic Eye Exam:?no retinopathy?Neurological: ?SENSORY:? Neurological exam demonstrates, reduced light touch [...] for office visit today.?ORIENTED:?person, place, and time.?FOOT EXAM:?Lower Extremity Neurological Exam performed:?Yes ?Footwear Evaluation?Footwear Evaluation performed:?Yes?Nails: ?NAILS are:? Elongated, overgrown, dystrophic, lytic, greater [...] as necessary. Patient chooses, no pharmaceutical tx (16977).?Keratoma Treatment:?Parring or Cutting of Benign Hyperkeratotic Lesion(s)?35074 ( 2-4 Lesions ) - The Benign hyperkeratotic lesions, as described above were pared, and/or cut utilizing a sterile 15 blade, tissue nippers, and/or dremel.? * Procedure Codes:?37482 TRIM SKIN LESIONS, 2 TO 4, Modifiers: XS 88992 DEBRIDE NAIL, 6 OR MORE, Modifiers: XS [...] Provider:?Sowmya Truong DPM Date:? Generated for Raquel freed/Eva/Alejo on:?08/15/2024 09:09 AM EST History and Physical Notes * [...]
--- OUTSIDE RECORDS SUMMARY | 2024-08-15 09:10 | XMS_ITS ---
Author Organization [facility] Address [address] [facility] [place] [address] Care Team Providers Care Office Manager Executive Assistant Name Role Phone Pipe Lizarraga Primary Care Provider Unavailab abraham Veronicashahana Sowmya Unavailable [phone] Allergies No Known Allergies REASON FOR VISIT [...] other tobacco user? No Vital Signs Height 7ja70nj in 03/07/2024 Weight 240 lbs 03/07/2024 BMI 34.43 kg/m2 03/07/2024 Encounters Encounter Location Date Provider Diagnosis [facility] [place] [address] [place] [address] 03/07/2024 Sowmya Truong Type 2 diabetes mellitus [...] Reason: Provider Name:Sowmya harkins, 08/29/2024 09:00:00 AM, [address] [place] [address], [address], Procedure Notes * Category Sub-Category Detail Notes [...] as necessary. Patient chooses, no pharmaceutical tx (66762) Keratoma Treatment Parring or Cutting o f Benign Hyperkeratotic Lesion(s) 79772 ( 2-4 Lesions ) - The Benign hyperkeratotic lesions, as described above were pared, and/or cut utilizing a sterile 15 blade, tissue nippers, and/or dremel Progress Notes * Joseph YORK LDOB: 4 (58 yo M)Acc No.[id number]:03/07/2024 Progress Note Patient:?Joseph York Provider:?Sowmya Truong DPM :1965???Age:58 Y???Sex:Male Johny e:03/07/2024 Address:[address] [place], [place] [id number] Pcp:Pipe Lizarraga Subjective: * Chief Complaints: * [...] * Allergies:?N.K.D.A.yes[Aller gies Verified] Objective: * Vitals:?Ht: 1bk69ez, Wt:240, BMI:34.43, Shoe size: 11.5, BS: 158, Ht-cm: 177.8 cm, Wt-k.86 kg. * ???Past Orders: ???Lab:HEMOGLOBIN A1C (GLYCO HEMOGLOBIN) (Order Date - 08/13/2023) (Collection Date - 08/13/2023) ? Value Reference Range ?HEMOGLOBIN A1C (HH) 7.1 * Examination: ???Ophthalmology Referral: ?DIABETES EYE EXAM?Diabetic Retinopathy Screening:?No ?Findings of Diabetic Eye Exam:?no retinopathy?Neurological: ?SENSORY:? [...] as necessary. Patient chooses, no pharmaceutical tx (24686).?Keratoma Treatment:?Parring or Cutting of Benign Hyperkeratotic Lesion(s)?15652 ( 2-4 Lesions ) - The Benign hyperkeratotic lesions, as described above were pared, and/or cut utilizing a sterile 15 blade, tissue nippers, and/or dremel.? * Procedure Codes:?95128 X-RAY EXAM OF LEFT FOOT 3V, Modifiers: 26 , HK57000 TRIM SKIN LESIONS, 2 TO 4, Modifiers: XS 77655 DEBRIDE NAIL, 6 OR MORE, Modifiers: XS [...] off status: Completed true * Provider:?Sowmya Truong, VITALY Date:? Generated for Printi ng/Eva/eTransmitting on:?08/15/2024 09:09 AM EST History and Physical [...]
--- OUTSIDE RECORDS SUMMARY | 2024-08-15 09:10 | XMS_ITS ---
Author Organization [facility] Address [address] [place] [address] Care Team Providers Care Transport Assistant Name Role Phone Pipe Lizarraga Primary Care Provider Unavailab Sowmya Meredith Unavailable [phone] Allergies No Known Allergies REASON FOR VISIT [...] Status W/U Status Risk Notes Problem Neuropathy (490269204) Neuropathy (G62.9) Active confirmed Vital Signs Height 6bj57in in 05/30/2024 Weight 235 lbs 05/30/2024 BMI 33.72 kg/m2 05/30/2024 Blood pressure systolic 120 mm Hg 05/30/20 24 Blood pressure diastolic 70 mm Hg 024 Encounters Encounter Location Date Provider Diagnosis [facility] [address] [address] 05/30/2024 Sowmya Truong Neuropathy G62.9 ; Left [...] Reason: Provider Name:Sowmya harkins, 08/29/2024 09:00:00 AM, [address] [place] [address], [address], Procedure Notes * Category Sub-Category Detail Notes [...] a nail nipper and/or dremel-type precision lens grinder, to a more viable healthy nail plate [...] to maintain effectiveness in symptomatic relief - 94716 Keratoma Treatment Parring or Cutting o f [...] instrumentation by the physician of record - 27153 Progress Notes * Joseph YORK LDOB: 4 (59 yo M)Acc No.[id number]:05/30/2024 Progress Note Patient:?Joseph YORK Ny Provider:?Sowmya Truong DPM :1965???Age:59 Y???Sex:Male Johny e:05/30/2024 Address:[address] [place] [address] , [place], [place] Pcp:Pipe Lizarraga Subjective: * Chief Complaints: * [...] * Allergies:?N.K.D.A.yes[Aller gies Verified] Objective: * Vitals:?Ht: 5ka77kv, Wt:235, BMI:33.72, Shoe size: 11.5, BP:120/70mm Hg, BS: 154, Ht-cm: 177.8 cm, Wt-k.59 kg. * ???Past Orders: ???Lab:HEMOGLOBIN A1C (GLYCO HEMOGLOBIN) (Order Date - 08/13/2023) (Collection Date & Time - 08/13/2023) ? Value Reference Range ?HEMOGLOBIN A1C (HH) 7.1 * Examination: ???Ophthalmology Referral: ?DIABETES EYE EXAM?Procedure Performed:?No ?Eye Exam not performed:?No reason specified ?Findings of Diabetic Eye Exam:?no retinopathy?Neurological: ?SENSORY:?Pt relates,numbness,burning,pins and needles sensation,, paresthesia,shooting/radiating sensation,tingling,especially [...] a nail nipper and/or dremel-type precision lens grinder, to a more viable healthy nail plate [...] to maintain effectiveness in symptomatic relief - 96676.?Keratoma Treatment:?Parring or Cutting of Benign Hyperkeratotic Lesion(s)?(-57) [...] instrumentation by the physician of record - 89710.? * Procedure Codes:?96776 DEBRI DE NAIL, 6 OR MORE, Modifiers: XS 69172 TRIM SKIN LESIONS, OVER 4, Modifiers: XS [...]
--- OUTSIDE RECORDS SUMMARY | 2024-08-15 09:10 | XMS_ITS | Patient Health Record ---
[facility] Address [address] [facility] [place] [address] Care Team Providers Care Ultrasound Supervisor Name Role Phone Pipe Lizarraga Primary Care Provider Unavailab Sowmya Meredith Unavailable [phone] Allergies No Known Allergies Reason For Referral No Information Medications Medication [...] Problem Acquired hammer toe of right foot (3071555026078833 ) Other hammer toe(s) (acquired), right foot (M20.41) Active confirmed Problem Acquired hammer toe of left foot (1259626148793946 ) Other hammer toe(s) (acquired), left foot (M20.42) Active confirmed Problem Polyneuropathy due to diabetes mellitus type I (997749920) Type 1 diabetes mellitus with diabetic polyneuropathy (E10.42) Active confirmed Problem Polyneuropathy due to type 2 diabetes mellitus (311275816) Type 2 diabetes mellitus with diabetic polyneuropathy (E11.42) Active confirmed Problem Neuropathy (713950354) Neuropathy (G62.9) Active confirmed Vital Signs Blood pressure diastolic 70 mm Hg 05/30/2024 Height 1ob65hm in 05/30/2024 Blood pressure systolic 120 mm Hg 05/30/2024 Weight 235 lbs 05/30/2024 BMI 33.72 kg/m2 05/30/2024 Encounters Encounter Location Date [facility] [address] [facility]/17/2023 Sowmya Truong Type 2 diabetes mellitus with diabetic polyneuropathy E11.42 ; Other hammer toe(s) (acquired), right foot M20.41 ; Other hammer toe(s) (acquired), left foot M20.42 and Fibroma D21.9 [facility] [address] 11/30/2023 Sowmya Truong Type 2 diabetes mellitus with diabetic polyneuropathy E11.42 ; Other hammer toe(s) (acquired), right foot M20.41 ; Other hammer toe(s) (acquired), left foot M20.42 ; Fibroma D21.9 and Tinea unguium B35.[address] [address] 03/07/2024 Sowmya Truong Type 2 diabetes mellitus with diabetic polyneuropathy E11.42 ; Contusion of left great toe without damage to nail, initial encounter S90.112A ; Other hammer toe(s) (acquired), left foot M20.42 ; Fibroma D21.9 ; Tinea unguium B35.1 and Pain in left toe(s) M79.[address] [address] 05/30/2024 Sowmya Truong Neuropathy G62.9 ; Left [...] Details Provider Name:Sowmya harkins, 08/29/2024 09:00:00 AM, [address] [place] [address], [phone], Insurance Providers Payer Name Payer Address Payer Phone Subscriber Number Group Number Insured Name Patient Relationship to Insured Coverage Start Date Coverage End Date [facility] [employer] Claims [address] [place] [id number] [phone] [id number] Joseph York Self - patient is the insured Medical (General) History Medical History History ICD Code Diabetic Heart disease High blood pressure Numbness Chicken pox Heart replacement Valves Surgical History Surgery Date(Month/Year) Heart Valve 12/2014 triple bypass 12/2014
== END 2024-08-15 09:42 | disposition home or self-care (01) ==
PROVIDERS: PCP Physician Assistant; Visit Provider Nurse Practitioner Family
DX: R39.12 Poor urinary stream (principal); E11.69 Type 2 diabetes mellitus with other specified complication; N52.1 Erectile dysfunction due to diseases classified elsewhere; N28.1 Cyst of kidney, acquired; N20.0 Calculus of kidney; Z13.9 Encounter for screening, unspecified
CPT/HCPCS: 99204

== ENCOUNTER → 2024-08-15 08:35 | Outpatient (BNVA) | payer OTHER, SELFPAY | PROVIDERS: PCP Physician Assistant; Visit Provider Nurse Practitioner Family | DX: R39.12 Poor urinary stream (principal); E11.69 Type 2 diabetes mellitus with other specified complication; N52.1 Erectile dysfunction due to diseases classified elsewhere; N28.1 Cyst of kidney, acquired; N20.0 Calculus of kidney | CPT/HCPCS: 51798; 81003; 99202 ==

== ENCOUNTER 2024-09-30 09:36 | Outpatient (AMB) | payer OTHER, SELFPAY ==
--- NOTE | 2024-09-30 09:47 | MHC.OFFWIV ---
Intake Vital Signs 09/30/24 09:48 Height 5 ft 10 in Weight 204 lb BMI 29.3 BP 90/50 L Blood Pressure Location Lt brachial Position Sitting Pulse 115 H Pulse Source Pulse Oximeter Temp 98.3 F Temp Source Oral Pulse Oximetry (%) 92 Oxygen Delivery Method Room Air Intake Visit Reasons: EP- cold symptoms Intake Note: Pt is here today c/o SOB, chest congestion [id number] Patient Tobacco Use Status: Former Tobacco user Allergies No Known Allergies Allergy (Verified 12/05/24 09:57) HPI EP- cold symptoms HPI Details Patient is a 59-year-old male with history that includes asthma/COPD, coronary artery disease, type 2 diabetes who comes to the walk-in clinic complaining of chest pain, shortness of breath and a productive cough that has been increasingly worsening for the past 5 days. He gives history of symptoms starting with an upper respiratory infection about a week and a half ago, before spreading to his chest. He thinks that his asthma is worsening. He has some associated diarrhea also, with no vomiting reported. No obvious source to the diarrhea known. He denies known sick contacts. He has not checked for flu COVID or RSV yet. [facility] Medical History Renal cyst COVID-19 Obesity Type 2 diabetes mellitus with obesity Asthma-COPD overlap syndrome Coronary artery disease Diabetic neuropathy Surgical History History of herniated intervertebral disc S/P CABG x 3 Family History Father Lung cancer Mother No problems noted. Family/Other Lung cancer Diabetes Social History Housing: House Alcohol intake: current Alcohol intake frequency: holidays/special occasions only Patient Tobacco Use Status: Former Tobacco user Tobacco use type: Cigarette e-Cigarette/Vaping Use: Never Used Second Hand Smoke Exposure: No Substance Use Type: Marijuana service: No Current occupational status: disabled Current occupational exposures/hazards: No Cognitive needs: No Hearing needs: No Vision needs: No Review of Systems Const All systems reviewed & are unremarkable except as noted in HPI and below Physical Exam Vital Signs: Last Vital Signs Temp 98.3 F 09/30/24 09:48 Pulse 115 H 09/30/24 09:48 BP 90/50 L 09/30/24 09:48 Pulse Ox 92 09/30/24 09:48 Oxygen Delivery Method Room Air 09/30/24 09:48 BMI result Body Mass Index 29.3 Const General: cooperative, alert, awake, Physically active, in distress and well groomed; No comfortable, diaphoretic, ill appearing, intoxicated appearing, poor hygiene or tired appearing Nutritional Appearance: average body habitus Orientation/consciousness: patient oriented x3 Limitations: no limitations Resp Effort & Inspection: normal respiratory effort, not able to speak in complete sentences (Interrupted due to coughing), no audible wheezes, no grunting, labored, no nasal flaring, respiratory distress, no retractions, tachypneic, no tracheal deviation, tripod positioning, uses accessory muscles and symmetric chest movement Auscultation: no crackles, no rales, no rhonchi, diminished lung sounds and No rub present Cardio Palpation: normal PMI Rate: regular rate Rhythm: regular rhythm Heart sounds: S1 normal heart sound present and S2 normal heart sound present Skin Other: Good color, warm and dry Neuro General: patient oriented x3 Psych Appearance: grossly normal Mental Status: mental status grossly normal Speech and movement: Normal speech and movement present Affect: normal affect Attitude: cooperative Thought process: Normal thought process present Insight: Good insight present (Psych) Judgement: Good judgement present (Psych) Assessment & Plan Assessment & Plan (1) Shortness of breath: Code(s): R06.02 - Shortness of breath Plan Patient was actively coughing during evaluation, and although his oxygen saturation was good at rest, he could not tolerate much exertion due to his cough. His blood pressure was hypotensive, and this might be due to having diarrhea and not hydrating adequately. We did start with a chest x-ray, which per my wet read left consistent with chronic COPD changes, however I could not rule out acute findings. Due to his symptoms of chest pain, shortness of breath, dizziness and likely being dehydrated in addition to having a likely lower respiratory infection and/or a aggravated COPD however, I advised that he go to the emergency department for evaluation and treatment, as I could not effectively evaluate, monitor and treat him efficiently at the walk-in. He was amenable to this, and he was transported by ambulance to [facility], where expect was called in. Orders: Orders SARS-CoV2/FLU/RSV 09/30/24 [place] Cho J06.9 - Acute upper respiratory infection, unspecified XR chest 2V 09/30/24 [place] Cho R05.9 - Cough, unspecified Medications: On Hold diltiazem HCl CD Hold Comment: Doctor's Order 240 mg PO DAILY 90 days 90 caps 1RF Pipe Lizarraga PA-C I25.10 - Atherosclerotic heart disease of [place] coronary artery without angina pectoris Coding Level of Care Code Est Pt Level 4 (50211) Diagnoses Shortness of breath R06.02
[2024-09-30 09:48] VITALS: BP 90/50; PULSE 115; TEMP 36.8; O2SAT 92; BMI 29.3
== END 2024-09-30 11:55 | disposition home or self-care (01) ==
LOC: HO.HMCWIC 09:36
PROVIDERS: PCP Physician Assistant; Visit Provider Physician Assistant Medical
DX: R06.02 Shortness of breath (principal)

== ENCOUNTER 2024-09-30 09:36 | Outpatient (REF) | payer OTHER, SELFPAY ==
--- NOTE | ~2024-09-30 | XR_ITS ---
CLINICAL HISTORY: sob cough 2 view chest Comparison: CT/SR - CT ANGIO CHEST PE PROTOCOL - 09/13/22 17:28 EDT CR/SR - XR CHEST 1V - 09/13/22 16:35 EDT Findings: No consolidation or pneumothorax/pleural effusion. Mild peribronchial wall thickening. Cardiomediastinal silhouette is normal. No mediastinal shift or tracheal deviation. Osseous structures intact. Post median sternotomy. Stable surgical clips upper left sadia thorax Impression: 1. Mild central bronchial wall thickening. 2. No airspace disease. This document has been electronically signed by: Elmo Guan MD on 09/30/2024 12:08:03
== END 2024-09-30 09:37 | disposition home or self-care (01) ==
LOC: HO.HMGCX 09:36
PROVIDERS: PCP Physician Assistant; Visit Provider Physician Assistant Medical
DX: Z13.89 Encounter for screening for other disorder (principal)
CPT/HCPCS: 71046

== ENCOUNTER → 2024-09-30 11:16 | Outpatient (BNV) | payer OTHER, SELFPAY | PROVIDERS: PCP Physician Assistant; Visit Provider Radiology Diagnostic Radiology | DX: R05.9 Cough, unspecified (principal); R06.02 Shortness of breath | CPT/HCPCS: 71046 ==

== ENCOUNTER 2024-09-30 11:30 | Outpatient (REF) | payer OTHER, SELFPAY ==
--- OUTSIDE RECORDS SUMMARY | 2024-09-30 11:33 | XMS_ITS | Patient Health Record ---
Author Organization [facility] Address [address] [facility] [place] [address] Care Team Providers Care Forensic Materials Engineer Name Role Phone Pipe Lizarraga Primary Care Provider Unavailab Sowmya Meredith Unavailable [phone] Allergies No Known Allergies Reason For Referral [...] Problem Acquired hammer toe of right foot (3697037236582558 ) Other hammer toe(s) (acquired), right foot (M20.41) Active confirmed Problem Acquired hammer toe of left foot (2363338910879007 ) Other hammer toe(s) (acquired), left foot (M20.42) Active confirmed Problem Polyneuropathy due to diabetes mellitus type I (050165648) Type 1 diabetes mellitus with diabetic polyneuropathy (E10.42) Active confirmed Problem Polyneuropathy due to type 2 diabetes mellitus (912542747) Type 2 diabetes mellitus with diabetic polyneuropathy (E11.42) Active confirmed Problem Neuropathy (995911953) Neuropathy (G62.9) Active confirmed Vital Signs Blood pressure diastolic 70 mm Hg 05/30/2024 Height 5gv53yh in 05/30/2024 Blood pressure systolic 120 mm Hg 05/30/2024 Weight 235 lbs 05/30/2024 BMI 33.72 kg/m2 05/30/2024 Encounters Encounter Location Date Provider Diagnosis [address] [address] 11/30/2023 Sowmya Truong Type 2 diabetes mellitus with diabetic polyneuropathy E11.42 ; Other hammer toe(s) (acquired), right foot M20.41 ; Other hammer toe(s) (acquired), left foot M20.42 ; Fibroma D21.9 and Tinea unguium B35.[address] [address] 03/07/2024 Sowmya Truong Type 2 diabetes mellitus with diabetic polyneuropathy E11.42 ; Contusion of left great toe without damage to nail, initial encounter S90.112A ; Other hammer toe(s) (acquired), left foot M20.42 ; Fibroma D21.9 ; Tinea unguium B35.1 and Pain in left toe(s) M79.[address] [address] 05/30/2024 Sowmya Truong Neuropathy G62.9 ; Left foot pain M79.672 ; Right foot pain M79.671 ; Type 2 diabetes mellitus with diabetic polyneuropathy E11.42 and Tinea unguium B35.[address] [address] 08/29/2024 Sowmya Dionne Assessments Encounter Date Diagnosis (ICD Code) Assessment [...] - M20.42) 11/30/2023 Fibroma (ICD-10 - D21.9) 03/07/2024 Fibroma (ICD-10 - D21.9) 05/30/2024 Type 2 diabetes mellitus with diabetic polyneuropathy (ICD-10 - E11.42) 05/30/2024 Tinea unguium (ICD-10 - B35.1) 03/07/2024 Tinea unguium (ICD-10 - B35.1) 11/30/2023 Tinea unguium (ICD-10 - B35.1) 03/07/2024 Pain in left toe(s) (ICD-10 - M79.675) Plan Of Treatment Pending Test Test Name Order Date X ray : Foot, left 3V 03/07/2024 Insurance Providers Payer Name Payer Address Payer Phone Subscriber Number Group Number Insured Name Patient Relationship to Insured Coverage Start Date Coverage End Date [facility] [employer] Claims [address] [place] [id number] [phone] [id number] Joseph York Self - patient is the insured Medical (General) History Medical History History ICD Code Diabetic Heart disease High blood pressure Numbness Chicken pox Heart replacement Valves Surgical History Surgery Date(Month/Year) Heart Valve 12/2014 triple bypass 12/2014
--- OUTSIDE RECORDS SUMMARY | 2024-09-30 11:33 | XMS_ITS ---
Author Organization [facility] Address [address] [place] [address] Care Team Providers Care Pressurizer Name Role Phone Pipe Lizarraga Primary Care Provider Unavailab Sowmya Meredith Unavailable [phone] REASON FOR VISIT SD cx 08/29 Encounters Encounter Location Date Provider [facility] [address] [place] [address] 08/29/2024 Sowmya Truong Plan Of Treatment No Information Progress Notes * Joseph YORK LDOB: 4 (59 yo M)Acc No.[id number]:08/29/2024 Patient:?Joseph YORK :1965???Age:59 Y???Sex:Male Address:[address] [address] * true * Date:? Generated for Printi ng/Faxing/eTransmitting on:?09/30/2024 11:32 AM EDT
--- OUTSIDE RECORDS SUMMARY | 2024-09-30 11:33 | XMS_ITS ---
Author Organization [facility] Address [address] [place] [address] Care Team Providers Care Junior Account Manager Name Role Phone Pipe Lizarraga Primary Care Provider Unavailab Sowmya Meredith [phone] Encounters Encounter Location Date Provider Diagnosis [facility] [address] [place] [address] 08/29/2024 Sowmya Truong Plan Of Treatment No Information Progress Notes * Joseph YORK LDOB: 4 (59 yo M)Acc No.[id number]:08/29/2024 Progress Note Patient:?Joseph YORK Ny Provider:?Sowmya Truong DPM :1965???Age:59 Y???Sex:Male Johny e:08/29/2024 Address:[address] [place], [place] [id number] Pcp:Pipe Lizarraga Subjective: * Chief Complaints: * ??? * Medical History:? Objective: * Vitals:? Assessment: Plan: * Treatment: * Images: * The named appointment provid er may or may not be the originator of this progress note, and it is not deemed complete until electronically signed by the appointment provider. Sign off status: Pending * Provider:?Sowmya Truong DPM Date:? Generated for Printi ng/Faxing/eTransmitting on:?09/30/2024 11:32 AM EDT
--- OUTSIDE RECORDS SUMMARY | 2024-09-30 11:33 | XMS_ITS ---
Author Organization [facility] Address [address] [facility] [place] [address] Care Team Providers Care Bmx Rider Name Role Phone Pipe Lizarraga Primary Care Provider Unavailab Sowmya Meredith Unavailable [phone] Allergies No Known Allergies REASON FOR VISIT [...] Status W/U Status Risk Notes Problem Neuropathy (000888970) Neuropathy (G62.9) Active confirmed Vital Signs Height 0yr59if in 05/30/2024 Weight 235 lbs 05/30/2024 BMI 33.72 kg/m2 05/30/2024 Blood pressure systolic 120 mm Hg 05/30/20 24 Blood pressure diastolic 70 mm Hg 024 Encounters Encounter Location Date Provider Diagnosis [facility] [address] [address] 05/30/2024 Sowmya Truong Neuropathy G62.9 ; Left [...] Appt Details Follow Up: 3 Months, Reason: Procedure Notes * Category Sub-Category Detail Notes [...] use of a nail nipper and/or dremel-type pulp grinder, to a more viable healthy nail [...] to maintain effectiveness in symptomatic relief - 99983 Keratoma Treatment Parring or Cutting o f [...] instrumentation by the physician of record - 78760 Progress Notes * MIRIANJoseph LDOB: 4 (59 yo M)Acc No.[id number]:05/30/2024 Progress Note Patient:?Joseph YORK Provider:?Sowmya Truong DPM :1965???Age:59 Y???Sex:Male Johny e:05/30/2024 Address:[address] [place] [address] , [facility] Pcp:Pipe Lizarraga Subjective: * Chief Complaints: * [...] * Allergies:?N.K.D.A.yes[Aller gies Verified] Objective: * Vitals:?Ht: 9rc60jy, Wt:235, BMI:33.72, Shoe size: 11.5, BP:120/70mm Hg, [...] use of a nail nipper and/or dremel-type pulp grinder, to a more viable healthy nail [...] to maintain effectiveness in symptomatic relief - 76416.?Keratoma Treatment:?Parring or Cutting of Benign Hyperkeratotic Lesion(s)?(-57) [...] instrumentation by the physician of record - 89422.? * Procedure Codes:?82602 DEBRI DE NAIL, 6 OR MORE, Modifiers: XS 98341 TRIM SKIN LESIONS, OVER 4, Modifiers: XS [...] Truong DPM Date:? Generated for Raquel freed/Eva/Alejo on:?09/30/2024 11:32 AM EDT History and Physical Notes * HPI (History [...]
[2024-09-30 14:33] LABS: Influenza A PCR NEGATIVE (Negative); Influenza B PCR NEGATIVE (Negative); Resp Syncy Virus RNA Qual PCR NEGATIVE (Negative); SARS COV2 PCR INHOUSE NEGATIVE (Negative)
== END 2024-09-30 11:31 | disposition home or self-care (01) ==
LOC: HO.LAB 11:30
PROVIDERS: Visit Provider Physician Assistant Medical
DX: Z13.89 Encounter for screening for other disorder (principal)
CPT/HCPCS: 0241U; 71046

== ENCOUNTER 2024-09-30 12:07 | Emergency (ER) | payer OTHER, SELFPAY ==
[2024-09-30] VITALS (7 sets, daily range): BP systolic 104–118; BP diastolic 58–83; PULSE 90–135; RESP 16–26; TEMP 36.6–36.9; O2SAT 93–99; BMI 30.1
--- NOTE | 2024-09-30 12:11 | ED_ITS ---
HPI - General Adult General Chief complaint: Upper Respiratory Symptoms Stated complaint: flu like symptoms Time Seen by Provider: 09/30/24 12:26 Source: patient Mode of arrival: ambulatory Limitations: no limitations History of Present Illness ED Provider: Candis Tobin PA-C HPI narrative: 59 yo male with history of asthma-COPD overlap syndrome not on home 02, T2DM, asthma, s/p CABG x3, AAA, presents to the ED due to cough and SOB. He explains he has been coughing with increased green sputum production for 5 days with worsening dyspnea over the past 3 days. He explains he is experiencing chest pain and some diarrhea when coughing. He also reports mild dizziness when bending over that is chronic for him since he had CABG procedure. He reports having a URI approximately 3 weeks ago. He denies fever, nausea, vomiting, or headache. MD complaint: SOB, cough Onset (ago): day(s) (5) Radiation: non-radiation Severity: moderate Quality: constant Pain Consistency: constant Relieving factors: none Exacerbating factors: movement (bending over) Associated symptoms: chest pain (when coughing ), cough (increased green sputum) and shortness of breath Treatments prior to arrival: none Related Data Home Medications ?Medication ?Instructions ?Recorded ?Confirmed aspirin 81 mg tablet,delayed 81 mg PO DAILY 04/24/20 08/04/24 release Previous Rx's ?Medication ?Instructions ?Recorded lancets 28 gauge (FreeStyle #300 ea 04/01/21 Lancets) pen needle, diabetic 32 gauge x #100 ea 09/24/22 (BD Karen 2nd Gen Pen Needle) lidocaine-prilocaine 2.5 %-2.5 % 1 appl topical ONCE pain #30 grams 08/05/23 topical cream alcohol swabs (Alcohol Prep Pads) 1 pad topical .three times a day 11/09/23 DX: E11.9 #200 ea insulin aspart U-100 100 unit/mL 10 unit (0.1 mL) subcut TID 30 11/23/23 (3 mL) subcutaneous pen (Novolog days #9 mL FlexPen U-100 Insulin aspart) lancets #200 ea 12/01/23 blood-glucose meter #1 ea 12/21/23 blood sugar diagnostic (OneTouch #100 ea 03/25/24 Ultra Test strips) hydrochlorothiazide 25 mg tablet 25 mg PO DAILY #90 tabs 04/18/24 lisinopril 5 mg tablet 5 mg PO DAILY #90 tabs 05/01/24 omeprazole 40 mg capsule,delayed 40 mg PO DAILY #90 caps 05/01/24 release isosorbide mononitrate 30 mg 30 mg PO DAILY 90 days #90 tabs 06/19/24 tablet,extended release 24 hr pregabalin 300 mg capsule 300 mg PO BID pain 30 days #60 caps 06/19/24 blood pressure test kit-large #1 ea 06/20/24 lidocaine 5 % topical patch 2 patch topical DAILY pain 30 days 07/10/24 #30 ea tamsulosin 0.4 mg capsule 0.4 mg PO BEDTIME 30 days #30 caps 08/15/24 tramadol 50 mg tablet 50 mg PO Q8H 7 days #21 tabs 08/15/24 rosuvastatin 40 mg tablet (Crestor) 40 mg PO DAILY 90 days #90 tabs 08/16/24 diltiazem HCl 240 mg 240 mg PO DAILY 90 days #90 caps 08/18/24 capsule,extended release 24 hr tirzepatide 7.5 mg/0.5 mL 7.5 mg (0.5 mL) subcut QWEEK 4 08/23/24 subcutaneous pen injector weeks #2 mL (Mounjaro) atomoxetine 60 mg capsule 60 mg PO DAILY 90 days #90 caps 09/19/24 (Strattera) sertraline 100 mg tablet 200 mg (2 x 100 mg) PO DAILY 90 09/19/24 days #180 tabs azithromycin 250 mg tablet See Rx Instructions PO .COMPLEX #6 09/30/24 (Zithromax Z-West) tabs prednisone 10 mg tablets in a dose See Taper PO DAILY #30 ea 09/30/24 pack Allergies Allergy/AdvReac Type Severity Reaction Status Date / Time No Known Allergies Allergy Verified 09/30/24 12:11 Review of Systems 2 Review of Systems: Yes all other systems are reviewed and are negative PMFSH Past Medical History Attestation statement: The following information was validated with the patient. Source: old records reviewed Medical History Renal cyst COVID-19 Obesity Type 2 diabetes mellitus with obesity Asthma-COPD overlap syndrome Coronary artery disease Diabetic neuropathy Surgical History History of herniated intervertebral disc S/P CABG x 3 Family History Family History Father Lung cancer Mother No problems noted. Family/Other Lung cancer Diabetes Social History Social History Housing: House Alcohol intake: current Alcohol intake frequency: holidays/special occasions only Patient Tobacco Use Status: Former Tobacco user Tobacco use type: Cigarette Smoked in Last 30 Days: No e-Cigarette/Vaping Use: Never Used Second Hand Smoke Exposure: No Substance Use Type: Marijuana Advance Directives: No Advance Directives Information Provided: Yes Do you have a plan to hurt others: No Plan service: No Current occupational status: disabled Current occupational exposures/hazards: No Cognitive needs: No Hearing needs: No Vision needs: No Physical Exam ED Vital Signs: Vital Signs - 24 hr 09/30/24 12:11 09/30/24 13:00 09/30/24 13:01 Temperature 97.9 F Pulse Rate 117 H 112 H Respiratory Rate 20 18 Blood Pressure 104/58 L 109/83 Pulse Oximetry 93 93 93 Oxygen Delivery Method Room Air Room Air Room Air 09/30/24 13:33 09/30/24 14:22 Temperature Pulse Rate 90 135 H Respiratory Rate 26 H Blood Pressure Pulse Oximetry 99 Oxygen Delivery Method Room Air BMI result Body Mass Index 30.1 Appearance: Alert. Oriented X3. No acute distress. Head: normocephalic, atraumatic. Eyes: Pupils equal, round and reactive to light. ENT: Pharynx normal. No tonsillar swelling or exudate. Neck: Normal inspection. Neck supple. CVS: tachycardic heart rate and normal rhythm. Pulses normal. Respiratory: No respiratory distress. Bilateral diminished breath sounds. Abdomen: Soft and nontender. +BS x4 Skin: Skin warm and dry. Normal skin color. Normal skin turgor. No rashes. Extremities: No lower extremity edema. No joint swelling. Neuro/psych: Oriented X 3. No motor deficit. No sensory deficit. CN II-XII intact. Normal speech and cognition. Course Course Course Narrative: This is an RME: Additional HPI, ROS, PE not included below will be deferred to primary provider. RME assessment and note performed by: Brandi Fam PA-C This is a 39-hpdl-mfp-male, with a history of COPD, diabetes, and hypertension, who presents to the ER with complaints of chest tightness, shortness of breath, cough, diarrhea. Reports he had a cold about 1.5 weeks ago, felt his symptoms improve for several days and worsened 4 days ago. Went to the [place] walk in and had an xray which shows mild central bronchial wall thickening, no airspace disease. Patient to be brought back to the main emergency department as oxygen saturation fluctuating between 89 and 93. Plan: labs, ekg, viral swabs, further ER eval needed Medications Administered Discontinued Medications Generic Name Dose Route Start Last Admin Trade Name Freq PRN Reason Stop Dose Admin Albuterol Sulfate 5 mg/ 0 mg 09/30/24 13:29 09/30/24 13:33 Albuterol/Ipratropium 3 ml INHALE 09/30/24 13:30 1 each ONCE ONE Administration Medical Decision Making Medical Decision Making MDM Narrative: 59 yo male with history of asthma-COPD overlap syndrome not on home 02, T2DM, asthma, s/p CABG x3, AAA, presents to the ED due to cough and SOB. He explains he has been coughing with increased green sputum production for 5 days with worsening dyspnea over the past 3 days. He explains he is experiencing chest pain and some diarrhea when coughing. He also reports mild dizziness when bending over that is chronic for him since he had CABG procedure. He reports having a URI approximately 3 weeks ago. He denies fever, nausea, vomiting, or headache. Patients vital signs reveal a tachycardic rate at 117 bpm with a low BP of 104/58. Is in no acute distress and is non-toxic appearing. Labs reveal elevated WBC count at 12.9, elevated BUN at 23 upon chart review appears to be around his baseline value. Covid/flu/RSV swabs negative. Patient had unremarkable outpatient x-ray done today. Patient had 7.5mg DuoNeb and tolerated treatment well. Heart rate improved after treatment is now [address]PM[address] with no ST elevations/depressions or T wave abnormalities no concern for ischemia, troponin within normal limits, ACS unlikley. Course 14:34- Patient improved after initial DuoNeb treatment. on physical exam lung sounds coarse with scattered wheezes. Improved aeration but opened some wheezing. He feels overall better after treatment. Trial walking O2 sats stable at 99% on room air after ambulation, heart rate tachycardic at 135 BPM, which recovered to 110s with rest. no distress. at this time comfortable with discharge home with tx for acute bronchitis/copd exacerbation w/ abx and steroids. advised to use albuterol inhaler and take mucinex. return precautions were discussed. pt agrees w/ plan and will return w/ any new or worsening symptoms. Differential Diagnosis Differential Diagnoses: The differential diagnosis associated with the presentation includes ACS, viral illness, COPD/asthma exacerbation, CHF exacerbation, pneumonia, bronchitis, low suspicion for PE or AAA Admission/Observation Consideration of admission/observation: Escalation of care including admission/observation considered Lab Data MDM Lab Attestation statement: I reviewed the patient's lab results. mild leukocytosis 09/30/24 12:52 09/30/24 12:52 Labs: Lab Results 09/30/24 Range/Units 12:52 WBC 12.9 H (4.8-10.8) X10*3/uL RBC 5.19 (4.60-5.80) X10*6/uL Hgb 14.3 (14.0-18.0) g/dl Hct 42.4 (42.0-52.0) % MCV 81.7 (80.0-98.0) fL MCH 27.6 (27.0-33.0) pg MCHC 33.7 (31.0-36.0) g/dl RDW 13.8 (11.0-16.0) % Plt Count 239 (160-400) X10*3/uL MPV 10.6 (9.4-12.4) fL Immature Gran % (Auto) 0.5 H (0.0-0.4) % Neut % (Auto) 84.9 H (45-73) % Lymph % (Auto) 5.4 L (20-40) % Avery % (Auto) 8.8 (2-11) % Eos % (Auto) 0.2 (0-4) % Baso % (Auto) 0.2 (0-2) % Lymph # (Auto) 0.7 L (1.2-4.9) X10*3/uL Avery # (Auto) 1.1 (0.1-1.2) X10*3/uL Eos # (Auto) 0.0 (0.0-0.4) X10*3/uL Baso # (Auto) 0.0 (0.0-0.2) X10*3/uL Abs Immat Gran (auto) 0.07 H (0.00-0.03) X10*3/uL Absolute Neuts (auto) 11.0 H (2.0-8.3) x10*3/uL Absolute Nucleated RBC 0.000 (0.0-0.012) X10*3/uL Nucleated RBC % (auto) 0.0 (0.0-0.2) /100WBC Sodium 135 (135-145) mmol/L Potassium 3.8 (3.3-5.1) mmol/L Chloride 96 (96-108) mmol/L Carbon Dioxide 24 (22-29) mmol/L Anion Gap 19 (12-20) BUN 23 H (9-16) mg/dL Creatinine 1.22 (0.5-1.4) mg/dL Estim Creat Clear Calc 72.2 Estimated GFR > 60 Random Glucose 129 H (60-115) mg/dL Calcium 10.0 (8.4-10.2) mg/dL Magnesium 1.9 (1.6-2.6) mg/dL Total Bilirubin 0.7 (0.0-1.0) mg/dL Direct Bilirubin 0.4 (0.0-0.5) mg/dL AST 34 (5-37) U/L ALT 27 (0-40) U/L Alkaline Phosphatase 86 (39-117) U/L Troponin I High Sens < 2.7 (<3.5-35.0) ng/L B-Natriuretic Peptide < 10 (<100) pg/mL Total Protein 8.0 (6.5-8.0) g/dL Albumin 4.5 (3.5-5.0) g/dL Influenza Type A (PCR) NEGATIVE (Negative) Influenza Type B (PCR) NEGATIVE (Negative) RSV RNA Qual (PCR) NEGATIVE (Negative) SARS-CoV-2 RNA (RT-PCR) NEGATIVE (Negative) Independent Interpretation I performed an independent interpretation of an: EKG and Plain X-Ray Interpretation: cxr w/ increased vascular markings on the left, no focal infiltrate ekg w/ sinus tachycardia, vent rate 111, normal NE interval, normal QTc, no ST segment elevations or depressions Radiology Impression Discussion of test interpretation with radiology: I have reviewed the radiologist's reading. Radiologist Impression: Impression: 1. Mild central bronchial wall thickening. 2. No airspace disease. This document has been electronically signed by: Elmo Guan MD on 09/30/2024 12:08:03 Independent Historian Clinical information obtained from an independent historian. History obtained from or confirmed by: Spouse External Record Review External record reviewed: Inpatient record and Outpatient record Prescription Management I considered prescription management with: Other (7.5mg DuoNeb) Chronic Conditions Patient?s care impacted by: Other (COPD/asthma) Discharge Plan Discharge Clinical Impression: Bronchitis, Acute exacerbation of chronic obstructive pulmonary disease (COPD) Patient Disposition: Home, Self-Care Instructions: Acute Bronchitis (ED), COPD (Chronic Obstructive Pulmonary Disease) (ED) Additional Instructions: You were evaluated today in the ED for shortness of breath and cough with increased phlegm production. You labs were normal. The X-ray you had done today did not find any abnormalities. Please follow up with your primary care provider to ensure your improvement. 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 Prescriptions: New prednisone 10 mg tablets,dose pack See Taper PO DAILY Qty: 30 0RF Taper: Prednisone 40 mg daily for 3 Days and 0 Hour 30 mg daily for 3 Days and 0 Hour 20 mg daily for 3 Days and 0 Hour 10 mg daily for 3 Days and 0 Hour Rx Instructions: 40 mg Daily x3 days, 30 mg daily x3 days, 20 mg daily x3 days, 10 mg daily x3 days azithromycin [Zithromax Z-West] 250 mg tablet See Rx Instructions PO .COMPLEX Qty: 6 0RF Rx Instructions: take 500 mg today (day 1), then 250 mg for 4 days (days 2-5) No Action (DME) lancets [FreeStyle Lancets] 28 gauge misc See Rx Instructions .Route Qty: 300 8RF Rx Instructions: three times a day alcohol swabs [Alcohol Prep Pads] Pads, Medicated 1 pad topical .three times a day Qty: 200 0RF insulin aspart U-100 [Novolog FlexPen U-100 Insulin] 100 unit/mL (3 mL) insulin pen 10 unit subcut TID 30 Days Qty: 9 6RF Rx Instructions: Via sliding scale 10 units maximum (DME) lancets Misc See Rx Instructions .Route Qty: 200 1RF Rx Instructions: Testing 3 times a day (DME) blood-glucose meter Kit See Rx Instructions .Route Qty: 1 0RF Rx Instructions: As directed (DME) OneTouch Ultra Test Strip See Rx Instructions .Route Qty: 100 3RF Rx Instructions: Testing 3 times a day hydrochlorothiazide 25 mg tablet 25 mg PO DAILY Qty: 90 1RF lisinopril 5 mg tablet 5 mg PO DAILY Qty: 90 1RF omeprazole 40 mg capsule,delayed release(DR/EC) 40 mg PO DAILY Qty: 90 3RF lidocaine 5 % adhesive patch,medicated 2 patch topical DAILY 30 Days Qty: 30 3RF tramadol 50 mg tablet 50 mg PO Q8H 7 Days Qty: 21 1RF rosuvastatin [Crestor] 40 mg tablet 40 mg PO DAILY 90 Days Qty: 90 1RF diltiazem HCl 240 mg capsule,extended release 24hr 240 mg PO DAILY 90 Days Qty: 90 1RF Mounjaro 7.5 mg/0.5 mL pen injector 7.5 mg subcut QWEEK 28 Days Qty: 2 3RF aspirin 81 mg tablet,delayed release (DR/EC) 81 mg PO DAILY (DME) pen needle, diabetic [BD Karen 2nd Gen Pen Needle] 32 gauge x 5/32 needle See Rx Instructions .Route Qty: 100 3RF Rx Instructions: As directed atomoxetine [Strattera] 60 mg capsule 60 mg PO DAILY 90 Days Qty: 90 1RF sertraline 100 mg tablet 200 mg PO DAILY 90 Days Qty: 180 1RF (DME) blood pressure test kit-large Kit See Rx Instructions .Route Qty: 1 0RF Rx Instructions: As directed lidocaine-prilocaine 2.5-2.5 % cream 1 appl topical ONCE Qty: 30 3RF Rx Instructions: Apply to both clean feet 15-30 min prior to Qutenza procedure isosorbide mononitrate 30 mg tablet extended release 24 hr 30 mg PO DAILY 90 Days Qty: 90 2RF pregabalin 300 mg capsule 300 mg PO BID 30 Days Qty: 60 3RF tamsulosin 0.4 mg capsule 0.4 mg PO BEDTIME 30 Days Qty: 30 3RF Referrals: [facility] [Provider Group] (copd exac) Pipe Lizarraga PA-C [Primary Care Provider] - Print Language: Azeri
--- NOTE | 2024-09-30 12:14 | ECG_ITS ---
Test Reason : SOB Blood Pressure : */* mmHG Vent. Rate : 111 BPM Atrial Rate : 111 BPM P-R Int : 156 ms QRS Dur : 88 ms QT Int : 336 ms P-R-T Axes : 76 100 61 degrees QTcB Int : 456 ms Sinus tachycardia Possible Left atrial enlargement Rightward axis Borderline ECG When compared with ECG of 13-Sep-2022 16:35, No significant change was found Referred By: Brandi Fam Electronically Signed By: LINDA SCHMITZ MD
[2024-09-30 12:56] LABS: MANUAL DIFF FLAG NO
[2024-09-30 12:59] LABS: Basophils Percent Auto 0.2 % (0-2); Eosinophils Percent Auto 0.2 % (0-4); Hematocrit 42.4 % (42.0-52.0); Hemoglobin 14.3 g/dl (14.0-18.0); Imm Gran Abs Auto 0.07 X10*3/uL (0.00-0.03); Imm Gran Pct Auto 0.5 % (0.0-0.4); Lymphocytes Absolute Auto 0.7 X10*3/uL (1.2-4.9); Lymphocytes Percent Auto 5.4 % (20-40); Mean Corpuscular HGB Conc 33.7 g/dl (31.0-36.0); Mean Corpuscular Hemoglobin 27.6 pg (27.0-33.0); Mean Corpuscular Volume 81.7 fL (80.0-98.0); Mean Platelet Volume 10.6 fL (9.4-12.4); Monocytes Absolute Auto 1.1 X10*3/uL (0.1-1.2); Monocytes Percent Auto 8.8 % (2-11); Neutrophils Percent Auto 84.9 % (45-73); Platelet Count 239 X10*3/uL (160-400); Red Blood Count 5.19 X10*6/uL (4.60-5.80); Red Cell Distribution Width 13.8 % (11.0-16.0); White Blood Count 12.9 X10*3/uL (4.8-10.8)
[2024-09-30 13:22] LABS: B Type Natriuretic Peptide < 10 pg/mL (<100); Troponin-I High Sensitivity < 2.7 ng/L (<3.5-35.0)
[2024-09-30 13:25] LABS: Alanine Aminotransferase 27 U/L (0-40); Albumin Level 4.5 g/dL (3.5-5.0); Alkaline Phosphatase 86 U/L (39-117); Anion Gap 19 (12-20); Aspartate Amino Transferase 34 U/L (5-37); Bilirubin Direct 0.4 mg/dL (0.0-0.5); Bilirubin Total 0.7 mg/dL (0.0-1.0); Blood Urea Nitrogen 23 mg/dL (9-16); Carbon Dioxide 24 mmol/L (22-29); Chloride 96 mmol/L (96-108); Creatinine Clr Calc Pharmacy 72.2; Estimated Glomerular Filt Rate > 60; Glucose Random 129 mg/dL (60-115); Magnesium 1.9 mg/dL (1.6-2.6); Potassium 3.8 mmol/L (3.3-5.1); Sodium 135 mmol/L (135-145)
[2024-09-30] MEDS: Albuterol Sulfate 5 MG, Albuterol/Iprat 2.5/0.5MG 3 ML 3 ML INHALE (13:33)
[2024-09-30 13:43] LABS: Influenza A PCR NEGATIVE (Negative); Influenza B PCR NEGATIVE (Negative); Resp Syncy Virus RNA Qual PCR NEGATIVE (Negative); SARS COV2 PCR INHOUSE NEGATIVE (Negative)
== END 2024-09-30 15:08 | disposition home or self-care (01) ==
PROVIDERS: Physician Assistant; Physician Assistant Medical; Emergency Provider Emergency Medicine; PCP Physician Assistant
DX: J44.1 Chronic obstructive pulmonary disease with (acute) exacerbation (principal); R06.02 Shortness of breath; R05.9 Cough, unspecified; R42 Dizziness and giddiness; R19.7 Diarrhea, unspecified; E11.9 Type 2 diabetes mellitus without complications; Z03.818 Encounter for observation for suspected exposure to other biological agents ruled out
CPT/HCPCS: 0241U; 36415; 71046; 80048; 80076; 83735; 83880; 84484; 85025; 93005; 94640; 99284; 99285

== ENCOUNTER → 2024-09-30 12:14 | Outpatient (BNV) | payer OTHER, SELFPAY | PROVIDERS: Emergency Provider Emergency Medicine; PCP Physician Assistant; Visit Provider Internal Medicine Cardiovascular Disease | DX: R00.0 Tachycardia, unspecified (principal) | CPT/HCPCS: 93010 ==

== ENCOUNTER 2024-10-05 11:31 | Outpatient (AMB) | payer OTHER, SELFPAY ==
[2024-10-05 11:34] VITALS: BP 96/72; PULSE 92; TEMP 36.2; O2SAT 97; BMI 29.9
--- NOTE | 2024-10-05 11:34 | MHC.PC.OV ---
Vital Signs 10/05/24 11:34 Height 5 ft 9 in Weight 202 lb 6 oz BMI 29.9 BP 96/72 Blood Pressure Location Lt brachial Position Sitting Pulse 92 Pulse Source Pulse Oximeter Temp 97.1 F Temp Source Temporal Artery Scan Pulse Oximetry (%) 97 Oxygen Delivery Method Room Air Intake Visit Reasons: [facility], cold, flu symptoms,low bp Gauge Operator Required: No Accompanied by: Self / Same As Patient Allergies No Known Allergies Allergy (Verified 10/05/24 11:45) Medication List - Last Reconciled 10/05/24 by Pipe Lizarraga PA-C alcohol swabs (Alcohol Prep Pads) 1 pad topical .three times a day aspirin 81 mg PO DAILY atomoxetine (Strattera) 60 mg PO DAILY 90 days azithromycin (Zithromax Z-West) take 500 mg today (day 1), then 250 mg for 4 days (days 2-5) blood pressure test kit-large As directed blood sugar diagnostic (OneTouch Ultra Test strips) Testing 3 times a day blood-glucose meter As directed diltiazem HCl CD 240 mg PO DAILY 90 days hydrochlorothiazide 25 mg PO DAILY insulin aspart U-100 (Novolog FlexPen U-100 Insulin aspart) 10 units (0.1 mL) subcut TID 30 days isosorbide mononitrate ER 30 mg PO DAILY 90 days lancets Testing 3 times a day lancets (FreeStyle Lancets) three times a day lidocaine 5% 2 patches topical DAILY 30 days lidocaine-prilocaine 2.5-2.5 % 1 appl topical ONCE lisinopril 5 mg PO DAILY omeprazole 40 mg PO DAILY pen needle, diabetic (BD Karen 2nd Gen Pen Needle) As directed prednisone See Taper mg PO DAILY pregabalin 300 mg PO BID 30 days rosuvastatin (Crestor) 40 mg PO DAILY 90 days sertraline 200 mg (2 x 100 mg) PO DAILY 90 days tamsulosin 0.4 mg PO BEDTIME 30 days tirzepatide (Mounjaro) 7.5 mg (0.5 mL) subcut QWEEK 4 weeks tramadol 50 mg PO Q8H 7 days Tobacco use date assessed: 06/19/24 Dental Screening Dental Screen Date: 06/19/24 HPI [facility], cold, flu symptoms,low bp HPI Details Patient is a 59-year-old male here today for a [facility] follow-up visit. Was seen at the [facility] for acute shortness of breath cough and fatigue. His labs are all essentially normal, chest x-ray showing evidence of bronchitis, viral testing negative for flu RSV and COVID. Patient underwent treatment with DuoNebs in the ER though with improvement. He was sent home with prednisone taper and azithromycin for acute COPD exacerbation. CHRONIC MEDICAL CONDITIONS--> Diabetes--> patient's type 2 diabetes has been much better controlled lately. He reports being much better with his diet. Unfortunately continues with what seems to be diabetic neuropathy versus a lumbar spine issue. He continues on Lyrica 300 b.i.d. which he reports his effective form. He is not interested in any further back surgery. --> DEPRESSION--> patient now followed by psychiatrist and started on higher dose of sertraline and Effexor. He feels that his mood and depression her much better. .. CAD:? 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 ?Has had multiple coronary bypasses in the past. Most recent lipid panel showing excellent control over his total cholesterol and LDL. .. COPD: IS followed by Dr Cedillo , reports his pulmonary status has been stable. . Laboratory Tests 03/22/21 09/13/22 12/04/23 10:32 16:42 07:57 WBC Hgb Neut % (Auto) 76.3 H Creatinine Random Glucose Fasting Glucose 188 H Hgb A1c (Clinic) Troponin I High Se ns LDL Cholesterol, C alc PSA Screen Urine Microalbumin 24.0 03/13/24 06/17/24 09/30/24 09:47 08:57 12:52 WBC 12.9 H Hgb 14.3 Neut % (Auto) 84.9 H Creatinine 0.88 1.22 Random Glucose 129 H Fasting Glucose 139 H Hgb A1c (Clinic) 7.0 H Troponin I High Se ns < 2.7 LDL Cholesterol, C alc 48 PSA Screen 0.47 Urine Microalbumin 84.0 PFSH Medical History Renal cyst COVID-19 Obesity Type 2 diabetes mellitus with obesity Asthma-COPD overlap syndrome Coronary artery disease Diabetic neuropathy Surgical History History of herniated intervertebral disc S/P CABG x 3 Family History Father Lung cancer Mother No problems noted. Family/Other Lung cancer Diabetes Social History Housing: House Alcohol intake: current Alcohol intake frequency: holidays/special occasions only Patient Tobacco Use Status: Former Tobacco user Tobacco use type: Cigarette e-Cigarette/Vaping Use: Never Used Second Hand Smoke Exposure: No Substance Use Type: Marijuana service: No Current occupational status: disabled Current occupational exposures/hazards: No Cognitive needs: No Hearing needs: No Vision needs: No Questionnaire Thrive Questionnaire Date Thrive assessed: 06/19/24 LISA-7 AMB Questionnaire LISA-7 Date LISA - 7 assessed: 06/19/24 Source: Developed by Drs. Danny Milian, May Zapata, Melo Meier and colleagues, with an educational carlos eduardo from [employer]. Review of Systems Const Denies headache(s) Eyes Denies loss of vision ENT Denies vertigo, Denies dizziness, Denies headache(s) and Denies sore throat Card Denies chest pain, Denies leg edema and Denies lightheadedness Resp Reports cough, Denies hemoptysis and Denies wheezing GI Denies abdominal pain, Denies melena, Denies constipation, Denies diarrhea and Denies vomiting Denies dysuria, Denies urinary frequency and Denies urinary urgency Musc Denies arthralgias, Denies joint swelling, Denies numbness and Denies tingling Neuro Denies Abnormal speech present, Denies behavioral changes, Denies vertigo, Denies dizziness, Denies headache(s), Denies loss of vision, Denies memory loss, Denies numbness and Denies tingling Psych Denies anxiety, Denies behavioral changes, Denies depression, Denies memory loss and Denies panic attacks Abdirahman/Lymph Denies easy bleeding and Denies easy bruising Aller/Immun Denies wheezing Physical exam (Primary Care) Vital Signs: Last Vital Signs Temp 97.1 F 10/05/24 11:34 Pulse 92 10/05/24 11:34 BP 96/72 10/05/24 11:34 Pulse Ox 97 04/24/25 11:34 Oxygen Delivery Method Room Air 10/05/24 11:34 BMI result Body Mass Index 29.9 Tobacco/Smoking Status: Tobacco use Status Tobacco use date assessed 06/19/24 10/05/24 11:35 Patient Tobacco Use Status Former Tobacco user 10/05/24 11:35 Tobacco use type Cigarette 10/05/24 11:35 e-Cigarette/Vaping Use Never Used 10/05/24 11:35 Thrive Assessment: Date of Thrive Assessment Date Thrive assessed 06/19/24 10/05/24 11:35 Const General: healthy appearing, no acute distress, alert and awake Nutritional Appearance: well nourished Orientation/consciousness: oriented to person, oriented to place and oriented to time HENMT Ears: TM's normal bilaterally General nose exam: Normal nasal mucous membranes and turbinates present Eyes Conjunctivae: conjunctivae normal Sclerae: sclerae normal Pupils: Equal, round and reactive pupils present Neck Neck: Yes no lymphadenopathy and Yes no JVD Thyroid: Thyroid normal Carotids: no bruits Resp Effort & Inspection: normal respiratory effort and not tachypneic Auscultation: no crackles, rales, rhonchi and no wheezes Cardio Rate: regular rate Rhythm: regular rhythm Heart sounds: no murmurs and normal S1 and S2 GI Palpation (GI): Soft to palpation, nontender, no hepatomegaly and no splenomegaly Auscultation: normal bowel sounds Skin General skin exam: no rashes or lesions noted and dry skin Neuro General: oriented to person, oriented to place and oriented to time Cranial nerves: Yes Equal, round and reactive pupils present Speech: No Abnormal speech present Gait exam (Neuro): Normal gait present Motor exam (neuro): no tremor noted Extrem Right upper extremity: full ROM Left upper extremity: full ROM Right lower extremity: full ROM; no edema Left lower extremity: full ROM; no edema Psych Mental Status: mental status grossly normal Speech and movement: Normal speech and movement present Affect: normal affect Attitude: cooperative Thought process: Normal thought process present Coding Level of Care Code Est Pt Level 4 (50613) Diagnoses COPD with exacerbation J44.1 Hypotension due to drugs I95.2 Hypotension type: hypotension due to drug MDD (major depressive disorder), recurrent episode, moderate F33.1 Type 2 diabetes mellitus with obesity E11.69; E66.9 Coronary artery disease involving [place] coronary artery of [place] heart without angina pectoris I25.10 Associated angina: without angina Coronary Disease-Associated Artery/Lesion type: [place] artery [place] vs. transplanted heart: [place] heart Infrarenal abdominal aortic aneurysm, without rupture I71.43 Erectile disorder due to medical condition in male N52.1 Assessment & Plan Assessment & Plan (1) COPD with exacerbation: Code(s): J44.1 - Chronic obstructive pulmonary disease with (acute) exacerbation Category: Medical Plan: Patient recently underwent evaluation at the ER for COPD exacerbation. X-ray did show evidence of bronchitis. He is now on prednisone and azithromycin and clinically improving. (2) Hypotension: Code(s): I95.9 - Hypotension, unspecified Category: Medical Qualifiers: Hypotension type: hypotension due to drug Qualified Code(s): I95.2 - Hypotension due to drugs Plan: Patient noted to have low blood pressures as of late. Some concern here for polypharmacy He is on 5 different medication that have antihypertensive properties. Will hold off on his diltiazem been advised patient to regularly monitor his blood pressure with goal blood pressure to be above 100/60 in below 140/90 (3) MDD (major depressive disorder), recurrent episode, moderate: Code(s): F33.1 - Major depressive disorder, recurrent, moderate Category: Medical Plan: Patient is seeing a psychiatrist reports he is doing much better from mental health point of view. He has been started on Strattera which has been helping his attention and focus. (4) Type 2 diabetes mellitus with obesity: Code(s): E11.69 - Type 2 diabetes mellitus with other specified complication; E66.9 - Obesity, unspecified Category: Medical Plan: Patient's type 2 diabetes now well controlled with current diabetic med regime. Continues on monitor 07.5 mg and Actos. He reports he has not been having to use preprandial insulin due to his glucose control. Goal A1c is to remain below 7.0. Will consider discontinuing Actos at next visit (5) CAD (coronary artery disease): Code(s): I25.10 - Atherosclerotic heart disease of [place] coronary artery without angina pectoris Category: Medical Qualifiers: Associated angina: without angina Coronary Disease-Associated Artery/Lesion type: [place] artery [place] vs. transplanted heart: [place] heart Qualified Code(s): I25.10 - Atherosclerotic heart disease of [place] coronary artery without angina pectoris Plan: Continues to follow cardiology. Most recent lipid panel showing excellent control of his total cholesterol and LDL. (6) Infrarenal abdominal aortic aneurysm, without rupture: Code(s): I71.43 - Infrarenal abdominal aortic aneurysm, without rupture Category: Medical Plan: Followed by [facility]. He is under surveillance. (7) Erectile disorder due to medical condition in male: Code(s): N52.1 - Erectile dysfunction due to diseases classified elsewhere Category: Medical Plan: Patient continues to experience erectile dysfunction which could be related to his type 2 diabetes and atherosclerosis. He is willing to try low-dose tadalafil before sexual activity. Medications: New tadalafil 5 mg PO DAILY 4 tabs 0RF 4 days E11.69 - Type 2 diabetes mellitus with other specified complication, N52.1 - Erectile dysfunction due to diseases classified elsewhere benzonatate 200 mg PO TID PRN 15 caps 0RF cough 5 days J44.1 - Chronic obstructive pulmonary disease with (acute) exacerbation, R05.9 - Cough, unspecified Refilled blood-glucose meter As directed 1 ea 0RF E11.69 - Type 2 diabetes mellitus with other specified complication, E66.9 - Obesity, unspecified blood pressure test kit-large As directed 1 ea 0RF I10 - Essential (primary) hypertension, I25.10 - Atherosclerotic heart disease of [place] coronary artery without angina pectoris On Hold diltiazem HCl CD Hold Comment: Doctor's Order 240 mg PO DAILY 90 days 90 caps 1RF I25.10 - Atherosclerotic heart disease of [place] coronary artery without angina pectoris
--- OUTSIDE RECORDS SUMMARY | 2024-10-05 13:50 | XMS_ITS ---
Author Organization [facility] Address [address] [place] [address] Care Team Providers Care Slate Picker Name Role Phone Pipe Lizarraga Primary Care Provider Unavailab Sowmya Meredith [phone] Encounters Encounter Location Date Provider Diagnosis [facility] [address] [place] [address] 08/29/2024 Sowmya Truong Plan Of Treatment No Information Progress Notes * Joseph YORK LDOB: 4 (59 yo M)Acc No.[id number]:08/29/2024 Progress Note Patient:?Joseph YORK Ny Provider:?Sowmya Truong DPM :1965???Age:59 Y???Sex:Male Johny e:08/29/2024 Address:[address] [place], [place] [id number] Pcp:Pipe Lizarraga Subjective: * Chief Complaints: * ??? * Medical History:? Objective: * Vitals:? Assessment: Plan: * Treatment: * Images: * The named appointment provid er may or may not be the originator of this progress note, and it is not deemed complete until electronically signed by the appointment provider. Sign off status: Pending * Provider:?Sowmya Truong DPM Date:? Generated for Printi ng/Faxing/eTransmitting on:?10/05/2024 01:50 PM EDT
--- OUTSIDE RECORDS SUMMARY | 2024-10-05 13:50 | XMS_ITS ---
Author Organization [facility] Address [address] [place] [address] Care Team Providers Care Forge Utility Worker Name Role Phone Pipe Lizarraga Primary Care Provider Unavailab Sowmya Meredith Unavailable [phone] REASON FOR VISIT SD cx 08/29 Encounters Encounter Location Date Provider Diagnosis [facility] [address] [place] [address] 08/29/2024 Sowmya Truong Plan Of Treatment No Information Progress Notes * Joseph YORK LDOB: 4 (59 yo M)Acc No.[id number]:08/29/2024 Patient:?Joseph YORK :1965???Age:59 Y???Sex:Male Address:[address] [address] * true * Date:? Generated for Printi ng/Faxing/eTransmitting on:?10/05/2024 01:50 PM EDT
--- OUTSIDE RECORDS SUMMARY | 2024-10-05 13:51 | XMS_ITS ---
Author Organization [facility] Address [address] [facility] [place] [address] Care Team Providers Care Shore Worker Name Role Phone Pipe Lizarraga Primary Care Provider Unavailab Sowmya Meredith Unavailable [phone] Allergies No Known Allergies REASON FOR VISIT [...] Status W/U Status Risk Notes Problem Neuropathy (654318360) Neuropathy (G62.9) Active confirmed Vital Signs Height 4so05rs in 05/30/2024 Weight 235 lbs 05/30/2024 BMI 33.72 kg/m2 05/30/2024 Blood pressure systolic 120 mm Hg 05/30/20 24 Blood pressure diastolic 70 mm Hg 024 Encounters Encounter Location Date Provider Diagnosis [facility] [address] [address] 05/30/2024 oSwmya Truong Neuropathy G62.9 ; Left foot pain [...] use of a nail nipper and/or dremel-type broach grinder, to a more viable healthy nail [...] to maintain effectiveness in symptomatic relief - 92736 Keratoma Treatment Parring or Cutting o f [...] instrumentation by the physician of record - 80166 Progress Notes * MIRIANJoseph LDOB: 4 (59 yo M)Acc No.[id number]:05/30/2024 Progress Note Patient:?Joseph YORK Provider:?Sowmya Truong DPM :1965???Age:59 Y???Sex:Male Johny e:05/30/2024 Address:[address] [place] [address] , [facility] Pcp:Pipe Lizarraga Subjective: * Chief Complaints: * [...] * Allergies:?N.K.D.A.yes[Aller gies Verified] Objective: * Vitals:?Ht: 0tx18fq, Wt:235, BMI:33.72, Shoe size: 11.5, BP:120/70mm Hg, [...] use of a nail nipper and/or dremel-type broach grinder, to a more viable healthy nail [...] to maintain effectiveness in symptomatic relief - 79699.?Keratoma Treatment:?Parring or Cutting of Benign Hyperkeratotic Lesion(s)?(-57) [...] instrumentation by the physician of record - 09155.? * Procedure Codes:?15486 DEBRI DE NAIL, 6 OR MORE, Modifiers: XS 41756 TRIM SKIN LESIONS, OVER 4, Modifiers: XS [...] Truong DPM Date:? Generated for Raquel freed/Eva/Alejo on:?10/05/2024 01:50 PM EDT History and Physical Notes * HPI [...]
--- OUTSIDE RECORDS SUMMARY | 2024-10-05 13:51 | XMS_ITS | Patient Health Record ---
Author [facility] Address [address] [facility] [place] [address] Care Team Providers Care Drug Abuse Treatment Specialist Name Role Phone Pipe Lizarraga Primary Care Provider Unavailab Sowmya Meredith Unavailable [phone] Allergies No Known Allergies Reason For Referral [...] Problem Acquired hammer toe of right foot (7881588497973725 ) Other hammer toe(s) (acquired), right foot (M20.41) Active confirmed Problem Acquired hammer toe of left foot (6521842052289330 ) Other hammer toe(s) (acquired), left foot (M20.42) Active confirmed Problem Polyneuropathy due to diabetes mellitus type I (563614820) Type 1 diabetes mellitus with diabetic polyneuropathy (E10.42) Active confirmed Problem Polyneuropathy due to type 2 diabetes mellitus (073899794) Type 2 diabetes mellitus with diabetic polyneuropathy (E11.42) Active confirmed Problem Neuropathy (698967932) Neuropathy (G62.9) Active confirmed Vital Signs Blood pressure diastolic 70 mm Hg 05/30/2024 Height 0fy92wa in 05/30/2024 Blood pressure systolic 120 mm Hg 05/30/2024 Weight 235 lbs 05/30/2024 BMI 33.72 kg/m2 05/30/2024 Encounters Encounter Location Date Provider Diagnosis [address] [address] 11/30/2023 Sowmya Truong Type 2 diabetes mellitus with diabetic polyneuropathy E11.42 ; Other hammer toe(s) (acquired), right foot M20.41 ; Other hammer toe(s) (acquired), left foot M20.42 ; Fibroma D21.9 and Tinea unguium B35.[address] [address] 03/07/2024 Sowmya Truong Type 2 diabetes mellitus with diabetic polyneuropathy E11.42 ; Contusion of left great toe without damage to nail, initial encounter S90.112A ; Other hammer toe(s) (acquired), left foot M20.42 ; Fibroma D21.9 ; Tinea unguium B35.1 and Pain in left toe(s) M79.[address] [address] 05/30/2024 Sowmya Truong Neuropathy G62.9 ; Left foot pain M79.672 ; Right foot pain M79.671 ; Type 2 diabetes mellitus with diabetic polyneuropathy E11.42 and Tinea unguium B35.[address] [address] 08/29/2024 Sowmya Dionne Assessments Encounter Date Diagnosis [...] Coverage Start Date Coverage End Date [facility] [employer] Claims [address] [place] [phone] [id number] Joseph York Self - patient is the insured Medical (General) History Medical History History ICD Code Diabetic Heart disease High blood pressure Numbness Chicken pox Heart replacement Valves Surgical History Surgery Date(Month/Year) Heart Valve 12/2014 triple bypass 12/2014
== END 2024-10-05 12:09 | disposition home or self-care (01) ==
LOC: HO.HMCH 11:32
PROVIDERS: PCP Physician Assistant; Visit Provider Physician Assistant
DX: J44.1 Chronic obstructive pulmonary disease with (acute) exacerbation (principal); F33.1 Major depressive disorder, recurrent, moderate; E11.69 Type 2 diabetes mellitus with other specified complication; Z68.29 Body mass index [BMI] 29.0-29.9, adult; E66.9 Obesity, unspecified; I95.2 Hypotension due to drugs; I25.10 Atherosclerotic heart disease of native coronary artery without angina pectoris; I71.43 Infrarenal abdominal aortic aneurysm, without rupture; N52.1 Erectile dysfunction due to diseases classified elsewhere

== ENCOUNTER → 2024-10-05 11:31 | Outpatient (BNVA) | payer OTHER, SELFPAY | PROVIDERS: PCP Physician Assistant; Visit Provider Physician Assistant | DX: E11.69 Type 2 diabetes mellitus with other specified complication (principal); I25.10 Atherosclerotic heart disease of native coronary artery without angina pectoris; R07.9 Chest pain, unspecified; J44.1 Chronic obstructive pulmonary disease with (acute) exacerbation; I95.2 Hypotension due to drugs; F33.1 Major depressive disorder, recurrent, moderate; E66.9 Obesity, unspecified; I71.43 Infrarenal abdominal aortic aneurysm, without rupture; N52.1 Erectile dysfunction due to diseases classified elsewhere; Z68.29 Body mass index [BMI] 29.0-29.9, adult | CPT/HCPCS: 99212 ==

== ENCOUNTER 2024-10-25 10:29 | Outpatient (REF) | payer OTHER, SELFPAY ==
--- NOTE | ~2024-10-25 | US_ITS ---
CLINICAL HISTORY: I71.43 - Infrarenal abdominal aortic aneurysm, without rupture US Abdomen (AAA) Comparison: US - US RETROPERITONEAL COMP - 07/24/24 11:30 EST US/SR - US ABDOMINAL AORTIC ANEURYSM - 03/30/24 08:14 EDT Findings: Aorta proximal 3.1 cm. Aorta mid 2 cm. Aorta distal 4.3 cm. Right common iliac artery 1.6 cm. Left common iliac artery 1.2 cm. IMPRESSION: 1. Fusiform aneurysmal dilatation of the distal abdominal aorta measuring up to 4.3 cm in diameter. This document has been electronically signed by: Main Madrigal MD on 10/26/2024 08:28:22
--- OUTSIDE RECORDS SUMMARY | 2024-10-25 11:29 | XMS_ITS | Patient Health Record ---
Author Organization [facility] Address [address] [facility] [place] [address] Care Team Providers Care Chainsaw Mechanic Name Role Phone Pipe Lizarraga Primary Care Provider Unavailab Sowmya Meredith Unavailable [phone] Allergies No Known Allergies Reason For Referral [...] Problem Acquired hammer toe of right foot (5504595398792953 ) Other hammer toe(s) (acquired), right foot (M20.41) Active confirmed Problem Acquired hammer toe of left foot (3621439379291835 ) Other hammer toe(s) (acquired), left foot (M20.42) Active confirmed Problem Type 1 diabetes mellitus with diabetic polyneuropathy (E10.42) Active confirmed Problem Polyneuropathy due to type 2 diabetes mellitus (758566989) Type 2 diabetes mellitus with diabetic polyneuropathy (E11.42) Active confirmed Problem Neuropathy (083664697) Neuropathy (G62.9) Active confirmed Vital Signs Blood pressure diastolic 70 mm Hg 05/30/2024 Height 9sy42vz in 05/30/2024 Blood pressure systolic 120 mm Hg 05/30/2024 Weight 235 lbs 05/30/2024 BMI 33.72 kg/m2 05/30/2024 Encounters Encounter Location Date Provider Diagnosis [address] [address] 11/30/2023 Sowmya Dionne Type 2 diabetes mellitus with diabetic polyneuropathy E11.42 ; Other hammer toe(s) (acquired), right foot M20.41 ; Other hammer toe(s) (acquired), left foot M20.42 ; Fibroma D21.9 and Tinea unguium B35.[address] [facility] [address] 03/07/2024 Sowmya Veronicashahana Type 2 diabetes mellitus with diabetic polyneuropathy E11.42 ; Contusion of left great toe without damage to nail, initial encounter S90.112A ; Other hammer toe(s) (acquired), left foot M20.42 ; Fibroma D21.9 ; Tinea unguium B35.1 and Pain in left toe(s) M79.[address] [address] 05/30/2024 Sowmya Dionne Neuropathy G62.9 ; Left foot pain M79.672 ; Right foot pain M79.671 ; Type 2 diabetes mellitus with diabetic polyneuropathy E11.42 and Tinea unguium B35.[address] [address] 08/29/2024 Sowmya Truong Assessments Encounter Date Diagnosis (ICD Code) Assessment [...] Coverage Start Date Coverage End Date [facility] [employer] Claims [address] [place] [phone] [id number] Joseph York Self - patient is the insured Medical (General) History Medical History History ICD Code Diabetic Heart disease High blood pressure Numbness Chicken pox Heart replacement Valves Surgical History Surgery Date(Month/Year) Heart Valve 12/2014 triple bypass 12/2014
--- OUTSIDE RECORDS SUMMARY | 2024-10-25 11:29 | XMS_ITS ---
Author Organization [facility] Address [address] [place] [address] Care Team Providers Care Chemistry Lecturer Name Role Phone Pipe Lizarraga Primary Care Provider Unavailab Sowmya Meredith [phone] Encounters Encounter Location Date Provider Diagnosis [facility] [address] [place] [address] 08/29/2024 Sowmya Truong Plan Of Treatment No Information Progress Notes * Joseph YORK LDOB: 4 (59 yo M)Acc No.[id number]:08/29/2024 Progress Note Patient:?Joseph YORK Provider:?Sowmya Truong DPM :1965???Age:59 Y???Sex:Male Johny e:08/29/2024 Address:[address] [place], [place] [id number] Pcp:Pipe Lizarraga Subjective: * Chief Complaints: * ??? * Medical History:? Objective: * Vitals:? Assessment: Plan: * Treatment: * Images: * The named appointment provid er may or may not be the originator of this progress note, and it is not deemed complete until electronically signed by the appointment provider. Sign off status: Pending * Provider:?Sowmya Truong DPM Date:? Generated for Printi ng/Faxing/eTransmitting on:?10/25/2024 11:29 AM EDT
--- OUTSIDE RECORDS SUMMARY | 2024-10-25 11:29 | XMS_ITS ---
Author Organization [facility] Address [address] [place] [address] Care Team Providers Care Loan Teller Name Role Phone Pipe Lizarraga Primary Care Provider Unavailab Sowmya Meredith Unavailable [phone] REASON FOR VISIT SD cx 08/29 Encounters Encounter Location Date Provider Diagnosis [facility] [address] [place] [address] 08/29/2024 Sowmya Truong Plan Of Treatment No Information Progress Notes * Joseph YORK LDOB: 4 (59 yo M)Acc No.[id number]:08/29/2024 Patient:?Joseph YORK :1965???Age:59 Y???Sex:Male Address:[address] [address] * true * Date:? Generated for Printi ng/Faxing/eTransmitting on:?10/25/2024 11:29 AM EDT
--- OUTSIDE RECORDS SUMMARY | 2024-10-25 11:30 | XMS_ITS ---
Author Organization [facility] Address [address] [place] [address] Care Team Providers Care Clinical Case Manager Name Role Phone Pipe Lizarraga Primary Care Provider Unavailab Sowmya Meredith Unavailable [phone] Allergies No Known Allergies REASON FOR VISIT [...] Status W/U Status Risk Notes Problem Neuropathy ([id number]) Neuropathy (G62.9) Active confirmed Vital Signs Height 7dx73yo in 05/30/2024 Weight 235 lbs 05/30/2024 BMI 33.72 kg/m2 05/30/2024 Blood pressure systolic 120 mm Hg 05/30/20 24 Blood pressure diastolic 70 mm Hg 024 Encounters Encounter Location Date Provider Diagnosis [facility] [address] [address] 05/30/2024 Sowmya Truong Neuropathy G62.9 ; Left [...] use of a nail nipper and/or dremel-type snuff grinder, to a more viable healthy nail [...] to maintain effectiveness in symptomatic relief - 71199 Keratoma Treatment Parring or Cutting o f [...] instrumentation by the physician of record - 15201 Progress Notes * MIRIANJoseph LDOB: 4 (59 yo M)Acc No.[id number]:05/30/2024 Progress Note Patient:?Joseph YORK Provider:?Sowmya Truong DPM :1965???Age:59 Y???Sex:Male Johny e:05/30/2024 Address:[address] [place] [address] , [facility] Pcp:Pipe Lizarraga Subjective: * Chief Complaints: * [...] * Allergies:?N.K.D.A.yes[Aller gies Verified] Objective: * Vitals:?Ht: 4yz03yi, Wt:235, BMI:33.72, Shoe size: 11.5, BP:120/70mm Hg, [...] use of a nail nipper and/or dremel-type snuff grinder, to a more viable healthy nail [...] to maintain effectiveness in symptomatic relief - 34906.?Keratoma Treatment:?Parring or Cutting of Benign Hyperkeratotic Lesion(s)?(-57) [...] instrumentation by the physician of record - 17280.? * Procedure Codes:?27214 DEBRI DE NAIL, 6 OR MORE, Modifiers: XS 23295 TRIM SKIN LESIONS, OVER 4, Modifiers: XS [...] Truong DPM Date:? Generated for Raquel freed/Eva/Alejo on:?10/25/2024 11:29 AM EDT History and Physical Notes * [...]
== END 2024-10-25 10:30 | disposition home or self-care (01) ==
LOC: HO.US 10:29
PROVIDERS: PCP Physician Assistant; Visit Provider Physician Assistant Surgical
DX: I71.43 Infrarenal abdominal aortic aneurysm, without rupture (principal)
CPT/HCPCS: 76706

== ENCOUNTER → 2024-10-25 10:31 | Outpatient (BNV) | payer OTHER, SELFPAY | PROVIDERS: PCP Physician Assistant; Visit Provider Radiology Diagnostic Radiology | DX: I71.40 Abdominal aortic aneurysm, without rupture, unspecified (principal) | CPT/HCPCS: 76706 ==

== ENCOUNTER 2024-11-08 08:16 | Outpatient (AMB) | payer OTHER, SELFPAY ==
--- NOTE | 2024-11-08 08:26 | A.OFFVIS_ITS ---
Intake Visit Reasons: 2m/PVR Intake Note: Patient presents today for 2 month follow up/PVR Urology Medications: none Blood Thinner: aspirin PVR: 18ml Chronic Specialist Required: No Accompanied by: Self / Same As Patient Allergies No Known Allergies Allergy (Verified 11/08/24 08:47) Medication List - Last Reconciled 11/08/24 by KARTHIKEYAN Bolton-WINSTON alcohol swabs (Alcohol Prep Pads) 1 pad topical .three times a day aspirin 81 mg PO DAILY atomoxetine (Strattera) 60 mg PO DAILY 90 days blood pressure test kit-large As directed blood sugar diagnostic (OncoVista Innovative TherapiesTouch Ultra Test strips) Testing 3 times a day blood-glucose meter As directed hydrochlorothiazide 25 mg PO DAILY insulin aspart U-100 (Novolog FlexPen U-100 Insulin aspart) 10 units (0.1 mL) subcut TID 30 days lidocaine 5% 2 patches topical DAILY 30 days lisinopril 5 mg PO DAILY omeprazole 40 mg PO DAILY pen needle, diabetic (BD Karen 2nd Gen Pen Needle) As directed prednisone See Taper mg PO DAILY pregabalin 300 mg PO BID 30 days rosuvastatin (Crestor) 40 mg PO DAILY 90 days sertraline 200 mg (2 x 100 mg) PO DAILY 90 days tadalafil 5 mg PO DAILY 4 days tamsulosin 0.4 mg PO BEDTIME 30 days tirzepatide (Mounjaro) 7.5 mg (0.5 mL) subcut QWEEK 4 weeks tramadol 50 mg PO Q8H 7 days HPI Comments Details: Joseph is a very pleasant 59-year-old male patient of Dr. Lizarraga. Has a past medical history of obesity, renal cysts, type 2 diabetes, asthma, COPD, coronary artery disease, and diabetic neuropathy. He presents to the office today for follow-up. Of note, patient was seen approximately 2 months ago as a new patient for weak urinary stream and erectile dysfunction in the setting of diabetes at which time he was started on Flomax and daily dosing of low-dose tadalafil. In discussion with the patient today he reports Flomax has been extremely helpful in weak urinary stream. However he does continue to experience issues with his erections. He discusses feeling ED happened shortly after his open heart surgery 8 years ago. He has previously trialed p.r.n. Viagra as well as Cialis without improvement in his ED. he reports he is unable to obtain and or maintain his erections. We did discussed further treatment options and risks and benefits of these treatment options. Previous workup has included a retroperitoneal ultrasound 08/08 noting bilateral kidneys are normal in size and position. Bilateral simple appearing renal cysts. Nonobstructing calyceal stone in the right kidney measuring 5 mm. No evidence of hydronephrosis noted bilaterally. Pre void bladder volume is approximately 175 mL. Postvoid bladder volume is approximately 65 mL. Prostate volume of 26 mL. PSA 07/08 0.5 and A1c 07/08 5.9. We discussed at length the affects of recreational marijuana use on erectile dysfunction as well as overall health and well-being. We discussed lifestyle modifications to assist with ED. we discussed further treatment options and risks and benefits of these treatment options. In office urinalysis results reviewed with the patient today. PVR 18 mL. He denies incontinence, hematuria, dysuria, foul smelling urine, flank pain, fever, and or chills. He does report a previous history of nephrolithiasis at the age of 29 however never requiring surgical intervention. . He otherwise offers no other issues or concerns at this time. [facility] Medical History Renal cyst COVID-19 Obesity Type 2 diabetes mellitus with obesity Asthma-COPD overlap syndrome Coronary artery disease Diabetic neuropathy Surgical History History of herniated intervertebral disc S/P CABG x 3 Family History Father Lung cancer Mother No problems noted. Family/Other Lung cancer Diabetes Social History Housing: House Alcohol intake: current Alcohol intake frequency: holidays/special occasions only Patient Tobacco Use Status: Former Tobacco user Tobacco use type: Cigarette e-Cigarette/Vaping Use: Never Used Second Hand Smoke Exposure: No Substance Use Type: Marijuana service: No Current occupational status: disabled Current occupational exposures/hazards: No Cognitive needs: No Hearing needs: No Vision needs: No Review of Systems Eyes Reports no additional complaints ENT Reports no additional complaints Card Reports as per HPI Resp Reports as per HPI GI Reports no additional complaints Reports as per HPI Musc Reports as per HPI Neuro Reports no additional complaints Psych Reports no additional complaints Endo Reports as per HPI Abdirahman/Lymph Reports no additional complaints Aller/Immun Reports no additional complaints Physical Exam Const General: cooperative, healthy appearing, comfortable, no acute distress, well developed, alert and awake Orientation/consciousness: patient oriented x3 Limitations: no limitations HEENT Head: Yes normal to inspection, Yes normocephalic and Yes atraumatic Ears: hearing grossly normal bilaterally Eyes General: appearance normal, both eyes and all related structures Neck Neck: Yes normal visual inspection and Yes trachea midline Chest Chest palpation & inspection: normal inspection of the chest Resp Effort & Inspection: normal respiratory effort and able to speak in complete sentences Cardio Rate: regular rate GI Inspection: Yes normal to inspection General: Yes no CVA tenderness Back/Spine/Pelvis Back: no CVA tenderness Skin General skin exam: no rashes or lesions noted Neuro General: patient oriented x3 Extrem General: Yes normal to inspection Psych Appearance: grossly normal and well kempt Mental Status: mental status grossly normal Speech and movement: Normal speech and movement present and Clear speech present Affect: normal affect Attitude: cooperative Thought process: Normal thought process present Thought content: Normal thought content present Insight: Fair insight present (Psych) Judgement: Fair judgement present (Psych) Results AMB Urinalysis, Automated UA Leukoctes 0 José Luis/uL Last Edit by Emily Harmon on 11/08/24 10:15 UA Nitrite Negative Last Edit by Emily Harmon on 11/08/24 10:15 UA Urobilinogen 3.5 mg/dL Last Edit by Emily Harmon on 11/08/24 10:15 UA Protein 1 mg/dL Last Edit by Emily Harmon on 11/08/24 10:15 UA pH 6.0 Last Edit by Emily Harmon on 11/08/24 10:15 UA Blood 0 Cesar/uL Last Edit by Emily Harmon on 11/08/24 10:15 UA Specific [place] 1.015 Last Edit by Emily Harmon on 11/08/24 10:15 UA Ketone Negative Last Edit by Emily Harmon on 11/08/24 10:15 UA Bilirubin 0 mg/dL Last Edit by Emily Harmon on 11/08/24 10:15 UA Glucose 0 mg/dL Last Edit by Emily Harmon on 11/08/24 10:15 Results Reviewed Results Reviewed: Laboratory Last Values Urine pH (Auto) 6.0 11/08/24 10:08 Specific [place] (Auto) 1.015 11/08/24 10:08 Urine Protein (Auto) 1 mg/dL 11/08/24 10:08 Glucose (UA)(Auto) 0 mg/dL 11/08/24 10:08 Urine Ketones (Auto) Negative 11/08/24 10:08 Urine Blood (Auto) 0 Cesar/uL 11/08/24 10:08 Urine Nitrite (Auto) Negative 11/08/24 10:08 Urine Bilirubin (Auto) 0 mg/dL 11/08/24 10:08 Urine Urobilinogen (Auto) 3.5 mg/dL 11/08/24 10:08 Leukocyte Esterase (Auto) 0 José Luis/uL 11/08/24 10:08 Assessment & Plan Assessment & Plan (1) Erectile dysfunction associated with type 2 diabetes mellitus: Code(s): E11.69 - Type 2 diabetes mellitus with other specified complication; N52.1 - Erectile dysfunction due to diseases classified elsewhere Category: Medical (2) Weak urinary stream: Code(s): R39.12 - Poor urinary stream Category: Medical (3) Erectile disorder due to medical condition in male: Code(s): N52.1 - Erectile dysfunction due to diseases classified elsewhere Category: Medical (4) Urinary urgency: Code(s): R39.15 - Urgency of urination Category: Medical Plan In office urinalysis results reviewed with the patient today; as noted above. PVR 18 mL. Continue Flomax and low-dose Cialis as discussed and prescribed. Will obtain penile Doppler for further assessment evaluation. We discussed the affects of recreational marijuana on erectile dysfunction as well as overall health and well-being. Patient reports be happy with current voiding parameters on Flomax and low-dose Cialis will continue. We discussed the importance of management and diabetes for his urological conditions as well as overall health and well-being. We did discussed further treatment options of erectile dysfunction as well as risks and benefits of these treatment options. Follow-up in 3-4 months with penile Doppler to be completed prior; or sooner with any issues, concerns, and or questions Orders: Orders AMB Urinalysis Automated Today Z13.9 - Encounter for screening, unspecified Medications: Changed From tadalafil 5 mg PO DAILY 4 days 4 tabs 2RF E11.69 - Type 2 diabetes mellitus with other specified complication, N52.1 - Erectile dysfunction due to diseases classified elsewhere To tadalafil [id number] [facility] [id number] Member [id number] 5 mg PO DAILY 90 tabs 3RF 90 days E11.69 - Type 2 diabetes mellitus with other specified complication, N52.1 - Erectile dysfunction due to diseases classified elsewhere Patient Instructions: The patient had an opportunity to ask questions regarding the treatment plan. All questions were answered. Physical exam, labs, and imaging were discussed and reviewed in detail. As well as risks, benefits, and discussion of treatment choices. No major barriers to understanding were identified. The patient expressed understanding and agreement with the above treatment plan. The patient was made aware they should contact our office by phone for worsening of their current condition, the appearance of new symptoms, or with any questions or concerns. Compliance is encouraged with any medications and follow up testing that is ordered. It is a privilege to be allowed the opportunity to participate in? your urological care.? Again, if you have any questions or concerns If you have any questions or concerns please do not hesitate to contact me. The office is [phone]. This note is constructed using voice recognition software. While every effort has been made to ensure accuracy call center coordinator errors may have been included. Yours sincerely, BRYON Bolton Coding Level of Care Code Est Pt Level 3 (62108) Complex EM visit Add On G2211 Diagnoses Erectile dysfunction associated with type 2 diabetes mellitus E11.69; N52.1 Weak urinary stream R39.12 Erectile disorder due to medical condition in male N52.1 Urinary urgency R39.15
--- OUTSIDE RECORDS SUMMARY | 2024-11-08 08:28 | XMS_ITS ---
Author Organization [facility] Address [address] [place] [address] Care Team Providers Care Real Estate Sales Manager Name Role Phone Pipe Lizarraga Primary Care Provider Unavailab Sowmya Meredith [phone] Encounters Encounter Location Date Provider Diagnosis [facility] [address] [place] [address] 08/29/2024 Sowmya Truong Plan Of Treatment No Information Progress Notes * Joseph YORK LDOB: 4 (59 yo M)Acc No.[id number]:08/29/2024 Progress Note Patient:?Joseph YORK Ny Provider:?Sowmya Truong DPM :1965???Age:59 Y???Sex:Male Johny e:08/29/2024 Address:[address] [place], [place] [id number] Pcp:Pipe Lizarraga Subjective: * Chief Complaints: * ??? * Medical History:? Objective: * Vitals:? Assessment: Plan: * Treatment: * Images: * The named appointment provid er may or may not be the originator of this progress note, and it is not deemed complete until electronically signed by the appointment provider. Sign off status: Pending * Provider:?Sowmya Truong DPM Date:? Generated for Printi ng/Faxing/eTransmitting on:?11/08/2024 08:28 AM EDT
== END 2024-11-08 09:00 | disposition home or self-care (01) ==
LOC: HO.HUSH 08:16
PROVIDERS: PCP Physician Assistant; Visit Provider Nurse Practitioner Family
DX: E11.69 Type 2 diabetes mellitus with other specified complication (principal); N52.1 Erectile dysfunction due to diseases classified elsewhere; R39.12 Poor urinary stream; R39.15 Urgency of urination; Z13.9 Encounter for screening, unspecified
CPT/HCPCS: 99213; G2211

== ENCOUNTER → 2024-11-08 08:16 | Outpatient (BNVA) | payer OTHER, SELFPAY | PROVIDERS: PCP Physician Assistant; Visit Provider Nurse Practitioner Family | DX: E11.69 Type 2 diabetes mellitus with other specified complication (principal); R39.12 Poor urinary stream; N52.1 Erectile dysfunction due to diseases classified elsewhere; R39.15 Urgency of urination | CPT/HCPCS: 81003; 99212 ==

== ENCOUNTER 2024-12-05 09:50 | Outpatient (AMB) | payer OTHER, SELFPAY ==
--- OUTSIDE RECORDS SUMMARY | 2024-08-29 05:00 | XMS_ITS ---
Author Organization [facility] Address [address] [place] [address] Care Team Providers Care Drywall Stripper Helper Name Role Phone Pipe Lizarraga Primary Care Provider Unavailab Sowmya Meredith [phone] Encounters Encounter Location Date Provider Diagnosis [facility] [address] [place] [address] 08/29/2024 Sowmya Truong Plan Of Treatment No Information Progress Notes * Joseph YORK LDOB: 4 (59 yo M)Acc No.[id number]:08/29/2024 Progress Note Patient: Joseph AKHTAR Provider: Ny Truong DPM :1965 A ge:59 Y S ex:Male Date:08/29/2024 Address:[address] [place], [place] [id number] Pcp:Pipe Lizarraga Subjective: * Chief Complaints: * [...] 08/29/2024 Generated for Printi ng/Faxing/eTransmitting on: 0 12/05/2024 10:46 AM EDT
--- NOTE | 2024-12-05 09:54 | A.OFFVIS_ITS ---
Vital Signs 12/05/24 09:55 Height 5 ft 9 in Weight 202 lb BMI 29.8 Intake Visit Reasons: 6m follow up s/p AAA US 10/25/24 Intake Note: 6 mo AAA US 10/25/24 follow up. No complaints Phlebotomist Associate Required: No Accompanied by: Self / Same As Patient Allergies No Known Allergies Allergy (Verified 12/05/24 09:57) HPI HPI 6m follow up s/p AAA US 10/25/24: Details: The patient is a 59-year-old male presenting for routine ultrasound surveillance follow-up of an abdominal aortic aneurysm. The abdominal aortic aneurysm was initially identified over two years ago, with a measurement of approximately [address] scan dated 09/13/2022. Recent ultrasound imaging indicates the aneurysm remains stable at 4.3 cm, with no significant change noted. The patient was informed that surgical intervention is typically considered when the aneurysm exceeds 5.5 cm. The patient has a history of smoking, having quit approximately 20 years ago, which is a contributing factor to the aneurysm development. He currently smokes marijuana but denies cigarette use. He is a diabetic as well. [facility] Medical History Renal cyst COVID-19 Obesity Type 2 diabetes mellitus with obesity Asthma-COPD overlap syndrome Coronary artery disease Diabetic neuropathy Surgical History History of herniated intervertebral disc S/P CABG x 3 Family History Father Lung cancer Mother No problems noted. Family/Other Lung cancer Diabetes Social History Housing: House Alcohol intake: current Alcohol intake frequency: holidays/special occasions only Patient Tobacco Use Status: Former Tobacco user Tobacco use type: Cigarette e-Cigarette/Vaping Use: Never Used Second Hand Smoke Exposure: No Substance Use Type: Marijuana service: No Current occupational status: disabled Current occupational exposures/hazards: No Cognitive needs: No Hearing needs: No Vision needs: No Review of Systems Const All systems reviewed & are unremarkable except as noted in HPI and below Reports no additional complaints ENT Reports Normal hearing present Card Denies chest pain, Denies chest pain at rest, Denies chest pain with activity and Denies pedal edema Resp Denies cough GI Denies abdominal pain Musc Denies abnormal gait, Denies muscle cramps and Denies radiating pain into limb Skin/Breast Denies skin ulcer and Denies wounds Neuro Reports Normal hearing present and Denies abnormal gait Psych Reports no additional complaints Physical Exam Vital Signs: BMI result Body Mass Index 29.8 Const General: cooperative, healthy appearing and comfortable Orientation/consciousness: oriented to person, oriented to place and oriented to time HEENT Head: Yes normal to inspection Neck Neck: Yes normal visual inspection Carotids: no bruits Chest Chest palpation & inspection: normal inspection of the chest Resp Effort & Inspection: normal respiratory effort and able to speak in complete sentences Auscultation: clear to auscultation bilaterally, no crackles, no rales, no rhonchi and no wheezes Cardio Rate: regular rate Rhythm: regular rhythm Heart sounds: S1 normal heart sound present and S2 normal heart sound present Bruits: no carotid bruits Peripheral pulses: Peripheral pulses 2+ throughout GI Inspection: Yes normal to inspection Skin Wounds: no wounds Hair: normal Neuro General: oriented to person, oriented to place and oriented to time Cranial nerves: Yes CN's II-XII intact bilaterally and Yes Normal hearing present Cognition (Neuro): normal cognition Motor exam (neuro): 5/5 motor strength present throughout Extrem Other: venous exam: No significant superficial varicosities or spider telangiectasias, minimal edema General: No clubbing, No cyanosis and No edema Psych Appearance: grossly normal Mental Status: mental status grossly normal Speech and movement: Normal speech and movement present Results Reviewed Results Reviewed: Ultrasound dated 10/25/2024 demonstrates 4.3 cm aortic aneurysm Assessment & Plan Assessment & Plan (1) Infrarenal abdominal aortic aneurysm, without rupture: Code(s): I71.43 - Infrarenal abdominal aortic aneurysm, without rupture Category: Medical Plan: I discussed with the patient that the abdominal aortic aneurysm remains stable at 4.3 cm, and we will continue with annual ultrasound surveillance. I explained that surgical intervention is typically considered when the aneurysm exceeds 5.5 cm. We talked about the importance of lifestyle modifications, such as maintaining a healthy diet and avoiding smoking, to prevent further expansion of the aneurysm. Plan Patient was informed and verbally consented to the use of an ambient scribe for clinic note documentation during this visit. Orders: Orders US abdominal aortic aneurysm 1 Year I71.43 - Infrarenal abdominal aortic aneurysm, without rupture Patient Instructions: - Continue with annual ultrasound surveillance to monitor the aneurysm. - Maintain a healthy diet and avoid smoking to prevent further aneurysm expansion. Coding Level of Care Code Est Pt Level 4 (70537) Diagnoses Infrarenal abdominal aortic aneurysm, without rupture I71.43
[2024-12-05 09:55] VITALS: BMI 29.8
== END 2024-12-05 10:32 | disposition home or self-care (01) ==
LOC: HO.HVS 09:51
PROVIDERS: PCP Physician Assistant; Visit Provider Surgery Vascular Surgery
DX: I71.43 Infrarenal abdominal aortic aneurysm, without rupture (principal)
CPT/HCPCS: 99214

== ENCOUNTER → 2024-12-05 09:50 | Outpatient (BNVA) | payer OTHER, SELFPAY | PROVIDERS: PCP Physician Assistant; Visit Provider Surgery Vascular Surgery | DX: I71.43 Infrarenal abdominal aortic aneurysm, without rupture (principal) | CPT/HCPCS: 99212 ==

== ENCOUNTER 2025-01-02 09:38 | Outpatient (REF) | payer OTHER, SELFPAY ==
--- OUTSIDE RECORDS SUMMARY | 2024-08-29 05:00 | XMS_ITS ---
Author Organization [facility] Address [address] [place] [address] Care Team Providers Care Logistics Director Name Role Phone Pipe Lizarraga Primary Care Provider Unavailab Sowmya Meredith [phone] Encounters Encounter Location Date Provider Diagnosis [facility] [address] [place] [address] 08/29/2024 Sowmya Truong Plan Of Treatment No Information Progress Notes * Joseph YORK LDOB: 4 (59 yo M)Acc No.[id number]:08/29/2024 Progress Note Patient: Joseph AKHTAR Provider: Ny Truong DPM :1965 A ge:59 Y S ex:Male Date:08/29/2024 Address:[address] [place], [place] [address] Pcp:Pipe Lizarraga Subjective: * Chief Complaints: * [...] 08/29/2024 Generated for Printi ng/Faxing/eTransmitting on: 0 01/02/2025 10:19 AM EDT
--- NOTE | ~2025-01-02 | US_ITS ---
CLINICAL HISTORY: E11.69 - Type 2 diabetes mellitus, ED --- Additional Notes or Special Instructions: penile doppler with papaverine US Penile Duplex with papaverine Comparison: None provided Findings: Right cavernosal artery velocities (PSV, EDV, in cm/sec) are as follows: Pre-injection (10:21): 7.1, 2.6 Injection time (10:25): 12.4, 4.5 10 minute post-injection (10:33): 4.9, 1.9 15 minute post-injection (10:38): 9.7, 2.1 20 minute post-injection (10:42): 4.5, 2.0 25 minute post-injection (10:47): 3.7, 1.9 30 minute post-injection (10:52): 6.5, 3.0 Left cavernosal artery velocities (PSV, EDV, in cm/sec) are as follows: Pre-injection (10:21): 12.4, 2.2 Injection time (10:25): 8.5, 3.6 10 minute post-injection (10:33): 6.6, 2.9 15 minute post-injection (10:38): 2.9, 0 20 minute post-injection (10:42): 7.6, 2.0 25 minute post-injection (10:47): 14.5, 2.6 30 minute post-injection (10:52): 17.9, 2.0 IMPRESSION: Diffusely decreased peak systolic arterial velocities, suggestive of arterial insufficiency. No evidence of venous insufficiency. This document has been electronically signed by: Gregory Fu DO on 01/04/2025 13:03:22
--- NOTE | 2025-01-10 10:00 | W.PM.OPN ---
Operative Note Operative Note Date of Service: 01/10/25 Narrative: Date of Service: 01/02/2025 Narrative: Brief Operative Note Date of procedure: 01/02/2025 Pre-op diagnosis: erectile dysfunction Post-op diagnosis: same Procedure: Penile injection performed in ultrasound department for evaluation of erectile dysfunction. Papaverine 60 mg per 2 mL: Injected 1mL/30mg using sterile technique at the 2 o'clock position of the base of the penis. Instructions provided should erection persist more than 30 minutes. Sterile technique used. Consent obtained. All questions were answered. CPT 08013
== END 2025-01-02 09:39 | disposition home or self-care (01) ==
LOC: HO.US 09:38
PROVIDERS: PCP Physician Assistant; Visit Provider Nurse Practitioner Family
DX: E11.69 Type 2 diabetes mellitus with other specified complication (principal); N52.1 Erectile dysfunction due to diseases classified elsewhere
CPT/HCPCS: 93980

== ENCOUNTER → 2025-01-02 09:38 | Outpatient (BNV) | payer OTHER, SELFPAY | PROVIDERS: PCP Physician Assistant; Visit Provider Nurse Practitioner Family | DX: N52.9 Male erectile dysfunction, unspecified (principal) | CPT/HCPCS: 54235 ==

== ENCOUNTER → 2025-01-02 09:40 | Outpatient (BNV) | payer OTHER, SELFPAY | PROVIDERS: PCP Physician Assistant; Visit Provider Radiology Diagnostic Radiology | DX: N52.9 Male erectile dysfunction, unspecified (principal) | CPT/HCPCS: 93980 ==

== ENCOUNTER 2025-01-17 10:18 | Outpatient (AMB) | payer OTHER, SELFPAY ==
--- OUTSIDE RECORDS SUMMARY | 2024-08-29 05:00 | XMS_ITS ---
Author Organization [facility] Address [address] [place] [address] Care Team Providers Care Associate Pastor Name Role Phone Pipe Lizarrgaa Primary Care Provider Unavailab Sowmya Meredith [phone] Encounters Encounter Location Date Provider Diagnosis [facility] [address] [place] [address] 08/29/2024 Sowmya Truong Plan Of Treatment No Information Progress Notes * Joseph YORK LDOB: 4 (59 yo M)Acc No.[id number]:08/29/2024 Progress Note Patient: Joseph AKHTAR Provider: Ny Truong DPM :1965 A ge:59 Y S ex:Male Date:08/29/2024 Address:[address] [place], [place] [phone] Pcp:Pipe Lizarraga Subjective: * Chief Complaints: * * Medical History: Objective: * Vitals: Assessment: Plan: * Treatment: * Images: * The named appointment provid er may or may not be the originator of this progress note, and it is not deemed complete until electronically signed by the appointment provider. Sign off status: Pending * Provider: Ny Truong DPM Date: 08/29/2024 Generated for Printi ng/Faxing/eTransmitting on: 0 01/17/2025 10:55 AM EDT
[2025-01-17 10:21] VITALS: BP 136/70; PULSE 58; O2SAT 98; BMI 30.1
--- NOTE | 2025-01-17 10:21 | A.OFFVIS_ITS ---
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 The patient is a 59-year-old gentleman presenting with worsening shortness of breath with activity. He states otherwise he does okay. He does cough and sometimes he does have some chest congestion. He was a former smoker and does not smoke cigarettes anymore although he smokes marijuana. He does use her rescue inhaler at times. Although he does not find it very helpful. And before he had a powdered inhaler and was not helpful either. On exam the patient does have significant chest congestion wheezing rhonchi. Very diminished on a prolonged expiratory phase. He has not had pulmonary function study on will request those. He did have a chest x-ray that I personally reviewed demonstrating some evidence of chronic bronchitis. He also had a CTA back in 2022 that we personally reviewed demonstrating evidence of chronic bronchitis in addition to some minimal degree of emphysema. The patient did have heart surgery and does have some operative changes. He did try to get another CAT scan but he was too claustrophobic and could not get the CTA. For another will work on his breathing. Will start him on Trelegy inhaler to maximize his respiratory capacity. Although explained to him that his significant obstruction may not be open sufficiently just with the inhaler. May may need to add additional medicines. Therefore he will try the Trelegy for so we can add additional medicines based on the forthcoming data. The patient also has a history allergies and allergies may be playing a role. He has eosinophils have been elevated in the past. The patient will undergo pulmonary function studies and then will return N30 3 months to assess his respo nse to the Trelegy inhaler. [facility] Medical History (Updated 01/17/25 @ 22:18 by Kunal Draper MD) Dyspnea Renal cyst COVID-19 Obesity Type 2 diabetes mellitus with obesity Asthma-COPD overlap syndrome Coronary artery disease Diabetic neuropathy Surgical History History of herniated intervertebral disc S/P CABG x 3 Family History Father Lung cancer Mother No problems noted. Family/Other Lung cancer Diabetes Social History Housing: House Alcohol intake: current Alcohol intake frequency: holidays/special occasions only Patient Tobacco Use Status: Former Tobacco user Tobacco use type: Cigarette e-Cigarette/Vaping Use: Never Used Second Hand Smoke Exposure: No Substance Use Type: Marijuana service: No Current occupational status: disabled Current occupational exposures/hazards: No Cognitive needs: No Hearing needs: No Vision needs: No Review of Systems Const Denies fever(s) and Denies weight loss ENT Denies sore throat Card Denies chest pain, Denies leg edema, Denies lightheadedness and Reports dyspnea on exertion Resp Reports chest congestion, Reports cough, Reports dyspnea on exertion and Reports wheezing GI Denies abdominal pain Musc Denies arthralgias and Denies joint swelling Neuro Denies Abnormal speech present and Denies behavioral changes Psych Denies anxiety and Denies behavioral changes Abdirahman/Lymph Denies easy bleeding and Denies easy bruising Aller/Immun Reports wheezing Physical Exam Vital Signs: Last Vital Signs Pulse 58 01/17/25 10:21 BP 136/70 01/17/25 10:21 Pulse Ox 98 01/17/25 10:21 Oxygen Delivery Method Room Air 01/17/25 10:21 BMI result Body Mass Index 30.1 Const General: cooperative, healthy appearing and comfortable Orientation/consciousness: oriented to person, oriented to place and oriented to time HEENT Head: Yes normal to inspection Chest Chest palpation & inspection: normal inspection of the chest Resp Effort & Inspection: normal respiratory effort and prolonged expiratory phase Auscultation: rhonchi and wheezes Cardio Rate: regular rate Rhythm: regular rhythm Heart sounds: S1 normal heart sound present and S2 normal heart sound present GI Inspection: Yes normal to inspection Skin Wounds: no wounds Hair: normal Neuro General: oriented to person, oriented to place and oriented to time Speech: No Abnormal speech present Extrem Other: venous exam: No significant superficial varicosities or spider telangiectasias, minimal edema General: No clubbing, No cyanosis and No edema Psych Appearance: grossly normal Mental Status: mental status grossly normal Speech and movement: Normal speech and movement present Assessment & Plan Assessment & Plan (1) Asthma-COPD overlap syndrome: Code(s): J44.9 - Chronic obstructive pulmonary disease, unspecified Category: Medical (2) Dyspnea: Code(s): R06.00 - Dyspnea, unspecified Category: Medical Qualifiers: Dyspnea type: dyspnea on exertion Qualified Code(s): R06.09 - Other forms of dyspnea Plan Needs to abstain from any smoking Start Trelegy 200 SAYDA as needed PFTs F/U2-3 months Medications: New njnoitihcyo-hdebfkxqp-muxqshlw 200-62.5-25 mcg (Trelegy Ellipta) 1 inh inhalation DAILY 60 ea 12RF 30 days Coding Level of Care Code New Pt Level 4 (93739) Diagnoses Asthma-COPD overlap syndrome J44.9 Dyspnea on exertion R06.09 Dyspnea type: dyspnea on exertion Time Spent (min) 40
== END 2025-01-17 11:07 | disposition home or self-care (01) ==
LOC: HO.HPS 10:19
PROVIDERS: PCP Physician Assistant; Referring Provider Physician Assistant; Visit Provider Hospitalist
DX: J44.9 Chronic obstructive pulmonary disease, unspecified (principal); R06.09 Other forms of dyspnea
CPT/HCPCS: 99204

== ENCOUNTER → 2025-01-17 10:18 | Outpatient (BNVA) | payer OTHER, SELFPAY | PROVIDERS: PCP Physician Assistant; Referring Provider Physician Assistant; Visit Provider Hospitalist | DX: J44.9 Chronic obstructive pulmonary disease, unspecified (principal); R06.09 Other forms of dyspnea | CPT/HCPCS: 99202 ==

== ENCOUNTER 2025-02-13 10:36 | Outpatient (AMB) | payer OTHER, SELFPAY ==
--- NOTE | 2025-02-13 10:40 | MHC.OFFVIS ---
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 Required: No Allergies No Known Allergies Allergy (Verified 02/13/25 11:16) Medication List - Last Reconciled 02/13/25 by BRYON Bolton alcohol swabs (Alcohol Prep Pads) 1 pad topical .three times a day aspirin 81 mg PO DAILY atomoxetine (Strattera) 60 mg PO DAILY 90 days blood pressure test kit-large As directed blood sugar diagnostic (OneTouch Ultra Test strips) Testing 3 times a day blood-glucose meter As directed gnfhsgofecj-mcmcskuad-opymlqbr 200-62.5-25 mcg (Trelegy Ellipta) 1 inh inhalation DAILY 30 days hydrochlorothiazide 25 mg PO DAILY insulin aspart U-100 (Novolog FlexPen U-100 Insulin aspart) 10 units (0.1 mL) subcut TID 30 days lidocaine 5% 2 patches topical DAILY 30 days lisinopril 5 mg PO DAILY omeprazole 40 mg PO DAILY pen needle, diabetic (BD Karen 2nd Gen Pen Needle) As directed pregabalin 300 mg PO BID 30 days rosuvastatin (Crestor) 40 mg PO DAILY 90 days sertraline 200 mg (2 x 100 mg) PO DAILY 90 days tadalafil 5 mg PO DAILY 90 days tamsulosin 0.4 mg PO BEDTIME 30 days tirzepatide (Mounjaro) 7.5 mg (0.5 mL) subcut QWEEK 4 weeks tramadol 50 mg PO Q8H 7 days HPI Comments Details: Joseph is a very pleasant 59-year-old male patient of Dr. Lizarraga. Has a past medical history of obesity, renal cysts, type 2 diabetes, asthma, COPD, coronary artery disease, and diabetic neuropathy. He presents to the office today for follow-up of his weak urinary stream and erectile dysfunction. Of note, patient underwent penile Doppler 01/05 that noted diffusely decreased peak systolic arterial velocities, suggestive of arterial insufficiency. No evidence of venous insufficiency per radiology report. He reports compliance with Flomax and low-dose tadalafil. We did discussed at length arterial insufficiency as well as further treatment options and risks and benefits of these treatment options. He does continue to experience issues with erectile dysfunction. He reports he is unable to obtain erections that are adequate for penetration. He reports compliance with Flomax and feels this has been helpful with weak urinary stream. Previous workup has also included a retroperitoneal ultrasound 08/08 noting bilateral kidneys are normal in size and position. Bilateral simple appearing renal cysts. Nonobstructing calyceal stone in the right kidney measuring 5 mm. No evidence of hydronephrosis noted bilaterally. Pre void bladder volume is approximately 175 mL. Postvoid bladder volume is approximately 65 mL. Prostate volume of 26 mL. PSA 07/08 0.5 and A1c 07/08 5.9. He reports previously trialing Viagra and did find this more helpful than p.r.n. dosing of tadalafil. He discusses feeling ED happened shortly after his open heart surgery 8 years ago. We discussed at length the affects of recreational marijuana use on erectile dysfunction as well as overall health and well-being. We discussed lifestyle modifications to assist with ED. In office urinalysis results reviewed with the patient today. He denies incontinence, hematuria, dysuria, foul smelling urine, flank pain, fever, and or chills. He does report a previous history of nephrolithiasis at the age of 29 however never requiring surgical intervention. He otherwise offers no other issues or concerns at this time. [facility] Medical History Dyspnea Renal cyst COVID-19 Obesity Type 2 diabetes mellitus with obesity Asthma-COPD overlap syndrome Coronary artery disease Diabetic neuropathy Surgical History History of herniated intervertebral disc S/P CABG x 3 Family History Father Lung cancer Mother No problems noted. Family/Other Lung cancer Diabetes Social History Housing: House Alcohol intake: current Alcohol intake frequency: holidays/special occasions only Patient Tobacco Use Status: Former Tobacco user Tobacco use type: Cigarette e-Cigarette/Vaping Use: Never Used Second Hand Smoke Exposure: No Substance Use Type: Marijuana service: No Current occupational status: disabled Current occupational exposures/hazards: No Cognitive needs: No Hearing needs: No Vision needs: No Review of Systems Eyes Reports no additional complaints ENT Reports no additional complaints Card Reports as per [facility] Resp Reports as per [facility] GI Reports no additional complaints Reports as per [facility] Musc Reports as per [facility] Neuro Reports no additional complaints Psych Reports no additional complaints Endo Reports as per [facility] Abdirahman/Lymph Reports no additional complaints Aller/Immun Reports no additional complaints Physical Exam Const General: cooperative, healthy appearing, comfortable, no acute distress, well developed, alert and awake Orientation/consciousness: patient oriented x3 Limitations: no limitations HEENT Head: Yes normal to inspection, Yes normocephalic and Yes atraumatic Ears: hearing grossly normal bilaterally Eyes General: appearance normal, both eyes and all related structures Neck Neck: Yes normal visual inspection and Yes trachea midline Chest Chest palpation & inspection: normal inspection of the chest Resp Effort & Inspection: normal respiratory effort and able to speak in complete sentences Cardio Rate: regular rate GI Inspection: Yes normal to inspection General: Yes no CVA tenderness Back/Spine/Pelvis Back: no CVA tenderness Skin General skin exam: no rashes or lesions noted Neuro General: patient oriented x3 Extrem General: Yes normal to inspection Psych Appearance: grossly normal and well kempt Mental Status: mental status grossly normal Speech and movement: Normal speech and movement present and Clear speech present Affect: normal affect Attitude: cooperative Thought process: Normal thought process present Thought content: Normal thought content present Insight: Fair insight present (Psych) Judgement: Fair judgement present (Psych) Results AMB Urinalysis, Automated UA Leukoctes 0 José Luis/uL Last Edit by LALY Cook on 02/13/25 11:02 UA Nitrite Negative Last Edit by LALY Cook on 02/13/25 11:02 UA Urobilinogen 0.2 mg/dL Last Edit by LALY Cook on 02/13/25 11:02 UA Protein 30 mg/dL Last Edit by LALY Cook on 02/13/25 11:02 UA pH 7.5 Last Edit by LALY Cook on 02/13/25 11:02 UA Blood 0 Cesar/uL Last Edit by LALY Cook on 02/13/25 11:02 UA Specific Edmond 1.015 Last Edit by LALY Cook on 02/13/25 11:02 UA Ketone Negative Last Edit by LALY Cook on 02/13/25 11:02 UA Bilirubin 0 mg/dL Last Edit by LALY Cook on 02/13/25 11:02 UA Glucose 0 mg/dL Last Edit by LALY Cook on 02/13/25 11:02 Results Reviewed Results Reviewed: Laboratory Last Values Urine pH (Auto) 7.5 02/13/25 11:01 Specific Edmond (Auto) 1.015 02/13/25 11:01 Urine Protein (Auto) 30 mg/dL 02/13/25 11:01 Glucose (UA)(Auto) 0 mg/dL 02/13/25 11:01 Urine Ketones (Auto) Negative 02/13/25 11:01 Urine Blood (Auto) 0 Cesar/uL 02/13/25 11:01 Urine Nitrite (Auto) Negative 02/13/25 11:01 Urine Bilirubin (Auto) 0 mg/dL 02/13/25 11:01 Urine Urobilinogen (Auto) 0.2 mg/dL 02/13/25 11:01 Leukocyte Esterase (Auto) 0 José Luis/uL 02/13/25 11:01 Date of Service: 01/02/25 Procedure(s): US duplex AV flow penis comp Findings: Right cavernosal artery velocities (PSV, EDV, in cm/sec) are as follows: Pre-injection (10:21): 7.1, 2.6 Injection time (10:25): 12.4, 4.5 10 minute post-injection (10:33): 4.9, 1.9 15 minute post-injection (10:38): 9.7, 2.1 20 minute post-injection (10:42): 4.5, 2.0 25 minute post-injection (10:47): 3.7, 1.9 30 minute post-injection (10:52): 6.5, 3.0 Left cavernosal artery velocities (PSV, EDV, in cm/sec) are as follows: Pre-injection (10:21): 12.4, 2.2 Injection time (10:25): 8.5, 3.6 10 minute post-injection (10:33): 6.6, 2.9 15 minute post-injection (10:38): 2.9, 0 20 minute post-injection (10:42): 7.6, 2.0 25 minute post-injection (10:47): 14.5, 2.6 30 minute post-injection (10:52): 17.9, 2.0 IMPRESSION: Diffusely decreased peak systolic arterial velocities, suggestive of arterial insufficiency. No evidence of venous insufficiency. Assessment & Plan Assessment & Plan (1) Proteinuria: Code(s): R80.9 - Proteinuria, unspecified Category: Medical (2) Weak urinary stream: Code(s): R39.12 - Poor urinary stream Category: Medical (3) Erectile dysfunction associated with type 2 diabetes mellitus: Code(s): E11.69 - Type 2 diabetes mellitus with other specified complication; N52.1 - Erectile dysfunction due to diseases classified elsewhere Category: Medical (4) Erectile disorder due to medical condition in male: Code(s): N52.1 - Erectile dysfunction due to diseases classified elsewhere Category: Medical Plan In office urinalysis results with the patient today; as noted above. Recent penile Doppler results reviewed with the patient today; as noted above. We did discuss importance of lifestyle modifications We discussed further treatment options and risks and benefits of these treatment options All questions were answered Continue Flomax Will continue low-dose daily tadalafil Prescription provided for p.r.n. dosing of Viagra; we discussed importance of following up with cardiology Dr. Fernandez. We discussed the importance of limiting/quitting marijuana dependence in relation to ED as well as overall health and well-being. Follow-up in 3-6 months; or sooner with any issues, concerns, and or questions. Orders: Orders AMB Urinalysis Automated Today Z13.9 - Encounter for screening, unspecified Medications: New sildenafil (Viagra) Take 1/2-1 tablet 1 hour prior to sexual activity not to exceed more than 3 tabs per week [id number] [facility] GroupGDRX Member [id number] 100 mg PO DAILY PRN 10 tabs 0RF sexual activity 30 days Refilled tadalafil [id number] [facility] [id number] Member [id number] 5 mg PO DAILY 90 tabs 3RF 90 days E11.69 - Type 2 diabetes mellitus with other specified complication, N52.1 - Erectile dysfunction due to diseases classified elsewhere Patient Instructions: The patient had an opportunity to ask questions regarding the treatment plan. All questions were answered. Physical exam, labs, and imaging were discussed and reviewed in detail. As well as risks, benefits, and discussion of treatment choices. No major barriers to understanding were identified. The patient expressed understanding and agreement with the above treatment plan. The patient was made aware they should contact our office by phone for worsening of their current condition, the appearance of new symptoms, or with any questions or concerns. Compliance is encouraged with any medications and follow up testing that is ordered. It is a privilege to be allowed the opportunity to participate in? your urological care.? Again, if you have any questions or concerns If you have any questions or concerns please do not hesitate to contact me. The office is [phone]. This note is constructed using voice recognition software. While every effort has been made to ensure accuracy yarn handler errors may have been included. Yours sincerely, BRYON Bolton Coding Level of Care Code Est Pt Level 4 (61428) Complex EM visit Add On G2211 Diagnoses Proteinuria R80.9 Weak urinary stream R39.12 Erectile dysfunction associated with type 2 diabetes mellitus E11.69; N52.1 Erectile disorder due to medical condition in male N52.1
--- OUTSIDE RECORDS SUMMARY | 2025-02-13 12:07 | XMS_ITS | Patient Health Record ---
Author Organization [facility] Address [address] [place] [address] Care Team Providers Care Relief Map Modeler Name Role Phone Pipe Lizarraga Primary Care Provider Unavailab Sowmya Meredith Unavailable [phone] Allergies No Known Allergies Reason For Referral [...] Once a day Active Mounjaro 5 MG/0.5ML Subcutaneous; Duration: 28 Days Active Lisinopril 5 MG 1 [...] Problem Acquired hammer toe of right foot ([id number] ) Other hammer toe(s) (acquired), right foot (M20.41) Active confirmed Problem Acquired hammer toe of left foot ([id number] ) Other hammer toe(s) (acquired), left foot (M20.42) Active confirmed Problem Type 1 diabetes mellitus with diabetic polyneuropathy (E10.42) Active confirmed Problem Polyneuropathy due to type 2 diabetes mellitus ([id number]) Type 2 diabetes mellitus with diabetic polyneuropathy (E11.42) Active confirmed Problem Neuropathy (607226245) Neuropathy (G62.9) Active confirmed Vital Signs Blood pressure diastolic 70 mm Hg 05/30/2024 Height 5rn71kq in 05/30/2024 Blood pressure systolic 120 mm Hg 05/30/2024 Weight 235 lbs 05/30/2024 BMI 33.72 kg/m2 05/30/2024 Encounters Encounter Location Date Provider Diagnosis [address] [address] 03/07/2024 Sowmya Truong Type 2 diabetes mellitus with diabetic polyneuropathy E11.42 ; Contusion of left great toe without damage to nail, initial encounter S90.112A ; Other hammer toe(s) (acquired), left foot M20.42 ; Fibroma D21.9 ; Tinea unguium B35.1 and Pain in left toe(s) M79.[address] [facility] [address] 05/30/2024 Sowmya Truong Neuropathy G62.9 ; Left foot pain M79.672 ; Right foot pain M79.671 ; Type 2 diabetes mellitus with diabetic polyneuropathy E11.42 and Tinea unguium B35.1 [facility] [address] [place] [address] 08/29/2024 Sowmya Trunog Assessments Encounter Date Diagnosis (ICD Code) Assessment [...] - M20.42) 03/07/2024 Fibroma (ICD-10 - D21.9) 05/30/2024 Type 2 diabetes mellitus with diabetic polyneuropathy (ICD-10 - E11.42) 05/30/2024 Tinea unguium (ICD-10 - B35.1) 03/07/2024 Tinea unguium (ICD-10 - B35.1) 03/07/2024 Pain in left toe(s) (ICD-10 - M79.675) Plan Of Treatment Pending Test Test Name Order Date X ray : Foot, left 3V 03/07/2024 Insurance Providers Payer Name Payer Address Payer Phone Subscriber Number Group Number Insured Name Patient Relationship to Insured Coverage Start Date Coverage End Date [facility] [employer] Claims [address] [place] [id number] Joseph York Self - patient is the insured Medical (General) History Medical History History ICD Code Diabetic Heart disease High blood pressure Numbness Chicken pox Heart replacement Valves Surgical History Surgery Date(Month/Year) Heart Valve 12/2014 triple bypass 12/2014
== END 2025-02-13 11:14 | disposition home or self-care (01) ==
LOC: HO.HUSH 10:39
PROVIDERS: PCP Physician Assistant; Visit Provider Nurse Practitioner Family
DX: R80.9 Proteinuria, unspecified (principal); R39.12 Poor urinary stream; E11.69 Type 2 diabetes mellitus with other specified complication; N52.1 Erectile dysfunction due to diseases classified elsewhere; Z13.9 Encounter for screening, unspecified
CPT/HCPCS: 99214; G2211

== ENCOUNTER → 2025-02-13 10:36 | Outpatient (BNVA) | payer OTHER, SELFPAY | PROVIDERS: PCP Physician Assistant; Visit Provider Nurse Practitioner Family | DX: R39.12 Poor urinary stream (principal); R80.9 Proteinuria, unspecified; N52.1 Erectile dysfunction due to diseases classified elsewhere | CPT/HCPCS: 81003; 99212 ==

== ENCOUNTER 2025-03-29 09:13 | Outpatient (AMB) | payer OTHER, SELFPAY ==
--- OUTSIDE RECORDS SUMMARY | 2024-08-29 05:00 | XMS_ITS ---
Author Organization [facility] Address [address] [place] [address] Care Team Providers Care Manager Talent Management Name Role Phone Pipe Lizarraga Primary Care Provider Unavailab Sowmya Meredith [phone] Encounters Encounter Location Date Provider Diagnosis [facility] [address] [place] [address] 08/29/2024 Sowmya Truong Plan Of Treatment No Information Progress Notes * Joseph YORK LDOB: 4 (59 yo M)Acc No.[id number]:08/29/2024 Progress Note Patient: Joseph AKHTAR Provider: Ny Truong DPM :1965 A ge:59 Y S ex:Male Date:08/29/2024 Address:[address] [place], [place] [id number] Pcp:Pipe Lizarraga Subjective: * Chief Complaints: * * Medical History: Objective: * Vitals: Assessment: Plan: * Treatment: * Images: * The named appointment provid er may or may not be the originator of this progress note, and it is not deemed complete until electronically signed by the appointment provider. Sign off status: Pending * Provider: Ny Truong DPM Date: 0 08/29/2024 Generated for Printi ng/Faxing/eTransmitting on: 1 10:23 AM EDT
[2025-03-29 09:43] VITALS: BP 118/90; RESP 18; TEMP 36.3; BMI 29.1
--- NOTE | 2025-03-29 09:43 | A.OFFPC_ITS ---
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 Accompanied by: Self / Same As Patient Allergies No Known Allergies Allergy (Verified 03/29/25 09:55) Medication List - Last Reconciled 03/29/25 by Pipe Lizarraga PA-C alcohol swabs (Alcohol Prep Pads) 1 pad topical .three times a day aspirin 81 mg PO DAILY atomoxetine 60 mg PO DAILY 90 days blood pressure test kit-large As directed blood sugar diagnostic (AimWithuch Ultra Test strips) Testing 3 times a day blood-glucose meter As directed ncyxrpkmybk-byziwoubn-fwmwkqxc 200-62.5-25 mcg (Trelegy Ellipta) 1 inh inhalation DAILY 30 days hydrochlorothiazide 25 mg PO DAILY insulin aspart U-100 (Novolog FlexPen U-100 Insulin aspart) 10 units (0.1 mL) subcut TID 30 days lidocaine 5% 2 patches topical DAILY 30 days lisinopril 5 mg PO DAILY omeprazole 40 mg PO DAILY pen needle, diabetic (BD Karen 2nd Gen Pen Needle) As directed pregabalin 300 mg PO BID 30 days rosuvastatin (Crestor) 40 mg PO DAILY 90 days sertraline 200 mg (2 x 100 mg) PO DAILY 90 days sildenafil (Viagra) 100 mg PO DAILY PRN 30 days tadalafil 5 mg PO DAILY 90 days tamsulosin 0.4 mg PO BEDTIME 30 days tirzepatide (Mounjaro) 7.5 mg (0.5 mL) subcut QWEEK 4 weeks tramadol 50 mg PO Q8H 7 days Tobacco use date assessed: 03/29/25 Dental Screening Dental Screen Date: 03/29/25 Did you have a dental visit in the last 12 months?: No Did you have a dental problem in the last 6 months where you did not have access to dental care?: No Was dental information given to patient?: No HPI dm/htn- A1C needed HPI Details Patient is a 59-year-old male here today for follow-up visit. Patient has a past medical history significant for type 2 diabetes complicated by polyneuropathy, coronary artery disease, ADH to, generalized anxiety disorder Diabetes--> patient's type 2 diabetes has been much better controlled lately. He reports being much better with his diet. Unfortunately continues with what seems to be diabetic neuropathy versus a lumbar spine issue. He continues on Lyrica 300 b.i.d. which he reports his effective form. He is not interested in any further back surgery. Continues to complain of bilateral lower extremity neuropathy particularly in t he feet. Has been using lidocaine patches on his feet which help him at night. Has done multiple treatments for his sensory neuropathy in his legs though have not been effective. He has been using tramadol the more often and feels that is more effective for his pain. He is asking for higher dose of tramadol --> DEPRESSION--> patient now followed b y psychiatrist and started on higher dose of sertraline and Effexor. He feels that his mood and depression her much better. .. CAD:? Has recently up with his elderly sitter and continues to complain of chest pain, could not schedule cardiac PET due to claustrophobia. ?Has had multiple coronary bypasses in the past. Most recent lipid panel showing excellent control over his total cholesterol and LDL. .. COPD: IS followed by Dr Cedillo , reports his pulmonary status has been stable. . [facility] Medical History Dyspnea Renal cyst COVID-19 Obesity Type 2 diabetes mellitus with obesity Asthma-COPD overlap syndrome Coronary artery disease Diabetic neuropathy Surgical History History of herniated intervertebral disc S/P CABG x 3 Family History Father Lung cancer Mother No problems noted. Family/Other Lung cancer Diabetes Social History Housing: House Alcohol intake: current Alcohol intake frequency: holidays/special occasions only Patient Tobacco Use Status: Former Tobacco user Tobacco use type: Cigarette e-Cigarette/Vaping Use: Never Used Second Hand Smoke Exposure: No Substance Use Type: Marijuana service: No Current occupational status: disabled Current occupational exposures/hazards: No Cognitive needs: No Hearing needs: No Vision needs: No Questionnaire PHQ-9 Over the last 2 weeks, how often have you been bothered by any of the following problems? 1. Little interest or pleasure in doing things: several days 2. Feeling down, depressed, or hopeless: several days 3. Trouble falling or staying asleep, or sleeping too much: not at all 4. Feeling tired or having little energy: several days 5. Poor appetite or overeating: not at all 6. Feeling bad about yourself - or that you are a failure or have let yourself or your family down: several days 7. Trouble concentrating on things, such as reading the newspaper or watching television: several days 8. Moving or speaking so slowly that other people could have noticed. Or the opposite - being so fidgety or restless that you have been moving around a lot more than usual: several days 9. Thoughts that you would be better off or of hurting yourself in some way: not at all Total score: 6 Depression Screening Interpretation: Positive Depression Screening Follow-up: Existing condition Depression Screening Done: Yes 05941 - PHQ-9 Billing: Yes Source: Developed by Drs. Danny Milian, May Zapata, Melo Meier and colleagues, with an educational carlos eduardo from [employer]. Thrive Questionnaire Date Thrive assessed: 06/19/24 I am a: Patient What is your living situation today?: I have a steady place to live Within the past 12 months, did the food you bought not last and you didn't have the money to get more?: Never true Within the past 12 months, did you worry whether your food would run out before you got money to buy more?: Never true Do you have trouble paying for medicines?: No Do you have trouble getting transportation to medical appointments?: Yes Do you have trouble paying your heating and electricity bill?: Yes Do you have trouble taking care of your child, family member or friend?: No Do you have trouble with day-to-day activities such as bathing, preparing meals, shopping, managing finances, etc.?: No Are you currently unemployed and looking for a job?: No Are you interested in more education?: No Please select the resources that you would like help with: None Currently or been in a relationship where the following occur: No concerns reported THRIVE Score: 2 AUDIT C Alcohol Use Questionnaire (AUDIT-C) 1. How often do you have a drink containing alcohol?: Never Total Score: 0 LISA-7 AMB Questionnaire LISA-7 Date LISA - 7 assessed: 06/19/24 Feeling nervous, anxious, or on edge: 1 = Several days Not being able to stop or control worryin = Several days Worrying too much about different things: 1 = Several days Trouble relaxin = Several days Being so restless that it is hard to sit still: 1 = Several days Becoming easily annoyed or irritable: 1 = Several days Feeling afraid as if something awful might happen: 1 = Several days Total LISA-7 score (0-4 normal; 5-9 mild; 10-14 moderate; 15-21 severe): 7 Source: Developed by Drs. Danny Milian, May Zapata, Melo Meier and colleagues, with an educational carlos eduardo from [employer]. LISA-7 Assessment Billing LISA-7 Assessment Tool: LISA-7 Assessment 72384 Review of Systems Const Denies headache(s) Eyes Denies loss of vision ENT Denies vertigo, Denies dizziness, Denies headache(s) and Denies sore throat Card Denies chest pain, Denies leg edema and Denies lightheadedness Resp Denies cough, Denies hemoptysis and Denies wheezing GI Denies abdominal pain, Denies melena, Denies constipation, Denies diarrhea and Denies vomiting Denies dysuria, Denies urinary frequency and Denies urinary urgency Musc Denies arthralgias, Denies joint swelling, Denies numbness and Denies tingling Neuro Denies Abnormal speech present, Denies behavioral changes, Denies vertigo, Denies dizziness, Denies headache(s), Denies loss of vision, Denies memory loss, Denies numbness and Denies tingling Psych Denies anxiety, Denies behavioral changes, Denies depression, Denies memory loss and Denies panic attacks Abdirahman/Lymph Denies easy bleeding and Denies easy bruising Aller/Immun Denies wheezing Physical exam (Primary Care) Vital Signs: Last Vital Signs Temp 97.3 F 03/29/25 09:43 Resp 18 03/29/25 09:43 BP 118/90 H 03/29/25 09:43 Oxygen Delivery Method Room Air 03/29/25 09:43 BMI result Body Mass Index 29.1 Tobacco/Smoking Status: Tobacco use Status Tobacco use date assessed 03/29/25 03/29/25 09:53 Patient Tobacco Use Status Former Tobacco user 03/29/25 09:53 Tobacco use type Cigarette 03/29/25 09:53 e-Cigarette/Vaping Use Never Used 03/29/25 09:53 PHQ-9: PHQ-9 Score PHQ-9: Total score 6 03/29/25 09:57 Depression Screening Interpretation: Positive Depression Screening Follow-up: Existing condition Thrive Assessment: Date of Thrive Assessment Date Thrive assessed 06/19/24 03/29/25 09:53 Currently or been in a relationship where the following occur: No concerns r eported Const General: healthy appearing, no acute distress, alert and awake Nutritional Appearance: well nourished Orientation/consciousness: oriented to person, oriented to place and oriented to time HENMT Ears: TM's normal bilaterally General nose exam: Normal nasal mucous membranes and turbinates present Eyes Conjunctivae: conjunctivae normal Sclerae: sclerae normal Pupils: Equal, round and reactive pupils present Neck Neck: Yes no lymphadenopathy and Yes no JVD Thyroid: Thyroid normal Carotids: no bruits Resp Effort & Inspection: normal respiratory effort and not tachypneic Auscultation: no crackles, no rales, no rhonchi and no wheezes Cardio Rate: regular rate Rhythm: regular rhythm Heart sounds: no murmurs and normal S1 and S2 GI Palpation (GI): Soft to palpation, nontender, no hepatomegaly and no s plenomegaly Auscultation: normal bowel sounds Skin General skin exam: no rashes or lesions noted and dry skin Neuro General: oriented to person, oriented to place and oriented to time Cranial nerves: Yes Equal, round and reactive pupils present Speech: No Abnormal speech present Gait exam (Neuro): Normal gait present Motor exam (neuro): no tremor noted Extrem Right upper extremity: full ROM Left upper extremity: full ROM Right lower extremity: full ROM; no edema Left lower extremity: full ROM; no edema Psych Mental Status: mental status grossly normal Speech and movement: Normal speech and movement present Affect: normal affect Attitude: cooperative Thought process: Normal thought process present Office Procedures Flu Questionnaire Does the patient have a severe egg allergy?: No Does the patient have severe life threatening allergies?: No Does the patient have a fever or illness today?: No Has the patient ever had Guillain-[place] Syndrome?: No Has the patient ever had any past reaction to a flu shot?: No Immunizations Fluarix [id number] (PF) 45 mcg (15 mcg x 3)/0.5 mL IM syringe Performing Provider: Pipe Lizarraga PA-C [place] [facility] [place] [facility] Administered by: CLEVELAND Potts on 03/29/25 10:20 Dose Route Admin Location Dispensed Lot Number Expiration Date NDC Resident Physician In Radiology 0.5 mL IM Left Deltoid 0.5 mL [id number] 12/11/25 31437-836-29 readfy VIS Given Date VIS Provided VIS Publication Date 03/29/25 Single Vaccine 24 Eligibility Eligibility Date Funding Source Not [facility] Eligible 03/29/25 Private Coding Level of Care Code Est Pt Level 4 (39945) Diagnoses Type 2 diabetes mellitus with obesity E11.69; E66.9 MDD (major depressive disorder), recurrent episode, moderate F33.1 Coronary artery disease involving [place] coronary artery of [place] heart without angina pectoris I25.10 Coronary Disease-Associated Artery/Lesion type: [place] artery [place] vs. transplanted heart: [place] heart Associated angina: without angina Additional Codes PHQ-9 - 08906 - PHQ-9 Billing: Yes ([id number]) LISA-7 Assessment Billing - LISA-7 Assessment Tool: LISA-7 Assessment 02870 ([id number]) Assessment & Plan Assessment & Plan (1) Type 2 diabetes mellitus with obesity: Code(s): E11.69 - Type 2 diabetes mellitus with other specified complication; E66.9 - Obesity, unspecified Category: Medical Plan: Patient's type 2 diabetes now well controlled with current diabetic med regime. Today's A1c at 5.6.. Continues on GLP 1 therapy and Actos with good effect. . Goal A1c is to remain below 7.0. Will consider discontinuing Actos at next visit (2) MDD (major depressive disorder), recurrent episode, moderate: Code(s): F33.1 - Major depressive disorder, recurrent, moderate Category: Medical Plan: Patient's LISA-7 score positive for depression which has been existing condition for him. Patient is seeing a psychiatrist reports he is doing much better from mental health point of view. He has been started on Strattera which has been helping his attention and focus. (3) CAD (coronary artery disease): Code(s): I25.10 - Atherosclerotic heart disease of [place] coronary artery without angina pectoris Category: Medical Qualifiers: Coronary Disease-Associated Artery/Lesion type: [place] artery [place] vs. transplanted heart: [place] heart Associated angina: without angina Qualified Code(s): I25.10 - Atherosclerotic heart disease of [place] coronary artery without angina pectoris Plan: Continues to follow cardiology. Most recent lipid panel showing excellent control of his total cholesterol and LDL. Goal LDL to be optimally below 70 Orders: Orders Influenza [id number] Immunization Today Z23 - Encounter for immunization Medications: Changed From tramadol Covering for Zia 50 mg PO Q8H 7 days 21 tabs 1RF E11.42 - Type 2 diabetes mellitus with diabetic polyneuropathy To tramadol Covering for [place] 100 mg (2 x 50 mg) PO Q8H 42 tabs 2RF 7 days E11.42 - Type 2 diabetes mellitus with diabetic polyneuropathy
--- OUTSIDE RECORDS SUMMARY | 2025-03-29 10:24 | XMS_ITS | Patient Health Record ---
[facility] Address [address] [place] [address] Care Team Providers Care Senior Mobile Web Developer Name Role Phone Pipe Lizarraga Primary Care Provider Unavailab Sowmya Meredith Unavailable [phone] Allergies No Known Allergies Reason For Referral [...] Problem Acquired hammer toe of right foot ([id number] ) Other hammer toe(s) (acquired), right foot (M20.41) Active confirmed Problem Acquired hammer toe of left foot ([id number] ) Other hammer toe(s) (acquired), left foot (M20.42) Active confirmed Problem Polyneuropathy due to diabetes mellitus type I (538253272) Type 1 diabetes mellitus with diabetic polyneuropathy (E10.42) Active confirmed Problem Polyneuropathy due to type 2 diabetes mellitus (364077710) Type 2 diabetes mellitus with diabetic polyneuropathy (E11.42) Active confirmed Problem Neuropathy (908155441) Neuropathy (G62.9) Active confirmed Vital Signs Blood pressure diastolic 70 mm Hg 05/30/2024 Height 0bv37yi in 05/30/2024 Blood pressure systolic 120 mm Hg 05/30/2024 Weight 235 lbs 05/30/2024 BMI 33.72 kg/m2 05/30/2024 Encounters Encounter Location Date Provider Diagnosis [facility] [address] [address] 05/30/2024 Sowmya Truong Neuropathy G62.9 ; Left foot pain M79.672 ; Right foot pain M79.671 ; Type 2 diabetes mellitus with diabetic polyneuropathy E11.42 and Tinea unguium B35.[address] [facility] [address] 08/29/2024 Sowmya Truong Assessments Encounter Date Diagnosis (ICD Code) Assessment Notes Treatment Notes Treatment Clinical Notes Section Notes 05/30/2024 Neuropathy (ICD-10 - G62.9) 05/30/2024 Left foot pain (ICD-10 - M79.672) 05/30/2024 Right foot pain (ICD-10 - M79.671) 05/30/2024 Type 2 diabetes mellitus with diabetic polyneuropathy (ICD-10 - E11.42) 05/30/2024 Tinea unguium (ICD-10 - B35.1) Plan Of Treatment Pending Test Test Name Order Date X ray : Foot, left 3V 03/07/2024 Insurance Providers Payer Name Payer Address Payer Phone Subscriber Number Group Number Insured Name Patient Relationship to Insured Coverage Start Date Coverage End Date [facility] [employer] Claims [address] [place] [id number] [place] Self - patient is the insured Medical (General) History Medical History History ICD Code Diabetic Heart disease High blood pressure Numbness Chicken pox Heart replacement Valves Surgical History Surgery Date(Month/Year) Heart Valve 12/2014 triple bypass 12/2014
== END 2025-03-29 10:24 | disposition home or self-care (01) ==
LOC: HO.HMCH 09:14
PROVIDERS: PCP Physician Assistant; Visit Provider Physician Assistant
DX: E11.69 Type 2 diabetes mellitus with other specified complication (principal); F33.1 Major depressive disorder, recurrent, moderate; E66.9 Obesity, unspecified; Z68.29 Body mass index [BMI] 29.0-29.9, adult; I25.10 Atherosclerotic heart disease of native coronary artery without angina pectoris; Z23 Encounter for immunization

== ENCOUNTER → 2025-03-29 09:13 | Outpatient (BNVA) | payer OTHER, SELFPAY | PROVIDERS: PCP Physician Assistant; Visit Provider Physician Assistant | DX: E11.42 Type 2 diabetes mellitus with diabetic polyneuropathy (principal); I25.10 Atherosclerotic heart disease of native coronary artery without angina pectoris; F41.1 Generalized anxiety disorder; J44.9 Chronic obstructive pulmonary disease, unspecified; E11.69 Type 2 diabetes mellitus with other specified complication; E66.9 Obesity, unspecified; F33.1 Major depressive disorder, recurrent, moderate; Z23 Encounter for immunization | CPT/HCPCS: 90471; 90656; 96127; 99212 ==